=== PATIENT | female | born 2000 | race Caucasian/White ===

== ENCOUNTER 2024-11-21 23:11 | Emergency (ER) | payer OTHER, SELFPAY ==
[2024-11-21 23:20] VITALS: BP 130/84; PULSE 87; RESP 20; TEMP 36.8; O2SAT 97; BMI 49.9
--- NOTE | 2024-11-21 23:26 | CT_ITS ---
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 Radiation optimization: All CT scans at this facility use at least one of these dose optimization techniques: automated exposure control; mA and/or kV adjustment per patient size (includes targeted exams where dose is matched to clinical indication); or iterative reconstruction. COMPARISON: No relevant prior studies available. FINDINGS: Brain: No hemorrhage. Unremarkable white matter. No mass effect. Cerebral ventricles: Tip of shunt is projected over right lateral ventricle anterior horn. continuous shunt seen extending to visualized right proximal neck. Right lateral ventricle is collapsed. Remainder of ventricles grossly unremarkable. Paranasal sinuses: Visualized sinuses are unremarkable. No fluid levels. Mastoid air cells: Visualized mastoid air cells are well aerated. Bones: Unremarkable. No acute fracture. Soft tissues: Unremarkable. IMPRESSION: 1. Continuous shunt seen from right lateral ventricle anterior horn visualized right proximal neck. 2. 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
--- NOTE | 2024-11-21 23:26 | CT_ITS ---
PROCEDURE INFORMATION: Exam: CT Abdomen And Pelvis With Contrast Exam date and time: 11/22/2024 12:27 AM Age: 24 years old Clinical indication: Nausea and vomiting; Abdominal pain; Prior surgery; Surgery date: 1-6 months; Surgery type: Shunt; Additional info: R side abd pain, n/v, has vp packaging shunt since sept TECHNIQUE: Imaging protocol: Computed tomography of the abdomen and pelvis with contrast. Radiation optimization: All CT scans at this facility use at least one of these dose optimization techniques: automated exposure control; mA and/or kV adjustment per patient size (includes targeted exams where dose is matched to clinical indication); or iterative reconstruction. Contrast material: ISOVUE; Contrast volume: 75 ml; Contrast route: IV; COMPARISON: No relevant prior studies available. FINDINGS: Tubes, catheters and devices: Continuous shunt extending from visualized chest terminating in right lower quadrant/pelvis. Liver: Mild fatty infiltration. Measures 20 cm. No mass. Gallbladder and biliary ducts: Normal. No calcified stones. No ductal dilation. Pancreas: Normal. No ductal dilation. Spleen: Normal. No splenomegaly. Adrenal glands: Normal. No mass. Kidneys and ureters: No nephroureterolithiasis. No hydronephrosis. Stomach and bowel: Unremarkable. No obstruction. No mucosal thickening. Appendix: No evidence of appendicitis. Intraperitoneal space: Small fluid collection in dependent pelvis. No free air. Vasculature: Unremarkable. No abdominal aortic aneurysm. Lymph nodes: Unremarkable. No enlarged lymph nodes. Urinary bladder: Unremarkable as visualized. Reproductive: Unremarkable as visualized. Bones/joints: Unremarkable. No acute fracture. Soft tissues: Unremarkable. IMPRESSION: 1. No acute findings. 2. Continuous shunt seen from lower chest to termination in right lower quadrant/pelvis. 3. Hepatomegaly with fatty infiltration. 4. Small pelvic free fluid physiologic and/or related to shunt.
[2024-11-21 23:27] VITALS: BP 137/85; PULSE 79; RESP 16; TEMP 37.1; O2SAT 95
[2024-11-21 23:44] LABS: Basophils % 0.4 % (0.1-2.0); Eosinophils # 0.2 Kmm3 (0.0-0.4); Eosinophils % 2.1 % (0.1-12.0); Hematocrit 37.9 % (37.0-47.0); Hemoglobin 12.9 g/dL (12.2-16.2); Immature Granulocytes # 0.03 10^3uL; Immature Granulocytes % 0.4 %; Lymphocytes # 2.6 K/mm3 (0.7-4.5); Lymphocytes % 36.4 % (10-50); Mean Corpuscular Hemoglobin 29.3 pg (27.0-31.2); Mean Corpuscular Volume 85.9 fl (81-99); Mean Platelet Volume 9.1 fl (7.4-10.4); Monocytes # 0.5 K/mm3 (0.1-1.0); Monocytes % 7.1 % (1.7-9.3); Neutrophils # 3.9 K/mm3 (1.8-7.8); Neutrophils % 53.6 % (37.0-80.0); Nucleated Red Blood Cells # 0 10^3/uL; Nucleated Red Blood Cells % 0 %; Platelet Count 233 K/mm3 (142-424); Red Blood Count 4.41 M/mm3 (4.20-5.40); Red Cell Distribution Width 12.1 % (11.5-17.5); Red Cell Distribution Width-SD 38.5 fL; White Blood Count 7.2 K/mm3 (4.8-10.8)
[2024-11-21 23:45] LABS: Albumin Level 4.6 g/dl (3.5-5.0); Chloride 106 mmol/L (98-107); Sodium 137 mmol/L (136-145)
[2024-11-21 23:46] LABS: Potassium 4.2 mmoL/L (3.5-5.1)
[2024-11-21 23:48] LABS: Alanine Aminotransferase 55 U/L (12-78); Albumin/Globulin Ratio 1.6 (1.1-1.8); Alkaline Phosphatase 97 U/L (38-126); Anion Gap 10.2 mEq/L (5-15); Aspartate Amino Transferase 66 U/L (14-36); Blood Urea Nitrogen 16 mg/dl (7-17); Carbon Dioxide 25 mmol/L (22.0-30.0); Creatinine Clearance Estimated 85 mL/min (50-200); Estimated Glomerular Filt Rate 76 ml/min (>60); GFR (African American) 92 ML/MIN (>60); Globulin 2.8 g/dL (1.3-3.2); Lipase 77 U/L (23-300); Total Protein,Serum 7.4 g/dl (6.3-8.2)
[2024-11-21 23:49] LABS: Calcium 9.1 mg/dl (8.4-10.2); Glucose 95 mg/dl (74-100)
[2024-11-21 23:52] LABS: Bilirubin,Total 0.1 mg/dl (0.2-1.3)
[2024-11-22 00:02] LABS: Microscopic, Urine URINE MICROSCOPIC (MICROSCOPIC)
[2024-11-22 00:06] LABS: Urine Pregnancy, HCG Qual. Negative (Negative)
[2024-11-22] MEDS: LACTATED RINGERS 1000ML 1,000 ML 999 ML IV (00:18)
[2024-11-22] MEDS: KETOROLAC 30MG/ML VIAL 15 MG IV (00:18)
[2024-11-22] MEDS: ONDANSETRON 4MG/2ML VIAL 4 MG IV ×2 (00:18→03:02)
[2024-11-22 00:19] LABS: Appearance,Urine CLEAR (Clear); Bilirubin,Urine Negative (Negative); Blood, Urine Negative (Negative); Color,Urine YELLOW (Yellow); Glucose,Urine (UA) Negative (Negative); Ketones,Urine Negative (Negative); Leukocyte Esterase,Urine Negative (Negative); Nitrate,Urine Negative (Negative); Protein,Urine Negative (Negative); Specific Gravity, Urine >= 1.030 (1.005-1.030); Urobilinogen,Urine 0.2 EU/dl (0.2)
[2024-11-22 00:22] LABS: Bacteria,Urine 1+ /lpf
[2024-11-22 00:31] LABS: HIV Combo NEGATIVE (Negative)
[2024-11-22 00:39] LABS: Hepatitis C Ab Qual. W/ RFX NEGATIVE (Negative)
--- NOTE | 2024-11-22 01:10 | HMH.EDGENADL ---
Discharge Plan Disposition Chief Complaint: Abdominal Pain Referrals Follow up/Referrals: Provider,Referral, [Primary Care Provider] - See instructions Activity Restrictions/Add. Instructions Additional Instructions/Restrictions: Go directly to [facility] ER, do not make stops along the way. Do not eat or drink before arriving. Check in at the desk and tell them you are transferred from [facility]. Clinical Impressions Clinical Impression: Headache, Right upper quadrant abdominal pain, Nausea & vomiting, Slit ventricle syndrome Stand Alone Forms Stand Alone Forms: Transfer Record - ED Print Language Print Language: Kinyarwanda Discharge ED Provider: Lamine Godinez General Adult HPI General Chief complaint: Abdominal Pain Stated complaint: has a shunt, vomiting, R side pain Time Seen by Provider: 11/21/24 23:26 Mode of Arrival: Ambulatory Source of Information: Patient Description of Symptoms (Recalled from ER Triage Doc. by RN): Pt reports she is having right side pain and vomiting for approx 4 days. 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 She reports the pain is constant. She reports taking IBU 2x this date with no relief. History of Present Illness HPI narrative: 24-year-old female presents to the ER complaining of right upper quadrant abdominal pain as well as nausea and vomiting. Patient reportedly had a THREADER OPERATOR shunt placed at [facility] in March 2024. She was told if she had any problems to be seen. She reports that a few days before her right upper quadrant pain and nausea started she started having mild headaches. She reports the pain in the right upper quadrant is constant. It is not worsened or improved by anything. She has not noticed any changes with eating or drinking. She states she took ibuprofen twice prior to arrival without improvement of symptoms. She states she has not had any problems with her shunt previous to this. No fevers, chills, dizziness, numbness, tingling, weakness, chest pain, difficulty breathing, or other associated symptoms. Related Data Allergies Allergy/AdvReac Type Severity Reaction Status Date / Time No Known Allergies Allergy Verified 11/21/24 23:27 [facility] Disclaimer: The information contained in this section may have been updated after the patient was seen, as this information can be updated by other users. Social History Smoking Status: Never smoker alcohol intake: never current occupational status: other Travel in the last 8 weeks?: None ROS Obtained: Yes Systems reviewed as appropriate & no additional complaints except as documented Per HPI Physical Exam General General appearance: alert, in no apparent distress and obese Head Head exam: atraumatic and normocephalic Eye Eye exam: Present PERRL and EOMI ENT ENT exam: Present mucous membranes moist Neck Neck exam: Present normal inspection and full ROM; Absent tenderness Chest Chest inspection: Present symmetric chest wall rise Respiratory Respiratory exam: Present normal lung sounds bilaterally; Absent respiratory distress, wheezes or stridor Cardiovascular Cardiovascular exam: Present regular rate and normal rhythm Abdominal Exam Abdominal exam: Present soft and tenderness (Right upper quadrant, moderate); Absent distention, guarding or rebound Extremities Exam Extremities exam: Present full ROM; Absent edema Neurological Exam Neurological exam: Present alert, oriented X3, CN II-XII intact and normal gait; Absent motor sensory deficit Psychiatric Psychiatric exam: Present normal affect and normal mood Skin Skin exam: Present warm and dry Medical Decision Making Medical Records Screening: Per USPSTF and CDC recommendations, given the prevalence of disease in our region, it is our hospital?s policy to screen for HIV and viral Hepatitis for all patients aged 18 and over and those with ongoing risk factors. [place] Inquiry Pt receiving controlled substance: No Vital Signs: 11/21/24 23:20 11/21/24 23:27 11/22/24 01:12 Temperature 98.2 F 98.7 F Temperature Source Oral Oral Pulse Rate 79 86 Pulse Rate [Left] 87 Respiratory Rate 20 16 Blood Pressure 137/85 137/85 Blood Pressure [Right Arm] 130/84 Blood Pressure Mean [Right Arm] 99 Blood Pressure Source Automatic Cuff Blood Pressure Source [Right Arm] Automatic Cuff Blood Pressure Position [Right Arm] Sitting 02 Sat by Pulse Oximetry 97 95 99 Oxygen Delivery Method Room Air Room Air Lab Data Lab Results 11/21/24 23:25: WBC 7.2, RBC 4.41, Hgb 12.9, Hct 37.9, MCV 85.9, MCH 29.3, MCHC 34.0, RDW 12.1, Plt Count 233, MPV 9.1, Neut % (Auto) 53.6, Lymph % (Auto) 36.4, [place] % (Auto) 7.1, Eos % (Auto) 2.1, Baso % (Auto) 0.4, Neut # (Auto) 3.9, Lymph # (Auto) 2.6, [place] # (Auto) 0.5, Eos # (Auto) 0.2, Baso # (Auto) 0.0, Sodium 137, Potassium 4.2, Chloride 106, Carbon Dioxide 25, Anion Gap 10.2, BUN 16, Creatinine 0.90, Estimated Creat Clear 85, Estimated GFR 76, Est GFR ( Amer) 92, Glucose 95, Calcium 9.1, Total Bilirubin 0.1 L, AST 66 H, ALT 55, Alkaline Phosphatase 97, Total Protein 7.4, Albumin 4.6, Globulin 2.8, Albumin/Globulin Ratio 1.6, Lipase 77, HCV Ab [place] w/Rflx PCR Qn Negative, HIV Ag/Ab Combo Qual Negative 11/21/24 23:58: Urine Color Yellow, Urine Appearance Clear, Urine pH 6.0, Ur Specific [place] >= 1.030, Urine Protein Negative, Urine Glucose (UA) Negative, Urine Ketones Negative, Urine Blood Negative, Urine Nitrate Negative, Urine Bilirubin Negative, Urine Urobilinogen 0.2, Ur Leukocyte Esterase Negative, Ur Squamous Epith Cells 5-10, Urine Bacteria 1+, Urine HCG, Qual Negative 11/21/24 23:25 11/21/24 23:25 Orders (Tests/Meds): ED MEDICATIONS Generic Name Dose Route Start Last Admin Trade Name Freq PRN Reason Stop Dose Admin Sodium Chloride 10 ml 11/22/24 00:29 Sodium Chloride 0.9% 10ml Syr (Rad Only) IV 12/22/24 00:28 NEEDED PRN Maintain IV Site Discontinued Medications Generic Name Dose Route Start Last Admin Trade Name Freq PRN Reason Stop Dose Admin Lactated Ringer's 1,000 mls @ 999 mls/hr 11/21/24 23:26 11/22/24 00:18 Lactated Ringer's 1000 Ml Bag IV 11/22/24 00:26 999 mls/hr .Q1H1M ONE Administration Iopamidol 75 ml 11/22/24 00:29 Iopamidol-370 (76%);100ml Bottle IV 11/22/24 00:30 ONCE ONE Ketorolac Tromethamine 15 mg 11/21/24 23:47 11/22/24 00:18 Ketorolac 30mg/Ml Vial IV 11/21/24 23:48 15 mg ONCE ONE Administration Morphine Sulfate 4 mg 11/22/24 01:53 11/22/24 02:00 Morphine 4mg/Ml Syringe IV 11/22/24 01:54 4 mg ONCE ONE Administration Ondansetron HCl 4 mg 11/21/24 23:26 11/22/24 00:18 Ondansetron 4mg/2ml Vial IV 11/21/24 23:27 4 mg ONCE ONE Administration ORDERS Category Date Time Status CT abdomen pelvis w con Stat Cat Scan 11/21/24 23:[address] chest wo con Stat Cat Scan 11/22/24 01:[address] head/brain wo con Stat Cat Scan 11/21/24 23:26 Completed POCUS Point of Care (ER Only) Stat Exams 11/22/24 01:53 Ordered XR KUB Stat Exams 11/22/24 23:30 Completed XR cervical spine 2V Stat Exams 11/22/24 23:30 Completed XR chest portable Stat Exams 11/22/24 23:30 Completed XR skull <4V Stat Exams 11/22/24 23:30 Completed CBC w/Auto Diff [Complete Blood Count Auto Diff] Stat Lab 11/21/24 23:25 Completed CMP [Comprehensive Metabolic Panel] Stat Lab 11/21/24 23:25 Completed HIV Combo Stat Lab 11/21/24 23:25 Completed Hepatitis C Ab Qual. W/ RFX Stat Lab 11/21/24 23:25 Completed Lactic Acid Stat Lab 11/21/24 23:26 Ordered Lipase Stat Lab 11/21/24 23:25 Completed Urinalysis and Microscopic Stat Lab 11/21/24 23:58 Completed Urine , HCG Qual. Stat Lab 11/21/24 23:58 Completed Medical Decision Narrative: In summary, this 24 year old female with comorbidities described in the HPI presents to the emergency department today with right upper quadrant pain, nausea, vomiting for 4 days with associated headache that started a few days before the vomiting. On initial evaluation patient is hemodynamically stable, afebrile, GCS 15, no neurologic deficits, patient has tenderness to palpation of the right upper quadrant without rebound or guarding, remainder of exam benign. Differential diagnosis includes but is not limited to biliary colic, cholecystitis, cholelithiasis, transaminitis, pancreatitis, UTI, THREADER OPERATOR shunt malfunction, increased intracranial pressure, among others. Based on these concerns, I ordered serum labs, shunt imaging, CT imaging of the head and abdomen. Patient received IV fluids, Toradol, Zofran initially for treatment. These do not significantly control symptoms so she also received morphine. Labs personally reviewed demonstrate normal CBC, CMP overall unremarkable though patient does have mild AST elevation with AST 66. No other elevated transaminases. She reports no alcohol use. Lipase normal at 77. UA negative for findings of infection, test negative. All x-rays were personally interpreted, I do not appreciate acute abnormality however the shunt is not visible throughout the mid thoracic area. See radiology read for final interpretation. Because the shunt was not visible on this image, CT of the chest without contrast was added to workup after other CT imaging had already been performed to ensure that the shunt did not have discontinuity in this area. CT imaging personally interpreted demonstrates that the shunt appears intact throughout its course, the right ventricle is a slit ventricle where the shunt is present, there is a small amount of fluid at the distal end of the shunt in the abdomen which is appropriate, there does not appear to be obvious right upper quadrant pathology where the patient is having abdominal pain. See radiology read for final interpretation. Plan for bedside ultrasound performed and interpreted does not demonstrate obvious gallbladder pathology. See procedure note for details. On reassessment after receiving morphine patient has had some improvement of symptoms. She is resting more comfortably. Because I do not have an obvious diagnosis for her symptoms, I called [facility] and consulted with the patient's neurosurgeon Dr. Alonzo about her symptoms, workup, and results. She recommends the patient be transferred to ER for further evaluation of the shunt including to evaluate for possible infection or other malfunction. I appreciate her recommendations. I discussed that I have lower suspicion for infection since patient has not had fevers and has no leukocytosis but agree that I cannot fully evaluate the shunt in this facility. I was then connected with Dr. Reyes at the ER and discussed this case with him. He graciously accepted the patient for ER to ER transfer to [facility]. Since patient is ER to ER transfer, I recommended to her that she go by ambulance, she and family at bedside would prefer to go by private vehicle. Patient has no infectious signs or symptoms, vitals have been stable, overall her workup is relatively reassuring and she is stable without obvious immediate life-threatening pathology. I believe she is appropriate for private vehicle transport at this time since it is there desire and she has no ongoing treatments at this moment and is stable. Additionally, when I discussed transfer with the patient EMS was not yet back in [facility] which is further reason for her to go POV. IV was removed prior to patient leaving the ER since she was going by private vehicle. I gave the patient and family at bedside who would be driving her strict instructions to go directly from our ER to the [facility] ER, to not make stops along the way, and for the patient to remain n.p.o. until she was evaluated by their ER. Patient and family were given the transfer packet including all records from today's visit and imaging disc. Images were also PowerShared to . Patient and family were instructed where to go and what to do upon arrival to their ER including indicating to staff that they were a transfer from [facility]. They indicated understanding and are agreeable to this. Patient's fianc? at bedside will be driving her. Patient was immediately reassessed prior to transfer. She is a GCS 15, vitals are stable, resting comfortably at this time. Airway patent. IV has been removed. She is appropriate for transfer and was transferred to [facility] ER via private vehicle. Procedures Miscellaneous Procedure Procedure Performed: Limited RUQ ultrasound Indication: Right upper quadrant abdominal pain, nausea, vomiting Identified structures: -Gallbladder -Gallbladder wall -Common bile duct unable to be evaluated secondary to body habitus, bowel gas -Liver Findings: Sonographic Juarez sign: Present Gallstones: Absent Sludge: Absent Pericholecystic fluid: Absent Maximal GB wall thickness (mm): 1.9 mm Normal Common bile duct width (mm): Unable to be measured Gallbladder width (cm): Normal, 1.06 cm Normal Gallbladder length (cm): [normal is < 10cm] Normal Impression: Normal-appearing gallbladder Images were saved to permanent archive The study was technically adequate CPT 56935-89 This study was performed by me, and I personally interpreted all images/videos. Based on my clinical judgement, these images were adequate and did not necessitate further imaging. Critical Care Critical Care Time Critical Care Time: No
[2024-11-22 01:12] VITALS: BP 137/85; PULSE 86; O2SAT 99
--- NOTE | 2024-11-22 01:31 | CT_ITS ---
PROCEDURE INFORMATION: Exam: CT Chest Without Contrast; Diagnostic Exam date and time: 11/22/2024 1:37 AM Age: 24 years old Clinical indication: Other: N/v; Prior surgery; Surgery date: 1-6 months; Surgery type: Shunt; Additional info: Eval shunt continuity TECHNIQUE: Imaging protocol: Diagnostic computed tomography of the chest without contrast. Radiation optimization: All CT scans at this facility use at least one of these dose optimization techniques: automated exposure control; mA and/or kV adjustment per patient size (includes targeted exams where dose is matched to clinical indication); or iterative reconstruction. COMPARISON: CR XR CHEST PORTABLE 11/22/2024 12:33 AM FINDINGS: Lungs: Unremarkable. No consolidation. No masses. Pleural spaces: Unremarkable. No pneumothorax. No pleural effusion. Heart: Unremarkable. No cardiomegaly. No pericardial effusion. Coronary arteries: No atherosclerotic calcification of coronary arteries. Lymph nodes: Unremarkable. No enlarged lymph nodes. Vasculature: Unremarkable. No aortic aneurysm. Bones/joints: Unremarkable. No acute fracture. Soft tissues: Shunt discontinued visualized from neck to abdomen with abdomen CT showing continuity to right lower quadrant/pelvis. IMPRESSION: 1. Shunt continuity verified from neck to termination in abdomen. 2. No acute findings in chest.
[2024-11-22] MEDS: MORPHINE 4MG/ML SYRINGE 4 MG IV (02:00)
[2024-11-22] MEDS: MORPHINE 2MG/ML SYRINGE 2 MG IV (03:02)
--- NOTE | 2024-11-22 03:04 | PC.NURSE ---
Report called to ER spoke with Donavon FANG
[2024-11-22 03:09] VITALS: BP 137/85; PULSE 82; RESP 18; TEMP 36.6
--- NOTE | 2024-11-22 23:30 | XR_ITS ---
PROCEDURE INFORMATION: Exam: XR Chest Exam date and time: 11/22/2024 12:33 AM Age: 24 years old Clinical indication: Other: N/v; Prior surgery; Surgery date: 1-6 months; Surgery type: Shunt; Additional info: Shunt series TECHNIQUE: Imaging protocol: Radiologic exam of the chest. Views: 1 view. COMPARISON: CR XR CERVICAL SPINE 2V 11/22/2024 12:28 AM FINDINGS: Tubes, catheters and devices: Segment of shunt is projected over right lower neck and upper chest. No obvious shunt is seen distal to this. Lungs: Unremarkable. No consolidation. Pleural spaces: Unremarkable. No pleural effusion. No pneumothorax. Heart/Mediastinum: Unremarkable. No cardiomegaly. Bones/joints: Unremarkable. IMPRESSION: Shunt seen from right lower neck to upper chest. No radiopaque shunt seen in mid to lower chest.
--- NOTE | 2024-11-22 23:30 | XR_ITS ---
PROCEDURE INFORMATION: Exam: XR Skull Exam date and time: 11/22/2024 12:27 AM Age: 24 years old Clinical indication: Other: N/v; Prior surgery; Surgery date: 1-6 months; Surgery type: Shunt; Additional info: Shunt series TECHNIQUE: Imaging protocol: XR of the skull. Views: Less than 4 views. COMPARISON: CT HEAD/BRAIN WO CON 11/22/2024 12:14 AM FINDINGS: Paranasal sinuses: Well aerated. Bones/joints: Shunt seen from mid skull to proximal neck. Soft tissues: Unremarkable. IMPRESSION: Shunt visualized from mid skeletal proximal without loss of continuity.
--- NOTE | 2024-11-22 23:30 | XR_ITS ---
PROCEDURE INFORMATION: Exam: XR Abdomen Exam date and time: 11/22/2024 12:34 AM Age: 24 years old Clinical indication: Nausea; Additional info: Shunt series TECHNIQUE: Imaging protocol: Radiologic exam of the abdomen. Views: Frontal supine view of the abdomen. 1 View. COMPARISON: CT ABDOMEN PELVIS W CON 11/22/2024 12:27 AM FINDINGS: Tubes, catheters and devices: Segment of shunt is seen in from lower chest extending to right hemiabdomen with shunt tip projected in right lower quadrant. Gastrointestinal tract: Normal. No bowel dilation. Bones/joints: Unremarkable. IMPRESSION: Shunt seen from right lower chest terminating in right lower quadrant.
--- NOTE | 2024-11-22 23:30 | XR_ITS ---
PROCEDURE INFORMATION: Exam: XR Cervical Spine Exam date and time: 11/22/2024 12:28 AM Age: 24 years old Clinical indication: Other: N/v shunt; Prior surgery; Surgery date: 1-6 months; Additional info: Shunt series TECHNIQUE: Imaging protocol: Radiologic exam of the cervical spine. Views: 2 or 3 views. COMPARISON: CR XR SKULL <4V 11/22/2024 12:27 AM FINDINGS: Bones/joints: Segment of shunt seen projected over right skull base extending into right chest. Soft tissues: Unremarkable. IMPRESSION: Shunt seen from right skull to visualized upper chest.
== END 2024-11-22 03:12 | disposition other institution (70) ==
PROVIDERS: Emergency Provider Emergency Medicine
DX: R10.11 Right upper quadrant pain (principal); R51.9 Headache, unspecified; R11.2 Nausea with vomiting, unspecified; T85.890A Other specified complication of nervous system prosthetic devices, implants and grafts, initial encounter
CPT/HCPCS: 70250; 70450; 71045; 71250; 72040; 74018; 74177; 80053; 81001; 81025; 83690; 85025; 86803; 87389; 96361; 96374; 96375; 96376; 99285; J1885; J2270; J2405; J7120

== ENCOUNTER 2024-12-02 08:25 | Outpatient (CLI) | payer OTHER, SELFPAY ==
--- NOTE | 2024-12-02 08:28 | US_ITS ---
FINAL REPORT CLINICAL HISTORY: RUQ PAIN FINDINGS: RIGHT UPPER QUADRANT ULTRASOUND Technique: Ultrasound images of the right upper quadrant were obtained. Limited images of the liver parenchyma is normal in echogenicity. The gallbladder is well visualized and the wall appears normal. There are no gallstones. Common duct is normal. The right kidney is unremarkable. IMPRESSION: No acute process Reviewed, Interpreted and Dictated by Holden Shultz MD Transcribed by Gaby Simon Authenticated and . [facility]
== END 2024-12-02 23:59 | disposition home or self-care (01) ==
LOC: RAD 08:26
PROVIDERS: PCP Nurse Practitioner Family; Visit Provider Nurse Practitioner Family
DX: R10.11 Right upper quadrant pain (principal)
CPT/HCPCS: 76705

== ENCOUNTER 2024-12-12 07:02 | Outpatient (CLI) | payer OTHER, SELFPAY ==
--- NOTE | 2024-12-12 07:12 | NM_ITS ---
FINAL REPORT CLINICAL HISTORY: ACUTE ABD PAIN FINDINGS: Sequential anterior projection images of the abdomen were obtained after the intravenous injection of 8.17 mCi technetium 99m Choletec. There is normal uptake of radiotracer by the liver. The bile ducts are visualized by 10 minutes. Gallbladder activity is seen by 5 minutes. Small bowel activity is normal. After 1 hour, 2.8 ?g of CCK was injected intravenously for calculation of gallbladder ejection fraction. The gallbladder ejection fraction is 87%, which is within normal limits. IMPRESSION: No evidence of cystic duct or bile duct obstruction. Normal gallbladder ejection fraction of 87%. Reviewed, Interpreted and Dictated by Letty Coe MD Transcribed by Amanda Milian Authenticated and . [facility]
[2024-12-12] MEDS: SODIUM CHLORIDE 0.9% 10ML SYR (RAD ONLY) 10 ML IV (07:25)
[2024-12-12] MEDS: SINCALIDE 2.8 MCG in 0.9 % SODIUM CHLORIDE 50 ML 100 MCG IV (08:30)
[2024-12-12] MEDS: ISOTOPE CHOLETECH;1 DOSE (UP TO 15 MCI) IV (09:37)
== END 2024-12-12 23:59 | disposition home or self-care (01) ==
LOC: RAD 07:03
PROVIDERS: PCP Nurse Practitioner Family; Visit Provider Nurse Practitioner Family
DX: R10.9 Unspecified abdominal pain (principal)
CPT/HCPCS: 78227; A9537; J2805

== ENCOUNTER 2025-01-03 13:27 | Emergency (ER) | payer OTHER, SELFPAY ==
--- OUTSIDE RECORDS SUMMARY | 2008-10-01 08:30 | XMS_ITS | Continuity of Care Document ---
Author Organization [facility] Address [address] [place] [address] Phone Care Team Providers Care Clinical Documentation Clerk Name Role Phone Unavailable Unavailable Unavailable Procedures Procedure Date CHILD PROPHYLAXIS(Under 14) TOPICAL APPL OF FLUORIDE:CHILD 09 COMPR ORAL EVAL:NEW/EST BITEWIN FILMS PANORAMIC FILM Advance Directives Directive Yes / No Effective Date File Name No Information Encounters Encounter Description Practice Location Reason(s) For Visit Diagnoses Date Provider Providers Copied on Encounter [facility], [address] [facility] [address], [place], [place], [id number], tel:[phone] [facility] No Information 200 9 No Information [facility], [address], [place], [id number], tel:[phone] [facility] No Information 200 9 No Information Family History Family Member Type Diagnosis Age At Onset No Information Payers Payer name Insurance type Covered republican ID Authorfrank sanchez(s) Donavan Zarate [facility] [id number] [facility] [id number] Social History Type Description Quantity Date Captured [...]
--- OUTSIDE RECORDS SUMMARY | 2024-11-22 04:46 | XMS_ITS | Encounter Summary ---
Author Organization [facility] Address [address] [place] [address] Care Team Providers Care Powerhouse Engineer Name Role Phone KendrickAngelica corey JAYNA Primary Care Provider [phone] Source Comments This information has been disclosed [...] release of HIV test results or diagnoses. [id number] Reason for Visit * Reason Comments Medical Problem Encounter Details Date Type Department Care Team (Late st Contact Info) Description 11/22/2024 4:46 AM EDT - 11/22/2024 10:02 AM EDT Emergency [facility] Emergency Department [address] [place] [phone] Ravin Reyes MD [address] [place] [phone] Right flank pain (Primary Dx); Blurred vision [...] tablet 1 08/06/2024 naloxone (NARCAN) 4 mg/actuation [place] Apply 1 spray in one nostril if [...] Mccann MD - 11/22/2024 6:59 AM EDT [facility] ED Reassessment Note Susan Art is a [...] in this encounter H&P Notes * Ritchie Ojeda MD - 11/22/2024 5:02 AM EDT [facility] ED Note Date of Service: 11/22/2024 Reason for Visit: No chief complaint on file. Patient History HPI Susan Art is a 24 y.o. female with a history of IIH s/p VPS placement in 03/2024 who presents to the ED for evaluation of R flank pain and concern for shunt malfunction. Patient arrives as a transfer from [facility] for neurosurgery evaluation due to c/f shunt [...] Morbid obesity with BMI of 50.0-59.9, adult ([facility]) PCOS (polycystic ovarian syndrome) PONV (postoperative nausea and vomiting) Transient elevated blood pressure Past Surgical History: Procedure Laterality Date ANKLE SURGERY Left 2020 right done 2019, right done again in 2020 EYE SURGERY FOOT SURGERY INSERTION SHUNT ACTUARIAL TRAINEE LAPAROSCOPIC ASSISTED Right 03/12/2024 Procedure: INSERTION SHUNT ACTUARIAL TRAINEE LAPAROSCOPIC ASSISTED WITH BRAIN LAB-; Surgeon: Michaela [...] typographic errors. Ritchie Ojeda MD Resident 11/28/24 [id number] Cosigned by Ravin Reyes MD at 11/29/2024 12:20 PM EDT documented in this encounter Consult Notes * Brendon Bush MD - 11/22/2024 7:30 AM EDTAssociated Order(s): ED CONTACT PROVIDER [facility] Ophthalmology ED Consultation Susan is a [...] Morbid obesity with BMI of 50.0-59.9, adult ([facility]) PCOS (polycystic ovarian syndrome) PONV (postoperative nausea [...] Vessels Normal Normal Periphery Normal Normal Assessment/Plan: [facility] s/p VPS - presents with 1 week [...] Morse MD - 11/22/2024 5:25 AM EDT [facility] DEPARTMENT OF NEUROSURGERY INPATIENT CONSULTATION Susan Art [id number] 2000 Neurosurgery Attending: MD Cheri Primary Care [...] Morbid obesity with BMI of 50.0-59.9, adult ([facility]) PCOS (polycystic ovarian syndrome) PONV (postoperative nausea and vomiting) Transient elevated blood pressure Past Surgical History: Procedure Laterality Date ANKLE SURGERY Left 2020 right done 2019, right done again in 2020 EYE SURGERY FOOT SURGERY INSERTION SHUNT ACTUARIAL TRAINEE LAPAROSCOPIC ASSISTED Right 03/12/2024 Procedure: INSERTION SHUNT ACTUARIAL TRAINEE LAPAROSCOPIC ASSISTED WITH BRAIN LAB-; Surgeon: Michaela Alonzo MD; Location: [facility]; Service: Neurosurgery; Laterality: Right; TONSILLECTOMY AND [...] hours as needed. naloxone (NARCAN) 4 mg/actuation [place] Apply 1 spray in one nostril if [...] for: PHART , PCO2 , PO2ART , [id number] , BEART , [id number] , [id number] Lab Results Component Value Date ABS Negative [...] hesitate to contact the neurosurgery residenton call, [phone]. Fe Morse MD Neurosurgery Resident 5:26 AM [...] in neurosurgery clinic Michaela Alonzo MD, PhD Toolmaker, Department of Neurosurgery Director, [facility] documented in this encounter Nursing Notes * Hilda Delaney RN - 11/22/2024 4:53 AM EDT Patient from OSH for ACTUARIAL TRAINEE shunt problem. Patient is endorsing generalized body [...] shunt failure Check position and configuration of ACTUARIAL TRAINEE shunt catheter. COMPARISON: 08/08/2024 FINDINGS: There is [...] shunt failure Check position and configuration of ACTUARIAL TRAINEE shuntcatheter. COMPARISON: 08/08/2024 FINDINGS: There is a [...] EDT Fe Morse MD IM DIAGNOSTIC IMAGING [place] Final Result documented in this encounter Visit [...] documented as of this encounter Care Teams Powerhouse Engineer Relationship Specialty Start Date End Date Angleica Marks NP [address] [place] [address] PCP - General Nurse Practitioner 05/13/21 documented as of this encounter
--- OUTSIDE RECORDS SUMMARY | 2024-12-12 14:49 | XMS_ITS | Encounter Summary ---
Author Organization [facility] Address [facility] [place] [address] Care Team Providers Care Reinsurance Claims Analyst Name Role Phone KendrickAngelica corey JAYNA Primary Care Provider [phone] Source Comments This information has been disclosed [...] release of HIV test results or diagnoses. [id number] Health Encounter Details Date Type Department Care Team (Latest Contact Info) Description 12/12/2024 2:49 PM EDT - 12/12/2024 11:59 PM EDT Hospital Encounter [facility] Radiology [address] [place] [address] System, Provider Not In Discharge Disposition: Home [...] tablet 1 08/06/2024 naloxone (NARCAN) 4 mg/actuation [place] Apply 1 spray in one nostril if [...] documented as of this encounter Care Teams Reinsurance Claims Analyst Relationship Specialty Start Date End Date Angelica Marks NP [address] [place] [address] PCP - General Nurse Practitioner 05/13/21 documented as of this encounter
--- OUTSIDE RECORDS SUMMARY | 2024-12-12 14:49 | XMS_ITS | Encounter Summary ---
Author Organization [facility] Address [facility] [place] [address] Care Team Providers Care Associate Java Developer Name Role Phone KendrickAngelica corey JAYNA Primary Care Provider [phone] Source Comments This information has been disclosed [...] release of HIV test results or diagnoses. [id number] Health Encounter Details Date Type Department Care Team (Latest Contact Info) Description 12/12/2024 2:49 PM EDT - 12/12/2024 11:59 PM EDT Hospital Encounter [facility] Radiology [address] [place] [address] System, Provider Not In Discharge Disposition: Home [...] tablet 1 08/06/2024 naloxone (NARCAN) 4 mg/actuation [place] Apply 1 spray in one nostril if [...] documented as of this encounter Care Teams Associate Java Developer Relationship Specialty Start Date End Date Angelica Marks NP [address] [place] [address] PCP - General Nurse Practitioner 05/13/21 documented as of this encounter
--- OUTSIDE RECORDS SUMMARY | 2024-12-12 14:49 | XMS_ITS | Encounter Summary ---
Author Organization [facility] Address [facility] [place] [address] Care Team Providers Care Bench Worker Apprentice Name Role Phone KendrickAngelica corey JAYNA Primary Care Provider [phone] Source Comments This information has been disclosed [...] release of HIV test results or diagnoses. [id number] Health Encounter Details Date Type Department Care Team (Latest Contact Info) Description 12/12/2024 2:49 PM EDT - 12/12/2024 11:59 PM EDT Hospital Encounter [facility] Radiology [address] [place] [address] System, Provider Not In Discharge Disposition: Home [...] tablet 1 08/06/2024 naloxone (NARCAN) 4 mg/actuation [place] Apply 1 spray in one nostril if [...] documented as of this encounter Care Teams Bench Worker Apprentice Relationship Specialty Start Date End Date Angelica Marks NP [address] [place] [address] PCP - General Nurse Practitioner 05/13/21 documented as of this encounter
--- OUTSIDE RECORDS SUMMARY | 2024-12-12 14:49 | XMS_ITS | Encounter Summary ---
Author Organization [facility] Address Formerly named [facility] [place] [address] Care Team Providers Care Fire Operations Forester Name Role Phone KendrickAngelica corey JAYNA Primary Care Provider [phone] Source Comments This information has been disclosed [...] release of HIV test results or diagnoses. [id number] Health Encounter Details Date Type Department Care Team (Latest Contact Info) Description 12/12/2024 2:49 PM EDT - 12/12/2024 11:59 PM EDT Hospital Encounter [facility] Radiology [address] [place] [address] System, Provider Not In Discharge Disposition: Home [...] tablet 1 08/06/2024 naloxone (NARCAN) 4 mg/actuation [place] Apply 1 spray in one nostril if [...] documented as of this encounter Care Teams Fire Operations Forester Relationship Specialty Start Date End Date Angelica Marks NP [address] [place] [address] PCP - General Nurse Practitioner 05/13/21 documented as of this encounter
--- OUTSIDE RECORDS SUMMARY | 2024-12-12 14:49 | XMS_ITS | Encounter Summary ---
Author Organization [facility] Address [facility] [place] [address] Care Team Providers Care Wharf Tender Head Name Role Phone KendrickAngelica corey JAYNA Primary Care Provider [phone] Source Comments This information has been disclosed [...] release of HIV test results or diagnoses. [id number] Health Encounter Details Date Type Department Care Team (Latest Contact Info) Description 12/12/2024 2:49 PM EDT - 12/12/2024 11:59 PM EDT Hospital Encounter [facility] Radiology [address] [place] [address] System, Provider Not In Discharge Disposition: Home [...] tablet 1 08/06/2024 naloxone (NARCAN) 4 mg/actuation [place] Apply 1 spray in one nostril if [...] documented as of this encounter Care Teams Wharf Tender Head Relationship Specialty Start Date End Date Angelica Marks NP [address] [place] [address] PCP - General Nurse Practitioner 05/13/21 documented as of this encounter
--- OUTSIDE RECORDS SUMMARY | 2024-12-12 14:49 | XMS_ITS | Encounter Summary ---
Author Organization [facility] Address [facility] [place] [address] Care Team Providers Care Reach Lift Truck Driver Name Role Phone KendrickAngelica corey JAYNA Primary [...] release of HIV test results or diagnoses. [id number] Health Encounter Details Date Type Department Care Team (Latest Contact Info) Description 12/12/2024 2:49 PM EDT - 12/12/2024 11:59 PM EDT Hospital Encounter [facility] Radiology [address] [place] [address] System, Provider Not In Discharge Disposition: Home [...] tablet 1 08/06/2024 naloxone (NARCAN) 4 mg/actuation [place] Apply 1 spray in one nostril if [...] documented as of this encounter Care Teams Reach Lift Truck Driver Relationship Specialty Start Date End Date Angelica Marks NP [address] [place] [address] PCP - General Nurse Practitioner 05/13/21 documented as of this encounter
--- OUTSIDE RECORDS SUMMARY | 2024-12-12 14:49 | XMS_ITS | Encounter Summary ---
Author Organization [facility] Address [facility] [place] [address] Care Team Providers Care Bundle Breaker Name Role Phone KendrickAngelica corey JAYNA Primary [...] release of HIV test results or diagnoses. [id number] Health Encounter Details Date Type Department Care Team (Latest Contact Info) Description 12/12/2024 2:49 PM EDT - 12/12/2024 11:59 PM EDT Hospital Encounter [facility] Radiology [address] [place] [address] System, Provider Not In Discharge Disposition: Home [...] tablet 1 08/06/2024 naloxone (NARCAN) 4 mg/actuation [place] Apply 1 spray in one nostril if [...] documented as of this encounter Care Teams Bundle Breaker Relationship Specialty Start Date End Date Angelica Marks NP [address] [place] [address] PCP - General Nurse Practitioner 05/13/21 documented as of this encounter
[2025-01-03 13:58] VITALS: BP 145/93; PULSE 72; RESP 18; TEMP 36.8; O2SAT 99; BMI 51.5
--- OUTSIDE RECORDS SUMMARY | 2025-01-03 14:09 | XMS_ITS | Continuity of Care Document ---
Author Organization [facility] Address [address] [place] [address] Assessment No assessment recorded. Plan of Treatment Reminders Order Date Submit Date Provider Last Modified By Organization Details Last Modified Time Details Appointments None recorded. Lab None recorded. Referral neurologic al surgeon referral - Jett Johnson- may need her records from and [facility] from resent er visit- having alot of symptoms 2024 025 [facility], [address], [address], [place], [address], 14:49:48 Procedures None recorded. Surgeries None recorded. Imaging US, marge r 2024 025 [facility] ([facility]), [address], [place], [address], 11:04:43 Medication Orders Voltaren Arthritis Pain 1 % topical gel 2024 025 [facility], [address], [address], [place], [address], 12:19:22 Patient TargetsNo targets recorded. Patient Instructions Encounter Date Encounter Id Patient Instructions Last Modified By Organization Details Last Modified Time 11/25/2024 [id number] body mass index: care instructions efryman Not available 11/25/2024 12:11:34 learning about healthy weight efryman Not available 11/25/2024 12:11:34 Reason for Referral Neurological Surgeon Referra l for Ventriculoperitoneal shunt in situ Jett Given- may need her records from and [facility] from resent er visit- having alot of symptoms Referring Physician: Key Jack, Family Medicine, Encounter Date: 11/25/2024 Results Created Date Observation Date Name Description Value Unit Range Abnormal Flag Note LastModifiedBy Organization Detail LastModifiedTime 12/03/19 25 12/02/2024 US, shruthi sarah r No observ ation record ed. [facility] [address], [place], [address], 12/08/2024 09:33:31 12/13/19 25 12/12/2024 NM, hepat obili simona scan, w/pha rm No observ ation record ed. [facility] [address], [place], [address], 12/12/2024 13:48:40 Result Notes None recorded. Problems Name Problem SNOMED Code Status Onset Date Resolution Date Notes Provider Name and Address Organization Details Recorded Time Obesity 274628552 Active 2017 India Sutherland MD [address], [place], [address] , [place] - [facility] 3 19:11:02 Irregular periods 34521551 Completed 201704/15/2018 Mattie Berman APRN [address], [place], [address] , [place] [facility] 8 08:27:45 Oligomenor mega 54064435 Completed 201708/04/2022 India Sutherland MD [address], [place], [address] , [place] [facility] 3 19:10:54 Female hirsutism 55317540 Active 2017 India Sutherland MD [address], [place], [address] , [place] [facility] 3 19:11:05 Hyperlipid emia 10611696 Active 2017 Mattie Berman APRN [address], [place], [address] , [place] - [facility] 8 13:42:09 Chlamydial infection 581891786 Completed 201902/27/2020 Keiry Aden null, [place] - [facility] 0 10:22:15 Polycystic ovary syndrome 897907564 Active 2019 India Sutherland MD [address], [place], [address] , [place] - [facility] 3 19:10:59 History of chlamydial infection 318594370 Active 2019 Keiry Aden null, [place] - [facility] 0 10:22:21 Infertile 3988305 Active 2022 India Sutherland MD [address], [place], [address] , [place] - [facility] 3 19:11:11 Trying to conceive 616097389 Active 2022 India Sutherland MD [address], [place], [address] , [place] - [facility] 3 19:11:18 Mass of body structure 154216537 Active 2024 India Sutherland MD [address], [place], [address] , [place] - [facility] 5 17:11:08 Problem Notes None recorded. Procedures Surgical History Date Name Laterality Status Provider Name and Address Organization Details Recorded Time 11/28/19 24 procedure on brain ventricular shunt completed Aide Carlin [place] - [facility] 11/27/2024 15:38:59 08/04/19 23 Date of Last Pap Smear completed India Sutherland MD [address], [place], [address], [place] - [facility] 08/16/2022 08:34:46 09/18/19 20 procedure on ankle completed Aide Dixon [place] - [facility] 01/05/2020 13:08:07 07/09/19 17 Tonsillectomy completed Keiry Aden [place] - [facility] 04/12/2018 16:17:36 Imaging Results None recorded. Procedure Notes None recorded. Medical Equipment None Reported. Allergies No known drug allergies Medications Name Sig Start Date Stop Date Status Note LastModified by Organization Details LastModified Time Tussin DM 10 mg-100 mg/5 mL oral syrup TAKE TWO TEASPOONF ULS (10ML) BY MOUTH EVERY 4 TO 6 HOURS 12/27 completed Not Available Not Available Not Available metformin 500 mg tablet Take 1 tablet every day by oral route for 30 days. 08/02 completed Not Available Not Available Not Available azithromyci n 250 mg tablet TAKE 2 TABLETS BY MOUTH THE FIRST DOSE ON DAY ONE, THEN TAKE 1 TABLET DAILY FOR 4 MORE DAYS. 12/27 completed Not Available Not Available Not Available ibuprofen 800 mg tablet TAKE ONE TABLET BY MOUTH THREE TIMES A DAY NEEDED 08/02 completed Not Available Not Available Not Available acetazolami de ER 500 mg capsule,ext ended release TAKE ONE CAPSULE BY MOUTH TWO TIMES A DAY 08/02 completed Not Available Not Available Not Available sumatriptan 100 mg tablet TAKE ONE TABLET BY MOUTH TWO TIMES A DAY NEEDED FOR MIGRAINE, NO MORE THAN TWO PER DAY, MUST WAIT TWO HOURS BETWEEN DOSES 08/02 completed Not Available Not Available Not Available hydrocodone 5 mg-acetamin ophen 325 mg tablet 08/02 completed Not Available Not Available Not Available meloxicam 15 mg tablet TAKE ONE TABLET BY MOUTH EVERY DAY 08/02 completed Not Available Not Available Not Available sumatriptan 25 mg tablet TAKE 1 TABLET BY MOUTH AT ONSET OF MIGRAINE, MAY REPEAT DOSE IN 2 HOURS IF MIGRAINE IS STILL PRESENT, DO NOT EXCEED 50 MG IN 24 HOURS 08/02 completed Not Available Not Available Not Available ondansetron HCl 4 mg tablet 07/15 completed Not Available Not Available Not Available prednisone 20 mg tablet TAKE ONE TABLET BY MOUTH TWO TIMES A DAY FOR FIVE DAYS 08/02 completed Not Available Not Available Not Available spironolact one 100 mg tablet Take 1 tablet every day by oral route for 30 days. 08/02 completed Not Available Not Available Not Available atenolol 25 mg tablet TAKE ONE TABLET BY MOUTH EVERY DAY 08/02 completed Not Available Not Available Not Available spironolact one 25 mg tablet 11/12 completed Not Available Not Available Not Available butalbital- acetaminoph en-caffeine 50 mg-325 mg-40 mg tablet TAKE ONE TABLET BY MOUTH EVERY DAY NEEDED FOR HEADACHE 01/04 completed Not Available Not Available Not Available oxycodone-a cetaminophe n 5 mg-325 mg tablet 01/04 completed Not Available Not Available Not Available doxycycline monohydrate 100 mg capsule Take 1 capsule twice a day by oral route for 7 days. 02/26 completed Not Available Not Available Not Available cephalexin 500 mg capsule 12/27 completed Not Available Not Available Not Available ranitidine 150 mg tablet Take 1 tablet twice a day by oral route for 30 days. 01/04 completed Not Available Not Available Not Available promethazin e 25 mg tablet 01/04 completed Not Available Not Available Not Available Banophen 25 mg capsule 08/02 completed Not Available Not Available Not Available ibuprofen 600 mg tablet TAKE ONE TABLET BY MOUTH FOUR TIMES DAILY NEEDED FOR PAIN 08/02 completed Not Available Not Available Not Available Pepcid 20 mg tablet Take 1 tablet twice a day by oral route for 30 days. 08/02 completed Not Available Not Available Not Available methylpredn isolone 4 mg tablets in a dose pack 04/12 completed Not Available Not Available Not Available topiramate 100 mg tablet TAKE ONE TABLET BY MOUTH TWO TIMES A DAY 08/02 completed Not Available Not Available Not Available fluticasone propionate 50 mcg/actuati on nasal spray,suspe nsion 08/02 completed Not Available Not Available Not Available naproxen 500 mg tablet prn 08/02 completed Not Available Not Available Not Available spironolact one 50 mg tablet Take 1 tablet every day by oral route. 01/04 completed Not Available Not Available Not Available amoxicillin 875 mg-potassiu m clavulanate 125 mg tablet 08/02 completed Not Available Not Available Not Available Vitamin 27 mg iron-0.8 mg tablet TAKE ONE TABLET BY MOUTH EVERY DAY 11/25 completed Not Available Not Available Not Available Sprintec (28) 0.25 mg-0.035 mg tablet Take 1 tablet every day by oral route. 01/04 completed Not Available Not Available Not Available topiramate 50 mg tablet TAKE 3 TABLETS (150 MG TOTAL) BY MOUTH 2 TIMES A DAY. 08/02 completed Not Available Not Available Not Available drospirenon e 3 mg-ethinyl estradiol 0.02 mg tablet Take 1 tablet every day by oral route. 08/02 completed Not Available Not Available Not Available [facility] DMT 30 mg-30 mg tablet 08/02 completed Not Available Not Available Not Available Voltaren Arthritis Pain 1 % topical gel APPLY 2 GRAMS TO THE AFFECTED AREA(S) BY TOPICAL ROUTE 4 TIMES PER DAY 2024 active Not Available Not Available Not Avai lable Vitals Date Recorded Body weight Heart rate Oxygen saturation Oxygen saturation in Arterial blood by Pulse oximetry Respiratory rate Body mass index (BMI) Body height Systolic And Diastolic Provider Name and Address Organization Details Last Updated DateTime 5 031729. 67 g 76 /min 99 % 99 % 18 /min 50.8 kg/m2 165.1 cm 110/78 mm[Hg] Gunjan Pérez [place] - [facility] 5 10:47:44 Social History Question Answer Notes LastModified by Organizat ion Details LastModified Time Tobacco Smoking Status Never Smoker Keiry williamson, [place] - [facility] 04/12/2018 16:15:29 Do You Have An Advance Directive? No [email or web address] Information not available 04/12/2018 Are You Blind Or Do You Have Difficulty Seeing? No [email or web address] Information not available 04/12/2018 Is Blood Transfusion Acceptable In An Emergency? Yes Information not available 04/12/2018 What Is Your Level Of Caffeine Consumption? Moderate [email or web address] Information not available 04/12/2018 How Much Tobacco Do You Chew? None [email or web address] Information not available 04/12/2018 Are You Deaf Or Do You Have Serious Difficulty Hearing? No [email or web address] Information not available 04/12/2018 What Type Of Diet Are You Following? REGULAR [email or web address] Information not available 04/12/2018 Which Illicit Or Recreational Drugs Have You Used? None Information not available 04/12/2018 What Is The Highest Grade Or Level Of School You Have Completed Or The Highest Degree You Have Received? HE50466-3 [email or web address] Information not available 04/12/2018 How Many Days Of Moderate To Strenuous Exercise, Like A Brisk Walk, Did You Do In The Last 7 Days? 1 Information not available 04/12/2018 On Those Days That You Engage In Moderate To Strenuous Exercise, How Many Minutes, On Average, Do You Exercise? 1 [email or web address] Information not available 04/12/2018 How Hard Is It For You To Pay For The Very Basics Like Food, Housing, Medical Care, And Heating? 1 Information not available 04/12/2018 Live Alone Or With Others? With Others Parents [email or web address] Information not available 04/12/2018 Last Menstrual Period? 12/18/2019 [email or web address] Information not available 01/05/2020 What Was The Date Of Your Most Recent Tobacco Screening? 11/25/2024 Information not available 11/25/2024 How Many Children Do You Have? 1 [email or web address] Information not available 01/05/2020 Performs Monthly Self-breast Exam? No Information no t available 04/12/2018 Do You Use Protection During Sex? No [email or web address] Information not available 04/12/2018 What Is Your Relationship Status? Domestic Partner [email or web address] Information not available 11/27/2024 Seat Belts Used Routinely Yes [email or web address] Information not available 04/12/2018 Are You Sexually Active? Yes [email or web address] Information not available 04/12/2018 How Much Tobacco Do You Smoke? No [email or web address] Information not available 01/05/2020 General Stress Level Low [email or web address] Information not available 04/12/2018 Do You Use Sunscreen Routinely? No [email or web address] Information not available 04/12/2018 Has Tobacco Cessation Counseling Been Provided? No Information not available 11/25/2024 How Many Years Have You Smoked Tobacco? 0 Information not available 01/05/2020 Do You Have Difficulty Walking Or Climbing Stairs? No [email or web address] Information not available 04/12/2018 Sex: Female Functional Status Question Answer Note LastModified by Organizat ion Details LastModified Time What is your level of alcohol consumption? None [email or web address] Information not available 04/12/2018 Do you or have you ever used smokeless tobacco? Never used [email or web address] tobacco Information not available 01/05/2020 Are you currently employed? Yes [email or web address] Information not available 04/12/2018 Urinary incontinence assessment performed? Yes [email or web address] Information not available 04/12/2018 Are you able to walk? YESWOREST [email or web address] Information not available 04/12/2018 Do you have difficulty doing errands alone? No [email or web address] Information not available 04/12/2018 What is your occupation? unemployed [email or web address] Information not available 01/05/2020 Do you have difficulty dressing or bathing? No [email or web address] Information not available 04/12/2018 Do you or have you ever used e-cigarettes or vape? Never used electronic cigarettes [email or web address] Information not available 01/05/2020 What is your exercise level? None [email or web address] Information not available 04/12/2018 Mental Status Question Answer Note LastModified by Organization D etails LastModified Time Do you feel stressed (tense, restless, nervous, or anxious, or unable to sleep at night)? 1 [email or web address] Information not available 04/12/2018 Do you have difficulty concentrating, remembering or making decisions? No Information no t available 04/12/2018 Family History Relationship Description Onset Age of this Age Resolved Age Notes LastModified by Organization Details LastModified Time Father Diabetes mellitus [email or web address] Not available 04/12 16:14:40 Father Hypertensive disorder [email or web address] Not available 11/07 15:36:29 Maternal Grandfather Heart disease Not available 04/12 16:14:54 Maternal Grandfather Myocardial infarction [email or web address] Not available 11/2017 16:15:01 Maternal Grandmother Malignant tumor of breast [email or web address] Not available 2019 13:09:56 Sister Neoplasm of gallbladder [email or web address] Not available 15:36:14 Medical History Condition Response Pancreatitis N Other N Atrial Fibrillation N congenital heart disease N Blood Diseases N Hyperthyroidism N Rheumatoid arthritis N Blood Transfusion N Erectile Dysfunction N amputation N Skin Lesions N Depression N Pneumonia N Incontinence N Murmur N Edema N Alzheimer's Disease N Migraine Headaches N Tobacco Abuse N Anxiety Disorder N Hemorrhoids N Obesity Y Vision or Eye Problems N Restless Leg Syndrome N Arthritis N Infertility N Polyps N Carpal Tunnel N Acid Reflux (GERD) N Cancer N Stroke N Varicosities N Tendonitis N Crohn's Disease N Hypercholesterolemia N Skin Cancer N Fibromyalgia N Headaches N Anal Fissure N Irritable Bowel Syndrome N Kidney Disease N Heart Problems N Hospitalizations N Gallstones N Kidney or Bladder Problems N Goiter N Acne N Eating Disorder N Viera's Esophagus N Hypertriglyceridemia N Constipation N Embolism N Vitamin B12 Deficiency N Deviated Septum N AIDS/HIV N Myocardial Infarction N Asthma N Mitral Valve Disorders N Vertigo N Hepatitis N Thyroid Cancer N Neuropathy N History of DVT N Herniated Disc N Chicken Pox Y Von Willebrands Disease N Thrombophilias N Breast Cancer N Hernia N Plantar Fasciitis N Lung Disease N Hypothyroidism N Defects or Inherited Disease N Breast Problem N Ovarian Cyst N Anesthesia Complications N Testosterone Deficiency N Interstitial Cystitis N Congenital Anomalies N Hypoglycemia N Blood clot N Vitamin D Deficiency N Cellulitis N Endometriosis N Fracture N Bladder or Kidney Problems N Panic Disorder N Schizophrenia N Concussion N Spina Bifida N Osteoarthritis N Parkinson's Disease N Disc Protrusion N STI N Esophagitis N Angina N Thyroid Problems N GI Problems N ADD/ADHD N Anemia N Multiple Sclerosis N Abnormal PAP N Lumbago N Mental Illness N Psychiatric Illness N Diabetes N Ovarian Cancer N Degenerative Disc Disease N Seizures/Epilepsy N Hyperlipidemia N Syncope N Insomnia N Eczema N Abuse/Domestic Violence N Attention Deficient Disorder N Dementia N Ulcerative colitis N Cerebrovascular Disease N Depression N Guillain-[place] N Sleep Apnea N Aneurysm N Bronchitis N Heart Disease N Hypertension N Pre-Eclampsia N Suicidal Ideation N Osteoporosis N Gynecological History Statement/Question Response Flow Moderate Date of Last Mammogram Date of LMP 11/13/2024 STIs/STDs N HPV Vaccine N Current Control Method None Age at Menarche 10 Last Annual Exam/Provider 01/05/20 w/ SYDNEY Date of Last Colonoscopy Frequency of Cycle (Q days) 28 Most Recent Bone Density Sexually Active? Y Date of Last Cervical Culture 12/27/2019 Menses Monthly Y Date of Last Pap Smear 08/04/2022 Sexual Problems? N LMP Approximate Desired Control Method Seeking Pre gnancy Obstetrics History GPAL:G 0 P 0 0 0 0 Immunizations Vaccine Type Date Status Note Provider Nam e and Address Organization Details Recorded Time Influenza, split virus, quadrivalent, preservative 5 completed Not Available [facility] 11/27/2024 15:15:19 HPV9 0 completed SYDNEY Pe[place] - [facility] 01/05/2020 16:54:05 HPV9 8 completed Not Available [facility] 07/26/2019 03:55:25 Influenza, split virus, quadrivalent, preservative 8 completed Not Available [facility] 07/26/2019 03:55:21 HPV9 9 completed Not Available [facility] 07/26/2019 03:55:34 Past Encounters Encounter ID Performer Location Encounter Start Date Encounter Closed Date Diagnosis/Indication Diagnosis SNOMED-CT Code Diagnosis ICD10 Code Diagnosis Note [id number] Key Jack APRN [address] [address] 11/25/2024 10:22:58 11/25/2024 11:35:56 Morbid obesity 089598273 E66.01 50.8 Ventriculo peritoneal shunt in situ 943627108 Z98.2 referralif symptoms worsen or no improvemen t go back to ed daja Right uppe r quadrant pain 642359244 R10.11 us- if symptoms worsen or no improvemen t return Ankle pain 669273310 M25 .571 M25.572 G89.29 pt does not want referral at this time Health Concerns Section Related Observation LastModified by Organization Detai ls LastModified Time None Recorded Concern Status LastModified by Organization Details LastModified Time None Recorded Payers Encounter Date Sequence Insurance Name Policy Number Policy Trejo Covered Member ID Trejo Member ID Guarantor Name 11/25/2024 1 [facility] - [id number] Susan Art [id number] Susan Art Notes Date Note Type Note Provider Name and Address Organization Details Recorded Time 11/25/2024 text/html 24 yr old female presents for establishing care. 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 was in last week due to shunt malfunction- got out on sat and she is unhappy with surgeon because she only came in once the entire time she was in the hospital- to sat. Pt stats she is having MARIANO, blurry vision,double vison,ringing in the ears,rt side pain from tube and vomiting. pt states shunt was placed last mar 2024 at neuro.pt states she also wants her gallbladder looked at she has been told her rt side pain could be from gallbladder and not shunt. pt reports ruqpt states she also is having sharmila ankle/foot pain. has sharmila surgery with screws and plates and since then she has constant pain. Key Jack APRN [address], [place], [address], [place] - [facility] 11/25/2024 12:12:02 OBGyn Episode No OBEpisode recorded.
--- OUTSIDE RECORDS SUMMARY | 2025-01-03 14:09 | XMS_ITS | Encounter Summary ---
Author Organization [facility] Address [address] [place] [address] Care Team Providers Care Paperhanger Apprentice Name Role Phone KendrickAngelica corey JAYNA [...] release of HIV test results or diagnoses. [id number] Health Encounter Details Date Type Department Care Team (Late st Contact Info) Description 11/22/2024 Ophth Exam [facility] Ophthalmology at [address] [place] [address] Brendon Bush MD [address] [place] [address] Social History Tobacco Use Types Packs/Day Years [...] you are drinking? Patient does not drink 4 Q3: How often do you have si [...] PM EDT documented as of this encounter Plan of Treatment Not on file documented as of this encounter Visit Diagnoses Not on filedocumented in this encounter Additional Health Concerns Assessment Noted Time A Body Mass Index follow-up plan has been documented for the patient 02/21/2024 10:17 AM EDT documented as of this encounter Care Teams Paperhanger Apprentice Relationship Specialty Start Date End Date Angelica Marks NP [address] [place] [address] PCP - General Nurse Practitioner 05/13/21 documented as of this encounter
--- OUTSIDE RECORDS SUMMARY | 2025-01-03 14:09 | XMS_ITS | Continuity of Care Document ---
Author Organization [facility] on Address [address] [place] [address] Assessment No assessment recorded. Plan of Treatment Reminders Order Date Submit Date Provider Last Modified By Organization Details Last Modified Time Details Appointments None recorded. Lab None recorded. Referral None recorded. Procedures None recorded. Surgeries None recorded. Imaging CT, abdomen + pelvis, w/ contrast 2024 025 [email or web address] 0 Not available 08:32:24 Medication Orders trazodone 100 mg tablet 2024 025 [facility], [address] [place] [address], [id number], 10:43:52 sulfamethox azole 800 mg-trimetho prim 160 mg tablet 2024 025 [facility], [address] [place] [address], [id number], 5 05:01:24 Patient TargetsNo targets recorded. Patient Instructions Encounter Date Encounter Id Patient Instructions Last Modified By Organization Details Last Modified Time 11/06/2024 [id number] anorexia: care instructions [email or web address] Not available 11/06/2024 10:42:04 insomnia: care instructions [email or web address] Not available 11/06/2024 10:42:04 The RICE method includes the following four steps: Step 1: Rest Pain is your body s signal that something is wrong. As soon as you re hurt, stop your activity, and rest as much as possible for the first 2 days. Don t try to follow the no pain, no gain philosophy. Doing so with certain injuries, like a moderate to severe ankle sprain, can make the damage worse and delay your recovery. Doctors say you should avoid putting weight on the injured area for 24 to 48 hours. Resting also helps prevent further bruising. Step 2: Ice Ice is a qcmal-mhb-avef tool for reducing pain and swelling. Apply an ice pack (covered with a light, absorbent towel to help prevent frostbite) for 15-20 minutes every two to three hours during the first 24 to 48 hours after your injury. Don t have an ice pack? A bag of frozen peas or corn will work just fine. Step 3: Compression This means wrapping the injured area to prevent swelling. Wrap the affected area with an elastic medical bandage (like an JING bandage). You want it to be snug but not too tight -- if it s too tight, it ll interrupt blood flow. If the skin below the wrap turns blue or feels cold, numb, or tingly, loosen the bandage. If these symptoms don t disappear right away, seek immediate medical help. Step 4: Elevation This means raising the sore body part above the level of your heart. Doing so reduces pain, throbbing, and swelling. It s not as tricky to do as you might think. For example, if you have an ankle sprain, you can prop your leg up on pillows while sitting on the sofa. The CDC recommends you keep the injured area raised whenever possible, even when you re not icing it. Treatments Used With RICE Your doctor may suggest using nonsteroidal anti-inflammatory medications (like ibuprofen or naproxen) along with the RICE treatment. These are available over the counter and by prescription. Talk to your doctor about your health history before taking these medications. Not available 11/06/2024 10:44:33 Reason for Referral None Reported. Results Created Date Observation Date Name Description Value Unit Range Abnormal Flag Note LastModifiedBy Organization Detail LastModifiedTime 11/23/19 25 11/22/2024 XR, shunt ogram EXAM: XR SHUNT SERIES INDICA TION: c/f shunt failur e Check positi on and config uratio n of [employer] shunt cathet er. COMPAR AIDA: 025 FINDIN GS: There is a right sided ventri culope ritone al shunt with proxim al tip overly ing right fronta l region . Limite d visual izatio n of the distal shunt cathet er as it is obscur ed by overly ing soft tissue s. Joint cathet er can be seen intact coursi ng along the midlin e thorac ic cavity toward s the diaphr agm prior to losing defini te visual izatio n. Visual ized portio ns of the cathet er are intact . No acute radiog raphic abnorm ality in the osseou s struct ures of the skull. Lung volume s are low with bibasi lar atelec tasis. Cardio medias tinal silhou ette does not demons trate abnorm ality. The bowel gas patter n is nonobs tructi ve and the imaged bowel loops are normal in calibe r. IMPRES YUMIKO: Intact ventri cular perito rene shunt cathet er to the level of the diaphr agm. Limite d visual izatio n of the distal tip due to overly ing soft tissue s. Approv ed by Zoey vazquez MD on 8:21 AM EDT I have person ally review ed the images and I agree with this report . Report Verifi ed by: Errol Jaquez ch, MD at 8:52 AM EDT Reason for exam:- >c/f shunt failur e [address] [facility] [address] [place], [address], 11/23/2024 20:33:41 12/13/19 25 12/12/2024 xr iftikhar rison image s Images associ ated with this access ion number were presen frank to us for compar aida to an examin ation perfor med here. [address] [facility] [address] [place], [address], 12/14/2024 23:39:56 12/13/19 25 12/12/2024 xr iftikhar rison image s Images associ ated with this access ion number were presen frank to us for compar aida to an examin ation perfor med here. [email or web address] [facility] [address] [facility] [place], [address], 12/14/2024 23:39:56 12/13/19 25 12/12/2024 xr iftikhar rison image s Images associ ated with this access ion number were presen frank to us for compar aida to an examin ation perfor med here. [email or web address] [facility] [address] [place], [address], 12/14/2024 23:39:57 12/13/19 25 12/12/2024 xr iftikhar rison image s Images associ ated with this access ion number were presen frank to us for compar aida to an examin ation perfor med here. [email or web address] [facility] [address], [place], [address], 12/14/2024 23:39:57 12/13/19 25 12/12/2024 xr iftikhar rison image s Images associ ated with this access ion number were presen frank to us for compar aida to an examin ation perfor med here. [email or web address] [facility] [address], [place], [address], 12/14/2024 23:39:57 12/13/19 25 12/12/2024 xr iftikhar rison image s Images associ ated with this access ion number were presen frank to us for compar aida to an examin ation perfor med here. [email or web address] [facility] [address], [place], [address], 12/14/2024 23:39:57 12/13/19 25 12/12/2024 xr iftikhar rison image s Images associ ated with this access ion number were presen frank to us for compar aida to an examin ation perfor med here. [email or web address] [facility] [address] [place], [address], 12/14/2024 23:39:57 Result Notes None recorded. 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 [employer] shunt placed in 2023 Blanca Harkins MD [address] [place] [address] [place], [address], [facility] 5 09:12:12 Insomnia 842921634 Active 2024 Blanca Harkins MD [address] [place] [address] [place], [address], [facility] 5 09:20:33 Loss of appetite 22599646 Active 2024 Blanca Harkins MD [address] [place] [address] [place], [address], [facility] 5 09:22:10 Pain in both feet 4425479269222 9102 Active 2024 Blanca Harkins MD [address] [place] [address] [place], [address], [facility] 5 10:39:54 Acute cellulitis Active 2024 Blanca Harkins MD [address] [place] [address] [place], [address], [facility] 5 10:41:17 Synovial cyst of left knee 4506253940739 02 Active 2024 Blanca Harkins MD [address] [place] [address] [place], [address], [facility] 5 10:42:55 Polycystic ovary syndrome 753456109 Active 2019 Ebony Jeannette williamson, [facility] 0 17:23:27 Migraine 01293512 Active 2020 Bharat williamson, [facility] 1 13:32:35 Problem Notes None recorded. Procedures Surgical History Date Name Laterality Status Provider Name and Address Organization Details Recorded Time tonsilectomy/ adenoids completed [address] [place], [address], [facility] 04/06/2021 13:04:23 Ankle arthroscopy/s urgery completed [address] [place], [address], [facility] 04/06/2021 13:04:11 Eye Surgery completed Angelica Marks NP [address] [place] [address] [place], [address], [facility] 02/14/2019 09:58:26 Imaging Results None recorded. Procedure Notes None recorded. Medical Equipment None Reported. Allergies No known drug allergies Medications Name Sig Start Date Stop Date Status Note LastModified by Organization Details LastModified Time Tussin DM 10 mg-100 mg/5 mL oral syrup TAKE TWO TEASPOONF ULS (10ML) BY MOUTH EVERY 4 TO 6 HOURS 04/06 completed Not Available Not Available Not Available metformin 500 mg tablet 04/06 completed once daily for POCS Not Available Not Available Not Available neomycin-p olymyxin-h ydrocort 3.5 mg/mL-10,0 00 unit/mL-1 % ear solution INSTILL FOUR DROPS INTO AFFECTED EAR(S) FOUR TIMES DAILY FOR SEVEN DAYS 10/03 completed Not Available Not Available Not Available trazodone 50 mg tablet Take 1 tablet every day by oral route at bedtime for 30 days. 2024 active Not Available Not Available Not Avai lable azithromyc in 250 mg tablet TAKE 2 TABLETS BY MOUTH THE FIRST DOSE ON DAY ONE, THEN TAKE 1 TABLET DAILY FOR 4 MORE DAYS. 04/06 completed Not Available Not Available Not Available ibuprofen 800 mg tablet 01/25 completed Not Available Not Available Not Available acetazolam isaura ER 500 mg capsule,ex tended release TAKE ONE CAPSULE BY MOUTH TWO TIMES A DAY 04/06 completed Not Available Not Available Not Available sumatripta n 100 mg tablet TAKE ONE TABLET BY MOUTH TWO TIMES A DAY NEEDED FOR MIGRAINE, NO MORE THAN TWO PER DAY, MUST WAIT TWO HOURS BETWEEN DOSES 03/30 completed Not Available Not Available Not Available hydrocodon e 5 mg-acetami nophen 325 mg tablet 04/06 completed Not Available Not Available Not Available meloxicam 15 mg tablet 02/14 completed Not Available Not Available Not Available sumatripta n 25 mg tablet TAKE 1 TABLET BY MOUTH AT ONSET OF MIGRAINE, MAY REPEAT DOSE IN 2 HOURS IF MIGRAINE IS STILL PRESENT, DO NOT EXCEED 50 MG IN 24 HOURS 09/22 /2022 completed Not Available Not Available Not Available ondansetro n HCl 4 mg tablet 02/14 completed Not Available Not Available Not Available prednisone 20 mg tablet TAKE ONE TABLET BY MOUTH TWO TIMES A DAY FOR FIVE DAYS 04/06 completed Not Available Not Available Not Available spironolac tone 100 mg tablet TAKE ONE TABLET BY MOUTH DAILY 10/03 completed Not Available Not Available Not Available rizatripta n 10 mg tablet TAKE ONE TABLET BY MOUTH IF NEEDED FOR MIGRAINE, MAY REPEAT IN TWO HOURS IF NEEDED 10/03 completed Not Available Not Available Not Available atenolol 25 mg tablet TAKE ONE TABLET BY MOUTH EVERY DAY 03/30 completed Not Available Not Available Not Available sulfametho xazole 800 mg-trimeth oprim 160 mg tablet Take 1 tablet every 12 hours by oral route for 5 days. 11/18 completed Not Available Not Available Not Available spironolac tone 25 mg tablet TAKE 6 TABLETS (150 MG TOTAL) BY MOUTH DAILY. 10/03 completed Not Available Not Available Not Available butalbital -acetamino phen-caffe ine 50 mg-325 mg-40 mg tablet 08/14 completed Not Available Not Available Not Available oxycodone- acetaminop hen 5 mg-325 mg tablet 01/25 completed Not Available Not Available Not Available trazodone 100 mg tablet Take 1 tablet every day by oral route at bedtime for 90 days. 2024 active Not Available Not Available Not Avai lable doxycyclin e monohydrat e 100 mg capsule 01/25 completed Not Available Not Available Not Available cephalexin 500 mg capsule 04/06 completed Not Available Not Available Not Available ranitidine 150 mg tablet 08/14 completed Not Available Not Available Not Available promethazi ne 25 mg tablet 01/25 completed Not Available Not Available Not Available Banophen 25 mg capsule 05/07 completed Not Available Not Available Not Available Tylenol 325 mg tablet TAKE 2 TABLETS BY MOUTH EVERY 6 HOURS NEEDED active Not Available Not Available No t Available ibuprofen 600 mg tablet TAKE ONE TABLET BY MOUTH FOUR TIMES DAILY NEEDED FOR PAIN 03/30 completed Not Available Not Available Not Available methylpred nisolone 4 mg tablets in a dose pack 02/14 completed Not Available Not Available Not Available naproxen 500 mg tablet Take 1 tablet twice a day by oral route with meals for 7 days. 05/07 completed Not Available Not Available Not Available amoxicilli n 875 mg-potassi um clavulanat e 125 mg tablet Take 1 tablet every 12 hours by oral route for 7 days. 05/07 completed Not Available Not Available Not Available oxycodone 5 mg tablet TAKE 1 TABLET BY MOUTH EVERY 6 HOURS NEEDED FOR 7 DAYS 10/03 completed Not Available Not Available Not Available Sprintec (28) 0.25 mg-0.035 mg tablet 08/14 completed Not Available Not Available Not Available topiramate 50 mg tablet TAKE TWO TABLETS BY MOUTH TWO TIMES A DAY 10/03 completed Not Available Not Available Not Available drospireno ne 3 mg-ethinyl estradiol 0.02 mg tablet 04/06 completed Not Available Not Available Not Available Stimulant Laxative Plus 8.6 mg-50 mg tablet TAKE 1 TABLET BY MOUTH TWICE DAILY 10/03 completed Not Available Not Available Not Available naloxone 4 mg/actuati on nasal spray ADMINISTE R A SINGLE SPRAY IN ONE NOSTRIL UPON SIGNS OF OPIOID OVERDOSE. CALL 911. REPEAT AFTER 3 MINUTES IF NO RESPONSE. 10/03 completed Not Available Not Available Not Available Vitals Date Recorded Body height Body mass index (BMI) Body weight Body temperature Heart rate Respiratory rate Systolic blood pressure Diastolic blood pressure Provider Name and Address Organization Details Last Updated DateTime 5 165.1 cm 49.7 kg/m2 796284. 33 g 98.6 [degF] 61 /min 16 /min 121 mm[Hg] 76 mm[Hg] Nicole Traylor MA [address] [place] [address] [place], [address], [facility] 5 10:14:36 Social History Question Answer Notes LastModified by Organizat ion Details LastModified Time Tobacco Smoking Status Never Smoker Angelica Marks NP [address] [place] [address] [place], [address], [facility] 02/14/2019 09:34:39 Do You Have An Advance Directive? No Information not available 02/14/2019 What Is Your Level Of Caffeine Consumption? Heavy Information not available 02/14/2019 How Much Tobacco Do You Chew? None Information not available 02/14/2019 What Type Of Diet Are You Following? REGULAR Information not available 02/14/2019 Which Illicit Or Recreational Drugs Have You Used? None Information not available 02/14/2019 Education 12 Information no t available 02/14/2019 What Is The Highest Grade Or Level Of School You Have Completed Or The Highest Degree You Have Received? [id number] [email or web address] Information not available 10/03/2024 Are There Any Guns Present In Your Home? No Information not available 02/14/2019 Hard Of Hearing Or Deaf In One Or Both Ears? No Information not available 02/14/2019 Legally Blind In One Or Both Eyes? No Information not available 02/14/2019 Where Do You Live? SingleLevelHouse [email or web address] Information not available 10/03/2024 Live Alone Or With Others? With Others Information not available 02/14/2019 What Was The Date Of Your Most Recent Tobacco Screening? 02/14/2019 Information not available 02/15/2019 How Many Children Do You Have? 0 Information not available 02/14/2019 Do You Have Any Pets? Yes [email or web address] Information not available 10/03/2024 Do You Use Protection During Sex? No Information not available 02/14/2019 What Is Your Relationship Status? [email or web address] Information not available 10/03/2024 Seat Belts Used Routinely Yes Information not available 02/14/2019 Are You Sexually Active? Yes Information not available 02/14/2019 Smoke Alarm In Home Yes Information not available 02/14/2019 Do You Have Smoke And Carbon Monoxide Detectors In Your Home? Yes [email or web address] Information not available 10/03/2024 Are You Passively Exposed To Smoke? No Information not available 02/14/2019 How Much Tobacco Do You Smoke? No Information not available 02/14/2019 General Stress Level Medium Information not available 02/14/2019 Do You Use Sunscreen Routinely? No Information not available 02/14/2019 Sex: Unknown Functional Status Question Answer Note LastModified by Organizat ion Details LastModified Time Do you use any illicit or recreational drugs? No [email or web address] Information not available 10/03/2024 What is your level of alcohol consumption? None Information not available 02/14/2019 Do you or have you ever used smokeless tobacco? Never used smokeless tobacco Information not available 02/14/2019 Are you currently employed? Yes Information not available 02/14/2019 Are you able to walk? [email or web address] Information not available 02/14/2019 Are you able to care for yourself? 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 Never used electronic cigarettes Information not available 02/14/2019 What is your exercise level? None Information not available 02/14/2019 Mental Status None recorded. Family History Relationship Description Onset Age of this Age Resolved Age Notes LastModified by Organization Details LastModified Time Unspecified Relation Asthma Not available 09:33:14 Unspecified Relation History of multiple allergies Not available 2018 09:33:29 Unspecified Relation Depressive disorder Not available 2018 09:33:39 Unspecified Relation Diabetes mellitus Not available 2018 09:33:48 Unspecified Relation Hypertensive disorder Not available 2018 09:33:58 Unspecified Relation Migraine Not available 02/15/20 09:34:12 Medical History Condition Response Allergies (Food, seasonal, environmental ) N Coronary Artery Disease N Gout N Colon Cancer N Kidney Stones N Blood Diseases N Enlarged Prostate N Blood Transfusion N Breast Cancer N Emphysema N Hernia N Head Trauma/Injury N COPD N Congenital Heart Disease N Dermatologic Disorders N Lung Disease N Pneumonia N Developmental or Behavioral Disorders N Defects or Inherited Disease N Breast Problem N Gestational Diabetes N Diverticulitis/Diverticulosis N Anesthesia Complications N History of STI N Lung Mass N Cystic Fibrosis N Meniere's disease N Muscle, Joint, or Bone Problems N Autoimmune disease N Obesity Y Vision or Eye Problems N Arthritis N Polyps N Cancer N Varicosities N Stroke N Bladder or Kidney Problems N Back Injury N Headaches Y Fibromyalgia N Kidney Disease N Ear or Hearing Problems N Hospitalizations N Thyroid Problems N GI Problems N ADD/ADHD N Eating Disorder N Osteoporosis/Osteopenia N Anemia N MRSA exposure N Multiple Sclerosis N Constipation N Colon Polyps N Ulcers N Ovarian Cancer N Diabetes N Hepatitis/Liver Disease N Seizures/Epilepsy N Tuberculosis N AIDS/HIV N Congestive Heart Failure (CHF) N Abuse/Domestic Violence N Asthma N Substance Abuse N Sleep Apnea N GERD/Reflux N Cirrhosis N Heart Disease N Chronic Ear Infections N Pre-Eclampsia N Hypertension N Chicken Pox N Gynecological History Statement/Question Response Abnormal Pap N Moderate Date of Last Mammogram 07/28/2019 On BCP's at Conception? Y N Y 5 Current Control Method BCPs 12 Sexually Active? Y Menses Monthly N Date of Last Pap Smear N Obstetrics History GPAL:G 0 P 0 0 0 0 Past Encounters Encounter ID Performer Location Encounter Start Date Encounter Closed Date Diagnosis/Indication Diagnosis SNOMED-CT Code Diagnosis ICD10 Code Diagnosis Note [id number] Blanca Harkins MD [place] [address] [place] [address] 11/06/2024 10:01:37 11/12/2024 09:00:24 Loss of appetite 62787619 R63.0 Labs unremarkab leCT scan ordered Insomnia 074544017 G47.0 0 Increase Trazodone to 100mg nightly Pain in both feet 649627 6510 9581899 M79.671 M79.672 hx of bilateral foot surgeryPt started new job of standing on her feet dailyrecom mend supportive footwear and compressio n stocking Acute cellulitis 9269760 009 L03.90 insect bite to the L lower ankle, no streakingS tart on Bactrim Synovial c yst of left knee 2473971743 80118 M71.22 recommende d OTC NSAIDs and compressio nIce when she is home from work at night time Health Concerns Section Related Observation LastModified by Organization Detai ls LastModified Time None Recorded Concern Status LastModified by Organization Details LastModified Time None Recorded Payers Encounter Date Sequence Insurance Name Policy Number Policy Trejo Covered Member ID Trejo Member ID Guarantor Name 11/06/2024 1 [facility] [id number] Susan Art [id number] Susan Art Notes Date Note Type Note Provider Name and Address Organization Details Recorded Time 11/06/2024 text/html 24 y/o F present s to clinic for follow up Insomnia: pt was started on trazodone 50 mg nightly. Pt reports she is taking the medication, however she is not getting enough rest. Decreased appetite: continues. Pt reports while she is at work, she is only drinking water which she is vomiting up. Pt reports she is only eating one meal daily. 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 Blanca Harkins MD [address] [place] [address] [place], [address], [facility] 11/06/2024 10:44:45 OBGyn Episode No OBEpisode recorded.
--- OUTSIDE RECORDS SUMMARY | 2025-01-03 14:09 | XMS_ITS | Data Portability ---
Author Organization [facility] Address [address] [place] [address] Assessment Encounter Date Assessment Date Assessment LastModified by Organization Details LastModified Time 06/06/2021 06/06/2021 I performed this visit using the telephone with no visual of the patient. Prior to initiating the visit, I obtained 2 patient identifiers and the patient's informed verbal consent to perform this visit using the telephone and answered all the questions the patient had about the telephone interaction. Not available 06/06/2021 12:41:55 Plan of Treatment Reminders Order Date Submit Date Provider Last Modified By Organization Details Last Modified Time Details Appointments None recorded. Lab CBC w/ auto diff 2024 025 X[facility] Not available 14:59:40 CMP, serum or plasma 2024 025 XIMENA Not available 15:19:34 urinalysis, dipstick 2024 025 [facility], [address], [place], [address], 5 10:19:16 lipid panel, serum 2024 025 X[facility] Not available 5 15:19:28 TSH, serum, reflex free T4 2024 025 X[facility] Not available 5 16:03:48 Referral neurologist referral 2020 021 [email or web address] Not available 09:39:54 Procedures None recorded. Surgeries None recorded. Imaging CT, abdomen + pelvis, w/ contrast 2024 025 [email or web address] 0 Not available 08:32:24 Medication Orders trazodone 100 mg tablet 2024 025 [facility], [address] [place] [address], [address], 10:43:52 sulfamethox azole 800 mg-trimetho prim 160 mg tablet 2024 025 [facility], [facility] [place], [address], 05:01:24 trazodone 50 mg tablet 2024 025 [facility], [facility] [place], [address], 09:30:50 Patient TargetsNo targets recorded. Patient Instructions Encounter Date Encounter Id Patient Instructions Last Modified By Organization Details Last Modified Time 05/18/2021 [id number] visual acuity* Not available 05/24/2021 17:02:54 Take medications as directed Use OTC medications for pain, take as directed Rest, hydration, hand hygiene Obtain MRI at [facility], will call with abnormal results F/U in 1 week for new or worsening symptoms for PE/testing, or PRN Not available 05/24/2021 17:02:07 06/06/2021 [id number] Take medications as directed Use OTC medications for pain, take as directed Rest, hydration, hand hygiene Referred to neurology F/U in 1 week for new or worsening symptoms for PE/testing, or PRN Not available 06/06/2021 13:02:03 03/30/2022 [id number] May continue wit h employment without any restrictions at this time. return PRN for other issues. Continue care with PCP/specialists. [email or web address] Not available 04/11/2022 14:20:42 Discussed the plan with the pt. Side effects of medication(s) discussed and when to return and when to go to ED. Discussed sx to monitor - when to return to the office and when to go to ED for more serious sx that requires immediate attentions. Discussed DASH diet - low fat/sodium and increase intake of vegetables and fruits and increasing physical activities. Pt will return to the office in 3 mo for general check up along with preventative measurements that are due at that time. Pt verbalized understanding. [email or web address] Not available 04/11/2022 14:20:54 10/03/2024 [id number] anorexia: care instructions Not available 10/03/2024 09:25:01 insomnia: care instructions [email or web address] Not available 10/03/2024 09:25:01 Take medications as directed Eat low carb heart healthy/diabetic diet Exercise 30 min a day, 3-5 days a week Weight loss 1-2 lb per week Continue to monitor glucose daily and bring results to next appt for review Obtain labs in office today, will call with abnormal results F/U in 3 months or PRN [email or web address] Not available 10/03/2024 09:26:57 11/06/2024 [id number] anorexia: care instructions [email or web address] Not available 11/06/2024 10:42:04 insomnia: care instructions [email or web address] Not available 11/06/2024 10:42:04 The RICE method [...] bruising. Step 2: Ice Ice is a [id number] tool for reducing pain and swelling. Apply [...] your health history before taking these medications. [email or web address] Not available 11/06/2024 10:44:33 Reason for Referral Neurologist Referral for Yvan muir Referring Physician: Angelica Marks, Family Medicine, Encounter Date: 06/06/2021 Results Created Date Observation Date Name Description Value Unit Range Abnormal Flag Note LastModifiedBy Organization Detail LastModifiedTime 04/19/20 21 04/19/2021 ANKLE 2 VIEWS RT ankle 2 views RT RADIO LOGY REPOR T Patie nt: MAT FERGUSON(F) 2 Locat ion: [facility] Refer ring Physi andrea: 35, MICHEAL OLAYI NKA Accou nt Numbe r: [id number] Exam Date/ Time: Apr 19, 2021 15:39 :58 : 2000 Pat. Addr. : [address], [facility] [address] Prima ry Physi andrea: 5172, KWAN Booth GUSTAVO HX: DISAB ILITY ANKLE 2 VIEWS RT - [id number] 2 VIEWS OF THE RIGHT ANKLE IFTIKHAR RISON : No iftikhar rison exams avail able at the time of dicta tion. FINDI NGS: OSSEO US STRUC TURES : No evide nce of an acute osseo us fract ure. ANKLE MORTI S: No dislo catio n. Ankle morti se is well maint ained . 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 SOFT TISSU ES: 2 VIEWS OF THE soft tissu e swell ing. HARDW ARE: 2 screw s fixat e the media l malle olus. RECOM MENDA TIONS : If the patie nt has persi stent pain or a radio graph icall y occul t fract ure is clini rosa maria suspe cted, a follo w-up radio graph ic evalu ation in 10-14 days, MRI, or CT scan could be consi dered . IMPRE SSION : 1. No radio graph ic evide nce of acute fract ure. Repor t elect eduardo mcgee by: Luciano Lagunas MD on Apr 19, 04:52 PM Not Available [facility] (Pre Certs ) [address] [place], [address], 04/19/2021 16:55:36 05/18/20 21 05/18/2021 visua l acuit y* R Eye Corrected 20/20 Not Available [facility] [address] [place] [address] [address], [place], [address], 05/18/2021 19:15:06 05/18/20 21 05/18/2021 visua l acuit y* L Eye Corrected 20/30 Not Available [facility] [address] [facility] [address], [place], [address], 05/18/2021 19:15:06 05/30/20 21 05/30/2021 MR BRAIN W/O MR brain w/O RADIO LOGY REPOR T Patie nt: LEELEE N, MAT A J(F) 2 Locat ion: [place] [facility] Refer ring Physi andrea: [id number], KWAN N GUSTAVO Accou nt Numbe r: [id number] Exam Date/ Time: May 30, 2021 09:22 :40 : 2000 Pat. Addr. : [address], [facility] [address] Prima ry Physi andrea: 5495, MALISSA COFFMAN N HX: [id number] SYNCO PE AND COLLA PSE MR BRAIN W/O - MRI BRAIN WITHO UT CONTR AST HISTO RY: Chron ic heada kalie. Migra ine syndr ome with worse chelsey sympt oms. TECHN IQUE: MR image s of the brain were acqui red in a multi plana r, multi -sequ entia l fashi on. Contr ast Pharm aceut ical: N/A Route of admin istra tion: N/A IFTIKHAR RISON : No iftikhar rison exams avail able at the time of dicta tion. FINDI NGS: BRAIN PAREN CHYMA : No acute infar ct. No hemor rhage . No mass effec t or herni ation . Signa l inten sitie s are withi n nemo l limit s for age. No cereb ellar tonsi llar ectop ia. No brain stem sag or other secon chico signs of intra crani al hypot ensio n. No empty sella or other secon chico signs of eleva frank intra crani al press ure. VENTR ICLES /EXTR A-AXI AL SPACE S: No hydro cepha perez or extra -axia l fluid colle ction s. FLOW VOIDS : Intac t. SINUS ES/MA STOID S: Clear . OTHER EXTRA CRANI AL STRUC TURES : Nemo l. IMPRE SSION : Nemo l MRI of the brain . Repor t elect eduardo arnett caryl d by: Nemo robles MD on May 30, 10:24 AM Not Available [facility] (Pre Certs ) [address] , [place], [address], 05/30/2021 10:27:35 08/15/19 22 08/15/2021 H&P transcriptio n authenticati on interface message text [facility] radio logy Pre-P roced ure Histo ry and Physi evelin Date: 022 Patie nt: Mat Dalal n 553 Patie nt is a 21 y.o. femal e prese nting to Inter venti onal Radio logy for Fluor oscop ic Guide d Thera peuti c Lumba r Punct ure Past Medic al Histo ry: Diagn osis Date Chron ic migra ine PCOS (poly cysti c ovari an syndr ome) Trans ient eleva frank blood press ure Past Surgi evelin Histo ry: Proce dure Later ality Date ANKLE SURGE RY EYE SURGE RY FOOT SURGE RY TONSI LLECT BRAULIO AND ADENO IDECT BRAULIO No Known Aller gies Curre nt Outpa tient Medic ation s on File Prior to Encou nter Medic ation Sig Dispe nse Refil l topir amate (TOPA MAX) 50 MG table t Take 1 table t (50 mg total ) by mouth 2 times a day. 60 table t 12 No curre nt facil ity-a dmini stere d medic ation s on file prior to encou nter. BP 133/7 9 (BP Locat ion: Left arm, Patie nt Posit ion: Sitti ng) Pulse 82 Temp 97.4 deg F (36.3 deg C) (Temp oral) Resp 15 SpO2 100% Gener al appea eufemia : alert and coope rativ e Relav ent Labs: No resul ts found for: WBC, HGB, HCT, MCV, PLT No resul ts found for: CREAT ININE No resul ts found for: INR, PROTI ME No resul ts found for: ALT, AST, GGT, ALKPH OS, BILIT OT Sedat ion Type/ Plan: Local /Subc utane ous Lidoc leena 1% Imagi ng: MRI Head PACS dated 05/30 Asses sment /Plan : Prepp ed and conse nted for Thera peuti c Lumba r Punct ure Not Available [address], [address], 08/15/2021 10:28:48 08/15/1908/15/2021 NURSI NG transcriptio n authenticati on interface message text [facility] cong ated the proce dure witho ut compl icati ons. [facility] ine neuro logic ally and able to ambul ate witho ut diffi culty . Post- op instr uctio ns revie wed and recei kay. Quest ions answe red. Patie nt verba lizes under stand ing. Phone numbe rs provi ded to patie nt to call with any quest ions or compl icati ons. Blood sampl e unabl e to be obtai eliceo d/t hard stick . Spoke with PICC RN and pt. Is going to go to the [facility] for blood draw. Not Available [address], [address], 08/15/2021 11:42:51 08/15/19 22 08/15/2021 NURSI NG transcriptio n authenticati on interface message text [facility] Patie nt here to have labs drawn post inter venti onal radio logy proce dure. Succe ssful lab draw done using ultra sound . [facility] with spous e. Not Available [address], [address], 08/15/2021 14:23:44 08/15/19 22 08/15/2021 FL LUMBA R SPINE PUNCT URE THERA PUTIC DRAIN W FLUOR O/CT GUIDE fL lumbar spine puncture theraputic drain W fluoro/CT guide Thera peuti c lumba r punct ure, fluor oscop ic-gu ided Indic ation : Papil ledem a Opera tors: MISTY Morales Dr. (Neur oradi ology atten ding) , not prese nt but readi ly avail able durin g the proce dure. Proce dure: The poten tial risks and benef its of the proce dure were expla ined to the patie nt and infor med writt en conse nt was obtai eliceo. The patie nt was place d in the prone posit ion on the fluor oscop y table . A time out was perfo rmed verif carl the corre ct patie nt, corre ct proce dure and corre ct site. The skin of the lumba r regio n was then prepp ed with DuraP rep solut ion and drape d. A total of 2 mL 1% lidoc leena was place d into the subcu taneo us and deep soft tissu es for local anest hesia . A 15 cm, 22-ga uge Gerti e-Mar x needl e was direc frank towar ds the theca l sac under fluor oscop ic bishop nce via an L2-3 inter tom ar appro ach. Once the needl e tip was embed ded withi n the poste rior ligam entou s struc tures , the patie nt was turne d to the left later al decub itus posit ion. The needl e tip was then inser frank into the theca l sac. Fluor oscop y was utili zed to docum ent the depth of the needl e tip. Openi ng press ure was then obtai eliceo in the later al decub itus posit ion. Openi ng press ure measu red 34 cm CSF. A total of appro ximat jyoti 29 mL of clear cereb rospi nal fluid was drain ed. Closi ng press ure was then obtai eliceo in the later al decub itus posit ion. Closi ng press ure measu red 15 cm CSF. The patie nt's heada kalie was a 0/ 10 prior to the proce dure and a 0 / 10 post proce dure. The needl e was remov ed and a Band- Aid was place d over the punct ure site. The proce dure was well cong ated and there were no immed iate compl icati ons. Total fluor oscop y time was 23 secon ds. IMPRE SSION : 1. Succe ssful fluor oscop ic-gu ided thera peuti c lumba r punct ure. Appro ximat jyoti 29 mL of clear cereb rospi nal fluid was drain ed. 2. Openi ng press ure of 34 cm CSF. Closi ng press ure of 15 cm CSF. 3. Patie nt's heada kalie was a 0/ 10 prior to the proce dure and a 0 / 10 post proce dure. Repor t Verif ied by: ILAN Lema at 022 3:57 PM EST Not Available [address], [address], 08/15/2021 16:02:30 08/15/19 22 08/15/2021 PROCE DURE mejia booth authenticati on interface message text [facility] ----- ----- ----- ----- ----- ----- ----- ----- ----- ----- ----- ----- ----- ----- ----- ----- Attgretel mcgee by Teofilo potter MD at 11:18 AM I agree with the proce dure and findi ngs. ----- ----- ----- ----- ----- ----- ----- ----- ----- ----- ----- ----- ----- ----- ----- ----- Neuro radio logy Spine Post Proce dure Note Date: Patie nt: Mat booth 553 Proce dure: Fluor oscop ic Guide d Thera peuti c Lumba r Punct ure L2-L3 on the left 22 gauge Gerti e Max penci l tippe d spina l needl e OP: 34 CP: 15 Heada kalie pre and post proce dure 0/10 Opera tors: MSavita Roberts PA-C Speci men: Appro britton montes (29) mL of CSF sent to the lab Medic ation s: 2 ml Lidoc leena (1%) Subcu taneo us Estim ated Blood Loss: Minim al (Less Than 5 mL) Compl icati ons: None. The patie nt will be conta cted after the proce dure by one of our clini evelin care coord damien rs: Tamy Dutton : [phone]. Beth Traylor el: [phone]. Kamla Cao le: [phone] -Plea se refer to full dicta frank Radio logy repor t for detai ls of findi ngs/p roced ure. Not Available [address], [address], 08/16/2021 11:21:07 11/10/19 22 11/09/2021 MRI MRV HEAD W AND WO CONTR AST MRI MRV head W and wo contrast EXAM: MRA HEAD W WO CONTR AST INDIC ATION : Heada kalie, papil ledem a, idiop athic intra crani al hyper tensi on, to rule out trans verse sinus steno sis; TECHN IQUE: 2D/3D TOF and 3D GE MRV head perfo rmed witho ut and with 10 mL of GADOB UTROL 1 MMOL/ ML INTRA VENOU S SOLUT ION ([facility]) admin ister ed intra venou sly with MIP of MRV sourc e data. IFTIKHAR RISON : None avail able. FINDI NGS: Adequ ate diagn ostic quali ty. Dural sinus es: Moder ate narro wing along the dista l aspec t of the bilat eral front al sinus es. Paten t super ior sagit khai sinus and strai ght sinus . Paten t sigmo id sinus es. Deep venou s struc tures : Paten t deep venou s struc tures inclu ding the inter nal cereb ral veins and basal veins . Corti evelin veins : Paten t to the exten t evalu ated. Anter ior Circu latio n: Bilat eral yoel nous and supra clino id inter nal carot ids with nemo l flow signa l. Nemo l flow signa l bilat eral middl e cereb ral arter ies. Nemo l flow signa l bilat eral anter ior cereb ral arter ies. Poste rior Circu latio n: No steno sis, occlu sive lockett e, or aneur ysm. Extra vascu lar struc tures inclu ded on MRA sourc e image s: Nemo l ventr icles with no mass effec t. Nemo l inclu ded orbit s and paran adis sinus es. 10 IMPRE SSION : 1. Moder ate narro wing in the dista l trans verse sinus es bilat erall y. 2. No dural venou s sinus or corti evelin vein throm bosis . Appro kay by Roby justin on 5:20 PM EDT I have perso marleny ribeiro wed the image s and I agree with this repor tSavita Jackman ied by: Petra dyson MD at 6:42 PM EDT 10 Not Available [address], [address], 11/09/2021 18:47:27 03/12/20 24 03/12/2024 CBC WBC 7.2 10E3/ uL 3.8-10 .8 normal Not Available Octavio Tersigni DO [address] [place] [address], [address], 03/12/2024 09:17:41 03/12/20 24 03/12/2024 CBC RBC 4.43 10E6/ uL 3.80-5 .10 normal Not Available Octavio Tersigni DO [address] [place] [address], [address], 03/12/2024 09:17:41 03/12/20 24 03/12/2024 CBC HGB 12.8 g/dL 11.7-1 5.5 normal Not Available Octavio Tersigni DO [address] [place] [address], [address], 03/12/2024 09:17:41 03/12/20 24 03/12/2024 CBC HCT 37.3 % 35.0-4 5.0 normal Not Available Octavio Tersigni DO [address] [place] [address], [address], 03/12/2024 09:17:41 03/12/20 24 03/12/2024 CBC MCV 84.2 fL 80.0-1 00.0 normal Not Available Octavio Tersigni DO [address] [place] [address], [address], 03/12/2024 09:17:41 03/12/20 24 03/12/2024 CBC MCH 29.0 pg 27.0-3 3.0 normal Not Available Octavio Tersigni DO [address] [place] [address], [address], 03/12/2024 09:17:41 03/12/20 24 03/12/2024 CBC MCHC 34.4 g/dL 32.0-3 6.0 normal Not Available Octavio Tersigni DO [address] [place] [address], [address], 03/12/2024 09:17:41 03/12/2003/12/2024 CBC RDW 13.8 % 11.0-1 5.0 normal Not Available Octavio Tersigni DO [address] [place] [address], [id number], 03/12/2024 09:17:41 03/12/20 24 03/12/2024 CBC platelet count 208 10E3/ uL 140-40 0 normal Not Available Octavio Tersigni DO [address] [place] [address], [address], 03/12/2024 09:17:41 03/12/20 24 03/12/2024 CBC MPV 7.6 fL 7.5-11 .5 normal Not Available Octavio Tersigni DO [address] [place] [address], [address], 03/12/2024 09:17:41 03/12/2003/12/2024 POC HCG QUALI TATIV E, URINE HCG qualitative - clinitek Negati ve negati ve normal Not Available Octavio Tersigni DO [address] [place] [address], [address], 03/12/2024 09:17:41 03/12/20 24 03/12/2024 PROTI ME prothrombin time 13.1 secon ds 12.1-1 5.1 normal Not Available Octavio Tersigni DO [address] [place] [address], [id number], 03/12/2024 09:17:42 03/12/20 24 03/12/2024 PROTI ME INR 0.9 0.9-1. 1 normal RECOM ROSS D THERA PEUTI C RANGE S USING INR : Stabl e oral antic oagul ant thera py: 2.0 - 3.0 Mecha nical prost hetic heart valve : 2.5 - 3.5 Recur rent acute myoca rdial infar ction : 2.5 - 3.5 Not Available Octavio Tersigni DO [address] [place] [address], [address], 03/12/2024 09:17:42 03/12/20 24 03/12/2024 APTT - NO ANTIC OAGUL ANT APTT 33.3 secon ds 25.5-3 5.0 normal Not Available Octavio Tersigni DO [address] [place] [address], [id number], 03/12/2024 09:17:43 03/12/20 24 03/12/2024 APTT - NO ANTIC OAGUL ANT performing lab: see note unspecifi ed [facility] Gene Gallo [address] [place] [address] [address] [facility] [address] Not Available Octavio Tersigni DO [address] [place] [address], [address], 03/12/2024 09:17:43 03/12/20 24 03/12/2024 BASIC METAB OLIC PANEL sodium 140 mmol/ L 133-14 6 normal Not Available Octavio Tersigni DO [address] [place] [address], [address], 03/12/2024 09:58:47 03/12/20 24 03/12/2024 BASIC METAB OLIC PANEL potassium 3.7 mmol/ L 3.5-5. 3 normal Not Available Octavio Tersigni DO [address] [place] [address], [address], 03/12/2024 09:58:47 03/12/20 24 03/12/2024 BASIC METAB OLIC PANEL chloride 108 mmol/ L 98-110 normal Not Available Octavio Tersigni DO [address] [place] [address], [address], 03/12/2024 09:58:47 03/12/20 24 03/12/2024 BASIC METAB OLIC PANEL CO2 22 mmol/ L 21-33 normal Not Available Octavio Tersigni DO [address] [place] [address], [address], 03/12/2024 09:58:47 03/12/20 24 03/12/2024 BASIC METAB OLIC PANEL anion gap 10 mmol/ L 3-16 normal Not Available Octavio Tersigni DO [address] [place] [address], [address], 03/12/2024 09:58:47 03/12/20 24 03/12/2024 BASIC METAB OLIC PANEL BUN 12 mg/dL 7-25 normal Not Available Octavio Tersigni DO [address] [place] [address], [address], 03/12/2024 09:58:47 03/12/20 24 03/12/2024 BASIC METAB OLIC PANEL creatinine 0.83 mg/dL 0.60-1 .30 normal Not Available Octavio Tersigni DO [address] [place] [address], [address], 03/12/2024 09:58:47 03/12/20 24 03/12/2024 BASIC METAB OLIC PANEL glucose 96 mg/dL 70-100 normal Not Available Octavio Tersigni DO [address] [place] [address], [address], 03/12/2024 09:58:47 03/12/20 24 03/12/2024 BASIC METAB OLIC PANEL calcium 9.2 mg/dL 8.6-10 .3 normal Not Available Octavio Tersigni DO [address] [place], [address], 03/12/2024 09:58:47 03/12/20 24 03/12/2024 BASIC METAB OLIC PANEL calculated osmolality 290 mOsm/ kg 278-30 5 normal Not Available Octavio Tersigni DO [address] [place], [address], 03/12/2024 09:58:47 03/12/20 24 03/12/2024 BASIC METAB OLIC PANEL eGFR >90 normal As of 022, the estim ated GFR is calcu lated using the 2020 Chron ic Kidne y Disea se Epide miolo gy Colla borat ion (CKD- EPI) equat ion. In line with the NKF-A SN Task Force Recom menda tions , this equat ion does not inclu de a coeff icien t for race. A singl e eGFR value is calcu lated for each patie nt. The refer ence inter martha is >60 mL/mi n/1.7 3m2. eGFR value s great er than 90 will be repor frank as >90mL /min/ 1.73m 2. Refer ence: Madonna lambert C, Edwin martin M, Gurjit DC, Minh travis ND, Kevin rey [place], Awilda [place], et al. A Unify ing Appro ach for GFR Estim ation : Recom menda tions of the NKF-A SN Task Force on Reass essin g the inclu alen of Race in Diagn osing Kidne y Disea se. Am J Kidne y Dis. 2020. GFR is estim ated using creat inine , age, and sex. Patie nt's value s shoul d be inter prete d as a trend . Below 90 mL/mi n/1.7 3m2, the patie nt may have renal disea se. For addit ional infor matio n: www.chelo matt .org Not Available Octavio Tersigni DO [facility] [place], [address], 03/12/2024 09:58:47 03/12/20 24 03/12/2024 BASIC METAB OLIC PANEL performing lab: see note unspecifi ed [facility] - Medic al Cente r Gene SSavita Gallo r [address] [facility] [address] Not Available Octavio Tersigni DO [address] [place] [address], [address], 03/12/2024 09:58:47 03/12/20 24 03/12/2024 BLOOD BANK SAMPL E - NO ORDER S blood bank sampleresult 1 Accept able specim en receiv ed in the Blood Bank normal Not Available Octavio Tersigni DO [address] [place] [address], [id number], 03/12/2024 10:13:29 03/12/20 24 03/12/2024 RAPID TEG teg act 128.0 secon ds 86.0-1 18.0 high The TEG ACT test sofi eter is appro kay to monit or hepar in in adult patie nts. It has not been appro kay by the FDA for other uses. Not Available Octavio Tersigni DO [address] [place] [address], [id number], 03/12/2024 10:13:30 03/12/20 24 03/12/2024 RAPID TEG R time 50.0 secon ds 22-44 high Not Available Octavio Tersigni DO [address] [place] [address], [address], 03/12/2024 10:13:30 03/12/20 24 03/12/2024 RAPID TEG K time 70.0 secon ds 34-138 normal Not Available Octavio Tersigni DO [address] [place] [address], [address], 03/12/2024 10:13:30 03/12/20 24 03/12/2024 RAPID TEG angle 76.5 degre es 64-80 normal Not Available Octavio Tersigni DO [address] [place] [address], [address], 03/12/2024 10:13:30 03/12/20 24 03/12/2024 RAPID TEG maximum amplitude 65.7 mm 52-71 normal Not Available Octavio Tersigni DO [address] [place] [address], [address], 03/12/2024 10:13:30 03/12/20 24 03/12/2024 RAPID TEG lysis 30 0.2 % 0.0-3. 0 normal Not Available Octavio [facility] DO [address] [place] [address], [address], 03/12/2024 10:13:30 03/12/20 24 03/12/2024 POC GLU MONIT ORI DEVIC E POC glu monitoring device 100 mg/dL 70-100 normal Not Available Octavio [facility] DO [address] [place] [address], [id number], 03/12/2024 10:13:31 03/12/20 24 03/12/2024 ABO GROUP AND RH TYPE ABO group O normal Not Available [facility] [address] [place] [address], [address], 03/12/2024 10:13:31 03/12/20 24 03/12/2024 ABO GROUP AND RH TYPE Rh type Positi ve normal Not Available [facility] [address] [place] [address], [address], 03/12/2024 10:13:31 03/12/20 24 03/12/2024 ANTIB ANNELIESE SCREE N antibody screen Negati ve normal Not Available Octavio Tersigni DO [address] [place] [address], [address], 03/12/2024 10:13:32 03/12/20 24 03/12/2024 ANTIB ANNELIESE Booth performing lab: see note unspecifi ed TUX[facility] - Produ cer Id infor matio n not found for OBX-s pecif ic produ cer legen d Not Available Octavio Tersigni DO [address] [place] [address], [address], 03/12/2024 10:13:32 03/12/20 24 03/12/2024 POC GLU MONIT ORI DEVIC E POC glu monitoring device 124 mg/dL 70-100 high Not Available Octavio Tersigni DO [address] [place] [address], [id number], 03/12/2024 16:33:19 03/12/20 24 03/12/2024 POC GLU MONIT ORI DEVIC E performing lab: see note unspecifi ed [facility] Gene Gallo r [address] [place] [address] [address] [facility] [address] [facility] [address] Not Available Octavio Tersigni DO [address] [place] [address], [id number], 03/12/2024 16:33:19 03/12/20 24 03/12/2024 CBC WBC 8.6 10E3/ uL 3.8-10 .8 normal Not Available Octavio Tersigni DO [address] [place] [address], 51330, 03/12/2024 17:18:37 03/12/20 24 03/12/2024 CBC RBC 4.29 10E6/ uL 3.80-5 .10 normal Not Available Octavio Tersigni DO [address] [place] [address], 25082, 03/12/2024 17:18:37 03/12/20 24 03/12/2024 CBC HGB 12.7 g/dL 11.7-1 5.5 normal Not Available Octavio Tersigni DO [address] [place] [address], 30274, 03/12/2024 17:18:37 03/12/20 24 03/12/2024 CBC HCT 36.2 % 35.0-4 5.0 normal Not Available Octavio Tersigni DO [address] [place] [address], 98605, 03/12/2024 17:18:37 03/12/2003/12/2024 CBC MCV 84.5 fL 80.0-1 00.0 normal Not Available Octavio Tersigni DO [address] [place] [address], 40397, 03/12/2024 17:18:37 03/12/20 24 03/12/2024 CBC MCH 29.6 pg 27.0-3 3.0 normal Not Available Octavio Tersigni DO [address] [place] [address], 64931, 03/12/2024 17:18:37 03/12/20 24 03/12/2024 CBC MCHC 35.0 g/dL 32.0-3 6.0 normal Not Available Octavio Tersigni DO [address] [place] [address], 87612, 03/12/2024 17:18:37 03/12/20 24 03/12/2024 CBC RDW 13.7 % 11.0-1 5.0 normal Not Available Octavio Tersigni DO [address] [place] [address], 18199, 03/12/2024 17:18:37 03/12/20 24 03/12/2024 CBC platelet count 210 10E3/ uL 140-40 0 normal Not Available Octavio Tersigni DO [address] [place] [address], 78614, 03/12/2024 17:18:37 03/12/20 24 03/12/2024 CBC MPV 7.5 fL 7.5-11 .5 normal Not Available Octavio Tersigni DO [address] [place] [address], 53506, 03/12/2024 17:18:37 03/12/20 24 03/12/2024 CBC performing lab: see note unspecifi ed [facility] Gene Gallo [address]iel [address] [facility] [address] Not Available Octavio Tersigni DO [address] [place] [address], [id number], 03/12/2024 17:18:37 03/12/20 24 03/12/2024 ABO GROUP AND RH TYPE ABO group O normal Not Available Octavio Tersigni DO [address] [place] [address], [id number], 03/12/2024 18:08:26 03/12/20 24 03/12/2024 ABO GROUP AND RH TYPE Rh type Positi ve normal Not Available Octavio Tersigni DO [address] [place] [address], 06302, 03/12/2024 18:08:26 03/12/20 24 03/12/2024 ABO GROUP AND RH TYPE performing lab: see note unspecifi ed [facility] cer Id infor matio n not found for OBX-s pecif ic produ cer legen d Not Available Octavio Tersigni DO [address] [place] [address], 06392, 03/12/2024 18:08:26 08/12/19 25 08/12/2024 CBC WBC 5.6 10E3/ uL 3.8-10 .8 normal Not Available Octavio Tersigni DO [address] [place] [address], 82219, 08/12/2024 15:41:18 08/12/19 25 08/12/2024 CBC RBC 4.79 10E6/ uL 3.80-5 .10 normal Not Available Octavio Tersigni DO [address] [place] [address], [id number], 08/12/2024 15:41:18 08/12/19 25 08/12/2024 CBC HGB 14.1 g/dL 11.7-1 5.5 normal Not Available Octavio Tersigni DO [address] [place] [address], 46850, 08/12/2024 15:41:18 08/12/19 25 08/12/2024 CBC HCT 40.8 % 35.0-4 5.0 normal Not Available Octavio Tersigni DO [address] [place] [address], 99767, 08/12/2024 15:41:18 08/12/19 25 08/12/2024 CBC MCV 85.3 fL 80.0-1 00.0 normal Not Available Octavio Tersigni DO [address] [place] [address], 37133, 08/12/2024 15:41:18 08/12/19 25 08/12/2024 CBC MCH 29.4 pg 27.0-3 3.0 normal Not Available Octavio Tersigni DO [address] [place] [address], 07352, 08/12/2024 15:41:18 08/12/19 25 08/12/2024 CBC MCHC 34.5 g/dL 32.0-3 6.0 normal Not Available Octavio Tersigni DO [address] [place] [address], 11208, 08/12/2024 15:41:18 08/12/19 25 08/12/2024 CBC RDW 13.6 % 11.0-1 5.0 normal Not Available Octavio Tersigni DO [address] [place] [address], 49033, 08/12/2024 15:41:18 08/12/19 25 08/12/2024 CBC platelet count 240 10E3/ uL 140-40 0 normal Not Available Octavio Tersigni DO [address] [place] [address], 23957, 08/12/2024 15:41:18 08/12/19 25 08/12/2024 CBC MPV 7.6 fL 7.5-11 .5 normal Not Available Octavio Tersigni DO [address] [place] [address], 78161, 08/12/2024 15:41:18 08/12/19 25 08/12/2024 CBC performing lab: see note unspecifi ed [facility] He[facility] - Medic al Matthewe r Gene Gallo [address] massiel [place] [facility] [address] Not Available Octavio Tersigni DO [address] [place] [address], [id number], 08/12/2024 15:41:18 08/12/19 25 08/12/2024 SED RATE sed rate (ESR) 11 mm/HR 0-20 normal Not Available Octavio Tersigni DO [address] [place] [address], 22513, 08/12/2024 16:06:32 08/12/19 25 08/12/2024 BASIC METAB OLIC PANEL sodium 141 mmol/ L 133-14 6 normal Not Available Octavio Tersigni DO [address] [place] [address], 85919, 08/12/2024 16:06:32 08/12/19 25 08/12/2024 BASIC METAB OLIC PANEL potassium 4.5 mmol/ L 3.5-5. 3 normal Not Available Octavio Tersigni DO [address] [place] [address], 24055, 08/12/2024 16:06:32 08/12/19 25 08/12/2024 BASIC METAB OLIC PANEL chloride 105 mmol/ L 98-110 normal Not Available Octavio Tersigni DO [address] [place] [address], [id number], 08/12/2024 16:06:32 08/12/19 25 08/12/2024 BASIC METAB OLIC PANEL CO2 27 mmol/ L 21-33 normal Not Available Octavio Tersigni DO [address] [place] [address], 51316, 08/12/2024 16:06:32 08/12/19 25 08/12/2024 BASIC METAB OLIC PANEL anion gap 9 mmol/ L 3-16 normal Not Available Octavio Tersigni DO [address] [place] [address], 57905, 08/12/2024 16:06:32 08/12/19 25 08/12/2024 BASIC METAB OLIC PANEL BUN 8 mg/dL 7-25 normal Not Available Octavio Tersigni DO [address] [place] [address], 82996, 08/12/2024 16:06:32 08/12/19 25 08/12/2024 BASIC METAB OLIC PANEL creatinine 0.88 mg/dL 0.60-1 .30 normal Not Available Octavio Tersigni DO [address] [place] [address], 23689, 08/12/2024 16:06:32 08/12/19 25 08/12/2024 BASIC METAB OLIC PANEL glucose 88 mg/dL 70-100 normal Not Available Octavio Tersigni DO [address] [place], [address], 08/12/2024 16:06:32 08/12/19 25 08/12/2024 BASIC METAB OLIC PANEL calcium 9.8 mg/dL 8.6-10 .3 normal [place] [address] [place] [address], 67948, 08/12/2024 16:06:32 08/12/19 25 08/12/2024 BASIC METAB OLIC PANEL calculated osmolality 290 mOsm/ kg 278-30 5 normal Not Available Octavio Tersigni DO [address] [place] [address], 87154, 08/12/2024 16:06:32 08/12/19 25 08/12/2024 BASIC METAB OLIC PANEL eGFR >90 normal As of 022, the estim ated GFR is calcu lated using the 2020 Chron ic Kidne y Disea se Epide miolo gy Colla borat ion (CKD- EPI) equat ion. In line with the NKF-A SN Task Force Recom menda tions , this equat ion does not inclu de a coeff icien t for race. A singl e eGFR value is calcu lated for each patie nt. The refer ence inter martha is >60 mL/mi n/1.7 3m2. eGFR value s great er than 90 will be repor frank as >90mL /min/ 1.73m 2. Refer ence: Madonna lambert C, Edwin martin M, Gurjit [place], Minh travis [place], Kevin rey [place], Awilda [place], et al. A Unify ing Appro ach for GFR Estim ation : Recom menda tions of the NKF-A SN Task Force on Reass essin g the inclu alen of Race in Diagn osing Kidne y Disea se. Am J Kidne y Dis. 2020. GFR is estim ated using creat inine , age, and sex. Patie nt's value s shoul d be inter prete d as a trend . Below 90 mL/mi n/1.7 3m2, the patie nt may have renal disea se. For addit seleneal infor cassie n: www.chelo matt .org Not Available Octavio Tersigni DO [facility] [place], [address], 08/12/2024 16:06:32 08/12/19 25 08/12/2024 C-MAYCO CTIVE PROTE IN C-reactive protein 3.5 mg/L 1.0-10 .0 normal Not Available Octavio Tersigni DO [address] [place], [address], 08/12/2024 16:06:32 08/12/19 25 08/12/2024 C-MAYCO CTIVE PROTE IN performing lab: see note unspecifi ed [facility] Gene Gallo [address] [facility] [address] Not Available Octavio Tersigni DO [address] [place], [address], 08/12/2024 16:06:32 10/04/19 25 10/03/2024 HEMOG SORAYA WITHO UT PLATE LETS AND WITH MANUA L DIFFE RENTI AL PANEL - BLOOD leukocytes [#/volume] in blood by automated count 6.7 x(10) 3/uL 4.5 - 10.3 Not Available [facility] [address] [place] [address] [place], [address], 10/03/2024 14:59:40 10/04/19 25 10/03/2024 HEMOG SORAYA WITHO UT PLATE LETS AND WITH MANUA L DIFFE RENTI AL PANEL - BLOOD erythrocytes [#/volume] in blood by automated count 4.83 x(10) 6/uL 3.72 - 5.31 Not Available [facility] [address] [place] [address] [place], [address], 10/03/2024 14:59:40 10/04/19 25 10/03/2024 HEMOG SORAYA WITHO UT PLATE LETS AND WITH MANUA L DIFFE RENTI AL PANEL - BLOOD hemoglobin [mass/volume ] in blood 13.9 g/dL 11.9 - 15.9 Not Available [facility] [address] [place] [address] [place], [address], 10/03/2024 14:59:40 10/04/19 25 10/03/2024 HEMOG SORAYA WITHO UT PLATE LETS AND WITH MANUA L DIFFE RENTI AL PANEL - BLOOD hematocrit [volume fraction] of blood by automated count 41.7 % 35.7 - 46.7 Not Available [facility] [address] [place] [address] [place], [address], 10/03/2024 14:59:40 10/04/19 25 10/03/2024 HEMOG SORAYA WITHO UT PLATE LETS AND WITH MANUA L DIFFE RENTI AL PANEL - BLOOD erythrocyte mean corpuscular volume [entitic volume] by automated count 86.3 fL 82.9 - 99.9 Not Available [address] [place], [address], 10/03/2024 14:59:40 10/04/19 25 10/03/2024 HEMOG SORAYA WITHO UT PLATE LETS AND WITH MANUA L DIFFE RENTI AL PANEL - BLOOD erythrocyte mean corpuscular hemoglobin [entitic mass] by automated count 28.8 pg 28.1 - 33.6 Not Available [address] [place], [address], 10/03/2024 14:59:40 10/04/19 25 10/03/2024 HEMOG SORAYA WITHO UT PLATE LETS AND WITH MANUA L DIFFE RENTI AL PANEL - BLOOD erythrocyte mean corpuscular hemoglobin concentratio n [mass/volume ] by automated count 33.3 g/dL 32.8 - 34.7 Not Available [facility] [address] [place] [address] [place], [address], 10/03/2024 14:59:40 10/04/19 25 10/03/2024 HEMOG SORAYA WITHO UT PLATE LETS AND WITH MANUA L DIFFE RENTI AL PANEL - BLOOD erythrocyte distribution width [ratio] by automated count 12.0 % 11.6 - 14.8 Not Available [address] [place], [address], 10/03/2024 14:59:40 10/04/19 25 10/03/2024 HEMOG SORAYA WITHO UT PLATE LETS AND WITH MANUA L DIFFE RENTI AL PANEL - BLOOD platelets [#/volume] in blood by automated count 246 x(10) 3/uL 175 - 420 Not Available [address] [place], [address], 10/03/2024 14:59:40 10/04/19 25 10/03/2024 HEMOG SORAYA WITHO UT PLATE LETS AND WITH MANUA L DIFFE RENTI AL PANEL - BLOOD neutrophils/ 100 leukocytes in blood by automated count 63.4 % 40 - 70 Not Available [address] [place], [address], 10/03/2024 14:59:40 10/04/19 25 10/03/2024 HEMOG SORAYA WITHO UT PLATE LETS AND WITH MANUA L DIFFE RENTI AL PANEL - BLOOD lymphocytes/ 100 leukocytes in blood by automated count 25.8 % 15 - 45 Not Available [address] [place], [address], 10/03/2024 14:59:40 10/04/19 25 10/03/2024 HEMOG SORAYA WITHO UT PLATE LETS AND WITH MANUA L DIFFE RENTI AL PANEL - BLOOD monocytes/10 0 leukocytes in blood by automated count 8.2 % 0 - 12 Not Available [address] [place], [address], 10/03/2024 14:59:40 10/04/19 25 10/03/2024 HEMOG SORAYA WITHO UT PLATE LETS AND WITH MANUA L DIFFE RENTI AL PANEL - BLOOD eosinophils/ 100 leukocytes in blood by automated count 1.5 % 0 - 5 Not Available [facility] [address] [place] [address] [place], [address], 10/03/2024 14:59:40 10/04/19 25 10/03/2024 HEMOG SORAYA WITHO UT PLATE LETS AND WITH MANUA L DIFFE RENTI AL PANEL - BLOOD basophils/10 0 leukocytes in blood by automated count 0.4 % 0 - 1 Not Available [facility] [address] [place] [address] [place], [address], 10/03/2024 14:59:40 10/04/19 25 10/03/2024 HEMOG SORAYA WITHO UT PLATE LETS AND WITH MANUA L DIFFE RENTI AL PANEL - BLOOD immature granulocytes /100 leukocytes in blood by automated count 0.7 % 0.0 - 0.5 high Not Available [facility] [address] [place] [address] [place], [address], 10/03/2024 14:59:40 10/04/19 25 10/03/2024 HEMOG SORAYA WITHO UT PLATE LETS AND WITH MANUA L DIFFE RENTI AL PANEL - BLOOD neutrophils [#/volume] in blood by automated count 4.2 x(10) 3/uL 1.8 - 7.2 Not Available [facility] [address] [place] [address] [place], [address], 10/03/2024 14:59:40 10/04/19 25 10/03/2024 HEMOG SORAYA WITHO UT PLATE LETS AND WITH MANUA L DIFFE RENTI AL PANEL - BLOOD lymphocytes [#/volume] in blood by automated count 1.7 x(10) 3/uL 1.1 - 2.7 NEW ABSOL NATIVE LYMPH OCYTE REFER ENCE RANGE EFFEC TIVE 07/04. INFAN TS NEUTR OPENI A: <0.25 x(10) 3/uL ADULT S MILD NEUTR OPENI A: 1.00- 1.80 x(10) 3/uL MODER ATE NEUTR OPENI A: 0.50- 1.0 x(10) 3/uL SEVER E NEUTR OPENI A: <0.50 x(10) 3/uL NEW ABSOL NATIVE NEUTR OPHIL REFER ENCE RANGE EFFEC TIVE 07/04. NEW IMMAT URE GRANU LOCYT E REFER ENCE RANGE EFFEC TIVE 07/04. Not Available [facility] [address] [place] [address] [place], [address], 10/03/2024 14:59:40 10/04/19 25 10/03/2024 CBC WITH AUTO DIFF WBC 6.7 x(10) 3/uL 4.5-10 .3 normal Not Available [facility] [address] [place], [address], 10/03/2024 15:10:36 10/04/19 25 10/03/2024 CBC WITH AUTO DIFF RBC 4.83 x(10) 6/uL 3.72-5 .31 normal Not Available [facility] [address] [place], [address], 10/03/2024 15:10:36 10/04/19 25 10/03/2024 CBC WITH AUTO DIFF hemoglobin 13.9 g/dL 11.9-1 5.9 normal Not Available [facility] [address] [place], [address], 10/03/2024 15:10:36 10/04/19 25 10/03/2024 CBC WITH AUTO DIFF hematocrit 41.7 % 35.7-4 6.7 normal Not Available [facility] [address] [place], [address], 10/03/2024 15:10:36 10/04/19 25 10/03/2024 CBC WITH AUTO DIFF MCV 86.3 fL 82.9-9 9.9 normal Not Available [facility] [address] [place], [address], 10/03/2024 15:10:36 10/04/19 25 10/03/2024 CBC WITH AUTO DIFF MCH 28.8 pg 28.1-3 3.6 normal Not Available [facility] [address] [place], [address], 10/03/2024 15:10:36 10/04/19 25 10/03/2024 CBC WITH AUTO DIFF MCHC 33.3 g/dL 32.8-3 4.7 normal Not Available [facility] [address] [place], [address], 10/03/2024 15:10:36 10/04/19 25 10/03/2024 CBC WITH AUTO DIFF RDW 12.0 % 11.6-1 4.8 normal Not Available [facility] [address] [place], [address], 10/03/2024 15:10:36 10/04/19 25 10/03/2024 CBC WITH AUTO DIFF platelet count 246 x(10) 3/uL 175-42 0 normal Not Available [facility] [address] [place], [address], 10/03/2024 15:10:36 10/04/19 25 10/03/2024 CBC WITH AUTO DIFF neutroph 63.4 % 40-70 normal Not Available [facility] [address] [place], [address], 10/03/2024 15:10:36 10/04/19 25 10/03/2024 CBC WITH AUTO DIFF lymph% 25.8 % 15-45 normal Not Available [facility] [address] [place], [address], 10/03/2024 15:10:36 10/04/19 25 10/03/2024 CBC WITH AUTO DIFF mono% 8.2 % 0-12 normal Not Available [facility] [address] [place], [address], 10/03/2024 15:10:36 10/04/19 25 10/03/2024 CBC WITH AUTO DIFF eos% 1.5 % 0-5 normal Not Available [facility] [address] [place], [address], 10/03/2024 15:10:36 10/04/19 25 10/03/2024 CBC WITH AUTO DIFF baso% 0.4 % 0-1 normal Not Available [facility] [address] [place], [address], 10/03/2024 15:10:36 10/04/19 25 10/03/2024 CBC WITH AUTO DIFF Ig% 0.7 % 0.0-0. 5 high NEW IMMAT URE GRANU LOCYT E REFER ENCE RANGE EFFEC TIVE 07/04. Not Available [facility] [address] [place], [address], 10/03/2024 15:10:36 10/04/19 25 10/03/2024 CBC WITH AUTO DIFF absolute neutrophil count 4.2 x(10) 3/uL 1.8-7. 2 normal INFAN TS NEUTR OPENI A: <0.25 x(10) 3/uL ADULT S MILD NEUTR OPENI A: 1.00- 1.80 x(10) 3/uL MODER ATE NEUTR OPENI A: 0.50- 1.0 x(10) 3/uL SEVER E NEUTR OPENI A: <0.50 x(10) 3/uL NEW ABSOL NATIVE NEUTR OPHIL REFER ENCE RANGE EFFEC TIVE 07/04. Not Available [facility] [address] [place], [address], 10/03/2024 15:10:36 10/04/19 25 10/03/2024 CBC WITH AUTO DIFF absolute lymphocyte count 1.7 x(10) 3/uL 1.1-2. 7 normal NEW ABSOL NATIVE LYMPH OCYTE REFER ENCE RANGE EFFEC TIVE 07/04. Not Available [facility] [address] [place], [address], 10/03/2024 15:10:36 10/04/19 25 10/03/2024 LIPID 1995 PANEL - SERUM OR PLASM A cholesterol [mass/volume ] in serum or plasma 232 mg/dL 0 - 200 high Not Available [facility] [address] [place] [address] [place], [address], 10/03/2024 15:19:28 10/04/19 25 10/03/2024 LIPID 1995 PANEL - SERUM OR PLASM A triglyceride [mass/volume ] in serum or plasma 219 mg/dL 0 - 149 high Not Available [facility] [address] [place] [address] [place], [address], 10/03/2024 15:19:28 10/04/19 25 10/03/2024 LIPID 1996 PANEL - SERUM OR PLASM A cholesterol in HDL [mass or moles/volume ] in serum or plasma 46 mg/dL 40 - 59 Not Available [facility] [address] [place] [address] [place], [address], 10/03/2024 15:19:28 10/04/19 25 10/03/2024 LIPID 1996 PANEL - SERUM OR PLASM A cholesterol in LDL [mass/volume ] in serum or plasma by calculation 142.2 mg/dL less than - 100 high Not Available [facility] [address] [place] [address] [place], [address], 10/03/2024 15:19:28 10/04/19 25 10/03/2024 LIPID 1996 PANEL - SERUM OR PLASM A cholesterol in VLDL [mass/volume ] in serum or plasma by calculation 43.8 mg/dL 10 - 50 Not Available [facility] [address] [place] [address] [place], [address], 10/03/2024 15:19:28 10/04/19 25 10/03/2024 LIPID 1996 PANEL - SERUM OR PLASM A cholesterol in LDL/choleste rol in HDL [mass ratio] in serum or plasma 3.1 HDL: HDL < 40 MG/DL = MAJOR RISK FACTO R FOR CAD. HDL >= 60 MG/DL = NEGAT WILLARD RISK FACTO R FOR CAD. LDL: OPTIM AL: <100 MG/DL LOW RISK: 100-1 29 MG/DL MODER ATE RISK: 130-1 59 MG/DL HIGH RISK: 160-1 89 MG/DL VERY HIGH RISK: =/>19 0 MG/DL THIS IS A CALCU LATED LDL RESUL T, USING THE FRIED LEVI EQUAT ION. ATP-I II GUIDE LINES RECOM MEND THE DIREC T LDL METHO D. Not Available [facility] [address] [place] [address] [place], [address], 10/03/2024 15:19:28 10/04/19 25 10/03/2024 COMPR EHENS WILLARD METAB OLIC 1999 PANEL - SERUM OR PLASM A sodium [moles/volum e] in serum or plasma 139 mmol/ L 137 - 145 Not Available [facility] [address] [place] [address] [place], [address], 10/03/2024 15:19:34 10/04/19 25 10/03/2024 COMPR EHENS WILLARD METAB OLIC 1999 PANEL - SERUM OR PLASM A potassium [moles/volum e] in serum or plasma 4.0 mmol/ L 3.4 - 5.1 Not Available [facility] [address] [place] [address] [place], [address], 10/03/2024 15:19:34 10/04/19 25 10/03/2024 COMPR EHENS WILLARD METAB OLIC 2000 PANEL - SERUM OR PLASM A chloride [moles/volum e] in serum or plasma 105 mmol/ L 98 - 107 Not Available [facility] - [address] [place], [address], 10/03/2024 15:19:34 10/04/19 25 10/03/2024 COMPR EHENS WILLARD METAB OLIC 2000 PANEL - SERUM OR PLASM A carbon dioxide, total [moles/volum e] in serum or plasma 24 mmol/ L 22 - 30 Not Available [facility] [address] [place] [address] [place], [address], 10/03/2024 15:19:34 10/04/19 25 10/03/2024 COMPR EHENS WILLARD METAB OLIC 1999 PANEL - SERUM OR PLASM A urea nitrogen [mass/volume ] in serum or plasma 7 mg/dL 7 - 17 Not Available [address] [place], [address], 10/03/2024 15:19:34 10/04/19 25 10/03/2024 COMPR EHENS WILLARD METAB OLIC 1999 PANEL - SERUM OR PLASM A creatinine [mass/volume ] in serum or plasma 0.8 mg/dL 0.52 - 1.04 Not Available [address] [place], [address], 10/03/2024 15:19:34 10/04/19 25 10/03/2024 COMPR EHENS WILLARD METAB OLIC 2000 PANEL - SERUM OR PLASM A glucose [mass/volume ] in serum or plasma 100 mg/dL 74 - 100 Not Available [address] [place], [address], 10/03/2024 15:19:34 10/04/19 25 10/03/2024 COMPR EHENS WILLARD METAB OLIC 1999 PANEL - SERUM OR PLASM A calcium [mass/volume ] in serum or plasma 9.7 mg/dL 8.6 - 10.3 Not Available [address] [place], [address], 10/03/2024 15:19:34 10/04/19 25 10/03/2024 COMPR EHENS WILLARD METAB OLIC 2000 PANEL - SERUM OR PLASM A protein [mass/volume ] in serum or plasma 7.7 g/dL 6.3 - 8.2 Not Available [address] [place], [address], 10/03/2024 15:19:34 10/04/19 25 10/03/2024 COMPR EHENS WILLARD METAB OLIC 1999 PANEL - SERUM OR PLASM A albumin [mass/volume ] in serum or plasma 4.7 g/dL 3.5 - 5.0 Not Available [facility] [address] [place] [address] [place], [address], 10/03/2024 15:19:34 10/04/19 25 10/03/2024 COMPR EHENS WILLARD METAB OLIC 1999 PANEL - SERUM OR PLASM A globulin [mass/volume ] in serum by calculation 3.0 g/dL 2.0 - 3.5 Not Available [facility] [address] [place] [address] [place], [address], 10/03/2024 15:19:34 10/04/19 25 10/03/2024 COMPR EHENS WILLARD METAB OLIC 1999 PANEL - SERUM OR PLASM A albumin/glob ulin [mass ratio] in serum or plasma 1.6 g/dL 1.0 - 2.5 Not Available [facility] [address] [place] [address] [place], [phone], 10/03/2024 15:19:34 10/04/19 25 10/03/2024 COMPR EHENS WILLARD METAB OLIC 1999 PANEL - SERUM OR PLASM A bilirubin.to khai [mass/volume ] in serum or plasma 0.7 mg/dL 0.2 - 1.3 Not Available [facility] - [address] [place], [phone], 10/03/2024 15:19:34 10/04/19 25 10/03/2024 COMPR EHENS WILLARD METAB OLIC 1999 PANEL - SERUM OR PLASM A aspartate aminotransfe rase [enzymatic activity/vol ume] in serum or plasma 27 U/L 14 - 36 Not Available [facility] [address] [place] [address] [place], [address], 10/03/2024 15:19:34 10/04/19 25 10/03/2024 COMPR EHENS WILLARD METAB OLIC 2000 PANEL - SERUM OR PLASM A alanine aminotransfe rase [enzymatic activity/vol ume] in serum or plasma 23 U/L 0 - 34 Not Available [facility] [address] [place] [address] [place], [address], 10/03/2024 15:19:34 10/04/19 25 10/03/2024 COMPR EHENS WILLARD METAB OLIC 1999 PANEL - SERUM OR PLASM A alkaline phosphatase [enzymatic activity/vol ume] in serum or plasma 85 U/L 38 - 126 Not Available [facility] [address] [place] [address] [place], [phone], 10/03/2024 15:19:34 10/04/19 25 10/03/2024 COMPR EHENS WILLARD METAB OLIC 1999 PANEL - SERUM OR PLASM A anion gap 4 in serum or plasma 14.0 mmol/ L 8 - 16 Not Available [facility] [address] [place] [address] [place], [phone], 10/03/2024 15:19:34 10/04/19 25 10/03/2024 COMPR EHENS WILLARD METAB OLIC 1999 PANEL - SERUM OR PLASM A glomerular filtration rate/1.73 sq M.predicted [volume rate/area] in serum or plasma 87 < 90 mL/mi n/1.7 3 sq m MAY BE INDIC ATIVE OF DECLI CHELSEY KIDNE Y FUNCT ION. * GFR IS ESTIM ATED USING CREAT ININE , AGE, GENDE R AND RACE. PATIE NT'S VALUE S SHOUL D BE INTER PRETE D A TREND . ESTIM ATED GFR VALUE S ARE NOT ACCUR ATE IN: OBESE (BMI >34) OR UNDER WEIGH T (BMI <20) PEOPL E, THE VERY OLD OR VERY YOUNG , RACES OTHER THAN CAUCA SHANTELLE OR AFRIC AN AMERI CAN, AND PEOPL E WITH ACUTE KIDNE Y FAILU RE, ACUTE ILLNE SSES, OR AMPUT ATION S. BETWE EN 30-60 mL/mi n/1.7 3 sq m, CLINI EVELIN CORRE LATIO N IS NEEDE D. ESTIM ATES ARE CALCU LATED USING THE MDRD GFR EQUAT ION. Not Available [facility] - Lab [address] [facility] [place], [address], 10/03/2024 15:19:34 10/04/19 25 10/03/2024 LIPID PROFI LE cholesterol 232 mg/dL 0-200 high Not Available [facility] [address] [place], [address], 10/03/2024 15:30:02 10/04/19 25 10/03/2024 LIPID PROFI LE triglyceride 219 mg/dL 0-149 high Not Available [facility] [address] [place], [address], 10/03/2024 15:30:02 10/04/19 25 10/03/2024 LIPID PROFI LE high density lipoprotein 46 mg/dL 40-59 normal HDL: HDL < 40 MG/DL = MAJOR RISK FACTO R FOR CAD. HDL >= 60 MG/DL = NEGAT WILLARD RISK FACTO R FOR CAD. Not Available [facility] [address] [place], [address], 10/03/2024 15:30:02 10/04/19 25 10/03/2024 LIPID PROFI LE low density lipoprotein 142.2 mg/dL less than-1 00 high LDL: OPTIM AL: <100 MG/DL LOW RISK: 100-1 29 MG/DL MODER ATE RISK: 130-1 59 MG/DL HIGH RISK: 160-1 89 MG/DL VERY HIGH RISK: =/>19 0 MG/DL THIS IS A CALCU LATED LDL RESUL T, USING THE FRIED LEVI EQUAT ION. ATP-I II GUIDE LINES RECOM MEND THE DIREC T LDL METHO D. Not Available [facility] [address] [place], [address], 10/03/2024 15:30:02 10/04/19 25 10/03/2024 LIPID PROFI LE very low density lipoprotein 43.8 mg/dL 10-50 normal Not Available [facility] [address] [place], [address], 10/03/2024 15:30:02 10/04/19 25 10/03/2024 LIPID PROFI LE LDL/HDL ratio 3.1 normal Not Available [facility] [address] [place], [address], 10/03/2024 15:30:02 10/04/19 25 10/03/2024 COMPR EHENS WILLARD MET HI sodium 139 mmol/ L 137-14 5 normal Not Available [facility] [address] [place], [address], 10/03/2024 15:30:03 10/04/19 25 10/03/2024 COMPR EHENS WILLARD MET HI potassium 4.0 mmol/ L 3.4-5. 1 normal Not Available [facility] [address] [place], [address], 10/03/2024 15:30:03 10/04/19 25 10/03/2024 COMPR EHENS WILLARD MET HI chloride 105 mmol/ L 98-107 normal Not Available [facility] [address] [place], [address], 10/03/2024 15:30:03 10/04/19 25 10/03/2024 COMPR EHENS WILLARD MET HI carbon dioxide 24 mmol/ L 22-30 normal Not Available [facility] [address] [place], [address], 10/03/2024 15:30:03 10/04/19 25 10/03/2024 COMPR EHENS WILLARD MET HI BUN 7 mg/dL 7-17 normal Not Available [facility] [address] [place], [address], 10/03/2024 15:30:03 10/04/19 25 10/03/2024 COMPR EHENS WILLARD MET HI creatinine 0.8 mg/dL 0.52-1 .04 normal Not Available [facility] [address] [place], [address], 10/03/2024 15:30:03 10/04/19 25 10/03/2024 COMPR EHENS WILLARD MET HI glucose 100 mg/dL 74-100 normal Not Available [facility] [address] [place], [address], 10/03/2024 15:30:03 10/04/19 25 10/03/2024 COMPR EHENS WILLARD MET HI calcium 9.7 mg/dL 8.6-10 .3 normal Not Available [facility] [address] [place], [address], 10/03/2024 15:30:03 10/04/19 25 10/03/2024 COMPR EHENS WILLARD MET HI total protein 7.7 g/dL 6.3-8. 2 normal Not Available [facility] [address] [place], [address], 10/03/2024 15:30:03 10/04/19 25 10/03/2024 COMPR EHENS WILLARD MET HI albumin 4.7 g/dL 3.5-5. 0 normal Not Available [facility] [address] [place], [address], 10/03/2024 15:30:03 10/04/19 25 10/03/2024 COMPR EHENS WILLARD MET HI globulin 3.0 g/dL 2.0-3. 5 normal Not Available [facility] [address] [place], [address], 10/03/2024 15:30:03 10/04/19 25 10/03/2024 COMPR EHENS WILLARD MET HI A/G ratio 1.6 g/dL 1.0-2. 5 normal Not Available [facility] [address] [place], [address], 10/03/2024 15:30:03 10/04/19 25 10/03/2024 COMPR EHENS WILLARD MET HI total bilirubin 0.7 mg/dL 0.2-1. 3 normal Not Available [facility] [address] [place], [address], 10/03/2024 15:30:03 10/04/19 25 10/03/2024 COMPR EHENS WILLARD MET HI aspartate aminotransfe rase 27 U/L 14-36 normal Not Available [facility] [address] [place], [address], 10/03/2024 15:30:03 10/04/19 25 10/03/2024 COMPR EHENS WILLARD MET HI alanine aminotransfe rase 23 U/L 0-34 normal Not Available [facility] [address] [place], [address], 10/03/2024 15:30:03 10/04/19 25 10/03/2024 COMPR EHENS WILLARD MET HI alkaline phosphatase 85 U/L 38-126 normal Not Available [facility] [address] [place], [address], 10/03/2024 15:30:03 10/04/19 25 10/03/2024 COMPR EHENS WILLARD MET HI anion gap 14.0 mmol/ L 8-16 normal Not Available [facility] [address] [place], [address], 10/03/2024 15:30:03 10/04/19 25 10/03/2024 COMPR EHENS WILLARD MET HI estimated GFR 87 normal < 90 mL/mi n/1.7 3 sq m MAY BE INDIC ATIVE OF DECLI CHELSEY KIDNE Y FUNCT ION. * GFR IS ESTIM ATED USING CREAT ININE , AGE, GENDE R AND RACE. PATIE NT'S VALUE S SHOUL D BE INTER PRETE D A TREND . ESTIM ATED GFR VALUE S ARE NOT ACCUR ATE IN: OBESE (BMI >34) OR UNDER WEIGH T (BMI <20) PEOPL E, THE VERY OLD OR VERY YOUNG , RACES OTHER THAN CAUCA [place]LE OR AFRIC AN AMERI CAN, AND PEOPL E WITH ACUTE KIDNE Y FAILU RE, ACUTE ILLNE SSES, OR AMPUT ATION S. BETWE EN 30-60 mL/mi n/1.7 3 sq m, CLINI EVELIN CORRE LATIO N IS NEEDE D. ESTIM ATES ARE CALCU LATED USING THE MDRD GFR EQUAT ION. Not Available [facility] [address] [place], [address], 10/03/2024 15:30:03 10/04/19 25 10/03/2024 THYRO TROPI N [UNIT S/VOL UME] IN SERUM OR PLASM A BY DETEC TION LIMIT <= 0.05 MIU/L thyrotropin [units/volum e] in serum or plasma by detection limit <= 0.05 mIU/L 1.010 mIU/L 0.465 - 4.68 HIGH LEVEL S OF BIOTI N (ROBBIE MIN B7) MAY INTER FERE WITH TSH, SAIMA TIN, PSA, TESTO STERO NE, TROPO DONTA, VITAM IN B12, AND FOLAT E. BIOTI N CAN BE FOUND IN VITAM INS AND DIETA RY SUPPL EMENT S. INGES TING HIGH LEVEL S OF BIOTI N CAN CAUSE CLINI ROSA MARIA SIGNI FICAN T VARIA TIONS IN TEST RESUL TS. Not Available [facility] [address] [place], [address], 10/03/2024 16:03:48 10/04/19 25 10/03/2024 TSH WITH REFLE X TO FT4 TSH reflex to FT4 1.010 mIU/L 0.465- 4.68 normal HIGH LEVEL S OF BIOTI N (ROBBIE MIN B7) MAY INTER FERE WITH TSH, SAIMA TIN, PSA, TESTO STERO NE, TROPO DONTA, VITAM IN B12, AND FOLAT E. BIOTI N CAN BE FOUND IN VITAM INS AND DIETA RY SUPPL EMENT S. INGES TING HIGH LEVEL S OF BIOTI N CAN CAUSE CLINI ROSA MARIA SIGNI FICAN T VARIA TIONS IN TEST RESUL TS. Not Available [facility] [address] [place], [address], 10/03/2024 16:09:56 10/04/19 25 10/03/2024 urina lysis , dipst ick Leukocytes Trace Not Available [address] [address], [place], [address], 10/03/2024 09:25:51 10/04/19 25 10/03/2024 urina lysis , dipst ick Nitrite negati ve Not Available [address] [address], [place], [address], 10/03/2024 09:25:51 10/04/19 25 10/03/2024 urina lysis , dipst ick Urobilinogen .2 Not Available [address] [address], [place], [address], 10/03/2024 09:25:51 10/04/19 25 10/03/2024 urina lysis , dipst ick Protein Negati ve Not Available [address] [address], [place], [address], 10/03/2024 09:25:51 10/04/19 25 10/03/2024 urina lysis , dipst ick pH 6.0 Not Available [address] [address], [place], [address], 10/03/2024 09:25:51 10/04/19 25 10/03/2024 urina lysis , dipst ick Blood Negati ve Not Available [address] [address], [place], [address], 10/03/2024 09:25:51 10/04/19 25 10/03/2024 urina lysis , dipst ick Specific [place] 1.005 Not Available [address] [address], [place], [address], 10/03/2024 09:25:51 10/04/19 25 10/03/2024 urina lysis , dipst ick Ketone Negati ve Not Available [address] [address], [place], [address], 10/03/2024 09:25:51 10/04/19 25 10/03/2024 urina lysis , dipst ick Bilirubin Negati ve Not Available [address] [address], [place], [address], 10/03/2024 09:25:51 10/04/19 25 10/03/2024 urina lysis , dipst ick Glucose Negati ve Not Available [address] [address], [place], [address], 10/03/2024 09:25:51 10/04/19 25 10/03/2024 urina lysis , dipst ick Appearance Clear Not Available [address] [address], [place], [address], 10/03/2024 09:25:51 10/04/19 25 10/03/2024 urina lysis , dipst ick Color Yellow Not Available [address] [address], [place], [address], 10/03/2024 09:25:51 04/19/20 21 04/19/2021 XR, ankle , 2 view No observ ation record ed. [email or web address] [facility] (Medical Records) [address] [place] [address] [place], [address], 08/11/2021 15:07:21 05/30/20 21 05/30/2021 MRI, brain , w/o contr ast No observ ation record ed. [email or web address] [facility] (Centralized Scheduling) [address] [place] [address] [place], [address], 05/31/2021 12:06:26 01/03/20 23 01/02/2023 finge r RT Patien t Full Name - MAT FUCHS : 1999 Referr ing Physic alicia: WALLY BERGERON DOS: 2022 Daphne hauser MRN: [id number] 2 : [id number] Age: 22-yea r-old Gender : Female Order Date: 9:31 PM Exam: FINGER RT Number of Images : 3 Indica tion: smashe d distal right thumb Compar deirdre: None. Techno logist s notes : Note Create d: 9:29 PM / Edited By: milan 3 IMAGES 1 SD DAPHNE Hauser STATES WAS WALKIN G DOG, TRIPPE D OVER DOG AND FELL. PAIN TO RIGHT THUMB NAIL AND RIGHT INNER THIGH. ONSET X 7 HRS AGO PSHx: BILATE RAL ANKLE SURGER Y DUE TO FRACTU RES Findin gs : Techni que: The study is limite d by the positi on and views Bone: Within the limits of the submit frank images no acute fractu re is identi fied Alignm ent: Alignm ent is diffic ult to assess on the submit frank images , howeve r within the limits of the submit frank images , no gross abnorm ality Foreig n body: No radiop aque foreig n body is identi fied Other: No other acute osseou s abnorm ality is seen Impres alen: 1. Within the limits of the submit frank images no acute abnorm ality identi fied _ Electr onical ly signed by: Bob Benedict II, M.D. (Jan 02 2023 21:33: 11) [address] (Radiology) [address] [place] [address] [place], [address], 01/03/2023 11:33:58 01/03/20 23 01/02/2023 XR, femur Daphne hauser Full Name - MAT FUCHS : 1999 Referr ing Physic alicia: WALLY BERGERON DOS: 2022 Daphne hauser MRN: [id number] 2 : 998 Age: 22-yea r-old Gender : Female Order Date: 023 9:32 PM Exam: FEMUR RT Number of Images : 4 Indica tion: trippe d and fell onto right leg, has medial thigh pain Compar deirdre: None. Techno logist s notes : Note Create d: 023 9:28 PM / Edited By: milan 4 IMAGES 1 SD PATIEN T STATES WAS WALKIN G DOG, TRIPPE D OVER DOG AND FELL. PAIN TO RIGHT THUMB NAIL AND RIGHT INNER THIGH. ONSET X 7 HRS AGO PSHx: BILATE RAL ANKLE SURGER Y DUE TO FRACTU RES Findin gs : Techni que: The study is limite d by the positi on and views Bone: Within the limits of the submit frank images no acute fractu re is identi fied Alignm ent: Alignm ent is diffic ult to assess on the submit frank images , howeve r within the limits of the submit frank images , no gross abnorm ality Foreig n body: No radiop aque foreig n body is identi fied Other: No other acute osseou s abnorm ality is seen Impres alen: 1. Within the limits of the submit frank images no acute abnorm ality identi fied _ Electr onical ly signed by: Bob Benedict II, M.D. (Jan 02 2023 21:38: 09) [address] (Radiology) [address] [place] [address] [place], [address], 01/03/2023 11:33:58 03/12/20 24 03/11/2024 CT, head, w/o contr ast EXAM: CT HEAD WO CONTRA ST INDICA TION: IIH; Idiopa thic intrac ranial hypert ension TECHNI QUE: Axial thin sectio n CT images of the head were obtain ed withou t contra st. Sagitt al and liz l 2-D multip lanar recons tructi ons were perfor med at the [facility] COMPAR DEIRDRE: Outsid e MRI 2020 FINDIN GS: Adequa te diagno stic qualit y. Brain parenc hyma: Normal brain attenu ation. Ventri cles and extraa xial spaces : Normal ventri cular system . No extra- axial fluid collec tion. Orbits , parana mekhi sinuse s, mastoi ds: No acute orbita l abnorm ality. Clear parana mekhi sinuse s. Clear mastoi d air cells. Extrac ranial soft tissue s: Normal . Calvar ium and skull base: No fractu re or suspic ious osseou s lesion . Other: No other abnorm alitie s. IMPRES ALEN: 1. No acute intrac ranial abnorm ality. 2. No intrac ranial mass effect or hemorr miguelito. Report Verifi ed by: Khushbu Sanabria MD at 03/12/20 24 9:19 AM EDT W brain lab [facility] [address] [place], [address], 03/12/2024 10:05:20 03/12/20 24 03/12/2024 CT, head, w/o contr ast EXAM: CT HEAD WO CONTRA ST INDICA TION: brainl ab protoc ol TECHNI QUE: Axial thin sectio n CT images of the head were obtain ed withou t contra st. Sagitt al and liz l 2-D multip lanar recons tructi ons were perfor med at the [facility]. COMPAR DEIRDRE: 03/11/20 FINDIN GS: Adequa te diagno stic qualit y. Brain parenc hyma: Normal brain attenu ation. Ventri cles and extraa xial spaces : Normal ventri cular system . No extra- axial fluid collec tion. Orbits , parana mekhi sinuse s, mastoi ds: No acute orbita l abnorm ality. Clear parana mekhi sinuse s. Clear mastoi d air cells. Extrac ranial soft tissue s: Normal . Calvar ium and skull base: No fractu re or suspic ious osseou s lesion . Other: No other abnorm alitie s. IMPRES ALEN: 1. No acute intrac ranial abnorm ality. 2. No intrac ranial mass effect or hemorr miguelito. Report Verifi ed by: Khushbu Sanabria MD at 03/12/20 9:35 AM EDT Thin cuts, includ e nose [facility] [address], [place], [address], 03/12/2024 10:05:20 03/12/20 24 03/12/2024 CT, head, w/o contr ast EXAM: CT HEAD WO CONTRA ST INDICA TION: Immedi ate postop erativ e follow -up examin ation after cranio natalie. postop . TECHNI QUE: Axial thin sectio n CT images of the head were obtain ed withou t contra st. Sagitt al and liz l 2-D multip lanar recons tructi ons [facility] COMPAR DEIRDRE: CT head 03/12/20 FINDIN GS: The diagno stic qualit y of the examin ation is adequa te. Postop erativ e change s: Status post right fronta l approa ch ventri cular draina ge cathet er with tip termin ating in the body of the right latera l ventri georgette near the forame n of [facility]. No eviden ce of intrap arench ymal hemorr miguelito along the cathet er course . Small volume pneumo cephal us within the right fronta l parasa gittal extra- axial space, expect ed postop erativ jyoti. Brain parenc hyma: Normal brain attenu ation. No midlin e shift. Ventri cles and extraa xial spaces : Overal l simila r size and appear ance of the latera l ventri cles with otherw ise unrema rkable ventri cular system . No extra -axial fluid collec tion. Orbits , parana mekhi sinuse s, mastoi ds: No acute orbita l abnorm ality. Minima l parana mekhi sinus mucosa l thicke chelsey. Clear mastoi d air cells. Extrac ranial soft tissue s: Extra crania l ventri cular draina ge cathet er placem ent within the right fronta l scalp with the cathet er coursi ng in the right geodetic survey director ior subcut aneous soft tissue s of the neck. Modera te right sided subcut aneous emphys yolanda, expect ed postop erativ jyoti. Calvar ium and skull base: Postpr ocedur al change s trepan ation to the right fronta l bone status post EVD placem ent. Other: No other abnorm alitie s. IMPRES ALEN: 1. Postsu rgical change s relate d to right fronta l approa ch ventri cular cathet er placem ent withou t eviden ce of intrac ranial hemorr miguelito. Small amount of pneumo cephal us is expect ed postop erativ jyoti. 2. No extra- axial collec tion, mass effect , or midlin e shift. Approv ed by Dylan hauser MD on 03/12/20 2:45 PM EDT I have person ally review ed the images and I agree with this report . Report Verifi ed by: Rodri whitney MD at 03/12/20 2:[address] PM EDT [address] [facility] [address] [place], [address], 03/12/2024 16:55:00 03/12/20 24 03/12/2024 XR, shunt ogram EXAM: XR SHUNT SERIES INDICA TION: postop Check positi on and config uratio n of SALES SUPERINTENDENT shunt cathet er. COMPAR DEIRDRE: None availa ble. FINDIN GS: There is a right sided ventri culope ritone al shunt with proxim al tip overly ing right fronta l region and distal end overly ing the right upper quadra nt. No abnorm al discon tinuit y in the shunt tubing . No acute radiog raphic abnorm ality in the osseou s struct ures of the skull. The lungs are clear. Cardio medias tinal silhou ette does not demons trate abnorm ality. The bowel gas patter n is nonobs tructi ve and the imaged bowel loops are normal in calibe r. IMPRES ALEN: Intact ventri culope ritone al shunt cathet er. Report Verifi ed by: José Davis MD at 03/12/20 5:55 PM EDT pacu 20 Reason for exam:- >posto p [facility] [address] [place], [address], 03/12/2024 18:32:33 08/09/19 25 08/08/2024 XR, shunt ogram EXAM: XR SHUNT SERIES INDICA TION: Malfun ction of ventri cular shunt, subseq uent encoun ter TECHNI QUE: XR SHUNT SERIES COMPAR DEIRDRE: None. FINDIN GS/IMP RESSIO N: Ventri cular shunt cathet er in place. Visual ized portio ns of the cathet er are intact . The tip of the shunt cathet er is at the right lower quadra nt. Report Verifi ed by: Guille irizarry MD at 08/09/19 10:18 AM EST [facility] [address], [place], [address], 08/10/2024 17:03:15 11/23/19 25 11/22/2024 XR, shunt ogram EXAM: XR SHUNT SERIES INDICA TION: c/f shunt failur e Check positi on and config uratio n of SALES SUPERINTENDENT shunt cathet er. COMPAR DEIRDRE: 025 FINDIN GS: There is a right [...] loops are normal in calibe r. IMPRES ALEN: Intact ventri cular perito rene shunt cathet [...] Reason for exam:- >c/f shunt failur e [address] [facility] [address] [place], [address], 11/23/2024 20:33:41 12/13/19 25 12/12/2024 xr iftikhar rison image s Images associ ated with this access ion number were presen frank to us for compar deirdre to an examin ation perfor med here. [address] Radiology [address] [place], [address], 12/14/2024 23:39:56 12/13/19 25 12/12/2024 xr iftikhar rison image s Images associ ated with this access ion number were presen frank to us for compar deirdre to an examin ation perfor med here. [address] [facility] [address], [place], [address], 12/14/2024 23:39:56 12/13/19 25 12/12/2024 xr iftikhar rison image s Images associ ated with this access ion number were presen frank to us for compar deirdre to an examin ation perfor med here. [address] [facility] [address] [place], [address], 12/14/2024 23:39:57 12/13/19 25 12/12/2024 xr iftikhar rison image s Images associ ated with this access ion number were presen frank to us for compar deirdre to an examin ation perfor med here. [address] [facility] [address] [place], [address], 12/14/2024 23:39:57 12/13/19 25 12/12/2024 xr iftikhar rison image s Images associ ated with this access ion number were presen frank to us for compar deirdre to an examin ation perfor med here. [address] [facility] [address] [place], [address], 12/14/2024 23:39:57 12/13/19 25 12/12/2024 xr iftikhar rison image s Images associ ated with this access ion number were presen frank to us for compar deirdre to an examin ation perfor med here. [address] [facility] [address] [place], [address], 12/14/2024 23:39:57 12/13/19 25 12/12/2024 xr iftikhar rison image s Images associ ated with this access ion number were presen frank to us for compar deirdre to an examin ation perfor med here. [address] Rad[facility] [address] [place], [address], 12/14/2024 23:39:57 Result Notes Documentation Provider Name and Address Organization Details Recorded Time Xr, Femur : Patient Full STEPH Whitehead : 2000 Referring Physician: WALLY BERGERON DOS: 01/02/2023 Patient : 2000 Age: 22-year-old Gender: Female Order Date: 01/02/2023 9:32 PM Exam: FEMUR RT Number of Images: 4 Indication: tripped and fell onto right leg, has medial thigh pain Comparison: None. Technologists notes : Note Created: 01/02/2023 9:28 PM / Edited By: milan 4 IMAGES 1 SD PATIENT STATES WAS WALKING DOG, TRIPPED OVER DOG AND FELL. PAIN TO RIGHT THUMB NAIL AND RIGHT INNER THIGH. ONSET X 7 HRS AGO PSHx: BILATERAL ANKLE SURGERY DUE TO FRACTURES Findings : Technique: The study is limited by the position and views Bone: Within the limits of the submitted images no acute fracture is identified Alignment: Alignment is difficult to assess on the submitted images, however within the limits of the submitted images, no gross abnormality Foreign body: No radiopaque foreign body is identified Other: No other acute osseous abnormality is seen Impression: 1. Within the limits of the submitted images no acute abnormality identified Electronically signed by: Bob Benedict II, M.D. (Jan 02 2023 21:38:09) Angelica Marks NP [address] [place] [address] [place], [address], [facility] 01/03/2023 11:33:58 Ct, Head, W/o Contrast : EXA M: CT HEAD WO CONTRAST INDICATION: Immediate postoperative follow-up examination after craniotomy. postop . TECHNIQUE: Axial thin section CT images of the head were obtained without contrast. Sagittal and coronal 2-D multiplanar reconstructions were performed at the scanner. COMPARISON: CT head 03/12/2024 FINDINGS: The diagnostic quality of the examination is adequate. Postoperative changes: Status post right frontal approach ventricular drainage catheter with tip terminating in the body of the right lateral ventricle near the foramen of [place]ro. No evidence of intraparenchymal hemorrhage along the catheter course. Small volume pneumocephalus within the right frontal parasagittal extra-axial space, expected postoperatively. Brain parenchyma: Normal brain attenuation. No midline shift. Ventricles and extraaxial spaces: Overall similar size and appearance of the lateral ventricles with otherwise unremarkable ventricular system. No extra -axial fluid collection. Orbits, paranasal sinuses, mastoids: No acute orbital abnormality. Minimal paranasal sinus mucosal thickening. Clear mastoid air cells. Extracranial soft tissues: Extra cranial ventricular drainage catheter placement within the right frontal scalp with the catheter coursing in the right posterior subcutaneous soft tissues of the neck. Moderate right sided subcutaneous emphysema, expected postoperatively. Calvarium and skull base: Postprocedural changes trepanation to the right frontal bone status post EVD placement. Other: No other abnormalities. IMPRESSION: 1. Postsurgical changes related to right frontal approach ventricular catheter placement without evidence of intracranial hemorrhage. Small amount of pneumocephalus is expected postoperatively. 2. No extra-axial collection, mass effect, or midline shift. Approved by Dylan Cantu MD on 03/12/2024 2:45 PM EDT I have personally reviewed the images and I agree with this report. Report Verified by: Rodri Simon MD at 03/12/2024 2:56 PM EDT Angelica Marks [address] [place], [address], [facility] 03/12/2024 16:55:00 Xr, Shuntogram : EXAM: XR SHUNT SERIES INDICATION: postop Check position and configuration of SALES SUPERINTENDENT shunt catheter. COMPARISON: None available. FINDINGS: There is a right sided ventriculoperitoneal shunt with proximal tip overlying right frontal region and distal end overlying the right upper quadrant. No abnormal discontinuity in the shunt tubing. No acute radiographic abnormality in the osseous structures of the skull. The lungs are clear. Cardiomediastinal silhouette does not demonstrate abnormality. The bowel gas pattern is nonobstructive and the imaged bowel loops are normal in caliber. IMPRESSION: Intact ventriculoperitoneal shunt catheter. Report Verified by: Billy Davis MD at 03/12/2024 5:55 PM EDT pacu 20 Reason for exam:->postop Angelica Marks [address] [place], [address], [facility] 03/12/2024 18:32:33 Ct, Head, W/o Contrast : EXA M: CT HEAD WO CONTRAST INDICATION: IIH; Idiopathic intracranial hypertension TECHNIQUE: Axial thin section CT images of the head were obtained without contrast. Sagittal and coronal 2-D multiplanar reconstructions were performed at the scanner. COMPARISON: Outside MRI 05/30/2021 FINDINGS: Adequate diagnostic quality. Brain parenchyma: Normal brain attenuation. Ventricles and extraaxial spaces: Normal ventricular system. No extra-axial fluid collection. Orbits, paranasal sinuses, mastoids: No acute orbital abnormality. Clear paranasal sinuses. Clear mastoid air cells. Extracranial soft tissues: Normal. Calvarium and skull base: No fracture or suspicious osseous lesion. Other: No other abnormalities. IMPRESSION: 1. No acute intracranial abnormality. 2. No intracranial mass effect or hemorrhage. Report Verified by: Khushbu Sanabria MD at 03/12/2024 9:19 AM EDT W brain lab Angelica Marks [address] [place], [address], [facility] 03/12/2024 10:05:20 Ct, Head, W/o Contrast : EXA M: CT HEAD WO CONTRAST INDICATION: brainlab protocol TECHNIQUE: Axial thin section CT images of the head were obtained without contrast. Sagittal and coronal 2-D multiplanar reconstructions were performed at the scanner. COMPARISON: 03/11/2024 FINDINGS: Adequate diagnostic quality. Brain parenchyma: Normal brain attenuation. Ventricles and extraaxial spaces: Normal ventricular system. No extra-axial fluid collection. Orbits, paranasal sinuses, mastoids: No acute orbital abnormality. Clear paranasal sinuses. Clear mastoid air cells. Extracranial soft tissues: Normal. Calvarium and skull base: No fracture or suspicious osseous lesion. Other: No other abnormalities. IMPRESSION: 1. No acute intracranial abnormality. 2. No intracranial mass effect or hemorrhage. Report Verified by: Khushbu Sanabria MD at 03/12/2024 9:35 AM EDT Thin cuts, include nose Angelica Marks NP [address] [place] [address] [place], [address], [facility] 03/12/2024 10:05:20 Xr, Shuntogram : EXAM: XR SHUNT SERIES INDICATION: Malfunction of ventricular shunt, subsequent encounter TECHNIQUE: XR SHUNT SERIES COMPARISON: None. FINDINGS/IMPRESSION: Ventricular shunt catheter in place. Visualized portions of the catheter are intact. The tip of the shunt catheter is at the right lower quadrant. Report Verified by: Refugio Castillo MD at 08/09/2024 10:18 AM PURNIMA Marks NP [address] [place] [address] [place], [address], [facility] 08/10/2024 17:03:15 Xr, Shuntogram : EXAM: XR SHUNT SERIES INDICATION: c/f shunt failure Check position and configuration of SALES SUPERINTENDENT shunt catheter. COMPARISON: 08/08/2024 FINDINGS: There is [...] Evans MD at 11/22/2024 8:52 AM EDT Reason for exam:->c/f shunt failure Angelica Marks NP [address] [place] [address] [place], [address], [facility] 11/23/2024 20:33:41 Problems Name Problem SNOMED Code Status Onset Date Resolution Date Notes Provider Name and Address Organization Details Recorded Time Hydroclavelle perez 879823031 Active 2024 SALES SUPERINTENDENT shunt placed in 2023 Blanca Harkins MD [address] [place] [address] [place], [address], [facility] 5 09:12:12 Insomnia 423256714 Active 2024 Blanca Harkins MD [address] [place] [address] [place], [address], [facility] 5 09:20:33 Loss of appetite 46820712 Active 2024 Blanca Harkins MD [address] [place] [address] [place], [address], [facility] 5 09:22:10 Pain in both feet 2589367631639 9102 Active 2024 Blanca Harkins MD [address] [place] [address] [place], [address], [facility] 5 10:39:54 Acute cellulitis Active 2024 Blanca Harkins MD [address] [place] [address] [place], [address], [facility] 5 10:41:17 Synovial cyst of left knee 6056587547914 02 Active 2024 Blanca Harkins MD [address] [place] [address] [place], [address], [facility] 5 10:42:55 Polycystic ovary syndrome 220031071 Active 2019 Ebony williamson, [facility] 0 17:23:27 Migraine 10441193 [facility] 2020 [facility] 13:32:35 Problem Notes Documentation Provider Name and Address Organization Details Recorded Time Consult Note : HEALTH Care Management/Social Work Assessment Patient Information Patient Name: Steph Fuchs Hospital Day: 0 Inpatient/Observation: Inpatient Admit Date: 03/12/2024 Admission Diagnosis: Idiopathic intracranial hypertension [G93.2] Attending provider: Michaela Alonzo, * PCP: ANGELICA MARKS NP [facility]: [address] [facility] [address] [facility] [address] Pertinent Medications Anticoagulation therapy: No New Diabetic: No Issues related to obtaining medications: N/A Payor Information Medical Insurance Coverage: Payor: PATTERSON / Plan: PATTERSON / Product Type: Medicaid [facility] care / Secondary Payor: N/A Functional Assessment Functional Assessment Assessment Information Obtained From:: Family (add comment) (Mom-Henna) Current Mental Status: Unable to Assess Mental Status Prior to Admission: Unable to Assess Mental Health History: No Suicide Attempts: No Activities of Daily Living: Independent Work History: Unemployed Marital Status: Significant Other/Life Partner Number of children and their names: 0 Relative Search Completed: No Demographics Correct:: Yes Current Living Arrangements Current Living Arrangements Current Living Arrangements: Home Type of Housing: Mobile Home/Trailer Who do you live with?: With Family What family member?: Parents-Henna and Dino One Story or Two (check all that apply): One Story Enter the number of steps and rails to enter the residence: 4 Enter the number of steps and rails inside the residence: 0 History of Falls?: No Community Services Community Services Community Services at Home: Not Applicable Was any abuse reported by patient?: No Kingman Status Kingman Status Are you a ?: No Support Systems Emergency contact: Extended Emergency Contact Information Primary Emergency Contact: HENNA FUCHS Address: [address] [place] [address] [place] Relation: Mother Secondary Emergency Contact: BrieJohn Address: [address] [place] [address] [place] [facility] Mobile Relation: Significant other Support Systems Primary Caregiver: Self Times of available support: No 29/01 hands on available Marital Status: Significant Other/Life Partner Number of children and their names: 0 Relative Search Completed: No Demographics Correct:: Yes Next of Kin: Alfred Next of Kin Relationship: Mother, Father Next of Kin Assessment Information Obtained From:: Family (add comment) (Mom-Henna) Other Pertinent Information LEONCIO BRITT completed chart review and attended interdisciplinary rounds with and the interdisciplinary team. Per MD patient is not medically ready for discharge. LEONCIO BRITT spoke with patient's momHenna for psychosocial assessment and to initiate discussion regarding discharge planning. Introduced self and role of case management/social work and provided contact information. Patient's momHenna was able to participate in the discussion and answer all of LEONCIO BRITT's questions. All responses to assessment were answered by patient's momHenna due to patient unable to participate due to surgery. Prior to hospitalization patient lived independently in the community. Patient had no community resources and no for DME equipment Patient verbalized no access issues to or within their home. Patient lives with her parents, Henna and Dino in a(n) trailer with 4 steps to enter and 0 steps inside. Patient is not a Kingman. Patient denies any safety concerns/abuse at home. Patient denies fall(s) recently. Patient reports prior to admission that they were independent of their ADLS. Patient vapes tobacco use, denies use of alcohol and denies drug/illicit substance usage. Advanced directives were discussed, patient doesn't have a HCPOA in place and does not wish to establish one at this time. LNOK is Parents Henna and Dino Patient verbalized no additional questions or needs at this time. Advance Directives (For Healthcare) Advance Directive: Patient does not have advance directive Discharge Plan Anticipated Discharge Plan: Home Anticipated Discharge Date: 03/13/24 Anticipated Transportation: John Benavides Patient/Family aware and taking part in the discharge plan. Patient/family educated that once post-acute care needs have been identified, a provider list applicable to the identified post-acute care needs as well as the insurance provider will be provided, and patient/family have the freedom to choose their provider(s); financial interest(s) are disclosed as appropriate. PATRICIA PHAM RN Mariel williamson, [facility] 03/14/2024 17:00:51 Consult Note : Attestation signed by Michaela Alonzo MD at 11/22/2024 9:17 AM Neurosurgery Attending Note I saw and examined the patient 11/22/2024. I reviewed the pertinent imaging, laboratory results, and notes in the medical record. I discussed with the resident and agree with the history, exam, and medical decision making as documented in the note. Imaging reviewed Possibly overdraining Will change shunt valve setting from 1.5 to 2.0 ED should complete labs/workup for non-shunt related abdominal pain and appetite issues Will arrange follow up in neurosurgery clinic Michaela Alonzo MD, PhD Willow Machine Tender, Department of Neurosurgery Director, [facility] Neurotrauma [place] [facility] DEPARTMENT OF NEUROSURGERY INPATIENT CONSULTATION Steph Fuchs [id number] 2000 Neurosurgery Attending: MD Cheri Primary Care [...] had R flank pain. Since her shunt placement she described generalized worsening of her symptoms, with decreased appetite and weight loss. CTH at OSH with collapse of the R ventricle around the proximal catheter. CT A/P without pseudocyst or obvious obstruction of catheter. Neurosurgery consulted for the above findings. 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 naloxone (NARCAN) 4 mg/actuation Pryor Apply 1 spray in one nostril if [...] for: PHART , PCO2 , PO2ART , VDP5IBE , BEART , KUB5EMU , Z6EPATHW Lab Results Component Value Date ABS Negative 03/12/2024 ABOGROUP O 03/12/2024 RH Positive 03/12/2024 Invalid input(s): PLTFUNASP Imaging Review I personally reviewed the relevant imaging demonstrating, by my read, as above ASSESMENT 24 y.o. female with history of IIH s/p VPS placement in 03/2024 strata @1.5 who presents as a transfer from OSH for concerns for shunt failure. She states that over the last 4 days she has had worsening headaches, nausea and vomiting. She additionally has had R flank pain. Since her shunt placement she described generalized worsening of her symptoms, with decreased appetite and weight loss. CTH at OSH with collapse of the R ventricle around the proximal catheter. CT A/P without pseudocyst or obvious obstruction of catheter. Neurosurgery consulted for [...] do not hesitate to contact the neurosurgery resident profile mill operator tape control, [phone]. Fe Morse MD Neurosurgery Resident 5:26 AM 11/22/2024 [1] No Known Drug Allergies or Adverse Reactions Angelica Marks NP [address] [place] [address] [place], [address], [facility] 11/24/2024 07:53:55 Consult Note : Attestation signed by Silver Montes MD at 11/27/2024 10:27 AM I did not examine the patient, but have reviewed the resident note. Upon review of the record, the patient appears to have received appropriate care. Silver Montes MD Ophthalmology Ophthalmology ED Consultation Steph is a 24 y.o. female seen in the emergency department in consultation for papilledema rule out. Patient has a PMH of IIH and had a VPS placed in March. She presents to the ED with abd pain at the side of her shunt, vision changes when she wakes up (oscillopsia), occasional diplopia and occasional headaches. Shunt series is pending and neurosurgery has requested a papilledema exam Significant PMH: Past Medical History: Diagnosis Date Chronic migraine Morbid obesity with BMI of 50.0-59.9, adult ([facility]) PCOS (polycystic ovarian syndrome) PONV (postoperative nausea [...] Vessels Normal Normal Periphery Normal Normal Assessment/Plan: [facility] s/p VPS - presents with 1 week [...] No Known Drug Allergies or Adverse Reactions Aide [place] [address] [place] [address] [place], [address], [facility] 11/29/2024 11:04:14 Procedures Surgical History Date Name Laterality Status Provider Name and Address Organization Details Recorded Time tonsilectomy/ adenoids completed [address] [place], [address], [facility] 04/06/2021 13:04:23 Ankle arthroscopy/s urgery completed [address] [place], [address], [facility] 04/06/2021 13:04:11 Eye Surgery completed Angelica Marks NP [address] [place] [address] [place], [address], [facility] 02/14/2019 09:58:26 Imaging Results None recorded. Procedure [...] NOT EXCEED 50 MG IN 24 HOURS 03/30 completed Not Available Not Available Not [...] weight Body temperature Heart rate Respiratory rate Oxygen saturation Oxygen saturation in Arterial blood by Pulse oximetry Systolic blood pressure Diastolic blood pressure Provider Name and Address Organization Details Last Updated DateTime 5 165.1 cm 49.9 kg/m2 312221. 71 g 98.2 [degF] 94 /min 16 /min 96 % 96 % 138 mm[Hg] 91 mm[Hg] Nicole Traylor MA [address] [place] [address] [place], [address], [facility] 5 08:50:21 Date Recorded Body height Body mass index (BMI) Body weight Body temperature Heart rate Respiratory rate Systolic blood pressure Diastolic blood pressure Provider Name and Address Organization Details Last Updated DateTime 5 165.1 cm 49.7 kg/m2 494590. 33 g 98.6 [degF] 61 /min 16 /min 121 mm[Hg] 76 mm[Hg] Nicole Traylor MA [address] [place] [address] [place], [address], [facility] 5 10:14:36 Date Recorded Body height Body mass index (BMI) Body weight Body temperature Heart rate Respiratory rate Oxygen saturation Oxygen saturation in Arterial blood by Pulse oximetry Systolic blood pressure Diastolic blood pressure Provider Name and Address Organization Details Last Updated DateTime 2 165.1 cm 52.5 kg/m2 600132. 7 g 98 [degF] 80 /min 18 /min 98 % 98 % 135 mm[Hg] 85 mm[Hg] Angela Camp MA [address] [place] [address] [place], [address], [facility] 2 19:00:55 Date Recorded Body height Body mass index (BMI) Body weight Heart rate Respiratory rate Oxygen saturation Oxygen saturation in Arterial blood by Pulse oximetry Systolic blood pressure Diastolic blood pressure Provider Name and Address Organization Details Last Updated DateTime 1 165.1 cm 55.9 kg/m2 165694. 04 g 93 /min 22 /min 98 % 98 % 136 mm[Hg] 88 mm[Hg] Henna Dutton [facility] 1 17:57:08 Social History Question Answer Notes LastModified by Organizat ion Details LastModified Time Tobacco Smoking Status Never Smoker Angelica Marks NP [address] [place] [address] [place], [address], [facility] 02/14/2019 09:34:39 Do You Have An Advance [...] Or The Highest Degree You Have Received? [id number] [email or web address] Information not available 10/03/2024 Are There Any Guns Present In Your Home? No Information not available 02/14/2019 Hard Of Hearing Or Deaf In One Or Both Ears? No Information not available 02/14/2019 Legally Blind In One Or Both Eyes? No Information not available 02/14/2019 Where Do You Live? SingleLevelHouse [email or web address] Information not available 10/03/2024 Live Alone Or With Others? With Others Information not available 02/14/2019 What Was The Date Of Your Most Recent Tobacco Screening? 02/14/2019 Information not available 02/15/2019 How Many Children Do You Have? 0 Information not available 02/14/2019 Do You Have Any Pets? Yes [email or web address] Information not available 10/03/2024 Do You Use Protection During Sex? No Information not available 02/14/2019 What Is Your Relationship Status? Information not available 10/03/2024 Seat Belts Used Routinely Yes Information not available 02/14/2019 Are You Sexually Active? Yes Information not available 02/14/2019 Smoke Alarm In Home Yes Information not available 02/14/2019 Do You Have Smoke And Carbon Monoxide Detectors In Your Home? Yes [email or web address] Information not available 10/03/2024 Are You Passively [...] use any illicit or recreational drugs? 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 Information not available 02/14/2019 Do you or [...] Disease N Gout N Colon Cancer N Blood Diseases N Kidney Stones N Enlarged Prostate N Blood Transfusion N Breast Cancer N Hernia N Head Trauma/Injury N Emphysema N Lung Disease N Dermatologic Disorders N Congenital Heart Disease N COPD N Defects or Inherited Disease N Developmental or Behavioral Disorders N Pneumonia N Breast Problem N Gestational Diabetes N [...] SNOMED-CT Code Diagnosis ICD10 Code Diagnosis Note 11640 J[address] Le[address] [place] [address] 02/14/2019 09:29:32 02/14/2019 11:17:35 History of migraine with aura 388225713 Z86.69 18867 JAYNA Lechuga [address] [place] [address] 08/14/2019 13:25:55 08/14/2019 14:05:20 Pre-surgery evaluation 023809288 Z01.[address] [address] 01/26/2020 12:51:08 03/26/2020 15:53:14 Acute otitis media 0803223 H66.93 Will start abx along with supportive care. F/u if no improvemen t or worsening of sx. Ankle pain 963837225 M25 .579 PRN naproxen for pain. F/u with podiatry for prolonged pain at the surgical site. [address] [address] 05/07/2020 09:30:42 08/06/2020 11:04:29 Pre-surgery evaluation 491261324 Z01.818 Overall, Steph is a low risk surgical candidate for perioperat willard cardiovasc ular complicati ons. Proceed as indicated. POC is negative. BMP and COVID screening ordered - results still pending. [address] Nguyen [address] [place] [address] 04/06/2021 12:42:53 04/11/2021 06:38:01 Near syncope 729320997 R55 Migraine 94386086 G43.90 9 [address]282 Angelica Marks NP [address] [address] 05/18/2021 17:50:53 05/25/2021 03:14:18 Migraine 98253997 G43.909 obtain MRI at [facility], will call with results and further POC Visual disturbance 07411 001 H53.9 24136 Angelica Marks NP [address] [address] 06/06/2021 10:38:20 06/09/2021 05:03:07 Migraine 66461444 G43.909 obtain MRI at [facility], will call with results and further POC addendum 06/06/2021 : neuro referral placed. the office will contact you for informatio n on appt.make appt with eye doctor for further care. [address] [address] 03/30/2022 18:54:42 04/24/2022 16:25:30 History and physical examination, pre-employment 645973602 Z02.1 May proceed with employment with no restrictio ns at this time. 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 No UDS ordered. Form filled out and given to the pt. Pt was advised to continue care with PCP/specia list. [id number] Blanca Harkins MD [place] [address] [place] [address] 10/03/2024 08:28:56 10/06/2024 08:18:46 Patient new to provider [id number] 78589 Z76.89 Insomnia 034884109 G47.0 0 will start on Trazodone Hyperlipid emia screening 360641219 Z13.220 Check lipids Loss of appetite 5708150 6 R63.0 Check CBC, CMP [id number] Blanca Harkins MD [place] [id number] [address] 11/06/2024 10:01:37 11/12/2024 09:00:24 Loss of appetite 20379448 R63.0 Labs unremarkab leCT scan ordered Insomnia 056974598 G47.0 0 Increase Trazodone to 100mg nightly Pain in both feet 873081 5672 7655350 M79.671 M79.672 hx of bilateral foot surgeryPt started new job of standing on her feet dailyrecom mend supportive footwear and compressio n stocking Acute cellulitis 3554356 009 L03.90 insect bite to the L lower ankle, no streakingS tart on Bactrim Synovial c yst of left knee 7242017586 02184 M71.22 recommende d OTC NSAIDs and compressio nIce when she is home from work at night time Health Concerns Section Related Observation LastModified by Organization Detai ls LastModified Time None Recorded Concern Status LastModified by Organization Details LastModified Time None Recorded Advance Directives Directive N: Payers Insurance Date Sequence Insurance Name Policy Number Policy Trejo Covered Member ID Trejo Member ID Guarantor Name 11/12/2024 1 [facility] [place] [id number] Steph Fuchs [id number] Steph Fuchs Notes Date Note Type Note Provider Name and Address Organization Details Recorded Time 05/18/2021 text/html pt presents mike rosas with c/o headaches/migraines. pt states she has been suffering from migraines since she was a teenager. she states her migraines are getting worse. she reports now she has constant headaches from when she wakes up till she goes to bed. when she bends over her vision goes black and she gets dizzy. she states she has ringing in her ears intermittently. she denies any known injury. nshe states she went to an eye doctor and they told her she may have a mass or pseudotumor. she states the eye doctor told her that her eye pressure was high at 30. she states she seen a neurologist in 2017 who thought she may have fluid in her brain.she seen another neurologist in 2018 by telehealth and he wanted to give her a medication that could cause a lot of side effects she she did not want to take it. she has tried medication unknown what medications, but it caused her tingling in hands, mouth, and headaches got worse. Angelica Marks NP [address] [place] [address] [place], [address], [facility] 05/24/2021 17:03:40 06/06/2021 text/html pt presents mike rosas to review recent MRI of head for her chronic headaches. she states she is still having headaches daily, some days worse than others. no new symptoms, no worsening symptoms. following with [facility] eye doctor, and is awaiting to have f/u appt until after she had MRI. pt states she has been suffering from migraines since she was a teenager. she states her migraines are getting worse. she reports now she has constant headaches from when she wakes up till she goes to bed. when she bends over her vision goes black and she gets dizzy. she states she has ringing in her ears intermittently. she denies any known injury. she has tried medication unknown what medications, but it caused her tingling in hands, mouth, and headaches got worse. This visit is being conducted by phone due to coronavirus pandemic. Patient was informed third-green party applications may introduce privacy risk. Patient verbalized consent to this telehealth visit today by phone. Patient was informed the telehealth visit can end at anytime they decide. Patient's identity was confirmed by name and date of .Patient was informed that insurance copay may apply to this visit.Patient is located at her home.Provider is located at her office.Visit was stated at 11:57 and ended at 12:05. Angelica Marks NP [address] [place] [address] [place], [id number], [facility] 06/06/2021 13:02:34 03/30/2022 text/html Pt is 21 yo F he re for pre-employment physical: PMH: migraine - not on any meds. was seen by neurologist, did MRI of brain, states her spinal fluid level was elevated, which was causing the migraine MARIANO. States she was told to lose weight. Pt has not f/u since then. migraine episode - sporadically, had one just recently but the one before that was 3 mo ago. was on topamax, imitrex with no relief of migraine. PCOS - seeing TRIPE FINISHER, not on metformin had ankle surgery bilaterally - L ankle, had broken bones, had surgery to remove pieces of broken bones. R ankle - also had broken bones. unknown etiology of broken bones per pt.also had bone spur removed. did PT, wore ankle brace, cortisone shots, etc. seeing Dr. Lemus, trying to reorder MRI. TB test - [place] will order. no order for UDS Ebony williamson, [facility] 04/11/2022 14:21:11 10/03/2024 text/html 24 y/o female presenting as a new patient to establish care Pt reports she has been having trouble with sleeping, reports sleeping 4-5 hours a week. Pt has finally resorted to using a sleep aid. Pt reports unable to sleep for the past 1 month, works third shift would sleep when would go to work and wake when he gets home. Does watch tv before bed, TV is in the living room, pitch dark, cool room. Reports going through episodes where she does not eat, does not feel hungry and will just drink water. 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 Blanca Harkins MD [address] [place] [address] [place], [phone], [facility] 11/06/2024 10:44:45 OBGyn Episode No OBEpisode recorded.
--- OUTSIDE RECORDS SUMMARY | 2025-01-03 14:09 | XMS_ITS | Data Portability ---
Author Organization [facility] Address [address] [place] [address] Assessment Encounter Date Assessment Date Assessment LastModified by Organization Details LastModified Time 08/02/2022 08/02/2022 22 yo here for infertility Not available 08/04/2022 19:05:51 08/04/2022 08/04/2022 22 yo here for f/u and ultrasound Not available 08/05/2022 13:59:03 11/27/2024 11/27/2024 24 yo here to discuss TTC Not available 11/30/2024 17:08:58 Plan of Treatment Reminders Order Date Submit Date Provider Last Modified By Organization Details Last Modified Time Details Appointments None recorded. Lab TSH + free T4, serum 2024 025 [email or web address] 87 [facility], [address], [address], [place], [address], 5 08:02:59 HbA1c (hemoglobi n A1c), blood 2024 025 [email or web address] 87 [facility], [address], [place] [address], [place], [address], 5 08:02:59 lipid panel, serum 2024 025 [email or web address] 87 [facility], [address], [place] [address], [place], [address], 5 08:02:59 cytology report, thin prep, smear or scraping, cervical or vaginal 2024 025 XIMENA [facility], [address], [place] [address], [place], [address], 5 20:09:31 progestero ne, serum 2022 023 XIMENA [facility], [address], [place] [address], [place], [address], 3 08:25:28 dhea-sulfa te, serum 2022 023 XIMENA [facility], [address], [place] [address], [place], [address], 3 03:06:44 17-hydroxy progestero ne, QN, serum 2022 023 XIMENA [facility], [address], [place] [address], [place], [address], 3 03:06:48 testostero ne, free + total, serum 2022 023 XIMENA [facility], [address], [place] [address], [place], [address], 3 03:06:43 HbA1c (hemoglobi n A1c), blood 2022 023 XIMENA [facility], [address], [place] [address], [place], [address], 3 03:06:44 insulin, serum 2022 023 XIMENA [facility], [address], [place] [address], [place], [address], 3 03:06:51 CBC w/ auto diff 2022 023 XIMENA [facility], [address], [place] [address], [place], [address], 3 03:06:39 CMP, serum or plasma 2022 023 XIMENA [facility], [address], [place] [address], [place], [address], 3 03:06:40 lipid panel, serum 2022 023 XIMENA [facility], [address], [place] [address], [place], [address], 3 03:06:41 lh + FSH, serum 2022 023 XIMENA [facility], [address], [place] [address], [place], [address], 3 03:06:42 estradiol, serum 2022 023 XIMENA [facility], [address], [place] [address], [place], [address], 3 03:06:46 TSH, ultra-sens itive, serum 2022 023 XIMENA [facility], [address], [place] [address], [place], [address], 3 03:06:45 varicella zoster virus IgG Ab, QN, IA, serum 2022 023 XIMENA [facility], [address], [place] [address], [place], [address], 3 03:06:49 rubella IgG Ab, quant immunoassa y, serum or plasma 2022 023 XIMENA [facility], [address], [place] [address], [place], [address], 3 03:06:46 HBsAg (hepatitis B surface Ag), EIA, serum 2022 023 XIMENA [facility], [address], [place], [place], [address], 3 03:06:51 hepatitis C Ab, signal-to- cutoff, serum or plasma 2022 023 XIMENA [facility], [address], [place] [address], [place], [address], 3 03:06:50 HIV 1 + 2, meaningful use set 2022 023 XIMENA [facility], [address], [place] [address], [place], [address], 3 03:06:49 abo group + rh type, blood 2022 023 XIMENA [facility], [address], [place], [place], [address], 3 03:06:42 RPR (rapid plasma reagin), serum 2022 023 XIMENA [facility], [address], [place] [address], [place], [address], 3 03:06:47 pap, IG + CT/NG + reflex HPV 2022 023 XIMENA [facility], [address], [place] [address], [place], [address], 3 03:07:28 Referral maternal & medicine referral - pre-concep tion counseling 2024 025 [email or web address] 87 [facility], [address] [place], [address], 5 08:04:12 neurologic al surgeon referral - Jett Johnson- may need her records from and [facility] from resent er visit- having alot of symptoms 2024 025 [facility], [address], [address], [place], [address], 5 14:49:48 bariatric surgery referral 2022 023 [email or web address], [address] , [place], [address], 4 22:18:45 Procedures None recorded. Surgeries None recorded. Imaging US, gallbladde r 2024 025 [facility] ([facility]), [address], [place], [address], 5 11:04:43 US, transvagin al 2022 023 [email or web address], [address] [place] [address] , [place], [address], 3 14:12:33 Medication Orders Voltaren Arthritis Pain 1 % topical gel 2024 025 [facility], [address] [facility], [address], [place], [address], 5 12:19:22 Vitamin 27 mg iron-0.8 mg tablet 2022 023 [facility], [address] [place] [address], [address], 5 10:42:49 Patient TargetsNo targets recorded. Patient Instructions Encounter Date Encounter Id Patient Instructions Last Modified By Organization Details Last Modified Time 08/02/2022 [id number] 22 yo here for infertility, PCOS Plan return for Day 3 estradiol/FSH and PCOS/pre-conceptio n labs on 08/04/22 Discussed BMI 52.6 and increased complication risks including miscarriage, stillbirth, pre-eclampsia, GDM. Also discussed morbid obesity and impact on ovulation with PCOS. She is interested in bariatric surgery. Referral placed. Return for pelvic US [email or web address] Not available 08/04/2022 19:10:44 08/04/2022 [id number] 22 yo here for f /u on infertility, PCOS Today, eve Day 3 estradiol/FSH and PCOS/pre-conceptio n labs Discussed BMI 52.6 and increased complication risks including miscarriage, stillbirth, pre-eclampsia, GDM. Also discussed morbid obesity and impact on ovulation with PCOS. She is interested in bariatric surgery. Referral in place US today WNL. F/u and plan pending labs. Will need to return for Day 21 progesterone Not available 08/05/2022 14:00:41 08/23/2022 [id number] -Discussed all l ab work ordered today, pt consents to all. [email or web address] Not available 08/23/2022 09:50:33 11/25/2024 [id number] body mass index: care instructions [email or web address] Not available 11/25/2024 12:11:34 learning about healthy weight [email or web address] Not available 11/25/2024 12:11:34 11/27/2024 [id number] learning about healthy weight Not available 11/30/2024 17:09:29 body mass index: care instructions Not available 11/30/2024 17:09:29 body mass index: care instructions Not available 11/27/2024 16:02:43 learning about healthy weight Not available 11/27/2024 16:02:43 learning about future and diabetes Not available 11/27/2024 16:02:43 learning about future when you are overweight Not available 11/27/2024 16:02:43 learning about planning for future Not available 11/27/2024 16:02:43 Discussed with patient that given her [employer] shunt and issues after, her morbid obesity, her risks are very very high. She would like to see [facility] for pre-conception counseling Discussed with patient that I will place neurosurgery referral as well given she is having complications from her shunt. She wants a second opinion, and also needs to discuss with them. Discussed that we do not offer artificial insemination here, and she would need to see DON [email or web address] Not available 11/30/2024 17:10:57 Reason for Referral Bariatric Surgery Referral f or Body mass index 40+ - severely obese Referring Physician: India Sutherland, HISTORIOGRAPHY PROFESSOR, Encounter Date: 08/02/2022 Neurological Surgeon Referra l for Ventriculoperitoneal shunt in situ Jett Given- may need her records from and [facility] from resent er visit- having alot of symptoms Referring Physician: Key Jack, Family Medicine, Encounter Date: 11/25/2024 Maternal & Medicine Re ferral for Mass of body structure pre-conception counseling Referring Physician: India Sutherland, HISTORIOGRAPHY PROFESSOR, Encounter Date: 11/27/2024 Results Created Date Observation Date Name Description Value Unit Range Abnormal Flag Note LastModifiedBy Organization Detail LastModifiedTime 08/04/19 23 08/05/2022 CBC WITH DIFFE RENTI AL/PL ATELE T WBC 6.6 x10e3 /uL 3.4-10 .8 Not Available [facility] ([facility]) [address] [place], [address], 08/14/2022 03:06:39 08/04/19 23 08/05/2022 CBC WITH DIFFE RENTI AL/PL ATELE T RBC 4.85 x10e6 /uL 3.77-5 .28 Not Available [facility] ([facility]) [address] [place], [address], 08/14/2022 03:06:39 08/04/19 23 08/05/2022 CBC WITH DIFFE RENTI AL/PL ATELE T hemoglobin 13.8 g/dL 11.1-1 5.9 Not Available [facility] ([facility]) [address] [place], [address], 08/14/2022 03:06:39 08/04/19 23 08/05/2022 CBC WITH DIFFE RENTI AL/PL ATELE T hematocrit 40.9 % 34.0-4 6.6 Not Available [facility] ([facility]) [address] [place], [address], 08/14/2022 03:06:39 08/04/19 23 08/05/2022 CBC WITH DIFFE RENTI AL/PL ATELE T MCV 84 fL 79-97 Not Available [facility] ([facility]) [address] [facility], [place], [address], 08/14/2022 03:06:39 08/04/19 23 08/05/2022 CBC WITH DIFFE RENTI AL/PL ATELE T MCH 28.5 pg 26.6-3 3.0 Not Available [facility] ([facility]) [address] [facility], [place], [address], 08/14/2022 03:06:39 08/04/19 23 08/05/2022 CBC WITH DIFFE RENTI AL/PL ATELE T MCHC 33.7 g/dL 31.5-3 5.7 Not Available [facility] ([facility]) [address] [facility], [place], [address], 08/14/2022 03:06:39 08/04/19 23 08/05/2022 CBC WITH DIFFE RENTI AL/PL ATELE T RDW 13.1 % 11.7-1 5.4 Not Available [facility] ([facility]) [address] [place], [address], 08/14/2022 03:06:39 08/04/19 23 08/05/2022 CBC WITH DIFFE RENTI AL/PL ATELE T platelets 272 x10e3 /uL 150-45 0 Not Available [facility] ([facility]) [address] [place], [address], 08/14/2022 03:06:39 08/04/19 23 08/05/2022 CBC WITH DIFFE RENTI AL/PL ATELE T neutrophils 59 % not estab. Not Available [facility] ([facility]) [address] [place], [address], 08/14/2022 03:06:39 08/04/19 23 08/05/2022 CBC WITH DIFFE RENTI AL/PL ATELE T lymphs 31 % not estab. Not Available [facility] ([facility]) [address] [facility] [place], [address], 08/14/2022 03:06:39 08/04/19 23 08/05/2022 CBC WITH DIFFE RENTI AL/PL ATELE T monocytes 7 % not estab. Not Available [facility] ([facility]) [address] [facility], [place], [address], 08/14/2022 03:06:39 08/04/19 23 08/05/2022 CBC WITH DIFFE RENTI AL/PL ATELE T eos 2 % not estab. Not Available [facility] ([facility]) [address] [facility], [place], [address], 08/14/2022 03:06:39 08/04/19 23 08/05/2022 CBC WITH DIFFE RENTI AL/PL ATELE T basos 1 % not estab. Not Available [facility] ([facility]) [address] [facility], [place], [address], 08/14/2022 03:06:39 08/04/19 23 08/05/2022 CBC WITH DIFFE RENTI AL/PL ATELE T immature cells TRACK SERVICE PERSON Not Available [facility] ([facility]) [address] [place], [address], 08/14/2022 03:06:39 08/04/19 23 08/05/2022 CBC WITH DIFFE RENTI AL/PL ATELE T neutrophils (absolute) 3.9 x10e3 /uL 1.4-7. 0 Not Available [facility] ([facility]) [address] [place], [address], 08/14/2022 03:06:39 08/04/19 23 08/05/2022 CBC WITH DIFFE RENTI AL/PL ATELE T lymphs (absolute) 2.0 x10e3 /uL 0.7-3. 1 Not Available [facility] ([facility]) [address] [place], [address], 08/14/2022 03:06:39 08/04/19 23 08/05/2022 CBC WITH DIFFE RENTI AL/PL ATELE T monocytes(ab solute) 0.5 x10e3 /uL 0.1-0. 9 Not Available [facility] ([facility]) [address] [facility], [place], [address], 08/14/2022 03:06:39 08/04/19 23 08/05/2022 CBC WITH DIFFE RENTI AL/PL ATELE T eos (absolute) 0.1 x10e3 /uL 0.0-0. 4 Not Available [facility] ([facility]) [address] [facility], [place], [address], 08/14/2022 03:06:39 08/04/19 23 08/05/2022 CBC WITH DIFFE RENTI AL/PL ATELE T baso (absolute) 0.0 x10e3 /uL 0.0-0. 2 Not Available [facility] ([facility]) [address] [facility], [place], [address], 08/14/2022 03:06:39 08/04/19 23 08/05/2022 CBC WITH DIFFE RENTI AL/PL ATELE T immature granulocytes 0 % not estab. Not Available [facility] ([facility]) [address] [facility], [place], [address], 08/14/2022 03:06:39 08/04/19 23 08/05/2022 CBC WITH DIFFE RENTI AL/PL ATELE T immature grans (abs) 0.0 x10e3 /uL 0.0-0. 1 Not Available [facility] ([facility]) [address] [place], [address], 08/14/2022 03:06:39 08/04/19 23 08/05/2022 CBC WITH DIFFE RENTI AL/PL ATELE T NRBC TRACK SERVICE PERSON Not Available [facility] ([facility]) [address] [facility], [place], [address], 08/14/2022 03:06:39 08/04/19 23 08/05/2022 CBC WITH DIFFE SAMEER AL/FERCHO Hauser hematology comments: TRACK SERVICE PERSON Not Available [facility] ([facility]) [address] [facility], [place], [address], 08/14/2022 03:06:39 08/04/19 23 08/05/2022 COMP. METAB OLIC PANEL (14) glucose 78 mg/dL 70-99 Not Available [facility] ([facility]) [address] [facility], [place], [address], 08/14/2022 03:06:40 08/04/19 23 08/05/2022 COMP. METAB OLIC PANEL (14) BUN 9 mg/dL 6-20 Not Available [facility] ([facility]) [address] [facility], [place], [address], 08/14/2022 03:06:40 08/04/19 23 08/05/2022 COMP. METAB OLIC PANEL (14) creatinine 0.84 mg/dL 0.57-1 .00 Not Available [facility] ([facility]) [address] [facility], [place], [address], 08/14/2022 03:06:40 08/04/19 23 08/05/2022 COMP. METAB OLIC PANEL (14) eGFR 99 mL/mi n/1.7 3 >59 Not Available [facility] ([facility]) [address] [facility], [place], [address], 08/14/2022 03:06:40 08/04/19 23 08/05/2022 COMP. METAB OLIC PANEL (14) BUN/creatini ne ratio 11 9-23 Not Available [facility] ([facility]) [address] [facility], [place], [address], 08/14/2022 03:06:40 08/04/19 23 08/05/2022 COMP. METAB OLIC PANEL (14) sodium 140 mmol/ L 134-14 4 Not Available [facility] ([facility]) [address] [facility] [place], [address], 08/14/2022 03:06:40 08/04/19 23 08/05/2022 COMP. METAB OLIC PANEL (14) potassium 4.5 mmol/ L 3.5-5. 2 Not Available [facility] ([facility]) [address] [facility] [place], [address], 08/14/2022 03:06:40 08/04/19 23 08/05/2022 COMP. METAB OLIC PANEL (14) chloride 103 mmol/ L 96-106 Not Available [facility] ([facility]) [address] [facility] [place], [address], 08/14/2022 03:06:40 08/04/19 23 08/05/2022 COMP. METAB OLIC PANEL (14) carbon dioxide, total 21 mmol/ L 20-29 Not Available [facility] ([facility]) [address] [facility] [place], [address], 08/14/2022 03:06:40 08/04/19 23 08/05/2022 COMP. METAB OLIC PANEL (14) calcium 10.0 mg/dL 8.7-10 .2 Not Available [facility] ([facility]) [address] [facility] [place], [address], 08/14/2022 03:06:40 08/04/19 23 08/05/2022 COMP. METAB OLIC PANEL (14) protein, total 8.1 g/dL 6.0-8. 5 Not Available [facility] ([facility]) [address] [facility] [place], [address], 08/14/2022 03:06:40 08/04/19 23 08/05/2022 COMP. METAB OLIC PANEL (14) albumin 5.1 g/dL 3.9-5. 0 above high normal Not Available [facility] ([facility]) [address] [place], [address], 08/14/2022 03:06:40 08/04/19 23 08/05/2022 COMP. METAB OLIC PANEL (14) globulin, total 3.0 g/dL 1.5-4. 5 Not Available [facility] ([facility]) [address] [place], [address], 08/14/2022 03:06:40 08/04/19 23 08/05/2022 COMP. METAB OLIC PANEL (14) A/G ratio 1.7 1.2-2. 2 Not Available [facility] ([facility]) [address] [place], [address], 08/14/2022 03:06:40 08/04/19 23 08/05/2022 COMP. METAB OLIC PANEL (14) bilirubin, total <0.2 mg/dL 0.0-1. 2 Not Available [facility] ([facility]) [address] [place], [address], 08/14/2022 03:06:40 08/04/19 23 08/05/2022 COMP. METAB OLIC PANEL (14) alkaline phosphatase 101 IU/L 44-121 Not Available [facility] ([facility]) [address] [place], [address], 08/14/2022 03:06:40 08/04/19 23 08/05/2022 COMP. METAB OLIC PANEL (14) AST (SGOT) 17 IU/L 0-40 Not Available [facility] ([facility]) [address] [place], [address], 08/14/2022 03:06:40 08/04/19 23 08/05/2022 COMP. METAB OLIC PANEL (14) ALT (SGPT) 17 IU/L 0-32 Not Available [facility] ([facility]) [address] [facility], [place], [address], 08/14/2022 03:06:40 08/04/19 23 08/05/2022 LIPID PANEL cholesterol, total 235 mg/dL 100-19 9 above high normal Not Available [facility] ([facility]) [address] [facility] [place], [address], 08/14/2022 03:06:41 08/04/19 23 08/05/2022 LIPID PANEL triglyceride s 139 mg/dL 0-149 Not Available [facility] ([facility]) [address] [facility] [place], [address], 08/14/2022 03:06:41 08/04/19 23 08/05/2022 LIPID PANEL HDL cholesterol 46 mg/dL >39 Not Available [facility] ([facility]) [address] [place], [address], 08/14/2022 03:06:41 08/04/19 23 08/05/2022 LIPID PANEL VLDL cholesterol sarai 25 mg/dL 5-40 Not Available [facility] ([facility]) [address] [place], [address], 08/14/2022 03:06:41 08/04/19 23 08/05/2022 LIPID PANEL LDL chol calc ([facility]) 164 mg/dL 0-99 above high normal Not Available [facility] ([facility]) [address] [place], [address], 08/14/2022 03:06:41 08/04/19 23 08/05/2022 LIPID PANEL comment: TRACK SERVICE PERSON Not Available [facility] ([facility]) [address] [place], [address], 08/14/2022 03:06:41 08/04/19 23 08/07/2022 ABO GROUP ING AND RHO(D ) TYPIN G ABO grouping O Not Available [facility] ([facility]) [address] [place], [address], 08/14/2022 03:06:42 08/04/19 23 08/07/2022 ABO GROUP ING AND RHO(D ) TYPIN G Rh factor Positi ve Pleas e note: Prior recor ds for this patie nt's ABO / Rh type are not avail able for addit ional verif icati on. Not Available [facility] ([facility]) [address] [place], [address], 08/14/2022 03:06:42 08/04/19 23 08/05/2022 FSH AND LH LH 10.0 mIU/m L Adult Femal e: Folli cular phase 2.4 - 12.6 Ovula tion phase 14.0 - 95.6 Lutea l phase 1.0 - 11.4 Postm enopa usal 7.7 - 58.5 Not Available [facility] ([facility]) [address] [place], [address], 08/14/2022 03:06:42 08/04/19 23 08/05/2022 FSH AND LH FSH 6.9 mIU/m L Adult Femal e: Folli cular phase 3.5 - 12.5 Ovula tion phase 4.7 - 21.5 Lutea l phase 1.7 - 7.7 Postm enopa usal 25.8 - 134.8 Not Available [facility] ([facility]) [address] [place], [address], 08/14/2022 03:06:42 08/04/19 23 08/05/2022 TESTO STERO NE,FR EE AND TOTAL testosterone 24 NG/dL 13-71 Not Available [facility] ([facility]) [address] [place], [address], 08/14/2022 03:06:43 08/04/19 23 08/10/2022 TESTO STERO NE,FR EE AND TOTAL free testosterone (direct) 2.0 pg/mL 0.0-4. 2 Not Available [facility] ([facility]) [address] [place], [address], 08/14/2022 03:06:43 08/04/1908/14/2022 DHEA- SULFA TE, SERUM DHEA-sulfate , lcms 177 ug/dL This test was bea saldana and its perfo rmanc e armand cteri stics deter mined by [facility]. It has not been clear ed or appro kay by the Food and Drug Admin istra tion. Refer ence Range : Adult Femal es (21 - 30y): 22 - 372 Not Available [facility] [address] [place] [address], [place], [address], 08/14/2022 03:06:44 08/04/19 23 08/05/2022 HEMOG LOBIN A1C hemoglobin A1C 5.3 % 4.8-5. 6 Predi abete s: 5.7 - 6.4 Diabe kristen: >6.4 Glyce abdoulaye contr ol for adult s with diabe kristen: <7.0 Not Available [facility] ([facility]) [address] [facility], [place], [address], 08/14/2022 03:06:44 08/04/1908/05/2022 TSH TSH 1.630 uIU/m L 0.450- 4.500 Not Available [facility] ([facility]) [address] [place], [address], 08/14/2022 03:06:45 08/04/19 23 08/05/2022 ESTRA DIOL estradiol 21.2 pg/mL Adult Femal e: Folli cular phase 12.5 - 166.0 Ovula tion phase 85.8 - 498.0 Lutea l phase 43.8 - 211.0 Postm enopa usal <6.0 - 54.7 Pregn miguel 1st trime ster 215.0 - >4300 .0 Amy ECLIA metho dolog y Not Available [facility] ([facility]) [address] [place], [address], 08/14/2022 03:06:46 08/04/19 23 08/05/2022 RUBEL LA ANTIB ODIES , IGG rubella antibodies, IgG 11.30 index immune >0.99 Non-i mmune <0.90 Equiv ocal 0.90 - 0.99 Immun e >0.99 Not Available [facility] ([facility]) [address] [facility], [place], [address], 08/14/2022 03:06:46 08/04/19 23 08/05/2022 RPR, RFX QN RPR/C ONFIR M TP RPR Non Reacti ve non reacti ve Not Available [facility] ([facility]) [address] [facility], [place], [address], 08/14/2022 03:06:47 08/04/19 23 08/11/2022 17-OH PROGE STERO NE LCMS 17-oh progesterone lcms 22 NG/dL Adult Femal e Folli cular 15 - 70 Lutea l 35 - 290 Not Available [facility] ([facility]) [address] [facility], [place], [address], 08/14/2022 03:06:48 08/04/1908/05/2022 HIV AB/P2 4 AG WITH REFLE X HIV Ab/P24 Ag screen Non Reacti ve non reacti ve HIV Negat willard HIV-1 /HIV- 2 antib odies and HIV-1 p24 antig en were NOT detec frank. There is no labor atory evide nce of HIV infec tion. Not Available [facility] ([facility]) [address] [facility], [place], [address], 08/14/2022 03:06:49 08/04/1908/05/2022 VARIC EDGAR- ZOSTE R V AB, IGG varicella zoster IgG 138 index immune >165 below low normal A secon d sampl e shoul d be colle cted and teste d no less than 2-4 weeks . Negat willard <135 Equiv ocal 135 - 165 Posit willard >165 A posit willard resul t gener ally indic ates expos ure to the patho gen or admin istra tion of speci fic immun oglob ulins , but it is not indic ation of activ e infec tion or stage of disea se. Not Available [facility] ([facility]) [address] [facility], [place], [address], 08/14/2022 03:06:49 08/04/1908/05/2022 HCV ANTIB ANNELIESE hep C virus Ab <0.1 s/co_ ratio 0.0-0. 9 Negat willard: < 0.8 Indet ermin ate: 0.8 - 0.9 Posit willard: > 0.9 HCV antib anneliese alone does not diffe renti ate betwe en previ ous resol kay infec tion and activ e infec tion. The CDC and [facility] [place] nt clini sarai guide lines recom mend that a posit willard HCV antib anneliese resul t be follo wed up with an HCV RNA test to suppo rt the diagn osis of acute HCV infec tion. [facility] offer s Hepat itis C Virus (HCV) RNA, Diagn osis, JONAH (0227 31) and Hepat itis C Virus (HCV) Antib anneliese with refle x to Quant itati ve Real- time PCR (1050 50). Not Available [facility] ([facility]) [address] [facility], [place], [address], 08/14/2022 03:06:50 08/04/1908/05/2022 INSUL IN insulin 16.7 uIU/m L 2.6-24 .9 Not Available [facility] ([facility]) [address] [facility], [place], [address], 08/14/2022 03:06:51 08/04/1908/05/2022 HBSAG SCREE N HBsAg screen Negati ve negati ve Not Available [facility] ([facility]) [address] [facility], [place], [address], 08/14/2022 03:06:51 08/04/19 23 08/07/2022 IGP,C TNG,R FX APT HPV ALL PTH chlamydia, nuc. acid amp Negati ve negati ve Not Available [facility] ([facility]) [address] [place], [address], 08/15/2022 03:07:27 08/04/19 23 08/07/2022 IGP,C TNG,R FX APT HPV ALL PTH gonococcus, nuc. 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 LOW GRADE SQUAM OUS INTRA EPITH ELIAL LESIO N (LSIL ). SPECI MEN REPRO CESSE D FOR INTER PRETA TION USING GLACI AL ACETI C ACID (GAA) . Not Available [facility] ([facility]) [address] [place], [address], 08/15/2022 03:07:27 08/04/19 23 08/11/2022 IGP,C TNG,R FX APT HPV ALL PTH recommendati on: Commen t abnormal Sugge st follo w up as clini rosa maria appro priat e. Not Available [facility] ([facility]) [address] [place], [address], 08/15/2022 03:07:27 08/04/19 23 08/11/2022 IGP,C TNG,R FX APT HPV ALL PTH specimen adequacy: Commen t Satis facto ry for evalu ation . Endoc ervic al and/o r squam ous metap lasti c cells (endo cervi sarai compo nent) are prese nt. Areas of parti ally obscu ring blood are prese nt. Not Available [facility] ([facility]) [address] [place], [address], 08/15/2022 03:07:27 08/04/19 23 08/11/2022 IGP,C TNG,R FX APT HPV ALL PTH clinician provided ICD10: Carmencita hauser E28.2 Z31.9 Z12.4 Not Available [facility] ([facility]) [address] [place], [address], 08/15/2022 03:07:27 08/04/19 23 08/11/2022 IGP,C TNG,R FX APT HPV ALL PTH performed by: Alexandrea Conte visor y Cytot greta hauser (ASCP ) Not Available [facility] ([facility]) [address] [place], [address], 08/15/2022 03:07:27 08/04/19 23 08/11/2022 IGP,C TNG,R FX APT HPV ALL PTH electronical ly signed by: Carmencita robles MD, Patho logis t Not Available [facility] ([facility]) [address] [place], [address], 08/15/2022 03:07:27 08/04/19 23 08/11/2022 IGP,C TNG,R FX APT HPV ALL PTH . . Not Available [facility] ([facility]) [address] [place], [address], 08/15/2022 03:07:27 08/04/19 23 08/11/2022 IGP,C TNG,R FX APT HPV ALL PTH pathologist provided ICD10: Carmencita hauser R87.6 12 Not Available [facility] ([facility]) [address] [place], [address], 08/15/2022 03:07:27 08/04/19 23 08/11/2022 IGP,C TNG,R FX APT HPV ALL PTH note: Commen t The Pap smear is a scree chelsey test desig eliceo to aid in the detec tion of yanira ligna nt and malig nant condi tions of the uteri ne cervi x. It is not a diagn ostic proce dure and shoul d not be used as the sole means of detec ting cervi sarai cance r. Both false -posi tive and false -nega tive repor ts do occur . Not Available [facility] ([facility]) [address] [place], [address], 08/15/2022 03:07:27 08/04/19 23 08/11/2022 IGP,C TNG,R FX APT HPV ALL PTH test methodology: Commen t This liqui d based ThinP rep(R ) pap test was scree eliceo with the use of an image guide everardo douglas. Not Available [facility] ([facility]) [address] [place], [address], 08/15/2022 03:07:27 08/04/19 23 08/11/2022 IGP,C TNG,R FX APT HPV ALL PTH . Commen t See below for HPV testi ng resul ts. Not Available [facility] ([facility]) [address] [place], [address], 08/15/2022 03:07:27 08/04/19 23 08/14/2022 IGP,C TNG,R FX APT HPV ALL PTH HPV aptima Negati ve negati ve This nucle ic acid ampli ficat ion test detec ts fourt een high- risk HPV types (16,1 8,31, 33,35 ,39,4 5,51, 52,56 ,58,5 9,66, 68) witho ut diffe renti ation . Not Available [facility] ([facility]) [address] [place], [address], 08/15/2022 03:07:27 08/23/19 23 08/24/2022 PROGE STERO NE progesterone 0.8 NG/mL Folli cular phase 0.1 - 0.9 Lutea l phase 1.8 - 23.9 Ovula tion phase 0.1 - 12.0 Pregn ant First trime ster 11.0 - 44.3 Secon d trime ster 25.4 - 83.3 Third trime ster 58.7 - 214.0 Postm enopa usal 0.0 - 0.1 Not Available [facility] ([facility]) [address] [facility], [place], [address], 08/24/2022 08:25:28 11/28/19 25 11/29/2024 IGP, APTIM A HPV, RFX 16/18 ,45 HPV aptima Negati ve negati ve This nucle ic acid ampli ficat ion test detec ts fourt een high- risk HPV types (16,1 8,31, 33,35 ,39,4 5,51, 52,56 ,58,5 9,66, 68) witho ut diffe renti ation . Not Available [facility] ([facility]) [address] [facility], [place], [address], 12/03/2024 20:09:30 11/28/1912/03/2024 IGP, APTIM A HPV, RFX 16/18 ,45 diagnosis: Commen t NEGAT WILLARD FOR INTRA EPITH ELIAL LESIO N OR FLORA VAZQUEZ . Not Available [facility] ([facility]) [address] [place], [address], 12/03/2024 20:09:30 11/28/1912/03/2024 IGP, APTIM A HPV, RFX 16/18 ,45 specimen adequacy: Commen t Satis facto ry for evalu ation . Endoc ervic al and/o r squam ous metap lasti c cells (endo cervi sarai compo nent) are prese nt. Not Available [facility] ([facility]) [address] [facility], [place], [address], 12/03/2024 20:09:30 11/28/1912/03/2024 IGP, APTIM A HPV, RFX 16/18 ,45 clinician provided ICD10: Carmencita hauser Z12.4 E66.0 1 Not Available [facility] ([facility]) [address] [place], [address], 12/03/2024 20:09:30 11/28/19 25 12/03/2024 IGP, APTIM A HPV, RFX 16/18 ,45 performed by: Carmencita somers, Cytol ogist (ASCP ) Not Available [facility] ([facility]) [address] [place], [address], 12/03/2024 20:09:30 11/28/19 25 12/03/2024 IGP, APTIM A HPV, RFX 16/18 ,45 . . Not Available [facility] ([facility]) [address] [place], [address], 12/03/2024 20:09:30 11/28/19 25 12/03/2024 IGP, APTIM A HPV, RFX 16/18 ,45 note: Carmencita hauser The Pap smear is a scree chelsey test desig eliceo to aid in the detec tion of yanira ligna nt and malig nant condi tions of the uteri ne cervi x. It is not a diagn ostic proce dure and shoul d not be used as the sole means of detec ting cervi sarai cance r. Both false -posi tive and false -nega tive repor ts do occur . Not Available [facility] ([facility]) [address] [facility], [place], [address], 12/03/2024 20:09:30 11/28/19 25 12/03/2024 IGP, APTIM A HPV, RFX 16/18 ,45 test methodology: TNP The Thin Prep( R) Image r was unabl e to read this speci men. There fore a manua l revie w was perfo rmed. Not Available [facility] ([facility]) [address] [facility], [place], [address], 12/03/2024 20:09:30 11/28/19 25 12/03/2024 IGP, APTIM A HPV, RFX 16/18 ,45 HPV genotype reflex Commen t Crite olesya not met, HPV Genot ype not perfo rmed. Not Available [facility] ([facility]) [address] [facility], [place], [address], 12/03/2024 20:09:30 08/04/19 23 08/06/2022 US, trans vagin al No observ ation [facility] ed. [facility] Chief Creative Officer [address] [place] [address] , [place], [address], 08/06/2022 12:19:39 08/04/19 US, trans vagin al No observ ation record ed. [address] Chief Creative Officer [address] [place] [address] , [place], [address], 08/05/2022 14:12:45 12/03/19 25 12/02/2024 US, shruthi sarah r No observ ation record ed. [facility] [address], [place], [address], 12/08/2024 09:33:31 12/13/19 25 12/12/2024 NM, hepat obili simona scan, w/pha rm No observ ation record ed. [facility] [address], [place], [address], 12/12/2024 13:48:40 Result Notes None recorded. Problems Name Problem SNOMED Code Status Onset Date Resolution Date Notes Provider Name and Address Organization Details Recorded Time Obesity 644603963 Active 2017 India Sutherland MD [address], [place], [address] , [place] - [facility] 19:11:02 Irregular periods 69582451 Completed 201704/15/2018 Mattie Berman, BATH MIX OPERATOR [address], [place], [address] , [place] - [facility] 8 08:27:45 Oligomenor mega 30045552 Completed 201708/04/2022 India Sutherland MD [address], [place], [address] , [place] [facility] 3 19:10:54 Female hirsutism 70639848 Active 2017 India Sutherland MD [address], [place], [address] , [place] [facility] 3 19:11:05 Hyperlipid emia 28454398 Active 2017 Mattie Berman, BATH MIX OPERATOR [address], [place], [address] , [place] [facility] 8 13:42:09 Chlamydial infection 160617541 Completed 201902/27/2020 Keiry Aden null, [place] - [facility] 0 10:22:15 Polycystic ovary syndrome 080789650 Active 2019 India Sutherland MD [address], [place], [address] , [place] [facility] 3 19:10:59 History of chlamydial infection 579853399 Active 2019 Keiry Aden null, [place] - [facility] 0 10:22:21 Infertile 1305637 Active 2022 India Sutherland MD [address], [place], [address] , [place] [facility] 3 19:11:11 Trying to conceive 110273109 Active 2022 India Sutherland MD [address], [place], [address] , [place] [facility] 3 19:11:18 Mass of body structure 035946495 Active 2024 India Sutherland MD [address], [place], [address] , [place] [facility] 5 17:11:08 Problem Notes None recorded. Procedures Surgical History Date Name Laterality Status Provider Name and Address Organization Details Recorded Time 11/28/19 24 procedure on brain ventricular shunt completed Aide Carlin [place] - [facility] 11/27/2024 15:38:59 08/04/19 23 Date of Last Pap Smear completed India Sutherland MD [address], [place], [address], [place] - [facility] 08/16/2022 08:34:46 09/18/19 20 procedure on ankle completed Aide Dixon [place] - [facility] 01/05/2020 13:08:07 07/09/19 17 Tonsillectomy completed Keiry Keiko [place] - [facility] 04/12/2018 16:17:36 Imaging Results [...] Available Not Available Not Available amoxicillin 875 mg-mike m clavulanate 125 mg tablet 08/02 completed [...] completed Not Available Not Available Not Available [place] DMT 30 mg-30 mg tablet 08/02 completed Not Available Not Available Not Available Voltaren Arthritis Pain 1 % topical gel APPLY 2 GRAMS TO THE AFFECTED AREA(S) BY TOPICAL ROUTE 4 TIMES PER DAY 2024 active Not Available Not Available Not Avai lable Vitals Date Recorded Body mass index (BMI) Body height Provider Name and Address Organization Details Last Updated DateTime 08/02/2022 52.6 kg/m2 165.1 cm India Sutherland MD [address], [address], [place] - [facility] 08/02/2022 15:53:34 Date Recorded Body weight Systolic And Diastolic Provider Name and Address Organization Details Last Updated DateTime 08/02/2022 609090.19 g 138/90 mm[Hg] Gema GRIMES - [facility] 08/02/2022 15:46:47 Date Recorded Body height Body mass index (BMI) Body weight Systolic And Diastolic Provider Name and Address Organization Details Last Updated DateTime 08/04/2022 165.1 cm 52.3 kg/m2 305392 g 130/88 mm[Hg] Gema GRIMES - [facility] 08/04/2022 10:48:14 Date Recorded Body weight Heart rate Oxygen saturation Oxygen saturation in Arterial blood by Pulse oximetry Respiratory rate Body mass index (BMI) Body height Systolic And Diastolic Provider Name and Address Organization Details Last Updated DateTime 5 751577. 67 g 76 /min 99 % 99 % 18 /min 50.8 kg/m2 165.1 cm 110/78 mm[Hg] Gunjan Pérez [place] - [facility] 5 10:47:44 Date Recorded Body height Body mass index (BMI) Body weight Systolic And Diastolic Provider Name and Address Organization Details Last Updated DateTime 11/27/2024 165.1 cm 50.4 kg/m2 858174.49 g 120/76 mm[Hg] Aide Carlin [place] - [facility] 11/27/2024 15:41:42 Social History Question Answer Notes LastModified by Organizat ion Details LastModified Time Tobacco Smoking Status Never Smoker [email or web address] - [facility] 04/12/2018 16:15:29 Do You Have An Advance Directive? No [email or web address] Information not available 04/12/2018 Are You Blind Or Do You Have Difficulty Seeing? No [email or web address] Information not available 04/12/2018 Is Blood Transfusion Acceptable In An Emergency? Yes [email or web address] Information not available 04/12/2018 What Is Your Level Of Caffeine Consumption? Moderate [email or web address] Information not available 04/12/2018 How Much Tobacco Do You Chew? None [email or web address] Information not available 04/12/2018 Are You Deaf Or Do You Have Serious Difficulty Hearing? No [email or web address] Information not available 04/12/2018 What Type Of Diet Are You Following? REGULAR [email or web address] Information not available 04/12/2018 Which Illicit Or Recreational Drugs Have You Used? None [email or web address] Information not available 04/12/2018 What Is The Highest Grade Or Level Of School You Have Completed Or The Highest Degree You Have Received? PN25109-5 [email or web address] Information not available 04/12/2018 How Many Days Of Moderate To Strenuous Exercise, Like A Brisk Walk, Did You Do In The Last 7 Days? 1 [email or web address] Information not available 04/12/2018 On Those Days That You Engage In Moderate To Strenuous Exercise, How Many Minutes, On Average, Do You Exercise? 1 [email or web address] Information not available 04/12/2018 How Hard Is It For You To Pay For The Very Basics Like Food, Housing, Medical Care, And Heating? 1 [email or web address] Information not available 04/12/2018 Live Alone Or With Others? With Others Parents [email or web address] Information not available 04/12/2018 Last Menstrual Period? 12/18/2019 [email or web address] Information not available 01/05/2020 What Was The Date Of Your Most Recent Tobacco Screening? 11/25/2024 Information not available 11/25/2024 How Many Children Do You Have? 1 [email or web address] Information not available 01/05/2020 Performs Monthly Self-breast Exam? No Information no t available 04/12/2018 Do You Use Protection During Sex? No [email or web address] Information not available 04/12/2018 What Is Your Relationship Status? Domestic Partner [email or web address] Information not available 11/27/2024 Seat Belts Used Routinely Yes [email or web address] Information not available 04/12/2018 Are You Sexually Active? Yes [email or web address] Information not available 04/12/2018 How Much Tobacco Do You Smoke? No [email or web address] Information not available 01/05/2020 General Stress Level Low [email or web address] Information not available 04/12/2018 Do You Use Sunscreen Routinely? No [email or web address] Information not available 04/12/2018 Has Tobacco Cessation Counseling Been Provided? No Information not available 11/25/2024 How Many Years Have You Smoked Tobacco? 0 [email or web address] Information not available 01/05/2020 Do You Have Difficulty Walking Or Climbing Stairs? No Information not available 04/12/2018 Sex: Female Functional Status Question Answer Note LastModified by Organizat ion Details LastModified Time What is your level of alcohol consumption? None [email or web address] Information not available 04/12/2018 Do you or have you ever used smokeless tobacco? Never used smokeless tobacco [email or web address] Information not available 01/05/2020 Are you currently employed? Yes [email or web address] Information not available 04/12/2018 Urinary incontinence assessment performed? Yes [email or web address] Information not available 04/12/2018 Are you able to walk? YESWOREST [email or web address] Information not available 04/12/2018 Do you have difficulty doing errands alone? No [email or web address] Information not available 04/12/2018 What is your occupation? unemployed Information not available 01/05/2020 Do you have difficulty dressing or bathing? No Information not available 04/12/2018 Do you or have you ever used e-cigarettes or vape? Never used electronic cigarettes [email or web address] Information not available 01/05/2020 What is your exercise level? None [email or web address] Information not available 04/12/2018 Mental Status Question Answer Note LastModified by Organization D etails LastModified Time Do you feel stressed (tense, restless, nervous, or anxious, or unable to sleep at night)? 1 [email or web address] Information not available 04/12/2018 Do you have difficulty concentrating, remembering or making decisions? No [email or web address] Information no t available 04/12/2018 Family History Relationship Description Onset Age of this Age Resolved Age Notes LastModified by Organization Details LastModified Time Father Diabetes mellitus [email or web address] Not available 04/12 16:14:40 Father Hypertensive disorder [email or web address] Not available 11/07 15:36:29 Maternal Grandfather Heart disease [email or web address] Not available 04/12 16:14:54 Maternal Grandfather Myocardial infarction [email or web address] Not available 11/2017 16:15:01 Maternal Grandmother Malignant tumor of breast [email or web address] Not available 2019 13:09:56 Sister Neoplasm of gallbladder [email or web address] Not available 15:36:14 Medical History Condition Response [...] Cancer N Hernia N Plantar Fasciitis N Hypothyroidism N Lung Disease N Defects or Inherited Disease N Breast Problem N Ovarian Cyst N Anesthesia Complications N Testosterone Deficiency N Interstitial Cystitis N Congenital Anomalies N Hypoglycemia N Blood clot N Vitamin D Deficiency N Cellulitis N Endometriosis N Bladder or Kidney Problems N Fracture N Panic Disorder N Schizophrenia N Concussion [...] colitis N Cerebrovascular Disease N Depression N Guillain-[place] N Sleep Apnea N Aneurysm N Bronchitis [...] virus, quadrivalent, preservative 5 completed Not Available [facility] 11/27/2024 15:15:19 HPV9 0 completed SYDNEY Peña - [facility] 01/05/2020 16:54:05 HPV9 8 completed Not Available [facility] 07/26/2019 03:55:25 Influenza, split virus, quadrivalent, preservative 8 completed Not Available [facility] 07/26/2019 03:55:21 HPV9 9 completed Not Available [facility] 07/26/2019 03:55:34 Past Encounters Encounter ID Performer Location Encounter Start Date Encounter Closed Date Diagnosis/Indication Diagnosis SNOMED-CT Code Diagnosis ICD10 Code Diagnosis Note [id number] MG Juan HISTORIOGRAPHY PROFESSOR [address] [place] [address] SYDNEY Ellis [id number] 04/12/2018 15:57:26 04/12/2018 16:45:57 Obesity 302609329 E66.9 Discussed with patient her BMI being above the advised range and diagnosis of obesity. Encourage regular physical activity and limited carbohydra te and fat, calorie controlled diet. Advised 6 month F/U with family physician to assess progress towards weight loss. Irregular periods 043015 07 N92.6 Amenorrhea 58736811 N91. 2 Discussed proceeding with bloodwork today. If hcg is negative, will proceed with OCPs. Female hirsutism 0811337 9 L68.0 Discussed natural history of hair growth cycle w/ hirsutism. [id number] MG Juan HISTORIOGRAPHY PROFESSOR [address] [place] [address] SYDNEY Ellis [id number] 07/15/2018 15:16:58 07/15/2018 16:27:49 Routine gynecologic examination done 1024016680 9101 Z01.419 Depression screening 171 364257 Z13.89 PHQ-9 completed today. Diet education 28311284 Z71.3 Counseling 817353719 Z71 .82 Exercise counsellin ryne. Patient encouraged to exercise 30 minutes 5 days a week. Examinatio n of blood pressure 109057609 Z01.30 Obesity 292676349 E66.9 Discussed with patient her BMI being above the advised range and diagnosis of obesity. Encourage regular physical activity and limited carbohydra te and fat, calorie controlled diet. Advised 6 month F/U with family physician to assess progress towards weight loss.Pt has decreased to 1 can of soda per day - and that is Sprite. Surveillan ce of oral contraception 316764998 Z30.41 Possible side effects/ri sks of OC's including thrombotic risk/HTN, MARIANO, N/V and breakthrou gh bleeding discussed; need for consistent daily use stressed; instructed to call for any acute symptoms prior to scheduled f/u Active or passive immunization 987208408 Z23 Reviewed HPV types and associated diseases (genital warts, cervical cell changes/dy splasia, and cancers of the cervix, vagina, vulva, and anus). Female hirsutism 2188685 9 L68.0 Discussed natural history of hair growth cycle w/ hirsutism. Heartburn 13507660 R12 The patient provides a history of digestive symptoms most suggestive of acid reflux. Pt has not experience d any recent and unexpected weight gain. Further diagnostic evaluation is not required. Discussed treatment options at this time. Recommende d oral lozenges and chewing gum to promote salivation . Recommende d diet modificati ons, including reducing fatty food, caffeine, spicy food, carbonated beverage intake, to reduce episodes. Pt is not willing to adopt diet modificati ons. Recommende d abdominal breathing exercises to strengthen anti-reflu x barrier. Discussed elevating head of the bed and avoiding lying supine after meals. Screening for Chlamydia trachomatis 254319335 Z11.8 Z11.3 Discussed the various types of STDs, related symptoms and the potential consequenc es (including effects on fertility) of STD infections . Reviewed ways to limit exposure and prevention techniques . Physical examination 588 0005 Z02.5 Childhood obesity 134997 003 Z68.54 [id number] MG Juan HISTORIOGRAPHY PROFESSOR [address] [place] [place] [id number] 04/25/2018 08:43:22 04/25/2018 09:51:17 Oligomenorrhea 31256517 N91.5 Obesity 742452481 E66.9 Discussed with patient her BMI being above the advised range and diagnosis of obesity. Encourage regular physical activity and limited carbohydra te and fat, calorie controlled diet. Advised 6 month F/U with family physician to assess progress towards weight loss. Counseling 463320335 Z71 .82 Exercise counsellin ryne. Patient encouraged to exercise 30 minutes 5 days a week. Examinatio n of blood pressure 835331359 Z01.30 Surveillan ce of oral contraception 674723080 Z30.41 Effectiven ess, correct use, advantages /disadvant ages, common side effects, serious complicati ons, contra-ind ications/p recautions and return to fertility were reviewed for the following: Combined oral contracept willard (pills/pat ch/ring). Active or passive immunization 131538883 Z23 Reviewed HPV types and associated diseases (genital warts, cervical cell changes/dy splasia, and cancers of the cervix, vagina, vulva, and anus). Influenza vaccine needed 5127000166 106 Z23 Patient presents for flu vaccinatio n today. No fever. No history of egg allergy. Administer ed as below. Female hirsutism 0705560 9 L68.0 Discussed natural history of hair growth cycle w/ hirsutism. Hyperlipid emia screening 497571451 Z13.463 [id number] MG Juan HISTORIOGRAPHY PROFESSOR [address] [place] [place] [id number] 01/05/2020 12:43:12 01/05/2020 14:10:47 Routine gynecologic examination done 7126221872 9101 Z01.419 Depression screening 171 699025 Z13.89 PHQ-9 completed today. Diet education 18621751 Z71.3 Counseling 980161419 Z71 .82 Exercise counselclaudia michele. Patient encouraged to exercise 30 minutes 5 days a week. Examinatio n of blood pressure 377047532 Z01.30 Vaccine de clined by patient 5205767260 02 Z28.21 Pt declined flu vaccine today. Screening for malignant neoplasm of cervix 077192517 Z12.4 Patient advised that I will follow up with results. Female hirsutism 0016451 9 L68.0 Discussed natural history of hair growth cycle w/ hirsutism. States 50 mg of spironolac tone did not help much, will increase to 100 mg. Oligomenorrhea 76055729 N91.5 Start OCPs with negative UPT.Will call with labs.Discu ssed the possibilit y of PCOS dx and adding Metformin to her medication regimen. Obesity 712728545 E66.9 Discussed with patient her BMI being above the advised range and diagnosis of obesity. Encourage regular physical activity and limited carbohydra te and fat, calorie controlled diet. Advised 6 month F/U with family physician to assess progress towards weight loss.Pt has stopped drinking soda!! Body mass index 40+ - severely obese 971839687 Z68.43 Active or passive immunization 322213469 Z23 Reviewed HPV types and associated diseases (genital warts, cervical cell changes/dy splasia, and cancers of the cervix, vagina, vulva, and anus). Thyroid di sorder screening 039309133 Z13.29 Hyperlipid emia screening 249407377 Z13.220 Diabetes m ellitus screening 182782487 Z13.1 Acid reflux 806014187 K2 1.9 Encouraged to elevated head of bed 30 [address] ay upright 30 minutes after eating.Toby id drinking large amounts of beverage with meals.Avoi d carbonated beverages. [id number] India Sutherland MD Modena HISTORIOGRAPHY PROFESSOR [address] [place] [address] [place] [address] 08/02/2022 15:22:25 08/02/2022 15:59:55 Trying to conceive [id number] Z31.9 Female infertility 61368 08 N97.9 Polycystic ovary syndrome 603256046 E28.2 Body mass index 40+ - severely obese 865042047 Z68.43 [id number] India Sutherland MD [place] HISTORIOGRAPHY PROFESSOR [address] [place] [address] [place] [address] 08/04/2022 08:43:12 08/04/2022 11:16:27 Trying to conceive [id number] Z31.9 Polycystic ovary syndrome 274912455 E28.2 Screening for malignant neoplasm of cervix 642204716 Z12.4 Body mass index 40+ - severely obese 166147613 Z68.43 [id number] MG Sinha HISTORIOGRAPHY PROFESSOR [address] [place] [address] [place] [address] 08/23/2022 09:21:12 08/23/2022 09:42:00 Trying to conceive [id number] Z31.9 [id number] Key Jack APRN [address] [address] 11/25/2024 10:22:58 11/25/2024 11:35:56 Morbid obesity 389058602 E66.01 50.8 Ventriculo peritoneal shunt in situ 178288650 Z98.2 referralif symptoms worsen or no improvemen t go back to ed daja Right uppe r quadrant pain 308153596 R10.11 us- if symptoms worsen or no improvemen t return Ankle pain 378075199 M25 .571 M25.572 G89.29 pt does not want referral at this time [id number] MD Torrie Paz HISTORIOGRAPHY PROFESSOR [address] [facility] [place] Ellis [address] 11/27/2024 15:12:35 11/27/2024 16:31:18 Trying to conceive 530138411 Z31.9 Body mass index 40+ - severely obese 813437900 E66.01 Morbid obesity 067002135 E66.01 Cancer cer vix screening status 536463898 Z12.4 Mass of narendra dy structure 003858476 G93.2 Obesity 803566920 E66.9 Health Concerns Section Related Observation LastModified by Organization Detai ls LastModified Time None Recorded Concern Status LastModified by Organization Details LastModified Time None Recorded Advance Directives Directive N: Payers Insurance Date Sequence Insurance Name Policy Number Policy Trejo Covered Member ID Trejo Member ID Guarantor Name 12/08/2024 [place] [id number] Susan Art [id number] Susan Art 11/24/2024 1 [facility] [place] - [place] PRIOR TO 2022 (MEDICAID REPLACEMENT - HMO) [id number] Susan Art [id number] Susan Art 11/25/2024 2 [facility] [place] - [place] ON [place] AFTER 2022 (MEDICAID REPLACEMENT - HMO) Susan Art [id number] Susan Art 12/08/2024 [id number] Susan Art [id number] Susan Art 12/07/2024 1 [id number] Susan Art [id number] Susan Art 12/08/2024 [facility] [place] ON [place] AFTER 2022 (MEDICAID REPLACEMENT - HMO) Susan Art [id number] Susan Art Notes Date Note Type Note Provider Name and Address Organization Details Recorded Time 08/02/2022 text/html Susan is here t o discuss fertility. She is engaged, and planning a wedding for December!! She has been with her partner and trying to conceive for 2 years. She has a PCOS diagnosis. Up until recently, she was only having periods 1 time per year for 3-4 years. She took control for 1 year. Currently, she has 28 day cycles and her periods last 5-7 days. She denies any other issues with her uterus, tubes, ovaries. She has never had a pelvic US. She is Day 3 on 08/04 this week! She took metformin historically, but not currently taking. She struggles with dense coarse dark hair on her chin and shaves. India Sutherland MD [address], [place], [address], [place] [facility] 08/04/2022 19:13:00 08/04/2022 text/html Susan is here f or ultrasound and labwork for PCOS and trying to conceive. She is going to have a pelvic exam today as well. She is currently on her period. Today is Day 3 of her cycle. PREVIOUS HPI: Susan is here to discuss fertility. She is engaged, and planning a wedding for December!! She has been with her partner and trying to conceive for 2 years. She has a PCOS diagnosis. Up until recently, she was only having periods 1 time per year for 3-4 years. She took control for 1 year. Currently, she has 28 day cycles and her periods last 5-7 days. She denies any other issues with her uterus, tubes, ovaries. She has never had a pelvic US. She is Day 3 on 08/04 this week! She took metformin historically, but not currently taking. She struggles with dense coarse dark hair on her chin and shaves. India Sutherland MD [address], [place], [address], [place] [facility] 08/05/2022 14:01:02 08/23/2022 text/html Day 21 Progesterone Naomi Kirkpatrick APRN [address], [place], [address], [place] [facility] 08/23/2022 09:50:49 11/25/2024 text/html 24 yr old female presents for establishing care. pt presents for numerous co such as:INTEGRATED CIRCUITS INSPECTOR shunt- wants second opinion. was in UC last week due to shunt malfunction- got [...] since then she has constant pain. Key Jack, BATH MIX OPERATOR [address], [place], [address], [place] [facility] 11/25/2024 12:12:02 11/27/2024 text/html Susan is here t o discuss trying to conceive. Her partner has had a vasectomy. She would prefer artificial insemination over vasectomy reversal. 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 Since then she has had many many complications. She has been having trouble tolerating PO. She is unsure who she sees for neurosurgery but would like a second opinion. She feels shaky and unwell since the shunt. In regards to her weight, she reports that she has tried to lose weight in the past, eats healthy, and nothing ever changes. She declines management for this. She is having regular monthly cycles India Sutherland MD [address], [place], [address], [place] [facility] 11/30/2024 17:11:29 OBGyn Episode No OBEpisode recorded.
--- OUTSIDE RECORDS SUMMARY | 2025-01-03 14:09 | XMS_ITS | Clinical Summary ---
Author Organization [facility] Address [address] [place] [id number] Care Team Providers Care City Recorder Name Role Phone Kendrick, Angelica DORANTES Primary Care Provider [phone] Source Comments This information has been disclosed to you from confidential records protectedfrom disclosure by state law. You shall make no further disclosure of thisinformation without the specific, written, and informed release of theindividual to whom it pertains, or as otherwise permitted by law. A generalauthorization for the release of medical or other information is not sufficientfor the purposes of therelease of HIV test results or diagnoses. [id number] Allergies No known active allergies Medications topiramate (TOPAMAX) 50 MG tablet 2 po qAM and 3 po PM 150 tablet 12 4 Active spironolactone (ALDACTONE) 50 MG tablet Take 3 tablets (150 mg total) by mouth daily. 90 tablet 12 4 Active naloxone (NARCAN) 4 mg/actuation [place] Apply 1 spray in one nostril if needed. Call 911. May repeat dose in other nostril if no response in 3 minutes. 2 each 1 4 Active acetaminophen (TYLENOL) 325 MG tabletIndications :Idiopathic intracranial hypertension Take 2 tablets (650 mg total) by mouth every 6 hours as needed. 180 tablet 1 5 Active senna-docusate (SENNA-S) 8.6-50 mg per tabletIndications :Idiopathic intracranial hypertension Take 1 tablet by mouth 2 times a day. 30 tablet Active Active Problems Problem Noted Date Diagnosed Date Morbid obesity with BMI of 50.0-59.9, adult 09/06 Abnormal weight gain 09/20/2022 Encounters Date Type Department Care Team Description 12/12/2024 2:49 PM EDT - 12/12/2024 11:59 PM EDT Hospital Encounter [facility] [address] [place] [address] System, Provider Not In Discharge Disposition: Home or Self Care WITHOUT Home Care Services 12/12/2024 2:49 PM EDT - 12/12/2024 11:59 PM EDT Hospital Encounter [facility] [address] [place] [address] System, Provider Not In Discharge Disposition: Home or Self Care WITHOUT Home Care Services 12/12/2024 2:49 PM EDT - 12/12/2024 11:59 PM EDT Hospital Encounter [facility] [address] [place] [address] System, Provider Not In Discharge Disposition: Home or Self Care WITHOUT Home Care Services 12/12/2024 2:49 PM EDT - 12/12/2024 11:59 PM EDT Hospital Encounter [facility] [address] [place] [address] System, Provider Not In Discharge Disposition: Home or Self Care WITHOUT Home Care Services 12/12/2024 2:49 PM EDT - 12/12/2024 11:59 PM EDT Hospital Encounter [facility] [address] [place] [address] System, Provider Not In Discharge Disposition: Home or Self Care WITHOUT Home Care Services 12/12/2024 2:49 PM EDT - 12/12/2024 11:59 PM EDT Hospital Encounter [facility] [address] [place] [address] System, Provider Not In Discharge Disposition: Home or Self Care WITHOUT Home Care Services 12/12/2024 2:49 PM EDT - 12/12/2024 11:59 PM EDT Hospital Encounter [facility] [address] [place] [address] System, Provider Not In Discharge Disposition: Home or Self Care WITHOUT Home Care Services 11/27/2024 Telephone [facility] Ophthalmology at [address] [address] Team, Ophthalmology 11/22/2024 4:46 AM EDT - 11/22/2024 10:02 AM EDT Emergency [facility] Emergency Department [address] [place] [address] Ravin Reyes MD Right flank pain (Primary Dx); Blurred vision Discharge Disposition: ED Dismiss - Left Before Treatment 11/22/2024 Ophth Exam [facility] at [address] [address] Brendon Bush MD from Last 3 Months Family History Medical History Relation Comments Asthma Brother Diabetes Father Migraines Father Heart disease Maternal Grandfather Cancer Maternal Grandmother Hyperlipidemia Mother Hypertension Mother Migraines Mother brain aneurysm Other Asthma Sister Diabetes Sister Relation Status Comments Brother Father Maternal Grandfather Maternal Grandmother Mother Other Sister Social History Tobacco Use Types Packs/Day Years Used Date Smoking Tobacco: Never Smokeless Tobacco: Never Tobacco Cessation:Counseling Given: Not Answered Alcohol Use Standard Drinks/Week Comments Never 0 [...] Orientation Straight 11/29/2020 6: 06 PM EDT Last Filed Vital Signs Vital Sign Reading Time Taken Comments Blood Pressure 116/84 11/22/2024 6:28 AM EDT Pulse 75 11/22/2024 6:28 AM EDT Temperature 36.4 C (97.5 F) 11/22/2024 4:40 AM EDT Respiratory Rate 18 11/22/2024 6:28 AM EDT Oxygen Saturation 98% 11/22/2024 6:28 AM EDT Inhaled Oxygen Concentration 98% 11/22/2024 6 :28 AM EDT Weight 137 kg (302 lb) 08/12/2024 10:20 AM EST Height 167.6 cm (5' 6 ) 08/12/2024 10:20 AM EST Body Mass Index 48.74 08/12/2024 10:20 AM EST Plan of Treatment Health Maintenance Due Date Last Done Comments Diabetes Screening 1998 Hepatitis C Screening (MyChart) 1998 HIV Screening 2016 Cervical Cancer Screening/Pap Smear (MyChart) 2019 Immunization: DTaP/Tdap/Td (7 - Td or Tdap) 02/14/2021 02/14/2011, 10/23/2003, 09/26/2002, Additional history exists Immunization: COVID-19 ( season) 2024 12/21/2020, 11/30/2020 Immunization: Influenza (MyChart) (Season Ended) 2025 04/25/2018, 04/28/2015, 05/15/2012 Depression Screening 08/11/2025 08/11/2024, 12/21/19 23 Immunization: Hepatitis B Completed 2001, 08/25/1999, 1998 Immunization: Meningococcal ACWY Completed 03/01/2016 Immunization: HPV Completed 01/05/2020, , 04/25/2018 Immunization: Pneumococcal Aged Out N o longer eligible based on patient's age to complete this topic Medical Devices Implanted Type Area Director Process Device Identifier Shelf Expiration Date Model / Serial / Lot Mk Antibiotic -Impregnated Catheter Kit - Ventricular Catheteter, 23cm And Peritoneal Catheter, 120cm Implanted:Qty: 1 on 03/12/2024 by Michaela Alonzo MD at [facility] Main CatheterImp Right: Abdomen 06/13/2025 [id number] / / [id number] Valve Shnt Strata 2in Full Port Reg - [id number] Implanted:Qty: 1 on 03/12/2024 by Michaela Alonzo MD at [facility] Main Shunt Right: Brain [employer] 11/24/2026 [id number] / / [id number] Procedures Procedure Name Priority Date/Time Associated Diagnosis Comments XR COMPARISON IMAGES Routine 12/12/2024 2:49 PM EDT XR COMPARISON IMAGES Routine 12/12/2024 2:49 PM EDT XR COMPARISON IMAGES Routine 12/12/2024 2:49 PM EDT XR COMPARISON IMAGES Routine 12/12/2024 2:49 PM EDT XR COMPARISON IMAGES Routine 12/12/2024 2:49 PM EDT XR COMPARISON IMAGES Routine 12/12/2024 2:49 PM EDT XR COMPARISON IMAGES Routine 12/12/2024 2:49 PM EDT XR SHUNT SERIES STAT 11/22/2024 6:23 AM EDT from Last 3 Months Results * X-ray Comparison Images (12/12/2024 2:49 PM EDT) Only the most recent of7 resultswithin the time period is included. Narrative EXTERNAL - 12/12/2024 2:49 PM EDT Images associated with this accession number were presented to us for comparison to an examination performed here. us Provider Not In System IMG DIAGNOSTIC IMAGING OR DERABLES Final Result EXTERNAL * XR Shunt Series (11/22/2024 6:23 AM [...] shunt failure Check position and configuration of PROFILE SHAPER OPERATOR shunt catheter. COMPARISON: 08/08/2024 FINDINGS: There is [...] shunt failure Check position and configuration of PROFILE SHAPER OPERATOR shuntcatheter. COMPARISON: 08/08/2024 FINDINGS: There is a [...] 11/22/2024 8:52 AM EDT Fe Morse MD IMG DIAGNOSTIC IMAGING MACY KATZ Final Result from Last 3 Months Insurance [employer] MANAGED MEDICAID [facility] care Address: [place] [address] Advance Directives For more information, please contact: [phone] * Full Code (Latest Code Status on File) Date Activated Date Inactivated Comments 03/12/2024 1:39 PM 03/12/2024 11:28 PM Care Teams City Recorder Relationship Specialty Start Date End Date Angelica Marks NP [address] [place] [address] PCP - General Nurse Practitioner 05/13/21
--- OUTSIDE RECORDS SUMMARY | 2025-01-03 14:09 | XMS_ITS | Encounter Summary ---
Author Organization [facility] Address [facility] [place] [address] Care Team Providers Care Ladies Locker Room Attendant Name Role Phone Kendrick Angelica DORANTES Primary Care Provider [phone] Source Comments This information has been disclosed [...] release of HIV test results or diagnoses. [id number] Health Encounter Details Date Type Department Care Team (Late st Contact Info) Description 11/27/2024 Telephone [facility] Ophthalmology at [address] [place] [address] Team, Ophthalmology Social History Tobacco Use Types Packs/Day Years [...] PM EDT documented as of this encounter Miscellaneous Notes * Telephone Encounter - Shantelle Castellanos - 11/27/2024 9:24 AM EDT Patient was unable to receive message. Sending reminder letter in the mail. documented in this encounter Plan of Treatment Not on file documented as of this encounter Visit Diagnoses Not on filedocumented in this encounter Additional Health Concerns Assessment Noted Time A Body Mass Index follow-up plan has been documented for the patient 02/21/2024 10:17 AM EDT documented as of this encounter Care Teams Ladies Locker Room Attendant Relationship Specialty Start Date End Date Angelica Marks NP [address] [place] [address] PCP - General Nurse Practitioner 05/13/21 documented as of this encounter
--- OUTSIDE RECORDS SUMMARY | 2025-01-03 14:09 | XMS_ITS | Continuity of Care Document ---
Author Organization [place] Roberto Carlos Steward [facility] Address [address] [place] [address] Assessment Encounter Date Assessment Date Assessment LastModified by Organization Details LastModified Time 11/27/2024 11/27/2024 24 yo here to discuss TTC Not available 11/30/2024 17:08:58 Plan of Treatment Reminders Order Date Submit Date Provider Last Modified By Organization Details Last Modified Time Details Appointments None recorded. Lab TSH + free T4, serum 2024 025 [email or web address] 87 [facility], [address], [place], [place], [address], 08:02:59 HbA1c (hemoglobin A1c), blood 2024 025 [email or web address] 87 [facility], [address], [place], [place], [address], 5 08:02:59 lipid panel, serum 2024 025 [email or web address] 87 [facility], [address], [place], [place], [address], 5 08:02:59 cytology report, thin prep, smear or scraping, cervical or vaginal 2024 025 [email or web address] [facility], [address], [place], [place], [address], 5 20:09:31 Referral maternal & medicine referral - pre-concept ion counseling 2024 025 [email or web address] 87 [facility], [address] [facility] [address] [facility], [place], [address], 08:04:12 Procedures None recorded. Surgeries None recorded. Imaging None recorded. Medication Orders None recorded. Patient TargetsNo targets recorded. 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 She would like to see [facility] for pre-conception counseling Discussed with patient that I will place neurosurgery referral as well given she is having complications from her shunt. She wants a second opinion, and also needs to discuss with them. Discussed that we do not offer artificial insemination here, and she would need to see DON yepez Not available 11/30/2024 17:10:57 Reason for Referral Maternal & Medicine Re ferral for Mass of body structure pre-conception counseling Referring Physician: India Sutherland, [facility], Encounter Date: 11/27/2024 Results Created Date Observation Date Name Description Value Unit Range Abnormal Flag Note LastModifiedBy Organization Detail LastModifiedTime 12/03/1912/02/2024 , shruthi thomas No observ ation record ed. [facility] [address], [place], [address], 12/08/2024 09:33:31 12/13/19 25 12/12/2024 NM, hepat obili simona scan, w/pha rm No observ ation record ed. [facility] [address], [place], [address], 12/12/2024 13:48:40 Result Notes None recorded. Problems Name Problem SNOMED Code Status Onset Date Resolution Date Notes Provider Name and Address Organization Details Recorded Time Obesity 740531480 Active 2017 India Sutherland MD [address], [place], [address] , [place] [facility] 3 19:11:02 Irregular periods 51353751 Completed 201704/15/2018 Mattie Berman APRN [address], [place], [address] , [place] [facility] 8 08:27:45 Oligomenor mega 49057468 Completed 201708/04/2022 India Sutherland MD [address], [place], [address] , [place] [facility] 3 19:10:54 Female hirsutism 36484605 Active 2017 India Sutherland MD [address], [place], [address] , [place] [facility] 3 19:11:05 Hyperlipid emia 41100383 Active 2017 Mattie Berman APRN [address], [place], [address] , [place] [facility] 8 13:42:09 Chlamydial infection 265149223 Completed 201902/27/2020 Keiry williamson, [place] - [facility] 0 10:22:15 Polycystic ovary syndrome 098802000 Active 2019 India Sutherland MD [address], [place], [address] , [place] [facility] 3 19:10:59 History of chlamydial infection 481464468 Active 2019 [place] - [facility] 0 10:22:21 Infertile 0145441 Active 2022 India Sutherland MD [address], [place], [address] , [place] - [facility] 3 19:11:11 Trying to conceive 789873965 Active 2022 India Sutherland MD [address], [place], [address] , [place] - [facility] 3 19:11:18 Mass of body structure 811058488 Active 2024 India Sutherland MD [address], [place], [address] , [place] - [facility] 5 17:11:08 Problem Notes None recorded. Procedures Surgical History Date Name Laterality Status Provider Name and Address Organization Details Recorded Time 11/28/19 24 procedure on brain ventricular shunt completed Aide Carlin [place] - [facility] 11/27/2024 15:38:59 08/04/19 23 Date of Last Pap Smear completed India Sutherland MD [address], [place], [address], [place] - [facility] 08/16/2022 08:34:46 09/18/19 20 [...] completed Not Available Not Available Not Available Beeson DMT 30 mg-30 mg tablet 08/02 completed Not Available Not Available Not Available Voltaren Arthritis Pain 1 % topical gel APPLY 2 GRAMS TO THE AFFECTED AREA(S) BY TOPICAL ROUTE 4 TIMES PER DAY 2024 active Not Available Not Available Not Avai lable Vitals Date Recorded Body height Body mass index (BMI) Body weight Systolic And Diastolic Provider Name and Address Organization Details Last Updated DateTime 11/27/2024 165.1 cm 50.4 kg/m2 302892.49 g 120/76 mm[Hg] Aide Carlin [place] - [facility] 11/27/2024 15:41:42 Social History Question Answer Notes LastModified by Organizat ion Details LastModified Time Tobacco Smoking Status Never Smoker Keiry [place] - [facility] 04/12/2018 16:15:29 Do You Have An Advance Directive? No [email or web address] Information not available 04/12/2018 Are You Blind Or Do You Have Difficulty Seeing? No [email or web address] Information not available 04/12/2018 Is Blood Transfusion Acceptable In An Emergency? Yes Information not available 04/12/2018 What Is Your Level Of Caffeine Consumption? Moderate [email or web address] Information not available 04/12/2018 How Much Tobacco Do You Chew? None [email or web address] Information not available 04/12/2018 Are You Deaf Or Do You Have Serious Difficulty Hearing? No [email or web address] Information not available 04/12/2018 What Type Of Diet Are You Following? REGULAR [email or web address] Information not available 04/12/2018 Which Illicit Or Recreational Drugs Have You Used? None [email or web address] Information not available 04/12/2018 What Is The Highest Grade Or Level Of School You Have Completed Or The Highest Degree You Have Received? OV98798-3 [email or web address] Information not available 04/12/2018 How Many Days Of Moderate To Strenuous Exercise, Like A Brisk Walk, Did You Do In The Last 7 Days? 1 [email or web address] Information not available 04/12/2018 On Those Days That You Engage In Moderate To Strenuous Exercise, How Many Minutes, On Average, Do You Exercise? 1 [email or web address] Information not available 04/12/2018 How Hard Is It For You To Pay For The Very Basics Like Food, Housing, Medical Care, And Heating? 1 [email or web address] Information not available 04/12/2018 Live Alone Or With Others? With Others Parents [email or web address] Information not available 04/12/2018 Last Menstrual Period? 12/18/2019 Information not available 01/05/2020 What Was The Date Of Your Most Recent Tobacco Screening? 11/25/2024 Information not available 11/25/2024 How Many Children Do You Have? 1 Information not available 01/05/2020 Performs Monthly Self-breast Exam? No [email or web address] Information no t available 04/12/2018 Do You Use Protection During Sex? No [email or web address] Information not available 04/12/2018 What Is Your Relationship Status? Domestic Partner [email or web address] Information not available 11/27/2024 Seat Belts Used Routinely Yes Information not available 04/12/2018 Are You Sexually Active? Yes [email or web address] Information not available 04/12/2018 How Much Tobacco Do You Smoke? No [email or web address] Information not available 01/05/2020 General Stress Level Low [email or web address] Information not available 04/12/2018 Do You Use Sunscreen Routinely? No [email or web address] Information not available 04/12/2018 Has Tobacco Cessation Counseling Been Provided? No Information not available 11/25/2024 How Many Years Have You Smoked Tobacco? 0 [email or web address] Information not available 01/05/2020 Do You Have Difficulty Walking Or Climbing Stairs? No [email or web address] Information not available 04/12/2018 Sex: Female Functional Status Question Answer Note LastModified by Organizat ion Details LastModified Time What is your level of alcohol consumption? None Information not available 04/12/2018 Do you or have you ever used smokeless tobacco? Never used smokeless tobacco [email or web address] Information not available 01/05/2020 Are you currently employed? Yes Information not available 04/12/2018 Urinary incontinence assessment performed? Yes [email or web address] Information not available 04/12/2018 Are you able to walk? YESWOREST [email or web address] Information not available 04/12/2018 Do you have difficulty doing errands alone? No Information not available 04/12/2018 What is your occupation? unemployed [email or web address] Information not available 01/05/2020 Do you have difficulty dressing or bathing? No [email or web address] Information not available 04/12/2018 Do you or have you ever used e-cigarettes or vape? Never used electronic cigarettes Information not available 01/05/2020 What is your exercise level? None [email or web address] Information not available 04/12/2018 Mental Status Question Answer Note LastModified by Organization D etails LastModified Time Do you feel stressed (tense, restless, nervous, or anxious, or unable to sleep at night)? 1 [email or web address] Information not available 04/12/2018 Do you have difficulty concentrating, remembering or making decisions? No [email or web address] Information no t available 04/12/2018 Family History Relationship Description Onset Age of this Age Resolved Age Notes LastModified by Organization Details LastModified Time Father Diabetes mellitus [email or web address] Not available 04/12 16:14:40 Father Hypertensive disorder [email or web address] Not available 11/07 15:36:29 Maternal Grandfather Heart disease [email or web address] Not available 04/12 16:14:54 Maternal Grandfather Myocardial infarction Not available 11/2017 16:15:01 Maternal Grandmother Malignant tumor of breast [email or web address] Not available 2019 13:09:56 Sister Neoplasm of gallbladder Not available 15:36:14 Medical History Condition Response Pancreatitis N Other N Atrial Fibrillation N congenital heart disease N Blood Diseases N Hyperthyroidism N Blood Transfusion N Rheumatoid arthritis N Erectile Dysfunction N amputation N Skin Lesions N Depression N Pneumonia N Incontinence N Murmur N Edema N Alzheimer's Disease N Migraine Headaches N Tobacco Abuse N Anxiety Disorder N Hemorrhoids N Obesity Y Vision or Eye Problems N Arthritis N Restless Leg Syndrome N Polyps N Infertility N Carpal Tunnel N Acid Reflux (GERD) N Cancer N Varicosities N Stroke N Tendonitis N Crohn's Disease N Hypercholesterolemia N Skin Cancer N Headaches N Fibromyalgia N Irritable Bowel Syndrome N Anal Fissure N Kidney Disease N Heart Problems N [...] colitis N Cerebrovascular Disease N Depression N Guillain-Devers N Sleep Apnea N Aneurysm N Bronchitis N Heart Disease N Hypertension N Pre-Eclampsia N Suicidal Ideation N Osteoporosis N Gynecological History Statement/Question Response Flow Moderate Date of Last Mammogram Date of LMP 11/13/2024 STIs/STDs N HPV Vaccine N Current Control Method None Age at Menarche 10 Last Annual Exam/Provider 01/05/20 w/ [place] Date of Last Colonoscopy Frequency of Cycle [...] virus, quadrivalent, preservative 5 completed Not Available [facility] 11/27/2024 15:15:19 HPV9 0 completed [place] [facility] 01/05/2020 16:54:05 HPV9 8 completed Not Available [facility] 07/26/2019 03:55:25 Influenza, split virus, quadrivalent, preservative 8 completed Not Available [facility] 07/26/2019 03:55:21 HPV9 9 completed Not Available [facility] 07/26/2019 03:55:34 Past Encounters Encounter ID Performer Location Encounter Start Date Encounter Closed Date Diagnosis/Indication Diagnosis SNOMED-CT Code Diagnosis ICD10 Code Diagnosis Note [id number] Key Jack APRN [address] [address] 11/25/2024 10:22:58 11/25/2024 11:35:56 Morbid obesity 021889989 E66.01 50.8 Ventriculo peritoneal shunt in situ 015359433 Z98.2 referralif symptoms worsen or no improvemen t go back to ed daja Right uppe r quadrant pain 630945022 R10.11 us- if symptoms worsen or no improvemen t return Ankle pain 867184408 M25 .571 M25.572 G89.29 pt does not want referral at this time [id number] MD Torrie Paz [facility] [address] [facility] [place] [address] 11/27/2024 15:12:35 11/27/2024 16:31:18 Trying to conceive 753963374 Z31.9 Body mass index 40+ - severely obese 118717413 E66.01 Morbid obesity 050658848 E66.01 Cancer cer vix screening status 386045739 Z12.4 Mass of narendra dy structure 013648575 G93.2 Obesity 466466914 E66.9 Health Concerns Section Related Observation LastModified by Organization Detai ls LastModified Time None Recorded Concern Status LastModified by Organization Details LastModified Time None Recorded Payers Encounter Date Sequence Insurance Name Policy Number Policy Trejo Covered Member ID Trejo Member ID Guarantor Name 11/27/2024 1 [facility] ([place] REPLAC[place] - [id number] Susan Art [id number] Susan Art Notes Date Note Type Note Provider Name and Address Organization Details Recorded Time 11/27/2024 text/html Susan is here t o discuss trying to conceive. Her partner has had a vasectomy. She would prefer artificial insemination over vasectomy reversal. 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 Since then she has [...] having regular monthly cycles India Sutherland MD [facility] [address], [place], [address], [place] [facility] 11/30/2024 17:11:29 OBGyn Episode No OBEpisode recorded.
== END 2025-01-03 15:41 | disposition left against medical advice (07) ==
LOC: ER 14:07
PROVIDERS: Emergency Provider Student in an Organized Health Care Education/Training Program; PCP Nurse Practitioner Family
DX: Z53.21 Procedure and treatment not carried out due to patient leaving prior to being seen by health care provider (principal)
CPT/HCPCS: 99211

== ENCOUNTER 2025-01-12 10:50 | Outpatient (CLI) | payer OTHER, SELFPAY ==
--- OUTSIDE RECORDS SUMMARY | 2008-10-01 08:30 | XMS_ITS | Continuity of Care Document ---
Author Organization [facility] Address [address] [place] [address] Phone Care Team Providers Care Cook Ench[place]ada Name Role Phone Unavailable Unavailable Unavailable Procedures Procedure Date CHILD PROPHYLAXIS(Under 14) TOPICAL APPL OF FLUORIDE:CHILD 09 COMPR ORAL EVAL:NEW/EST BITEWIN FILMS PANORAMIC FILM Advance Directives Directive Yes / No Effective Date File Name No Information Encounters Encounter Description Practice Location Reason(s) For Visit Diagnoses Date Provider Providers Copied on Encounter [facility], [address], [place], [place], [id number], tel:[phone] [facility] No Information [address] [facility], [address], [place], [id number], tel:[phone] [facility] No Information 200 9 No Information Family History Family Member Type Diagnosis Age At Onset No Information Payers Payer name Insurance type Covered alliance party ID Authoreda daniel(s) Donavan Zarate [facility] [id number] Dnoavan [facility] [id number] Social History Type Description Quantity Date Captured Comments Sex Female Smoking Status No Information Chief Complaint And Reason For Visit No Information Reason For Referral Reason For Referral No Information History Of Present Illness Encounter Date Complaint History Of Prese nt Illness No Information Functional Status Date Functional Assessmen t No Information Instructions Date Instruction Additional Infor mation No Information Assessments Type Assessment Date No Information Patient Care Teams Name Effective Dates (start - stop) Status Members No Information
--- OUTSIDE RECORDS SUMMARY | 2024-11-22 04:46 | XMS_ITS | Encounter Summary ---
Author Organization [facility] Address [address] [place] [id number] Care Team Providers Care Supervisor Wet Room Name Role Phone KendrickAngelica corey JAYNA Primary Care Provider [phone] Source Comments This information has been disclosed to you from confidential records protectfrom disclosure by state law. You shall make no further disclosure of thisinformation without the specific, written, and informed release of theindividual to whom it pertains, or as otherwise permitted by law. A generalauthorization for the release of medical or other information is not sufficientfor the purposes of the release of HIV test results or diagnoses. [id number] Reason for Visit * Reason Comments Medical Problem Encounter Details Date Type Department Care Team (Late st Contact Info) Description 11/22/2024 4:46 AM EDT - 11/22/2024 10:02 AM EDT Emergency [facility] Emergency Department [address] [place] [id number] Ravin Reyes MD [address] [place] [id number] Right flank pain (Primary Dx); Blurred vision Discharge Disposition: ED Dismiss - Left Before Treatment Social History Tobacco Use Types Packs/Day Years Used Date Smoking Tobacco: Never Smokeless Tobacco: Never Alcohol Use Standard Drinks/Week Comments Never 0 (1 standard drink = 0.6 oz pur e alcohol) AUDIT-C Answer Date Recorded Q1: How often do you have a drink containing alcohol? Never 03/12/2024 Q2: How many drinks containi ng alcohol do you have on a typical day when you are drinking? Patient does not drink Q3: How often do you have si x or more drinks on one occasion? Never 03/12/2024 PHQ-2 Answer Date Recorded PHQ-2 Total Score 3 08/11/2024 Yearly Questionnaire Answer Date Record ed Do you need any assistance w ith obtaining housing, meals, medication, transportation or medical equipment? No 08/11 Assistance needed for: Not on file 5 Yearly Questionnaire Answer Date Record ed Do you need any assistance w ith obtaining housing, meals, medication, transportation or medical equipment? No 08/11 Assistance needed for: Not on file 5 Yearly Questionnaire Answer Date Record ed Do you need any assistance w ith obtaining housing, meals, medication, transportation or medical equipment? No 08/11 Assistance needed for: Not on file 5 Comments No Sex and Gender Information Value Date Recorded Sex Assigned at Female 11/29/2020 6:06 PM EDT Legal Sex Female 8:42 AM EST Gender Identity Female 11/29/2020 6:06 PM EDT Sexual Orientation Straight 11/29/2020 6: 06 PM EDT documented as of this encounter Last Filed Vital Signs Vital Sign Reading Time Taken Comments Blood Pressure 116/84 11/22/2024 6:28 AM EDT Pulse 75 11/22/2024 6:28 AM EDT Temperature 36.4 C (97.5 F) 11/22/2024 4:40 AM EDT Respiratory Rate 18 11/22/2024 6:28 AM EDT Oxygen Saturation 98% 11/22/2024 6:28 AM EDT Inhaled Oxygen Concentration 98% 11/22/2024 6 :28 AM EDT Weight - - Height - - Body Mass Index - - documented in this encounter Medications at Time of Discharge acetaminophen (TYLENOL) 325 MG tabletIndications: Idiopathic intracranial hypertension Take 2 tablets (650 mg total) by mouth every 6 hours as needed. 180 tablet 1 08/06/2024 naloxone (NARCAN) 4 mg/actuation Whiteriver Apply 1 spray in one nostril if needed. Call 911. May repeat dose in other nostril if no response in 3 minutes. 2 each 1 03/12/2024 senna-docusate (SENNA-S) 8.6-50 mg per tabletIndications: Idiopathic intracranial hypertension Take 1 tablet by mouth 2 times a day. 30 tablet 08/06/2024 spironolactone (ALDACTONE) 50 MG tablet Take 3 tablets (150 mg total) by mouth daily. 90 tablet 12 01/08/2024 topiramate (TOPAMAX) 50 MG tablet 2 po qAM and 3 po PM 150 tablet 12 11/30/2023 documented as of this encounter Progress Notes * Dunia Mccann MD - 11/22/2024 6:59 AM EDT [facility] ED Reassessment Note Susan Art is a 24 y.o. female patient who presented to the Emergency Department. This patient was initially seen by an off-going provider. Please see that provider's note for details regarding the initial history, physical exam and ED course. Care of this patient was signed out to me. I reviewed initial history and physical examination information performed by the off-going provider and The patient was evaluated by myself and the ED Attending Physician, Dr. Alisha bender. providers found. . ED Course and MDM Susan Art is a 24 y.o. female ED Course as of 11/22/24 1009 Sat November 22, 2024 0658 Pending NSGY and ophtho 24y hx of IIH and shunt Transfer from OSH for c/f shunt malfunction With R sided flank pain and collapsed R lateral ventricle Nsgy requested ophthalmology for papilledema eval 0918 Shunt series: Intact ventricular peritoneal shunt catheter to the level of the diaphragm. Limited visualization of the distal tip due to overlying soft tissues. 1008 Neurosurgery attempted to see the patient to adjust shunt however patient had eloped. Summary of Treatment in ED: Medications lidocaine (LIDODERM) 5 % 1 patch (1 patch Transdermal Patch Applied 11/22/24 0842) Impression 1. Right flank pain 2. Blurred vision Plan Pt eloped DNUIA MCCANN MD, MD PGY-3 Emergency Medicine This note was dictated using voice-recognition software, which occasionally leads to inadvertent typographic errors. Cosigned by Dino Isidro MD at 11/23/2024 6:23 AM EDT * Ravin Reyes MD - 11/22/2024 6:58 AM EDT ED Attending Attestation Note Date of service: 11/22/2024 This patient was seen by the resident physician. I have seen and examined the patient, agree with the workup, evaluation, management and diagnosis. The care plan has been discussed and I concur. My assessment reveals a 24 y.o. female presenting with RUQ discomfort. Mild RUQ tenderness. No fevers or vomiting. documented in this encounter H&P Notes * Ritchie Faria MD - 11/22/2024 5:02 AM EDT [facility] ED Note Date of Service: 11/22/2024 Reason for Visit: No chief complaint on file. Patient History HPI Susan Art is a 24 y.o. female with a history of IIH s/p VPS placement in 03/2024 who presents to the ED for evaluation of R flank pain and concern for shunt malfunction. Patient arrives as a transfer from [facility] for neurosurgery evaluation due to c/f shunt malfunction and decompressed lateral ventricle. Pt reports for past 4 days: - R flank pain that feels like it's where her shunt is - about 2 episodes emesis daily - AM vision shakiness that resolves after about 1 hour - Worsening intermittent blurred/horizontal double vision Denies urinary symptoms, diarrhea, changes in PO intake (has been overall lower since shunt placed in Mar 2024), fever Past Medical History: Diagnosis Date Chronic migraine Morbid obesity with BMI of 50.0-59.9, adult ([facility]) PCOS (polycystic ovarian syndrome) PONV (postoperative nausea and vomiting) Transient elevated blood pressure Past Surgical History: Procedure Laterality Date ANKLE SURGERY Left 2020 right done 2019, right done again in 2020 EYE SURGERY FOOT SURGERY INSERTION SHUNT MOVE COORDINATOR LAPAROSCOPIC ASSISTED Right 03/12/2024 Procedure: INSERTION SHUNT MOVE COORDINATOR LAPAROSCOPIC ASSISTED WITH BRAIN LAB-; Surgeon: Michaela Alonzo MD; Location: OR; Service: Neurosurgery; Laterality: Right; TONSILLECTOMY AND ADENOIDECTOMY 2016 Physical Exam Vitals: 11/22/24 0553 11/22/24 0615 11/22/24 0625 11/22/24 0628 BP: (!) 141/94 116/84 BP Location: Right upper arm Patient Position: Lying BP Cuff Size: Large Pulse: 88 82 77 75 Resp: 18 20 17 18 Temp: TempSrc: Oral SpO2: 100% 100% 100% 98% Physical Exam General: Well appearing. No acute distress Eyes: Pupils reactive. EOMI. No discharge from eyes. ENT: No oropharyngeal edema, tolerating oral secretions Pulmonary: Non-labored breathing. Breath sounds clear bilaterally. Cardiac: Regular rate and rhythm. Abdomen: Soft. Non-distended. +TTP in RUQ/flank. No CVA tenderness. No guarding. Musculoskeletal: No long bone deformity. No peripheral edema Skin: Dry, no rashes Neuro: Alert and oriented x4. CN II-XII intact. Moves all four extremities to command. Strength andsensation intact and symmetric. Diagnostic Studies Labs: Please see EMR for labs obtained during this patient encounter Radiology: Please see EMR for images obtained during this patient encounter EKG Interpretation: N/a ED Course and MDM Susan Art is a 24 y.o. female with a history and presentation as described above in HPI. The patient was evaluated by myself and the ED Attending Physician, Ravin Reyes MD All management and disposition plans were discussed and agreed upon. Patient presented to the ED with vomiting, MARIANO, R flank pain for 4 days, transferred for NS eval due to c/f shunt failure. On arrival she is hypertensive, afebrile, and otherwise HDS and non-toxic appearing. Imaging: Reviewed CT scan reads from outside hospital prior to transfer. CT head without contrast was notable for a collapsed right lateral ventricle, remainder of ventricles were unremarkable. The pelvic ultrasound with some dependent free fluid without abscess or signs of infection. Labs reviewed without leukocytosis, anemia, NILSON or electrolyte abnormalities. AST slightly elevatedat 66, normal bilirubin. Urinalysis was negative for UTI. test was negative. Repeat ED laboratory studies deferred. ED Course as of 11/22/24 0751 Sat November 22, 2024 0546 NSGY consulted due to concern for shunt malfunction. CT scan from OSH with decompressed R lateral ventricle. Shunt series ordered per NSGY 0552 Ophtho paged per NSGY request At this time, I am going off service and patient care is transferred to oncoming provider, Dr. Mccann, for continued evaluation and management. Please see pending tasks below & reassessment note from oncoming provider for remainder of ED course. Medications received during this ED visit: Medications - No data to display Medical Decision Making Problems Addressed: Blurred vision: acute illness or injury Right flank pain: acute illness or injury Impression 1. Right flank pain 2. Blurred vision Plan Signout to oncoming provider pending neurosurgery and ophthalmology evaluation recs. RITCHIE OJEDA MD, MD Emergency Medicine Resident, PGY-2 This note was dictated using voice-recognition software, which occasionally leads to inadvertent typographic errors. Ritchie Ojeda MD Resident 11/28/24 1430 Cosigned by Ravin Reyes MD at 11/29/2024 12:20 PM EDT documented in this encounter Consult Notes * Brendon Bush MD - 11/22/2024 7:30 AM EDTAssociated Order(s): ED CONTACT PROVIDER [facility] Ophthalmology ED Consultation Susan is a 24 y.o. female seen in the emergency department in consultation for papilledema rule out. Patient has a PMH of IIH and had a VPS placed in March. She presents to the ED with abd pain atthe side of her shunt, vision changes when she wakes up (oscillopsia), occasional diplopia and occasional headaches. Shunt series is pending and neurosurgery has requested a papilledema exam Significant PMH: Past Medical History: Diagnosis Date Chronic migraine Morbid obesity with BMI of 50.0-59.9, adult ([facility]) PCOS (polycystic ovarian syndrome) PONV (postoperative nausea and vomiting) Transient elevated blood pressure Past Ocular History: IIH Soc Hx: Social History[1] Family History: No known family ocular history Ocular medications: none Allergies: Allergies[2] Ophthalmologic Examination: Base Eye Exam Visual Acuity (Snellen - Linear) Right Left Dist sc 20/20 20/25 Tonometry (Tonopen, 7:32 AM) Right Left Pressure 17 18 Pupils Dark Light Shape React APD Right 3 2 Round 1+ None Left 3 2 Round 1+ None Extraocular Movement Right Left Ortho Ortho 0 0 0 0 0 0 0 0 0 0 0 0 0 0 0 0 Neuro/Psych Oriented x3: Yes Mood/Affect: Normal Additional Tests Color Right Left Ishihara 06/19 05/20 Slit Lamp and Fundus Exam External Exam Right Left External Normal Normal Slit Lamp Exam Right Left Lids/Lashes Normal Normal Conjunctiva/Sclera Normal Normal Cornea Normal Normal Anterior Chamber Deep and clear Deep and clear Iris Normal Normal Lens Clear Clear Fundus Exam Right Left Posterior Vitreous Normal Normal Disc Normal Normal C/D Ratio 0.1 0.1 Macula Normal Normal Vessels Normal Normal Periphery Normal Normal Assessment/Plan: II s/p VPS - presents with 1 week of right sided abdominal pain, vision changes - neurosurgery requested exam to evaluate for optic disc swelling - no significant optic disc swelling on today's exam - please note the absence of papilledema does not rule out elevated ICP, so please correlate with other clinical findings. - outpatient follow-up in the next 1-2 months to re-evaluate for optic nerve swelling AOR is Dr Jyoti Bush MD Ophthalmology 7:51 AM 11/22/2024 [1] Social History Tobacco Use Smoking status: Never Smokeless tobacco: Never Vaping Use Vaping status: Never Used Substance Use Topics Alcohol use: Never Drug use: Never [2] No Known Drug Allergies or Adverse Reactions Cosigned by Silver Montes MD at 11/27/2024 10:27 AM EDT Associated attestation - Silver Montes MD - 11/27/2024 10:27 AM EDT I did not examine the patient, but have reviewed the resident note. Upon review of the record, the patient appears to have received appropriate care. Silver Montes MD Ophthalmology * Fe Morse MD - 11/22/2024 5:25 AM EDT [facility] DEPARTMENT OF NEUROSURGERY INPATIENT CONSULTATION Susan Art [id number] 2000 Neurosurgery Attending: MD Cheri Primary Care Physician: ANGELICA MARKS NP Referring Provider: Ravin Reyes MD HISTORY Chief Complaint: MARIANO, n/v HPI: 24 y.o. female with history of IIH s/p VPS placement in 03/2024 strata @1.5 who presents as a transfer from OSH for concerns for shunt failure. She states that over the last 4 days she has had worsening headaches, nausea and vomiting. She additionally has had R flank pain. Since her shunt placementshe described generalized worsening of her symptoms, with decreased appetite and weight loss. CTH at OSH with collapse of the R ventricle around the proximal catheter. CT A/P without pseudocystor obvious obstruction of catheter. Neurosurgery consulted for the above findings. Review of Systems: Negative except as noted above PMH: Past Medical History: Diagnosis Date Chronic migraine Morbid obesity with BMI of 50.0-59.9, adult ([facility]) PCOS (polycystic ovarian syndrome) PONV (postoperative nausea and vomiting) Transient elevated blood pressure Past Surgical History: Procedure Laterality Date ANKLE SURGERY Left 2020 right done 2019, right done again in 2020 EYE SURGERY FOOT SURGERY INSERTION SHUNT MOVE COORDINATOR LAPAROSCOPIC ASSISTED Right 03/12/2024 Procedure: INSERTION SHUNT MOVE COORDINATOR LAPAROSCOPIC ASSISTED WITH BRAIN LAB-; Surgeon: Michaela Alonzo MD; Location: [facility]; Service: Neurosurgery; Laterality: Right; TONSILLECTOMY AND ADENOIDECTOMY 2016 Social History: Social History Socioeconomic History Marital status: Single Spouse name: Not on file Number of children: Not on file Years of education: Not on file Highest education level: Not on file Occupational History Not on file Tobacco Use Smoking status: Never Smokeless tobacco: Never Vaping Use Vaping status: Never Used Substance and Sexual Activity Alcohol use: Never Drug use: Never Sexual activity: Not on file Other Topics Concern Not on file Social History Narrative Drinks four 12 ounce per day; Social Drivers of Health Financial Resource Strain: Not on file Food Insecurity: No Food Insecurity (08/11/2024) Yearly Questionnaire Do you need any assistance with obtaining housing, meals, medication, transportation or medical equipment?: No Assistance needed for:: Not on file Transportation Needs: No Transportation Needs (08/11/2024) Yearly Questionnaire Do you need any assistance with obtaining housing, meals, medication, transportation or medical equipment?: No Assistance needed for:: Not on file Physical Activity: Not on file Stress: Not on file Social Connections: Not on file Intimate Partner Violence: Not At Risk (03/12/2024) Humiliation, Afraid, Rape, and Kick questionnaire Fear of Current or Ex-Partner: No Emotionally Abused: No Physically Abused: No Sexually Abused: No Housing Stability: Low Risk (08/11/2024) Yearly Questionnaire Do you need any assistance with obtaining housing, meals, medication, transportation or medical equipment?: No Assistance needed for:: Not on file Family History: Family History Problem Relation Age of Onset Hyperlipidemia Mother Hypertension Mother Migraines Mother Diabetes Father Migraines Father Diabetes Sister Asthma Sister Asthma Brother Cancer Maternal Grandmother Heart disease Maternal Grandfather Other (brain aneurysm) Other Meds Home Medications Medication Sig Taking? Last Dose acetaminophen (TYLENOL) 325 MG tablet Take 2 tablets (650 mg total) by mouth every 6 hours as needed. naloxone (NARCAN) 4 mg/actuation Whiteriver Apply 1 spray in one nostril if needed. Call 911. May repeat dose in other nostril if no response in 3 minutes. senna-docusate (SENNA-S) 8.6-50 mg per tablet Take 1 tablet by mouth 2 times a day. spironolactone (ALDACTONE) 50 MG tablet Take 3 tablets (150 mg total) by mouth daily. topiramate (TOPAMAX) 50 MG tablet 2 po qAM and 3 po PM Allergies Allergies[1] EXAMINATION Temp: [97.5 ??F (36.4 ??C)] 97.5 ??F (36.4 ??C) Heart Rate: [80-83] 80 Resp: [14-18] 14 BP: (141-160)/(86-94) 141/94 General: lying in bed, NAD Neurological: -GCS: 15 -Orientation: alert, oriented x 3 (person, place, and time) -Language: speech fluent and appropriate -Cranial Nerves: PERRL, EOMI, face symmetric, tongue midline, sensation intact to light touch -Motor: FCCx4, full and symmetric strength and ROM -Sensation: sensation intact to light touch and symmetric in bilateral upper and lower extremities LABORATORY AND RADIOLOGY RESULTS Labs Lab Results Component Value Date GLUCOSE 88 08/12/2024 BUN 8 08/12/2024 CO2 27 08/12/2024 CREATININE 0.88 08/12/2024 K 4.5 08/12/2024 NA 141 08/12/2024 CL 105 08/12/2024 CALCIUM 9.8 08/12/2024 No results found for: ALT , AST , GGT , ALKPHOS , BILITOT Lab Results Component Value Date WBC 5.6 08/12/2024 HGB 14.1 08/12/2024 HCT 40.8 08/12/2024 MCV 85.3 08/12/2024 PLT 240 08/12/2024 Lab Results Component Value Date INR 0.9 03/12/2024 No results found for: LIPIDCOMM , CHOLTOT , TRIG , HDL , CHOLHDL , LDL No results found for: PHART , PCO2 , PO2ART , QLJ1CSZ , BEART , OZX1XBH , F3OIHHGR Lab Results Component Value Date ABS Negative 03/12/2024 ABOGROUP O 03/12/2024 RH Positive 03/12/2024 Invalid input(s): PLTFUNASP Imaging Review I personally reviewed the relevant imaging demonstrating, by my read, as above ASSESMENT & PLAN 24 y.o. female with history of IIH s/p VPS placement in 03/2024 strata @1.5 who presents as a transfer from OSH for concerns for shunt failure. She states that over the last 4 days she has had worsening headaches, nausea and vomiting. She additionally has had R flank pain. Since her shunt placementshe described generalized worsening of her symptoms, with decreased appetite and weight loss. CTH at OSH with collapse of the R ventricle around the proximal catheter. CT A/P without pseudocystor obvious obstruction of catheter. Neurosurgery consulted for the above findings. PLAN: - No acute neurosurgical intervention - CTH at OSH with concern for R ventricle collapse - CT A/P without evidence of pseudocyst - shunts series pending - will turn up shunt setting given evidence of drainage with R ventricle collapse - ophtho consult for evaluation of papilledema - will follow up outpatient in clinic - R flank pain work-up per ED If further questions or concerns should arise, do not hesitate to contact the neurosurgery residenton call, [phone]. Fe Morse MD Neurosurgery Resident 5:26 AM 11/22/2024 [1] No Known Drug Allergies or Adverse Reactions Cosigned by Michaela Alonzo MD at 11/22/2024 9:17 AM EDT Associated attestation - Michaela Alonzo MD - 11/22/2024 9:17 AM EDT Neurosurgery Attending Note I saw and examined the patient 11/22/2024. I reviewed the pertinent imaging, laboratory results, andnotes in the medical record. I discussed with the resident and agree with the history, exam, and medical decision making as documented in the note. Imaging reviewed Possibly overdraining Will change shunt valve setting from 1.5 to 2.0 ED should complete labs/workup for non-shunt related abdominal pain and appetite issues Will arrange follow up in neurosurgery clinic Michaela Alonzo MD, PhD [employer], Department of Neurosurgery Director, [facility] Neurotrauma [place] documented in this encounter Nursing Notes * Hilda Delaney RN - 11/22/2024 4:53 AM EDT Patient from OSH for MOVE COORDINATOR shunt problem. Patient is endorsing generalized body pain. Patient vitals are stable and she shows no S\S of acute physical distress. documented in this encounter ED Notes * Carl Perales RN - 11/22/2024 9:59 AM EDT Pt not found in room. RN attempted to call pt and . No answer at this time. Pt left prior totreatment completed. * Carl Perales RN - 11/22/2024 9:27 AM EDT Pt removed self from monitor and asked RN to remove IV. Pt stated it was getting on my nerves . RNeducated pt on importance of monitoring/ IV access. Pt verbalized understanding. * Carl Perales RN - 11/22/2024 8:35 AM EDT Pt calling out for R sided pain. contacted. * Hilda Delaney RN - 11/22/2024 7:12 AM EDT Report given to Berto Perales RN * Hilda Delaney RN - 11/22/2024 5:14 AM EDT MD Ojeda at bedside. documented in this encounter Plan of Treatment Not on file documented as of this encounter Procedures Procedure Name Priority Date/Time Associated Diagnosis Comments XR SHUNT SERIES STAT 11/22/2024 6:23 AM EDT documented in this encounter Results * XR Shunt Series (11/22/2024 6:23 AM EDT) Anatomical Region Laterality Modality Head, Chest, Abdomen Radiographi c Imaging 11/22/2024 6:04 AM EDT Impressions 11/22/2024 8:52 AM EDT IMPRESSION: Intact ventricular peritoneal shunt catheter to the level of the diaphragm. Limited visualization of the distal tip due to overlying soft tissues. Approved by Zoey Boyd MD on 11/22/2024 8:21 AM EDT I have personally reviewed the images and I agree with this report. Report Verified by: Errol Evans MD at 11/22/2024 8:52 AM EDT Narrative 11/22/2024 8:52 AM EDT EXAM: XR SHUNT SERIES INDICATION: c/f shunt failure Check position and configuration of MOVE COORDINATOR shunt catheter. COMPARISON: 08/08/2024 FINDINGS: There is a right sided ventriculoperitoneal shunt with proximal tip overlying right frontal region. Limited visualization of the distal shunt catheter as it is obscured by overlying soft tissues. Joint catheter can be seen intact coursing along the midline thoracic cavity towards the diaphragm prior to losing definite visualization. Visualized portions of the catheter are intact. No acute radiographic abnormality in the osseous structures of the skull. Lung volumes are low with bibasilar atelectasis. Cardiomediastinal silhouette does not demonstrate abnormality. The bowel gas pattern is nonobstructive and the imaged bowel loops are normal in caliber. Procedure Note Errol Evans MD - 11/22/2024 EXAM: XR SHUNT SERIES INDICATION: c/f shunt failure Check position and configuration of MOVE COORDINATOR shuntcatheter. COMPARISON: 08/08/2024 FINDINGS: There is a right sided ventriculoperitoneal shunt with proximal tipoverlying right frontal region. Limited visualization of the distal shuntcatheter as it is obscured by overlying soft tissues. Joint catheter canbe seen intact coursing along the midline thoracic cavity towards thediaphragm prior to losing definite visualization. Visualized portions ofthe catheter are intact. No acute radiographic abnormality in the osseous structures of the skull.Lung volumes are low with bibasilar atelectasis. Cardiomediastinalsilhouette does not demonstrate abnormality. The bowel gas pattern isnonobstructive and the imaged bowel loops are normal in caliber. IMPRESSION: Intact ventricular peritoneal shunt catheter to the level of thediaphragm. Limited visualization of the distal tip due to overlying softtissues. Approved by Zoey Boyd MD on 11/22/2024 8:21 AM EDT I have personally reviewed the images and I agree with this report. Report Verified by: Errol Evans MD at 11/22/2024 8:52 AM EDT Fe Morse MD IM DIAGNOSTIC IMAGING ORDSea KATZ Final Result documented in this encounter Visit Diagnoses Diagnosis Right flank pain- Primary Abdominal pain, unspecified site Blurred vision Other specified visual disturbances documented in this encounter Administered Medications Inactive Administered Medications - up to 3 most recent administrations Medication Order MAR Action Action Date Dose Rate Site lidocaine (LIDODERM) 5 % 1 patch 1 patch, Transdermal, Once, On 11/22/24 at 0836, For 1 dose, LEAVE PATCH ON FOR 12 HOURS,THEN REMOVE FOR 12 HOURS. Patch Applied 11/22/2024 8:42 AM EDT 1 patch Othe r documented in this encounter Active and Recently Administered Medications Times are shown in EDT. Scheduled Medication Order 11/20/2024 11/21/2024 11/22/2024 lidocaine (LIDODERM) 5 % 1 patch 1 patch, Transdermal, Once, On 11/22/24 at 0836, For 1 dose, LEAVE PATCH ON FOR 12 HOURS,THEN REMOVE FOR 12 HOURS. 0842 (Patch Applied - Provider: Carl Perales RN)1002 (Due: Patch Removed - Provider: Automatic Discharge Provider - Comment: Time automatically adjusted from order being discontinued) documented in this encounter Additional Health Concerns Assessment Noted Time A Body Mass Index follow-up plan has been documented for the patient 02/21/2024 10:17 AM EDT documented as of this encounter Care Teams Supervisor Wet Room Relationship Specialty Start Date End Date Angelica Marks NP [address] [place] [address] PCP - General Nurse Practitioner 05/13/21 documented as of this encounter
--- OUTSIDE RECORDS SUMMARY | 2024-12-12 14:49 | XMS_ITS | Encounter Summary ---
Author Organization [facility] Address [facility] [place] [address] Care Team Providers Care Personal Care Aid Name Role Phone KendrickAngelica corey JAYNA Primary Care Provider [phone] Source Comments This information has been disclosed [...] release of HIV test results or diagnoses. [id number] Health Encounter Details Date Type Department Care Team (Latest Contact Info) Description 12/12/2024 2:49 PM EDT - 12/12/2024 11:59 PM EDT Hospital Encounter [facility] Radiology [address] [place] [address] System, Provider Not In Discharge Disposition: Home or Self Care WITHOUT Home Care Services Social History Tobacco Use Types Packs/Day Years [...] PM EDT documented as of this encounter Medications at Time of Discharge acetaminophen (TYLENOL) 325 MG tabletIndications: Idiopathic intracranial hypertension Take 2 tablets (650 mg total) by mouth every 6 hours as needed. 180 tablet 1 08/06/2024 naloxone (NARCAN) 4 mg/actuation [place] Apply 1 spray in one nostril if [...] 12 11/30/2023 documented as of this encounter Plan of Treatment Not on file documented as of this encounter Procedures Procedure Name Priority Date/Time Associated Diagnosis Comments XR COMPARISON IMAGES Routine 12/12/2024 2:49 PM EDT documented in this encounter Results * X-ray Comparison Images (12/12/2024 2:49 PM EDT) Narrative EXTERNAL - 12/12/2024 2:49 PM EDT Images associated with this accession number were presented to us for comparison to an examination performed here. us Provider Not In System IMG DIAGNOSTIC IMAGING OR DERABLES Final Result EXTERNAL documented in this encounter Visit Diagnoses Not on filedocumented in this encounter Additional Health Concerns Assessment Noted Time A Body Mass Index follow-up plan has been documented for the patient 02/21/2024 10:17 AM EDT documented as of this encounter Care Teams Personal Care Aid Relationship Specialty Start Date End Date Angelica Marks NP [address] [place] [address] PCP - General Nurse Practitioner 05/13/21 documented as of this encounter
--- OUTSIDE RECORDS SUMMARY | 2024-12-12 14:49 | XMS_ITS | Encounter Summary ---
Author Organization [facility] Address [facility] [place] [address] Care Team Providers Care Bulb Farmworker Name Role Phone KendrickAngelica croey JAYNA Primary Care Provider [phone] Source Comments This information has been disclosed [...] release of HIV test results or diagnoses. [id number] Health Encounter Details Date Type Department Care Team (Latest Contact Info) Description 12/12/2024 2:49 PM EDT - 12/12/2024 11:59 PM EDT Hospital Encounter [facility] Radiology [address] [place] [address] System, Provider Not In Discharge Disposition: Home [...] tablet 1 08/06/2024 naloxone (NARCAN) 4 mg/actuation [place] Apply 1 spray in one nostril if [...] documented as of this encounter Care Teams Bulb Farmworker Relationship Specialty Start Date End Date Angelica Marks NP [address] [place] [address] PCP - General Nurse Practitioner 05/13/21 documented as of this encounter
--- OUTSIDE RECORDS SUMMARY | 2024-12-12 14:49 | XMS_ITS | Encounter Summary ---
Author Organization [facility] Address [facility] [place] [address] Care Team Providers Care Agile Business Analyst Name Role Phone KnedrickAngelica corey JAYNA Primary Care Provider [phone] Source Comments This information has been disclosed [...] release of HIV test results or diagnoses. [id number] Health Encounter Details Date Type Department Care Team (Latest Contact Info) Description 12/12/2024 2:49 PM EDT - 12/12/2024 11:59 PM EDT Hospital Encounter [facility] Radiology [address] [place] [address] System, Provider Not In Discharge Disposition: Home [...] tablet 1 08/06/2024 naloxone (NARCAN) 4 mg/actuation [place] Apply 1 spray in one nostril if [...] documented as of this encounter Care Teams Agile Business Analyst Relationship Specialty Start Date End Date Angelica Marks NP [address] [place] [address] PCP - General Nurse Practitioner 05/13/21 documented as of this encounter
--- OUTSIDE RECORDS SUMMARY | 2024-12-12 14:49 | XMS_ITS | Encounter Summary ---
Author Organization [facility] Address [facility] [place] [address] Care Team Providers Care Manager Zone Name Role Phone KendrickAngelica corey JAYNA Primary Care Provider [phone] Source Comments This information has been disclosed [...] release of HIV test results or diagnoses. [id number] Health Encounter Details Date Type Department Care Team (Latest Contact Info) Description 12/12/2024 2:49 PM EDT - 12/12/2024 11:59 PM EDT Hospital Encounter [facility] Radiology [address] [place] [address] System, Provider Not In Discharge Disposition: Home [...] tablet 1 08/06/2024 naloxone (NARCAN) 4 mg/actuation [place] Apply 1 spray in one nostril if [...] documented as of this encounter Care Teams Manager Zone Relationship Specialty Start Date End Date Angelica Marks NP [address] [place] [address] PCP - General Nurse Practitioner 05/13/21 documented as of this encounter
--- OUTSIDE RECORDS SUMMARY | 2024-12-12 14:49 | XMS_ITS | Encounter Summary ---
Author Organization [facility] Address [facility] [place] [address] Care Team Providers Care Equipment Scheduler Name Role Phone KendrickAngelica corey JAYNA Primary Care Provider [phone] Source Comments This information has been disclosed [...] release of HIV test results or diagnoses. [id number] Health Encounter Details Date Type Department Care Team (Latest Contact Info) Description 12/12/2024 2:49 PM EDT - 12/12/2024 11:59 PM EDT Hospital Encounter [facility] Radiology [address] [place] [address] System, Provider Not In Discharge Disposition: Home [...] tablet 1 08/06/2024 naloxone (NARCAN) 4 mg/actuation [place] Apply 1 spray in one nostril if [...] documented as of this encounter Care Teams Equipment Scheduler Relationship Specialty Start Date End Date Angelica Marks NP [address] [place] [address] PCP - General Nurse Practitioner 05/13/21 documented as of this encounter
--- OUTSIDE RECORDS SUMMARY | 2024-12-12 14:49 | XMS_ITS | Encounter Summary ---
Author Organization [facility] Address [facility] [place] [address] Care Team Providers Care Nurse Emergency Room Name Role Phone KendrickAngelica corey JAYNA Primary Care Provider [phone] Source Comments This information has been disclosed [...] release of HIV test results or diagnoses. [id number] Health Encounter Details Date Type Department Care Team (Latest Contact Info) Description 12/12/2024 2:49 PM EDT - 12/12/2024 11:59 PM EDT Hospital Encounter [facility] Radiology [address] [place] [address] System, Provider Not In Discharge Disposition: Home [...] tablet 1 08/06/2024 naloxone (NARCAN) 4 mg/actuation [place] Apply 1 spray in one nostril if [...] documented as of this encounter Care Teams Nurse Emergency Room Relationship Specialty Start Date End Date Angelica Marks NP [address] [place] [address] PCP - General Nurse Practitioner 05/13/21 documented as of this encounter
--- NOTE | 2025-01-12 11:08 | XR_ITS ---
FINAL REPORT CLINICAL HISTORY: Foot Pain, LEFT COMPARISON: None FINDINGS: LEFT FOOT Three views demonstrate no acute fracture or dislocation. The joint spaces appear normal. No acute soft tissue abnormality is seen. There is a moderate plantar spur. IMPRESSION: No acute bony abnormality. Reviewed, Interpreted and Dictated by Holden Shultz MD Transcribed by Calista Henao Authenticated and [facility]
--- NOTE | 2025-01-12 11:08 | XR_ITS ---
FINAL REPORT CLINICAL HISTORY: Ankle Pain, LEFT COMPARISON: None FINDINGS: LEFT ANKLE 3 views of the left ankle were obtained. Orthopedic screws are noted in the medial malleolus. There is no acute fracture or dislocation. The mortise appears intact. Visualized joint spaces are normally aligned. There is moderate soft tissue edema about the ankle. There is a moderate plantar spur. There is an os trigonum measuring 12 mm. IMPRESSION: Moderate soft tissue edema without acute bony abnormality. Reviewed, Interpreted and Dictated by Holden Shultz MD Transcribed by aClista Henao Authenticated and [facility]
--- NOTE | 2025-01-12 11:08 | XR_ITS ---
FINAL REPORT CLINICAL HISTORY: Ankle Pain COMPARISON: None FINDINGS: RIGHT ANKLE 3 views of the right ankle were obtained. There are 2 orthopedic screws in the medial malleolus. There is no acute fracture or dislocation. The mortise appears intact. Visualized joint spaces are normally aligned. There is mild to moderate soft tissue edema about the ankle. There is an os trigonum measuring 11 mm. There is a prominent osteophyte along the dorsal aspect of the distal talus. IMPRESSION: Mild to moderate tissue edema without acute bony abnormality. Prominent osteophyte along the dorsal aspect of the distal talus. Reviewed, Interpreted and Dictated by Holden Shultz MD Transcribed by Calista Henao Authenticated and . [facility]
--- NOTE | 2025-01-12 11:08 | XR_ITS ---
FINAL REPORT CLINICAL HISTORY: Foot Pain, RIGHT COMPARISON: None FINDINGS: RIGHT FOOT Three views demonstrate no acute fracture or dislocation. The joint spaces appear normal. No acute soft tissue abnormality is seen. IMPRESSION: No acute bony abnormality. Reviewed, Interpreted and Dictated by Holden Shultz MD Transcribed by Calista Henao Authenticated and [facility]
--- OUTSIDE RECORDS SUMMARY | 2025-01-12 11:16 | XMS_ITS | Encounter Summary ---
Author Organization [facility] Address [address] [place] [address] Care Team Providers Care Simonizer Name Role Phone KendrickAngelica corey JAYNA Primary Care Provider [phone] Source Comments This information has been disclosed [...] release of HIV test results or diagnoses. DQC6015.24 Health Encounter Details Date Type Department Care Team (Late st Contact Info) Description 11/22/2024 Ophth Exam [facility] Ophthalmology at [address] [place] [address] Brendon Bush MD [address] [place] [address] Social History Tobacco Use Types [...] documented as of this encounter Care Teams Simonizer Relationship Specialty Start Date End Date Angelica Marks NP [address] [place] [address] PCP - General Nurse Practitioner 05/13/21 documented as of this encounter
--- OUTSIDE RECORDS SUMMARY | 2025-01-12 11:17 | XMS_ITS | Clinical Summary ---
Author Organization [facility] Address [address] [place] [address] Care Team Providers Care Vamp Creaser Name Role Phone Kendrick, Angelica DORANTES Primary Care Provider [phone] Source Comments This information has been disclosed [...] therelease of HIV test results or diagnoses. [id number] Allergies No known active allergies Medications topiramate (TOPAMAX) 50 MG tablet 2 po qAM and 3 po PM 150 tablet 12 4 Active spironolactone (ALDACTONE) 50 MG tablet Take 3 tablets (150 mg total) by mouth daily. 90 tablet 12 4 Active naloxone (NARCAN) 4 mg/actuation [place] Apply 1 spray in one nostril if [...] - 12/12/2024 11:59 PM EDT Hospital Encounter [facility] Radiology [address] [place] [address] System, Provider Not In Discharge Disposition: Home or Self Care WITHOUT Home Care Services 12/12/2024 2:49 PM EDT - 12/12/2024 11:59 PM EDT Hospital Encounter [facility] Radiology [address] [place] [address] System, Provider Not In Discharge Disposition: Home or Self Care WITHOUT Home Care Services 12/12/2024 2:49 PM EDT - 12/12/2024 11:59 PM EDT Hospital Encounter [facility] Radiology [address] [place] [address] System, Provider Not In Discharge Disposition: Home or Self Care WITHOUT Home Care Services 12/12/2024 2:49 PM EDT - 12/12/2024 11:59 PM EDT Hospital Encounter [facility] Radiology [address] [place] [address] System, Provider Not In Discharge Disposition: Home or Self Care WITHOUT Home Care Services 12/12/2024 2:49 PM EDT - 12/12/2024 11:59 PM EDT Hospital Encounter [facility] Radiology [address] [place] [address] System, Provider Not In Discharge Disposition: Home or Self Care WITHOUT Home Care Services 12/12/2024 2:49 PM EDT - 12/12/2024 11:59 PM EDT Hospital Encounter [facility] Radiology [address] [place] [address] System, Provider Not In Discharge Disposition: Home or Self Care WITHOUT Home Care Services 12/12/2024 2:49 PM EDT - 12/12/2024 11:59 PM EDT Hospital Encounter [facility] Radiology [address] [place] [address] System, Provider Not In Discharge Disposition: Home or Self Care WITHOUT Home Care Services 11/27/2024 Telephone [facility] Ophthalmology at [address] [address] Team, Ophthalmology 11/22/2024 4:46 AM EDT - 11/22/2024 10:02 AM EDT Emergency [facility] Emergency Department [address] [place] [address] Ravin Reyes MD Right flank pain (Primary Dx); Blurred vision Discharge Disposition: ED Dismiss - Left Before Treatment 11/22/2024 Ophth Exam [facility] Ophthalmology at [address] [address] Brendon Bush MD from Last 3 Months [...] season) 2024 12/21/2020, 11/30/2020 Immunization: Influenza (MyChart) (#1) 2025 04/25/2018, 04/28/2015, 05/15/2012 Depression Screening 08/11/2025 08/11/2024, 12/21/19 23 Immunization: Hepatitis B Completed 2001, 08/25/1999, 1998 Immunization: Meningococcal ACWY Completed 03/01/2016 Immunization: HPV Completed 01/05/2020, , 04/25/2018 Immunization: Pneumococcal Aged Out N o longer eligible based on patient's age to complete this topic Medical Devices Implanted Type Area Research Coordinator Device Identifier Shelf Expiration Date Model / Serial / Lot Mk Antibiotic -Impregnated Catheter Kit - Ventricular Catheteter, 23cm And Peritoneal Catheter, 120cm Implanted:Qty: 1 on 03/12/2024 by Michaela Alonzo MD at [facility] Main CatheterImp Right: Abdomen 06/13/2025 [id number] / / [id number] Valve Shnt Strata 2in Full Port Reg - [id number] Implanted:Qty: 1 on 03/12/2024 by Michaela Alonzo MD at [facility] Main Shunt Right: Brain [employer] 11/24/2026 [id number] / / [id number] Procedures Procedure Name Priority Date/Time Associated [...] shunt failure Check position and configuration of SUPERVISOR ROLLING ROOM shunt catheter. COMPARISON: 08/08/2024 FINDINGS: There is [...] shunt failure Check position and configuration of SUPERVISOR ROLLING ROOM shuntcatheter. COMPARISON: 08/08/2024 FINDINGS: There is a [...] Final Result from Last 3 Months Insurance [facility] MANAGED MEDICAID [facility] care Address: [place] [address] Advance Directives For more information, please contact: [phone] * Full Code (Latest Code Status on File) Date Activated Date Inactivated Comments 03/12/2024 1:39 PM 03/12/2024 11:28 PM Care Teams Vamp Creaser Relationship Specialty Start Date End Date Angelica Marks NP [address] [place] [address] PCP - General Nurse Practitioner 05/13/21
--- OUTSIDE RECORDS SUMMARY | 2025-01-12 11:17 | XMS_ITS | Encounter Summary ---
Author Organization [facility] Address [facility] [place] [address] Care Team Providers Care Senior Sales Manager Name Role Phone Kendrick Angelica DORANTES Primary Care Provider Source Comments This information [...] release of HIV test results or diagnoses. YHF4336.24 Health Encounter Details Date Type Department Care Team (Late st Contact Info) Description 11/27/2024 Telephone [facility] Ophthalmology at [address] [place] [address] Team, Ophthalmology Social History Tobacco [...] documented as of this encounter Care Teams Senior Sales Manager Relationship Specialty Start Date End Date Angelica Marks NP [address] [place] [address] PCP - General Nurse Practitioner 05/13/21 documented as of this encounter
[2025-01-12 11:23] LABS: Hematocrit 39.0 % (37.0-47.0); Hemoglobin 13.0 g/dL (12.2-16.2); Immature Granulocytes % 0.3 %; Mean Corpuscular HGB Conc 33.3 g/dL (31.8-35.4); Mean Corpuscular Hemoglobin 28.3 pg (27.0-31.2); Mean Corpuscular Volume 85.0 fl (81-99); Nucleated Red Blood Cells % 0 %; Platelet Count 219 K/mm3 (142-424); Red Blood Count 4.59 M/mm3 (4.20-5.40); Red Cell Distribution Width-SD 37.2 fL; White Blood Count 5.8 K/mm3 (4.8-10.8)
[2025-01-12 12:10] LABS: Alanine Aminotransferase 31 U/L (12-78); Albumin Level 4.5 g/dl (3.5-5.0); Albumin/Globulin Ratio 1.7 (1.1-1.8); Alkaline Phosphatase 70 U/L (38-126); Anion Gap 18.4 mEq/L (5-15); Aspartate Amino Transferase 37 U/L (14-36); Bilirubin,Total 0.4 mg/dl (0.2-1.3); Blood Urea Nitrogen 7 mg/dl (7-17); Calcium 9.3 mg/dl (8.4-10.2); Carbon Dioxide 24 mmol/L (22.0-30.0); Chloride 100 mmol/L (98-107); Creatinine,Serum 0.70 mg/dl (0.52-1.04); Estimated Glomerular Filt Rate 101 ml/min (>60); GFR (African American) 122 ML/MIN (>60); Globulin 2.7 g/dL (1.3-3.2); Glucose 98 mg/dl (74-100); Potassium 4.4 mmoL/L (3.5-5.1); Sodium 138 mmol/L (136-145); Total Protein,Serum 7.2 g/dl (6.3-8.2); Uric Acid 4.8 mg/dl (2.5-6.2)
[2025-01-12 12:22] LABS: C-Reactive Protein 9.2 mg/L (0-4)
[2025-01-12 12:41] LABS: Thyroid Stimulating Hormone 1.18 uIU/mL (0.465-4.68)
[2025-01-12 13:00] LABS: Vitamin B12 171 pg/mL (239-931)
[2025-01-12 13:16] LABS: Folate 4.11 ng/mL
[2025-01-13 08:32] LABS: RA Latex Turbid. <10.0 IU/mL (<14.0)
[2025-01-13 14:29] LABS: Antinuclear Antibodies, IFA Negative (.)
[2025-01-17 10:43] LABS: 1,25 Dihydroxy Vitamin D 38 pg/mL (.); 1,25-Dihydroxy, Vitamin D-2 <10 pg/mL (.); 1,25-Dihydroxy, Vitamin D-3 38 pg/mL (.)
== END 2025-01-12 23:59 | disposition home or self-care (01) ==
LOC: LAB 10:50
PROVIDERS: PCP Nurse Practitioner Family; Visit Provider Podiatrist
DX: M25.774 Osteophyte, right foot (principal); M79.89 Other specified soft tissue disorders; M79.672 Pain in left foot; M79.671 Pain in right foot; G89.29 Other chronic pain; Z98.890 Other specified postprocedural states
CPT/HCPCS: 36415; 73610; 73630; 80053; 82607; 82652; 82746; 84443; 84550; 85025; 85651; 86038; 86140; 86431

== ENCOUNTER 2025-01-19 13:24 | Outpatient (CLI) | payer OTHER, SELFPAY ==
--- OUTSIDE RECORDS SUMMARY | 2024-11-22 04:46 | XMS_ITS | Encounter Summary ---
Author Organization [facility] Address [address] [place] [address] Care Team Providers Care Client Service And Consulting Manager Name Role Phone KendrickAngelica corey JAYNA Primary Care Provider [phone] Source Comments This information has been disclosed [...] release of HIV test results or diagnoses. [id number] Reason for Visit * Reason Comments Medical Problem Encounter Details Date Type Department Care Team (Late st Contact Info) Description 11/22/2024 4:46 AM EDT - 11/22/2024 10:02 AM EDT Emergency [facility] Emergency Department [address] [place] [phone] Ravin Reyes MD [address] [place] [phone] Right flank pain (Primary Dx); Blurred vision [...] tablet 1 08/06/2024 naloxone (NARCAN) 4 mg/actuation [place] Apply 1 spray in one nostril if [...] Mccann MD - 11/22/2024 6:59 AM EDT [facility] ED Reassessment Note Susan Art is a [...] pain 2. Blurred vision Plan Pt eloped DUNIA MCCANN MD, MD PGY-3 Emergency Medicine This [...] Faria MD - 11/22/2024 5:02 AM EDT [facility] ED Note Date of Service: 11/22/2024 Reason for Visit: No chief complaint on file. Patient History HPI Susan Art is a 24 y.o. female with a history of IIH s/p VPS placement in 03/2024 who presents to the ED for evaluation of R flank pain and concern for shunt malfunction. Patient arrives as a transfer from [facility] for neurosurgery evaluation due to [...] Morbid obesity with BMI of 50.0-59.9, adult ([facility]) PCOS (polycystic ovarian syndrome) PONV (postoperative nausea and vomiting) Transient elevated blood pressure Past Surgical History: Procedure Laterality Date ANKLE SURGERY Left 2020 right done 2019, right done again in 2020 EYE SURGERY FOOT SURGERY INSERTION SHUNT COLLECTIONS ASSISTANT LAPAROSCOPIC ASSISTED Right 03/12/2024 Procedure: INSERTION SHUNT COLLECTIONS ASSISTANT LAPAROSCOPIC ASSISTED WITH BRAIN LAB-; Surgeon: Michaela [...] typographic errors. Ritchie Ojeda MD Resident 11/28/24 0613 Cosigned by Ravin Reyes MD at 11/29/2024 12:20 PM EDT documented in this encounter Consult Notes * Brendon Bush MD - 11/22/2024 7:30 AM EDTAssociated Order(s): ED CONTACT PROVIDER [facility] Ophthalmology ED Consultation Susan is a [...] Morbid obesity with BMI of 50.0-59.9, adult ([facility]) PCOS (polycystic ovarian syndrome) PONV (postoperative nausea [...] Morse MD - 11/22/2024 5:[address] [facility] DEPARTMENT OF NEUROSURGERY INPATIENT CONSULTATION Susan Art [id number] 1998 Neurosurgery Attending: MD Cheri Primary Care [...] Morbid obesity with BMI of 50.0-59.9, adult ([facility]) PCOS (polycystic ovarian syndrome) PONV (postoperative nausea and vomiting) Transient elevated blood pressure Past Surgical History: Procedure Laterality Date ANKLE SURGERY Left 2020 right done 2019, right done again in 2020 EYE SURGERY FOOT SURGERY INSERTION SHUNT COLLECTIONS ASSISTANT LAPAROSCOPIC ASSISTED Right 03/12/2024 Procedure: INSERTION SHUNT COLLECTIONS ASSISTANT LAPAROSCOPIC ASSISTED WITH BRAIN LAB-; Surgeon: Michaela Alonzo MD; Location: [facility]; Service: Neurosurgery; Laterality: Right; TONSILLECTOMY AND [...] hours as needed. naloxone (NARCAN) 4 mg/actuation [place] Apply 1 spray in one nostril if [...] for: PHART , PCO2 , PO2ART , [id number] , BEART , [id number] , [id number] Lab Results Component Value Date ABS Negative [...] hesitate to contact the neurosurgery residenton call, [phone]. Fe Morse MD Neurosurgery Resident 5:26 AM [...] in neurosurgery clinic Michaela Alonzo MD, PhD Chancellor, Department of Neurosurgery Director, [facility] Neurotrauma [place] documented in this encounter Nursing Notes * Hilda Delaney RN - 11/22/2024 4:53 AM EDT Patient from OSH for COLLECTIONS ASSISTANT shunt problem. Patient is endorsing generalized body [...] shunt failure Check position and configuration of COLLECTIONS ASSISTANT shunt catheter. COMPARISON: 08/08/2024 FINDINGS: There is [...] shunt failure Check position and configuration of COLLECTIONS ASSISTANT shuntcatheter. COMPARISON: 08/08/2024 FINDINGS: There is a [...] documented as of this encounter Care Teams Client Service And Consulting Manager Relationship Specialty Start Date End Date Angelica Marks NP [address] [place] [address] PCP - General Nurse Practitioner 05/13/21 documented as of this encounter
--- OUTSIDE RECORDS SUMMARY | 2024-12-12 14:49 | XMS_ITS | Encounter Summary ---
Author Organization [facility] Address [facility] [place] [address] Care Team Providers Care Director Of Individual Giving Name Role Phone KendrickAngelica corey JAYNA Primary Care Provider [phone] Source Comments This information has been disclosed [...] release of HIV test results or diagnoses. [id number] Health Encounter Details Date Type Department Care Team (Latest Contact Info) Description 12/12/2024 2:49 PM EDT - 12/12/2024 11:59 PM EDT Hospital Encounter [facility] Radiology [address] [place] [address] System, Provider Not In Discharge Disposition: Home [...] tablet 1 08/06/2024 naloxone (NARCAN) 4 mg/actuation [place] Apply 1 spray in one nostril if [...] documented as of this encounter Care Teams Director Of Individual Giving Relationship Specialty Start Date End Date Angelica Marks NP [address] [place] [address] PCP - General Nurse Practitioner 05/13/21 documented as of this encounter
--- OUTSIDE RECORDS SUMMARY | 2024-12-12 14:49 | XMS_ITS | Encounter Summary ---
Author Organization [facility] Address [facility] [place] [address] Care Team Providers Care Extra Gang Supervisor Name Role Phone KendrickAngelica corey JAYNA Primary Care Provider Source Comments This information has been disclosed [...] release of HIV test results or diagnoses. [id number] Health Encounter Details Date Type Department Care Team (Latest Contact Info) Description 12/12/2024 2:49 PM EDT - 12/12/2024 11:59 PM EDT Hospital Encounter [facility] Radiology [address] [place] [address] System, Provider Not In Discharge Disposition: Home [...] tablet 1 08/06/2024 naloxone (NARCAN) 4 mg/actuation [place] Apply 1 spray in one nostril if [...] documented as of this encounter Care Teams Extra Gang Supervisor Relationship Specialty Start Date End Date Angelica Marks NP [address] [place] [address] PCP - General Nurse Practitioner 05/13/21 documented as of this encounter
--- OUTSIDE RECORDS SUMMARY | 2024-12-12 14:49 | XMS_ITS | Encounter Summary ---
Author Organization [facility] Address [facility] [place] [address] Care Team Providers Care Labor Commissioner Name Role Phone KendrickAngelica corey JAYNA Primary Care Provider [phone] Source Comments This information has been disclosed [...] release of HIV test results or diagnoses. [id number] Health Encounter Details Date Type Department Care Team (Latest Contact Info) Description 12/12/2024 2:49 PM EDT - 12/12/2024 11:59 PM EDT Hospital Encounter [facility] Radiology [address] [place] [address] System, Provider Not In Discharge Disposition: Home [...] tablet 1 08/06/2024 naloxone (NARCAN) 4 mg/actuation [place] Apply 1 spray in one nostril if [...] documented as of this encounter Care Teams Labor Commissioner Relationship Specialty Start Date End Date Angelica Marks NP [address] [place] [address] PCP - General Nurse Practitioner 05/13/21 documented as of this encounter
--- OUTSIDE RECORDS SUMMARY | 2024-12-12 14:49 | XMS_ITS | Encounter Summary ---
Author Organization [facility] Address [facility] [place] [address] Care Team Providers Care Hydrotreater Operator Name Role Phone KendrickAngelica corey JAYNA Primary Care Provider [phone] Source Comments This information has been disclosed [...] release of HIV test results or diagnoses. [id number] Health Encounter Details Date Type Department Care Team (Latest Contact Info) Description 12/12/2024 2:49 PM EDT - 12/12/2024 11:59 PM EDT Hospital Encounter [facility] Radiology [address] [place] [address] System, Provider Not In Discharge Disposition: Home [...] tablet 1 08/06/2024 naloxone (NARCAN) 4 mg/actuation [place] Apply 1 spray in one nostril if [...] documented as of this encounter Care Teams Hydrotreater Operator Relationship Specialty Start Date End Date Angelica Marks NP [address] [place] [address] PCP - General Nurse Practitioner 05/13/21 documented as of this encounter
--- OUTSIDE RECORDS SUMMARY | 2024-12-12 14:49 | XMS_ITS | Encounter Summary ---
Author Organization [facility] Address [facility] [place] [address] Care Team Providers Care Private Household Worker Name Role Phone KendrickAngelica corey JAYNA Primary Care Provider [phone] Source Comments This information has been disclosed [...] release of HIV test results or diagnoses. [id number] Health Encounter Details Date Type Department Care Team (Latest Contact Info) Description 12/12/2024 2:49 PM EDT - 12/12/2024 11:59 PM EDT Hospital Encounter [facility] Radiology [address] [place] [address] System, Provider Not In Discharge Disposition: Home [...] tablet 1 08/06/2024 naloxone (NARCAN) 4 mg/actuation [place] Apply 1 spray in one nostril if [...] documented as of this encounter Care Teams Private Household Worker Relationship Specialty Start Date End Date Angelica Marks NP [address] [place] [address] PCP - General Nurse Practitioner 05/13/21 documented as of this encounter
--- OUTSIDE RECORDS SUMMARY | 2024-12-12 14:49 | XMS_ITS | Encounter Summary ---
Author Organization [facility] Address [facility] [place] [address] Care Team Providers Care Event Decorator Name Role Phone KendrickAngelica corey JAYNA Primary Care Provider [phone] Source Comments This information has been disclosed [...] release of HIV test results or diagnoses. [id number] Health Encounter Details Date Type Department Care Team (Latest Contact Info) Description 12/12/2024 2:49 PM EDT - 12/12/2024 11:59 PM EDT Hospital Encounter [facility] Radiology [address] [place] [address] System, Provider Not In Discharge Disposition: Home [...] tablet 1 08/06/2024 naloxone (NARCAN) 4 mg/actuation [place] Apply 1 spray in one nostril if [...] documented as of this encounter Care Teams Event Decorator Relationship Specialty Start Date End Date Angelica Marks NP [address] [place] [address] PCP - General Nurse Practitioner 05/13/21 documented as of this encounter
--- NOTE | 2025-01-19 13:00 | US_ITS ---
FINAL REPORT CLINICAL HISTORY: bilateral claudication, bilateral rest pain FINDINGS: LOWER EXTREMITY SEGMENTAL PRESSURE MEASUREMENTS FINDINGS: Pressure indices are as follows: RIGHT LOWER EXTREMITY: Thigh: 1.23 Calf: 0.99 Ankle, posterior tibial artery: 0.97 Ankle, dorsalis pedis: 0.94 Toe: 0.96 PAM: 0.97 Comments: Normal LEFT LOWER EXTREMITY: Thigh: 1.14 Calf: 1.03 Ankle, posterior tibial artery: 1.04 Ankle, dorsalis pedis: 1.06 Toe: 0.94 PAM: 1.06 Comments: Normal IMPRESSION: No evidence of significant peripheral vascular disease. Reviewed, Interpreted and Dictated by Oswald Lovelace MD Transcribed by Amanda Milian Authenticated and [facility]
--- OUTSIDE RECORDS SUMMARY | 2025-01-19 13:33 | XMS_ITS | Continuity of Care Document ---
[facility] Organization [facility] Address [address] [place] [address] Assessment No assessment recorded. Plan of Treatment Reminders Order Date Submit Date Provider Last Modified By Organization Details Last Modified Time Details Appointments None recorded. Lab None recorded. Referral neurologic al surgeon referral - Jett Johnson- may need her records from and [facility] from resent er visit- having alot of symptoms 2024 025 [facility], [address], [address], [place], [address], 14:49:48 Procedures None recorded. Surgeries None recorded. Imaging US, marge r 2024 025 [facility] [address], [place], [address], 11:04:43 Medication Orders Voltaren Arthritis Pain 1 % topical gel 2024 025 [facility], [address], [address], [place], [address], 12:19:22 Patient TargetsNo targets recorded. Patient Instructions Encounter Date Encounter Id Patient Instructions Last Modified By Organization Details Last Modified Time 11/25/2024 [id number] body mass index: care instructions efryman Not available 11/25/2024 12:11:34 learning about healthy weight efryman Not available 11/25/2024 12:11:34 Reason for Referral Neurological Surgeon Referra l for Ventriculoperitoneal shunt in situ Jett Given- may need her records from and [facility] from resent er visit- having alot of symptoms Referring Physician: Key Jack, Family Medicine, Encounter Date: 11/25/2024 Results Created Date Observation Date Name Description Value Unit Range Abnormal Flag Note LastModifiedBy Organization Detail LastModifiedTime 12/03/19 25 12/02/2024 , shruthi sarah r No observ ation record ed. [facility] [address], [place], [address], 12/08/2024 09:33:31 12/13/19 25 12/12/2024 NM, hepat obili simona scan, w/pha rm No observ ation record ed. [facility] [address], [place], [address], 12/12/2024 13:48:40 01/13/20 25 01/12/2025 XR, foot, 3 or more view No observ ation record ed. [facility] [address], [place], [address], 01/16/2025 08:30:41 01/13/20 25 01/12/2025 XR, ankle , 3 or more view No observ ation record ed. [facility] [address], [place], [address], 01/16/2025 08:30:40 01/13/20 25 01/12/2025 XR, foot, 3 or more view No observ ation record ed. [facility] [address], [place], [address], 01/16/2025 08:30:39 01/13/20 25 01/12/2025 XR, ankle , 3 or more view No observ ation record ed. [facility] [address], [place], [address], 01/16/2025 08:30:38 Result Notes None recorded. Problems Name Problem SNOMED Code Status Onset Date Resolution Date Notes Provider Name and Address Organization Details Recorded Time Obesity 756072564 Active 2017 India Sutherland MD [address], [place], [address] , [place] - [facility] 19:11:02 Irregular periods 76238710 Completed 201704/15/2018 Mattie Berman APRN [address], [place], [address] , [place] - [facility] 8 08:27:45 Oligomenor mega 06801159 Completed 201708/04/2022 India Sutherland MD [address], [place], [address] , [place] [facility] 3 19:10:54 Female hirsutism 39857003 Active 2017 India Sutherland MD [address], [place], [address] , [place] [facility] 3 19:11:05 Hyperlipid emia 16325951 Active 2017 Mattie Berman APRN [address], [place], [address] , [place] [facility] 8 13:42:09 Chlamydial infection 144369919 Completed 201902/27/2020 Keiry williamson, [place] - [facility] 0 10:22:15 Polycystic ovary syndrome 233914597 Active 2019 India Sutherland MD [address], [place], [address] , [place] [facility] 3 19:10:59 History of chlamydial infection 514940052 Active 2019 Keiry williamson, [place] - [facility] 0 10:22:21 Infertile 1091284 Active 2022 India Sutherland MD [address], [place], [address] , [place] [facility] 19:11:11 Trying to conceive 656114575 Active 2022 India Sutherland MD [address], [place], [address] , [place] - [facility] 19:11:18 Mass of body structure 306680098 Active 2024 India Sutherland MD [address], [place], [address] , [place] - [facility] 5 17:11:08 Problem Notes None recorded. Procedures Surgical History Date Name Laterality Status Provider Name and Address Organization Details Recorded Time 11/28/19 24 procedure on brain ventricular shunt completed Aide Carlin [place] - [facility] 11/27/2024 15:38:59 08/04/19 23 Date of Last Pap Smear completed India Sutherland MD [address], [place], [address], [place] - [facility] 08/16/2022 08:34:46 09/18/19 20 [...] completed Not Available Not Available Not Available Seymour DMT 30 mg-30 mg tablet 08/02 completed [...] Address Organization Details Last Updated DateTime 5 867011. 67 g 76 /min 99 % 99 % 18 /min 50.8 kg/m2 165.1 cm 110/78 mm[Hg] Gunjan Pérez [place] - [facility] 5 10:47:44 Social History Question Answer Notes LastModified by Organizat ion Details LastModified Time Tobacco Smoking Status Never Smoker Keiry Keiko null, [place] - [facility] 04/12/2018 16:15:29 Do You Have An Advance Directive? No [email or web address] Information not available 04/12/2018 Are You Blind Or Do You Have Difficulty Seeing? No Information not available 04/12/2018 Is Blood Transfusion Acceptable In An Emergency? Yes [email or web address] Information not available 04/12/2018 What Is Your Level Of Caffeine Consumption? Moderate Information not available 04/12/2018 How Much Tobacco Do You Chew? None [email or web address] Information not available 04/12/2018 Are You Deaf Or Do You Have Serious Difficulty Hearing? No [email or web address] Information not available 04/12/2018 What Type Of Diet Are You Following? REGULAR [email or web address] Information not available 04/12/2018 Which Illicit Or Recreational Drugs Have You Used? None [email or web address] Information not available 04/12/2018 What Is The Highest Grade Or Level Of School You Have Completed Or The Highest Degree You Have Received? [id number] Information not available 04/12/2018 How Many Days Of Moderate To Strenuous Exercise, Like A Brisk Walk, Did You Do In The Last 7 Days? 1 [email or web address] Information not available 04/12/2018 On Those Days That You Engage In Moderate To Strenuous Exercise, How Many Minutes, On Average, Do You Exercise? 1 [email or web address] Information not available 04/12/2018 How Hard Is It For You To Pay For The Very Basics Like Food, Housing, Medical Care, And Heating? 1 [email or web address] Information not available 04/12/2018 Live Alone Or With Others? With Others Parents Information not available 04/12/2018 Last Menstrual Period? 12/18/2019 [email or web address] Information not available 01/05/2020 What Was The Date Of Your Most Recent Tobacco Screening? 11/25/2024 Information not available 11/25/2024 How Many Children Do You Have? 1 [email or web address] Information not available 01/05/2020 Performs Monthly Self-breast Exam? No Information no t available 04/12/2018 Do You Use Protection During Sex? No [email or web address] Information not available 04/12/2018 What Is Your Relationship Status? Domestic Partner [email or web address] Information not available 11/27/2024 Seat Belts Used Routinely Yes [email or web address] Information not available 04/12/2018 Are You Sexually Active? Yes [email or web address] Information not available 04/12/2018 How Much Tobacco Do You Smoke? No [email or web address] Information not available 01/05/2020 General Stress Level Low [email or web address] Information not available 04/12/2018 Do You Use Sunscreen Routinely? No [email or web address] Information not available 04/12/2018 Has Tobacco Cessation Counseling Been Provided? No Information not available 11/25/2024 How Many Years Have You Smoked Tobacco? 0 [email or web address] Information not available 01/05/2020 Do You Have Difficulty Walking Or Climbing Stairs? No [email or web address] Information not available 04/12/2018 Sex: Female Functional Status Question Answer Note LastModified by Organizat ion Details LastModified Time What is your level of alcohol consumption? None [email or web address] Information not available 04/12/2018 Do you or have you ever used smokeless tobacco? Never used smokeless tobacco [email or web address] Information not available 01/05/2020 Are you currently employed? Yes Information not available 04/12/2018 Urinary incontinence assessment performed? Yes Information not available 04/12/2018 Are you able to walk? [email or web address] Information not available 04/12/2018 Do you have difficulty doing errands alone? No [email or web address] Information not available 04/12/2018 What is your occupation? unemployed [email or web address] Information not available 01/05/2020 Do you have difficulty dressing or bathing? No [email or web address] Information not available 04/12/2018 Do you or have you ever used e-cigarettes or vape? Never used electronic cigarettes [email or web address] Information not available 01/05/2020 What is your exercise level? None [email or web address] Information not available 04/12/2018 Mental Status Question Answer Note LastModified by Organization D etails LastModified Time Do you feel stressed (tense, restless, nervous, or anxious, or unable to sleep at night)? 1 [email or web address] Information not available 04/12/2018 Do you have difficulty concentrating, remembering or making decisions? No [email or web address] Information no t available 04/12/2018 Family History Relationship Description Onset Age of this Age Resolved Age Notes LastModified by Organization Details LastModified Time Father Diabetes mellitus [email or web address] Not available 04/12 16:14:40 Father Hypertensive disorder [email or web address] Not available 11/07 15:36:29 Maternal Grandfather Heart disease [email or web address] Not available 04/12 16:14:54 Maternal Grandfather Myocardial infarction Not available 11/2017 16:15:01 Maternal Grandmother Malignant tumor of breast [email or web address] Not available 2019 13:09:56 Sister Neoplasm of [...] N Restless Leg Syndrome N Arthritis N Polyps N Infertility N Carpal Tunnel [...] Fracture N Bladder or Kidney Problems N Schizophrenia N Panic Disorder N Concussion N Spina Bifida N Osteoarthritis N Parkinson's Disease N Disc Protrusion N STI N Esophagitis N Angina N Thyroid Problems N GI Problems N ADD/ADHD N Anemia N Multiple Sclerosis N Abnormal PAP N Lumbago N Mental Illness N Psychiatric Illness N Ovarian Cancer N Diabetes N Degenerative Disc Disease N Seizures/Epilepsy N Syncope N Insomnia N Hyperlipidemia N Eczema N Dementia N Attention Deficient Disorder N Abuse/Domestic Violence N Ulcerative colitis N Cerebrovascular Disease N Depression N Guillain-[place] N Sleep Apnea N Aneurysm N Heart Disease N Bronchitis N Suicidal Ideation N Pre-Eclampsia N Hypertension N Osteoporosis N Gynecological History Statement/Question Response [...] virus, quadrivalent, preservative 5 completed [facility] Available [facility] 11[facility]2024 15:15:19 HPV9 0 completed [facility] [place] - [facility] 01/05/2020 16:54:05 HPV9 8 completed Not Available [facility] 07/26/2019 03:55:25 Influenza, split virus, quadrivalent, preservative 8 completed Not Available [facility] 07/26/2019 03:55:21 HPV9 9 completed Not Available [facility] 07/26/2019 03:55:34 Past Encounters Encounter ID Performer Location Encounter Start Date Encounter Closed Date Diagnosis/Indication Diagnosis SNOMED-CT Code Diagnosis ICD10 Code Diagnosis Note [id number] Key Jack APRN [address] [address] 11/25/2024 10:22:58 11/25/2024 11:35:56 Morbid obesity 023299580 E66.01 50.8 Ventriculo peritoneal shunt in situ 247742824 Z98.2 referralif symptoms worsen or no improvemen t go back to ed daja Right uppe r quadrant pain 186110508 R10.11 us- if symptoms worsen or no improvemen t return Ankle pain 440294475 M25 .571 M25.572 G89.29 pt does not want referral at this time Health Concerns Section Related Observation LastModified by Organization Detai ls LastModified Time None Recorded Concern Status LastModified by Organization Details LastModified Time None Recorded Payers Encounter Date Sequence Insurance Name Policy Number Policy Trejo Covered Member ID Trejo Member ID Guarantor Name 11/25/2024 1 [facility] [place] - [id number] Susan Art [id number] Susan Art Notes Date Note Type Note Provider Name and Address Organization Details Recorded Time 11/25/2024 text/html 24 yr old female presents for establishing care. pt presents for numerous co such as:BLEACH [employer]ER shunt- wants second opinion. was in last [...] then she has constant pain. Key Jack, [employer] [address], [place], [address], [place] - [facility] 11/25/2024 12:12:02 OBGyn Episode No OBEpisode recorded.
--- OUTSIDE RECORDS SUMMARY | 2025-01-19 13:33 | XMS_ITS | Encounter Summary ---
Author Organization [facility] Address [address] [place] [address] Care Team Providers Care Embosser Operator Name Role Phone KendrickAngelica corey JAYNA Primary Care Provider [phone] Source Comments This information has been disclosed [...] release of HIV test results or diagnoses. XLQ6598.24 Health Encounter Details Date Type Department Care Team (Late st Contact Info) Description 11/22/2024 Ophth [facility] at [address] [place] [address] Brendon Bush MD [address] [place] [address] Social History Tobacco Use Types [...] documented as of this encounter Care Teams Embosser Operator Relationship Specialty Start Date End Date Angelica Marks NP [address] [place] [address] PCP - General Nurse Practitioner 05/13/21 documented as of this encounter
--- OUTSIDE RECORDS SUMMARY | 2025-01-19 13:33 | XMS_ITS | Data Portability ---
Author Organization [facility] Address [address] [place] [address] Assessment Encounter Date Assessment Date Assessment LastModified [...] 87 [facility], [address], [address], [place], [address], 5 08:02:59 HbA1c (hemoglobi n A1c), blood 2024 025 [email or web address] 87 [facility], [address], [address], [place], [address], 5 08:02:59 lipid panel, serum 2024 025 [email or web address] 87 [facility], [address], [address], [place], [address], 5 08:02:59 cytology report, thin prep, smear or scraping, cervical or vaginal 2024 025 XIMENA [facility], [address], [place], [place], [address], 5 20:09:31 progestero ne, serum 2022 023 [facility], [address], [address], [place], [address], 3 08:25:28 dhea-sulfa te, serum 2022 023 [facility], [address], [place] [address], [place], [address], 3 03:06:44 17-hydroxy progestero ne, QN, serum 2022 023 [facility], [address], [place] [address], [place], [address], 3 03:06:48 testostero ne, free + total, serum 2022 023 [facility], [address], [place] [address], [place], [address], 3 03:06:43 HbA1c (hemoglobi n A1c), blood 2022 023 XIEMNA [facility], [address], [address], [place], [address], 3 03:06:44 insulin, serum 2022 023 [facility], [address], [address], [place], [address], 3 03:06:51 CBC w/ auto diff 2022 023 [facility], [address], [place] [address], [place], [address], 3 03:06:39 CMP, serum or plasma 2022 023 [facility], [address], [address], [place], [address], 3 03:06:40 lipid panel, serum 2022 023 [facility], [address], [address], [place], [address], 3 03:06:41 lh + FSH, serum 2022 023 [facility], [address], [place] [address], [place], [address], 3 03:06:42 estradiol, serum 2022 023 [facility], [address], [place] [address], [place], [address], 3 03:06:46 TSH, ultra-sens itive, serum 2022 023 [facility], [address], [place] [address], [place], [address], 3 03:06:45 varicella zoster virus IgG Ab, QN, IA, serum 2022 023 [facility], [address], [place] [address], [place], [address], 3 03:06:49 rubella IgG Ab, quant immunoassa y, serum or plasma 2022 023 [facility], [address], [place], [place], [address], 3 03:06:46 HBsAg (hepatitis B surface Ag), EIA, serum 2022 023 [facility], [address], [address], [place], [address], 3 03:06:51 hepatitis C Ab, signal-to- cutoff, serum or plasma 2022 023 [facility], [address], [address], [place], [address], 3 03:06:50 HIV 1 + 2, meaningful use set 2022 023 [facility], [address], [place] [address], [place], [address], 3 03:06:49 abo group + rh type, blood 2022 023 [facility], [address], [address], [place], [address], 3 03:06:42 RPR (rapid plasma reagin), serum 2022 023 [facility], [address], [address], [place], [address], 3 03:06:47 pap, IG + CT/NG + reflex HPV 2022 023 X[facility], [address], [address], [place], [address], 3 03:07:28 Referral maternal & medicine referral - pre-concep tion counseling 2024 025 [email or web address] 87 [facility], [address] [place], [address], 5 08:04:12 neurologic al surgeon referral - Jett Johnson- may need her records from and [facility] from resent er visit- having alot of symptoms 2024 025 [facility], [address], [address], [place], [address], 5 14:49:48 bariatric surgery referral 2022 023 [email or web address], [address] , [place], [address], 4 22:18:45 Procedures None recorded. Surgeries None recorded. Imaging US, gallbladde r 2024 025 [facility]), [address], [place], [address], 5 11:04:43 US, transvagin al 2022 023 [email or web address], [address] [place] [address] , [place], [address], 3 14:12:33 Medication Orders Voltaren Arthritis Pain 1 % topical gel 2024 025 [facility], [address], [address], [place], [address], 5 12:19:22 Vitamin 27 mg iron-0.8 mg tablet 2022 023 [facility], [address] [place] [address], [address], 5 10:42:49 Patient TargetsNo targets recorded. Patient Instructions Encounter Date Encounter Id Patient Instructions Last Modified By Organization Details Last Modified Time 08/02/2022 [id number] 22 yo here for infertility, PCOS Plan return for Day 3 estradiol/FSH and PCOS/pre-conceptio n labs on 08/04/22 Discussed BMI 52.6 and increased complication risks including miscarriage, stillbirth, pre-eclampsia, GDM. Also discussed morbid obesity and impact on ovulation with PCOS. She is interested in bariatric surgery. Referral placed. Return for pelvic US [email or web address] Not available 08/04/2022 19:10:44 08/04/2022 [id number] 22 yo here for f /u on [...] 21 progesterone Not available 08/05/2022 14:00:41 08/23/2022 [id number] -Discussed all l ab work ordered today, pt consents to all. 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 She would like to see [facility] for pre-conception counseling Discussed with patient [...] - severely obese Referring Physician: India Sutherland, MEDICAL OFFICE SCHEDULER, Encounter Date: 08/02/2022 Neurological Surgeon Referra l for Ventriculoperitoneal shunt in situ Jett Given- may need her records from and [facility] from resent er visit- having alot of symptoms Referring Physician: Key Jack, Family Medicine, Encounter Date: 11/25/2024 Maternal & Medicine Re ferral for Mass of body structure pre-conception counseling Referring Physician: India Sutherland, MEDICAL OFFICE SCHEDULER, Encounter Date: 11/27/2024 Results Created Date Observation Date Name Description Value Unit Range Abnormal Flag Note LastModifiedBy Organization Detail LastModifiedTime 08/04/19 23 08/05/2022 CBC WITH DIFFE RENTI AL/PL ATELE T WBC 6.6 x10e3 /uL 3.4-10 .8 Not Available [facility] ([facility]) [address] [place], [address], 08/14/2022 03:06:39 08/04/19 23 08/05/2022 CBC WITH DIFFE RENTI AL/PL ATELE T RBC 4.85 x10e6 /uL 3.77-5 .28 Not Available [facility] ([facility]) [address] [place], [address], 08/14/2022 03:06:39 08/04/19 23 08/05/2022 CBC WITH DIFFE RENTI AL/PL ATELE T hemoglobin 13.8 g/dL 11.1-1 5.9 Not Available [facility] ([facility]) [address] [place], [address], 08/14/2022 03:06:39 08/04/19 23 08/05/2022 CBC WITH DIFFE RENTI AL/PL ATELE T hematocrit 40.9 % 34.0-4 6.6 Not Available [facility] ([facility]) [address] [place], [address], 08/14/2022 03:06:39 08/04/19 23 08/05/2022 CBC WITH DIFFE RENTI AL/PL ATELE T MCV 84 fL 79-97 Not Available [facility] ([facility]) [address] [facility], [place], [address], 08/14/2022 03:06:39 08/04/19 23 08/05/2022 CBC WITH DIFFE RENTI AL/PL ATELE T MCH 28.5 pg 26.6-3 3.0 Not Available [facility] ([facility]) [address] [facility], [place], [address], 08/14/2022 03:06:39 08/04/19 23 08/05/2022 CBC WITH DIFFE RENTI AL/PL ATELE T MCHC 33.7 g/dL 31.5-3 5.7 Not Available [facility] ([facility]) [address] [facility], [place], [address], 08/14/2022 03:06:39 08/04/19 23 08/05/2022 CBC WITH DIFFE RENTI AL/PL ATELE T RDW 13.1 % 11.7-1 5.4 Not Available [facility] ([facility]) [address] [place], [address], 08/14/2022 03:06:39 08/04/19 23 08/05/2022 CBC WITH DIFFE RENTI AL/PL ATELE T platelets 272 x10e3 /uL 150-45 0 Not Available [facility] ([facility]) [address] [place], [address], 08/14/2022 03:06:39 08/04/19 23 08/05/2022 CBC WITH DIFFE RENTI AL/PL ATELE T neutrophils 59 % not estab. Not Available [facility] ([facility]) [address] [place], [address], 08/14/2022 03:06:39 08/04/19 23 08/05/2022 CBC WITH DIFFE RENTI AL/PL ATELE T lymphs 31 % not estab. Not Available [facility] ([facility]) [address] [place], [address], 08/14/2022 03:06:39 08/04/19 23 08/05/2022 CBC WITH DIFFE RENTI AL/PL ATELE T monocytes 7 % not estab. Not Available [facility] ([facility]) [address] [facility], [place], [address], 08/14/2022 03:06:39 08/04/19 23 08/05/2022 CBC WITH DIFFE RENTI AL/PL ATELE T eos 2 % not estab. Not Available [facility] ([facility]) [address] [facility], [place], [address], 08/14/2022 03:06:39 08/04/19 23 08/05/2022 CBC WITH DIFFE RENTI AL/PL ATELE T basos 1 % not estab. Not Available [facility] ([facility]) [address] [facility], [place], [address], 08/14/2022 03:06:39 08/04/19 23 08/05/2022 CBC WITH DIFFE RENTI AL/PL ATELE T immature cells PENSIONHOLDER INFORMATION CLERK Not Available [facility] ([facility]) [address] [place], [address], 08/14/2022 03:06:39 08/04/19 23 08/05/2022 CBC WITH DIFFE RENTI AL/PL ATELE T neutrophils (absolute) 3.9 x10e3 /uL 1.4-7. 0 Not Available [facility] ([facility]) [address] [place], [address], 08/14/2022 03:06:39 08/04/19 23 08/05/2022 CBC WITH DIFFE RENTI AL/PL ATELE T lymphs (absolute) 2.0 x10e3 /uL 0.7-3. 1 Not Available [facility] ([facility]) [address] [place], [address], 08/14/2022 03:06:39 08/04/19 23 08/05/2022 CBC WITH DIFFE RENTI AL/PL ATELE T monocytes(ab solute) 0.5 x10e3 /uL 0.1-0. 9 Not Available [facility] ([facility]) [address] [facility], [place], [address], 08/14/2022 03:06:39 08/04/19 23 08/05/2022 CBC WITH DIFFE RENTI AL/PL ATELE T eos (absolute) 0.1 x10e3 /uL 0.0-0. 4 Not Available [facility] ([facility]) [address] [facility], [place], [address], 08/14/2022 03:06:39 08/04/19 23 08/05/2022 CBC WITH DIFFE RENTI AL/PL ATELE T baso (absolute) 0.0 x10e3 /uL 0.0-0. 2 Not Available [facility] ([facility]) [address] [facility], [place], [address], 08/14/2022 03:06:39 08/04/19 23 08/05/2022 CBC WITH DIFFE RENTI AL/PL ATELE T immature granulocytes 0 % not estab. Not Available [facility] ([facility]) [address] [facility], [place], [address], 08/14/2022 03:06:39 08/04/19 23 08/05/2022 CBC WITH DIFFE RENTI AL/PL ATELE T immature grans (abs) 0.0 x10e3 /uL 0.0-0. 1 Not Available [facility] ([facility]) [address] [place], [address], 08/14/2022 03:06:39 08/04/19 23 08/05/2022 CBC WITH DIFFE RENTI AL/PL ATELE T NRBC PENSIONHOLDER INFORMATION CLERK Not Available [facility] ([facility]) [address] [facility], [place], [address], 08/14/2022 03:06:39 08/04/19 23 08/05/2022 CBC WITH DIFFE SAMEER AL/FERCHO Hauser hematology comments: PENSIONHOLDER INFORMATION CLERK Not Available [facility]) [address] [facility], [place], [address], 08/14/2022 03:06:39 08/04/19 23 08/05/2022 COMP. METAB OLIC PANEL (14) glucose 78 mg/dL 70-99 Not Available [facility] ([facility]) [address] [facility], [place], [address], 08/14/2022 03:06:40 08/04/19 23 08/05/2022 COMP. METAB OLIC PANEL (14) BUN 9 mg/dL 6-20 Not Available [facility] ([facility]) [address] [facility], [place], [address], 08/14/2022 03:06:40 08/04/19 23 08/05/2022 COMP. METAB OLIC PANEL (14) creatinine 0.84 mg/dL 0.57-1 .00 Not Available [facility] ([facility]) [address] [facility], [place], [address], 08/14/2022 03:06:40 08/04/19 23 08/05/2022 COMP. METAB OLIC PANEL (14) eGFR 99 mL/mi n/1.7 3 >59 Not Available [facility] ([facility]) [address] [facility], [place], [address], 08/14/2022 03:06:40 08/04/19 23 08/05/2022 COMP. METAB OLIC PANEL (14) BUN/creatini ne ratio 11 9-23 Not Available [facility] ([facility]) [address] [facility], [place], [address], 08/14/2022 03:06:40 08/04/19 23 08/05/2022 COMP. METAB OLIC PANEL (14) sodium 140 mmol/ L 134-14 4 Not Available [facility] ([facility]) [address] [facility] [place], [address], 08/14/2022 03:06:40 08/04/19 23 08/05/2022 COMP. METAB OLIC PANEL (14) potassium 4.5 mmol/ L 3.5-5. 2 Not Available [facility] ([facility]) [address] [facility] [place], [address], 08/14/2022 03:06:40 08/04/19 23 08/05/2022 COMP. METAB OLIC PANEL (14) chloride 103 mmol/ L 96-106 Not Available [facility] ([facility]) [address] [facility] [place], [address], 08/14/2022 03:06:40 08/04/19 23 08/05/2022 COMP. METAB OLIC PANEL (14) carbon dioxide, total 21 mmol/ L 20-29 Not Available [facility] ([facility]) [address] [facility] [place], [address], 08/14/2022 03:06:40 08/04/19 23 08/05/2022 COMP. METAB OLIC PANEL (14) calcium 10.0 mg/dL 8.7-10 .2 Not Available [facility] ([facility]) [address] [facility] [place], [address], 08/14/2022 03:06:40 08/04/19 23 08/05/2022 COMP. METAB OLIC PANEL (14) protein, total 8.1 g/dL 6.0-8. 5 Not Available [facility] ([facility]) [address] [facility] [place], [address], 08/14/2022 03:06:40 08/04/19 23 08/05/2022 COMP. METAB OLIC PANEL (14) albumin 5.1 g/dL 3.9-5. 0 above high normal Not Available [facility] ([facility]) [address] [place], [address], 08/14/2022 03:06:40 08/04/19 23 08/05/2022 COMP. METAB OLIC PANEL (14) globulin, total 3.0 g/dL 1.5-4. 5 Not Available [facility] ([facility]) [address] [place], [address], 08/14/2022 03:06:40 08/04/19 23 08/05/2022 COMP. METAB OLIC PANEL (14) A/G ratio 1.7 1.2-2. 2 Not Available [facility] ([facility]) [address] [place], [address], 08/14/2022 03:06:40 08/04/19 23 08/05/2022 COMP. METAB OLIC PANEL (14) bilirubin, total <0.2 mg/dL 0.0-1. 2 Not Available [facility] ([facility]) [address] [place], [address], 08/14/2022 03:06:40 08/04/19 23 08/05/2022 COMP. METAB OLIC PANEL (14) alkaline phosphatase 101 IU/L 44-121 Not Available [facility]) [address] [place], [address], 08/14/2022 03:06:40 08/04/19 23 08/05/2022 COMP. METAB OLIC PANEL (14) AST (SGOT) 17 IU/L 0-40 Not Available [facility] ([facility] [address] [facility] [place], [address], 08/14/2022 03:06:40 08/04/19 23 08/05/2022 COMP. METAB OLIC PANEL (14) ALT (SGPT) 17 IU/L 0-32 Not Available [facility] ([facility]) [address] [facility], [place], [address], 08/14/2022 03:06:40 08/04/19 23 08/05/2022 LIPID PANEL cholesterol, total 235 mg/dL 100-19 9 above high normal Not Available [facility] ([facility]) [address] [facility] [place], [address], 08/14/2022 03:06:41 08/04/19 23 08/05/2022 LIPID PANEL triglyceride s 139 mg/dL 0-149 Not Available [facility] [address] [facility] [place], [address], 08/14/2022 03:06:41 08/04/19 23 08/05/2022 LIPID PANEL HDL cholesterol 46 mg/dL >39 Not Available [facility]) [address] [place], [address], 08/14/2022 03:06:41 08/04/19 23 08/05/2022 LIPID PANEL VLDL cholesterol sarai 25 mg/dL 5-40 Not Available [facility] ([facility]) [address] [place], [address], 08/14/2022 03:06:41 08/04/19 23 08/05/2022 LIPID PANEL LDL chol calc ([facility]) 164 mg/dL 0-99 above high normal Not Available [facility] ([facility]) [address] [place], [address], 08/14/2022 03:06:41 08/04/19 23 08/05/2022 LIPID PANEL comment: PENSIONHOLDER INFORMATION CLERK Not Available [facility] ([facility]) [address] [place], [address], 08/14/2022 03:06:41 08/04/19 23 08/07/2022 ABO GROUP ING AND RHO(D ) TYPIN G ABO grouping O Not Available [facility] ([facility]) [address] [place], [address], 08/14/2022 03:06:42 08/04/19 23 08/07/2022 ABO GROUP ING AND RHO(D ) TYPIN G Rh factor Positi ve Pleas e note: Prior recor ds for this patie nt's ABO / Rh type are not avail able for addit ional verif icati on. Not Available [facility] ([facility]) [address] [place], [address], 08/14/2022 03:06:42 08/04/19 23 08/05/2022 FSH AND LH LH 10.0 mIU/m L Adult Femal e: Folli cular phase 2.4 - 12.6 Ovula tion phase 14.0 - 95.6 Lutea l phase 1.0 - 11.4 Postm enopa usal 7.7 - 58.5 Not Available [facility] ([facility]) [address] [place], [address], 08/14/2022 03:06:42 08/04/19 23 08/05/2022 FSH AND LH FSH 6.9 mIU/m L Adult Femal e: Folli cular phase 3.5 - 12.5 Ovula tion phase 4.7 - 21.5 Lutea l phase 1.7 - 7.7 Postm enopa usal 25.8 - 134.8 Not Available [facility] ([facility]) [address] [place], [address], 08/14/2022 03:06:42 08/04/19 23 08/05/2022 TESTO STERO NE,FR EE AND TOTAL testosterone 24 NG/dL 13-71 Not Available [facility] ([facility]) [address] [place], [address], 08/14/2022 03:06:43 08/04/19 23 08/10/2022 TESTO STERO NE,FR EE AND TOTAL free testosterone (direct) 2.0 pg/mL 0.0-4. 2 Not Available [facility] ([facility]) [address] [place], [address], 08/14/2022 03:06:43 08/04/1908/14/2022 DHEA- SULFA TE, SERUM [...] - 372 Not Available [facility] [address] [place] [address], [place], [address], 08/14/2022 03:06:44 08/04/19 23 08/05/2022 HEMOG LOBIN A1C hemoglobin A1C 5.3 % 4.8-5. 6 Predi abete s: 5.7 - 6.4 Diabe kristen: >6.4 Glyce abdoulaye contr ol for adult s with diabe kristen: <7.0 Not Available [facility] ([facility]) [address] [facility], [place], [address], 08/14/2022 03:06:44 08/04/1908/05/2022 TSH TSH 1.630 uIU/m L 0.450- 4.500 Not Available [facility] ([facility]) [address] [place], [address], 08/14/2022 03:06:45 08/04/19 23 08/05/2022 ESTRA DIOL estradiol 21.2 pg/mL Adult Femal e: Folli cular phase 12.5 - 166.0 Ovula tion phase 85.8 - 498.0 Lutea l phase 43.8 - 211.0 Postm enopa usal <6.0 - 54.7 Pregn miguel 1st trime ster 215.0 - >4300 .0 Amy ECLIA metho dolog y Not Available [facility] ([facility]) [address] [place], [address], 08/14/2022 03:06:46 08/04/19 23 08/05/2022 RUBEL LA ANTIB ODIES , IGG rubella antibodies, IgG 11.30 index immune >0.99 Non-i mmune <0.90 Equiv ocal 0.90 - 0.99 Immun e >0.99 Not Available [facility] ([facility]) [address] [facility], [place], [address], 08/14/2022 03:06:46 08/04/19 23 08/05/2022 RPR, RFX QN RPR/C ONFIR M TP RPR Non Reacti ve non reacti ve Not Available [facility] ([facility]) [address] [facility], [place], [address], 08/14/2022 03:06:47 08/04/19 23 08/11/2022 17-OH PROGE STERO NE LCMS 17-oh progesterone lcms 22 NG/dL Adult Femal e Folli cular 15 - 70 Lutea l 35 - 290 Not Available [facility] ([facility]) [address] [facility], [place], [address], 08/14/2022 03:06:48 08/04/1908/05/2022 HIV AB/P2 4 AG WITH REFLE X HIV Ab/P24 Ag screen Non Reacti ve non reacti ve HIV Negat willard HIV-1 /HIV- 2 antib odies and HIV-1 p24 antig en were NOT detec frank. There is no labor atory evide nce of HIV infec tion. Not Available [facility] ([facility]) [address] [facility], [place], [address], 08/14/2022 03:06:49 08/04/1908/05/2022 VARIC EDGAR- ZOSTE R [...] stage of disea se. Not Available [facility] ([facility]) [address] [facility], [place], [address], 08/14/2022 03:06:49 08/04/1908/05/2022 HCV ANTIB ANNELIESE hep C virus Ab <0.1 s/co_ ratio 0.0-0. 9 Negat willard: < 0.8 Indet ermin ate: 0.8 - 0.9 Posit willard: > 0.9 HCV antib anneliese alone does not diffe renti ate betwe en previ ous resol kay infec tion and activ e infec tion. The CDC and [facility] department nt clini sarai guide lines recom mend that a posit willard HCV antib anneliese resul t be follo wed up with an HCV RNA test to suppo rt the diagn osis of acute HCV infec tion. [facility] offer s Hepat itis C Virus (HCV) RNA, Diagn osis, JONAH (1739 16) and Hepat itis C Virus (HCV) Antib anneliese with refle x to Quant itati ve Real- time PCR (6640 50). Not Available [facility] ([facility]) [address] [facility], [place], [address], 08/14/2022 03:06:50 08/04/1908/05/2022 INSUL IN insulin 16.7 uIU/m L 2.6-24 .9 Not Available [facility] ([facility]) [address] [facility], [place], [address], 08/14/2022 03:06:51 08/04/1908/05/2022 HBSAG SCREE N HBsAg screen Negati ve negati ve Not Available [facility] ([facility]) [address] [facility], [place], [address], 08/14/2022 03:06:51 08/04/19 23 08/07/2022 IGP,C TNG,R FX APT HPV ALL PTH chlamydia, nuc. acid amp Negati ve negati ve Not Available [facility] ([facility]) [address] [place], [address], 08/15/2022 03:07:27 08/04/19 23 08/07/2022 IGP,C TNG,R FX APT HPV ALL PTH gonococcus, nuc. acid amp Negati ve negati ve Not Available [facility] ([facility]) [address] [place], [address], 08/15/2022 03:07:27 08/04/19 23 08/11/2022 IGP,C TNG,R FX APT HPV ALL PTH diagnosis: Commen t abnormal EPITH ELIAL CELL ABNOR MALIT Y. LOW GRADE SQUAM OUS INTRA EPITH ELIAL LESIO N (LSIL ). SPECI MEN REPRO CESSE D FOR INTER PRETA TION USING GLACI AL ACETI C ACID (GAA) . Not Available [facility] ([facility]) [address] [place], [address], 08/15/2022 03:07:27 08/04/19 23 08/11/2022 IGP,C TNG,R FX APT HPV ALL PTH recommendati on: Commen t abnormal Sugge st follo w up as clini rosa maria appro priat e. Not Available [facility] ([facility]) [address] [place], [address], 08/15/2022 03:07:27 08/04/19 23 08/11/2022 IGP,C TNG,R FX APT HPV ALL PTH specimen adequacy: Commen t Satis facto ry for evalu ation . Endoc ervic al and/o r squam ous metap lasti c cells (endo cervi sarai compo nent) are prese nt. Areas of parti ally obscu ring blood are prese nt. Not Available [facility] ([facility]) [address] [place], [address], 08/15/2022 03:07:27 08/04/19 23 08/11/2022 IGP,C TNG,R FX APT HPV ALL PTH clinician provided ICD10: Carmencita hauser E28.2 Z31.9 Z12.4 Not Available [facility] ([facility]) [address] [place], [address], 08/15/2022 03:07:27 08/04/19 23 08/11/2022 IGP,C TNG,R FX APT HPV ALL PTH performed by: Alexandrea Conte visor y Cytot greta hauser (ASCP ) Not Available [facility] ([facility]) [address] [place], [address], 08/15/2022 03:07:27 08/04/19 23 08/11/2022 IGP,C TNG,R FX APT HPV ALL PTH electronical ly signed by: Carmencita robles MD, Patho logis t Not Available [facility] ([facility]) [address] [place], [address], 08/15/2022 03:07:27 08/04/19 23 08/11/2022 IGP,C TNG,R FX APT HPV ALL PTH . . Not Available [facility] ([facility]) [address] [place], [address], 08/15/2022 03:07:27 08/04/19 23 08/11/2022 IGP,C TNG,R FX APT HPV ALL PTH pathologist provided ICD10: Carmencita hauser R87.6 12 Not Available [facility] ([facility]) [address] [place], [address], 08/15/2022 03:07:27 08/04/19 23 08/11/2022 IGP,C TNG,R [...] ts do occur . Not Available [facility] ([facility]) [address] [place], [address], 08/15/2022 03:07:27 08/04/19 23 08/11/2022 IGP,C TNG,R FX APT HPV ALL PTH test methodology: Commen t This liqui d based ThinP rep(R ) pap test was scree eliceo with the use of an image guide everardo douglas. Not Available [facility] ([facility]) [address] [place], [address], 08/15/2022 03:07:27 08/04/19 23 08/11/2022 IGP,C TNG,R FX APT HPV ALL PTH . Commen t See below for HPV testi ng resul ts. Not Available [facility] ([facility]) [address] [place], [address], 08/15/2022 03:07:27 08/04/19 23 08/14/2022 IGP,C TNG,R FX APT HPV ALL PTH HPV aptima Negati ve negati ve This nucle ic acid ampli ficat ion test detec ts fourt een high- risk HPV types (16,1 8,31, 33,35 ,39,4 5,51, 52,56 ,58,5 9,66, 68) witho ut diffe renti ation . Not Available [facility] ([facility]) [address] [place], [address], 08/15/2022 03:07:27 08/23/19 23 08/24/2022 PROGE STERO NE progesterone 0.8 NG/mL Folli cular phase 0.1 - 0.9 Lutea l phase 1.8 - 23.9 Ovula tion phase 0.1 - 12.0 Pregn ant First trime ster 11.0 - 44.3 Secon d trime ster 25.4 - 83.3 Third trime ster 58.7 - 214.0 Postm enopa usal 0.0 - 0.1 Not Available [facility] ([facility]) [address] [facility] [place] [facility], [place], [address], 08/24/2022 08:25:28 11/28/19 25 11/29/2024 IGP, APTIM A HPV, RFX 16/18 ,45 HPV aptima Negati ve negati ve This nucle ic acid ampli ficat ion test detec ts fourt een high- risk HPV types (16,1 8,31, 33,35 ,39,4 5,51, 52,56 ,58,5 9,66, 68) witho ut diffe renti ation . Not Available [facility] ([facility]) [address] [facility] [address] [place], [place], [address], 12/03/2024 20:09:30 11/28/1912/03/2024 IGP, APTIM A HPV, RFX 16/18 ,45 diagnosis: Commen t NEGAT WILLARD FOR INTRA EPITH ELIAL LESIO N OR FLORA VAZQUEZ . Not Available [facility] ([facility]) [address] [place], [address], 12/03/2024 20:09:30 11/28/1912/03/2024 IGP, APTIM A HPV, RFX 16/18 ,45 specimen adequacy: Commen t Satis facto ry for evalu ation . Endoc ervic al and/o r squam ous metap lasti c cells (endo cervi sarai compo nent) are prese nt. Not Available [facility] ([facility]) [address] [facility] [place], [place], [address], 12/03/2024 20:09:30 11/28/1912/03/2024 IGP, APTIM A HPV, RFX 16/18 ,45 clinician provided ICD10: Carmencita hauser Z12.4 E66.0 1 Not Available [facility] ([facility]) [address] [place], [address], 12/03/2024 20:09:30 11/28/19 25 12/03/2024 IGP, APTIM A HPV, RFX 16/18 ,45 performed by: Carmencita somers, Cytol ogist (ASCP ) Not Available [facility] ([facility]) [address] [place], [address], 12/03/2024 20:09:30 11/28/19 25 12/03/2024 IGP, APTIM A HPV, RFX 16/18 ,45 . . Not Available [facility] ([facility]) [address] [place], [address], 12/03/2024 20:09:30 11/28/19 25 12/03/2024 IGP, APTIM [...] ts do occur . Not Available [facility] ([facility]) [address] [facility] [place], [place], [address], 12/03/2024 20:09:30 11/28/19 25 12/03/2024 IGP, APTIM A HPV, RFX 16/18 ,45 test methodology: TNP The Thin Prep( R) Image r was unabl e to read this speci men. There fore a manua l revie w was perfo rmed. Not Available [facility] ([facility]) [address] [facility] [address] [place], [place], [address], 12/03/2024 20:09:30 11/28/1912/03/2024 IGP, APTIM A HPV, RFX 16/18 ,45 HPV genotype reflex Commen t Crite olesya not met, HPV Genot ype not perfo rmed. Not Available [facility] ([facility]) [address] [facility] [address] [place], [place], [address], 12/03/2024 20:09:30 08/04/19 23 08/06/2022 US, trans vagin al No observ ation record ed. [email or web address] [facility] [address] [place] [address] , [place], [address], 08/06/2022 12:19:39 08/04/19 US, trans vagin al No observ ation record ed. [email or web address] [facility] [address] [place] [address] , [place], [address], 08/05/2022 14:12:45 12/03/19 25 12/02/2024 US, shruthi sarah r No observ ation record ed. [facility] [address], [place], [address], 12/08/2024 09:33:31 12/13/19 25 12/12/2024 NM, hepat obili simona scan, w/pha rm No observ ation record ed. [facility] [address], [place], [address], 12/12/2024 13:48:40 01/13/20 25 01/12/2025 XR, foot, 3 or more view No observ ation record ed. [facility] [address], [place], [address], 01/16/2025 08:30:41 01/13/20 25 01/12/2025 XR, ankle , 3 or more view No observ ation record ed. [facility] [address], [place], [address], 01/16/2025 08:30:40 01/13/20 25 01/12/2025 XR, foot, 3 or more view No observ ation record ed. [facility] [address], [place], [address], 01/16/2025 08:30:39 01/13/20 25 01/12/2025 XR, ankle , 3 or more view No observ ation record ed. [facility] [address], [place], [address], 01/16/2025 08:30:38 Result Notes None recorded. Problems Name Problem SNOMED Code Status Onset Date Resolution Date Notes Provider Name and Address Organization Details Recorded Time Obesity 481527344 Active 2017 India Sutherland MD [address], [place], [address] , [place] [facility] 3 19:11:02 Irregular periods 48724994 Completed 201704/15/2018 Mattie Berman APRN [address], [place], [address] , [place] [facility] 8 08:27:45 Oligomenor mega 40727986 Completed 201708/04/2022 India Sutherland MD [address], [place], [address] , [place] [facility] 3 19:10:54 Female hirsutism 97432018 Active 2017 India Sutherland MD [address], [place], [address] , [place] [facility] 3 19:11:05 Hyperlipid emia 39533368 Active 2017 Mattie Bemran APRN [address], [place], [address] , [place] [facility] 8 13:42:09 Chlamydial infection 995152153 Completed 201902/27/2020 Keiry Aden null, [place] - [facility] 0 10:22:15 Polycystic ovary syndrome 093787874 Active 2019 India Sutherland MD [address], [place], [address] , [place] - [facility] 3 19:10:59 History of chlamydial infection 770963293 Active 2019 Keiry Aden null, [place] - [facility] 0 10:22:21 Infertile 0777148 Active 2022 India Sutherland MD [address], [place], [address] , [place] - [facility] 3 19:11:11 Trying to conceive 153559505 Active 2022 India Sutherland MD [address], [place], [address] , [place] - [facility] 3 19:11:18 Mass of body structure 737657195 Active 2024 India Sutherland MD [address], [place], [address] , [place] - [facility] 5 17:11:08 Problem Notes None recorded. Procedures Surgical History Date Name Laterality Status Provider Name and Address Organization Details Recorded Time 11/28/19 24 procedure on brain ventricular shunt completed Aide Carlin [place] - [facility] 11/27/2024 15:38:59 08/04/19 23 Date of Last Pap Smear completed India Sutherland MD [address], [place], [address], [place] [facility] 08/16/2022 08:34:46 09/18/19 20 [...] completed Not Available Not Available Not Available [place] DMT 30 mg-30 mg tablet 08/02 completed [...] kg/m2 165.1 cm India Sutherland MD [address], [place], [address], [place] [facility] 08/02/2022 15:53:34 Date Recorded Body weight Systolic And Diastolic Provider Name and Address Organization Details Last Updated DateTime 08/02/2022 992358.19 g 138/90 mm[Hg] Gema Zhang [place] - [facility] 08/02/2022 15:46:47 Date Recorded Body height Body mass index (BMI) Body weight Systolic And Diastolic Provider Name and Address Organization Details Last Updated DateTime 08/04/2022 165.1 cm 52.3 kg/m2 698083 g 130/88 mm[Hg] Gema Zhang MD - [facility] 08/04/2022 10:48:14 Date Recorded Body weight Heart rate Oxygen saturation Oxygen saturation in Arterial blood by Pulse oximetry Respiratory rate Body mass index (BMI) Body height Systolic And Diastolic Provider Name and Address Organization Details Last Updated DateTime 618063. 67 g 76 /min 99 % 99 % 18 /min 50.8 kg/m2 165.1 cm 110/78 mm[Hg] Gunjan Pérez MD - [facility] 10:47:44 Date Recorded Body height Body mass index (BMI) Body weight Systolic And Diastolic Provider Name and Address Organization Details Last Updated DateTime 11/27/2024 165.1 cm 50.4 kg/m2 049701.49 g 120/76 mm[Hg] Aide Carlin MD - [facility] 11/27/2024 15:41:42 Social History Question Answer Notes LastModified by Organizat ion Details LastModified Time Tobacco Smoking Status Never Smoker Keiry williamson [place] - [facility] 04/12/2018 16:15:29 Do You Have An Advance Directive? No [email or web address] Information not available 04/12/2018 Are You Blind Or Do You Have Difficulty Seeing? No [email or web address] Information not available 04/12/2018 Is Blood Transfusion Acceptable In An Emergency? Yes [email or web address] Information not available 04/12/2018 What Is Your Level Of Caffeine Consumption? Moderate [email or web address] Information not available 04/12/2018 How Much Tobacco Do You Chew? None [email or web address] Information not available 04/12/2018 Are You Deaf Or Do You Have Serious Difficulty Hearing? No [email or web address] Information not available 04/12/2018 What Type Of Diet Are You Following? REGULAR [email or web address] Information not available 04/12/2018 Which Illicit Or Recreational Drugs Have You Used? None [email or web address] Information not available 04/12/2018 What Is The Highest Grade Or Level Of School You Have Completed Or The Highest Degree You Have Received? [id number] Information not available 04/12/2018 How Many Days Of Moderate To Strenuous Exercise, Like A Brisk Walk, Did You Do In The Last 7 Days? 1 [email or web address] Information not available 04/12/2018 On Those Days That You Engage In Moderate To Strenuous Exercise, How Many Minutes, On Average, Do You Exercise? 1 [email or web address] Information not available 04/12/2018 How Hard Is It For You To Pay For The Very Basics Like Food, Housing, Medical Care, And Heating? 1 [email or web address] Information not available 04/12/2018 Live Alone Or With Others? With Others Parents [email or web address] Information not available 04/12/2018 Last Menstrual Period? 12/18/2019 [email or web address] Information not available 01/05/2020 What Was The Date Of Your Most Recent Tobacco Screening? 11/25/2024 Information not available 11/25/2024 How Many Children Do You Have? 1 Information not available 01/05/2020 Performs Monthly Self-breast Exam? No [email or web address] Information no t available 04/12/2018 Do You Use Protection During Sex? No [email or web address] Information not available 04/12/2018 What Is Your Relationship Status? Domestic Partner [email or web address] Information not available 11/27/2024 Seat Belts Used Routinely Yes Information not available 04/12/2018 Are You Sexually Active? Yes [email or web address] Information not available 04/12/2018 How Much Tobacco Do You Smoke? No [email or web address] Information not available 01/05/2020 General Stress Level Low [email or web address] Information not available 04/12/2018 Do You Use Sunscreen Routinely? No [email or web address] Information not available 04/12/2018 Has Tobacco Cessation Counseling Been Provided? No Information not available 11/25/2024 How Many Years Have You Smoked Tobacco? 0 [email or web address] Information not available 01/05/2020 Do You Have Difficulty Walking Or Climbing Stairs? No [email or web address] Information not available 04/12/2018 Sex: Female Functional Status Question Answer Note LastModified by Organizat ion Details LastModified Time What is your level of alcohol consumption? None [email or web address] Information not available 04/12/2018 Do you or have you ever used smokeless tobacco? Never used smokeless tobacco [email or web address] Information not available 01/05/2020 Are you currently employed? Yes Information not available 04/12/2018 Urinary incontinence assessment performed? Yes [email or web address] Information not available 04/12/2018 Are you able to walk? [email or web address] Information not available 04/12/2018 Do you have difficulty doing errands alone? No [email or web address] Information not available 04/12/2018 What is your occupation? unemployed [email or web address] Information not available 01/05/2020 Do you have difficulty dressing or bathing? No [email or web address] Information not available 04/12/2018 Do you or have you ever used e-cigarettes or vape? Never used electronic cigarettes Information not available 01/05/2020 What is your exercise level? None [email or web address] Information not available 04/12/2018 Mental Status Question Answer Note LastModified by Organization D etails LastModified Time Do you feel stressed (tense, restless, nervous, or anxious, or unable to sleep at night)? 1 [email or web address] Information not available 04/12/2018 Do you have difficulty concentrating, remembering or making decisions? No [email or web address] Information no t available 04/12/2018 Family History Relationship Description Onset Age of this Age Resolved Age Notes LastModified by Organization Details LastModified Time Father Diabetes mellitus [email or web address] Not available 04/12 16:14:40 Father Hypertensive disorder [email or web address] Not available 11/07 15:36:29 Maternal Grandfather Heart disease [email or web address] Not available 04/12 16:14:54 Maternal Grandfather Myocardial infarction [email or web address] Not available 11/2017 16:15:01 Maternal Grandmother Malignant tumor of breast [email or web address] Not available 2019 13:09:56 Sister Neoplasm of gallbladder [email or web address] Not available 15:36:14 Medical History Condition Response [...] colitis N Cerebrovascular Disease N Depression N Guillain-Axton N Sleep Apnea N Aneurysm N Heart [...] virus, quadrivalent, preservative 5 completed Not Available [facility] 11/27/2024 15:15:19 HPV9 0 completed [place] Pe[place] - [facility] 01/05/2020 16:54:05 HPV9 8 completed Not Available [facility] 07/26/2019 03:55:25 Influenza, split virus, quadrivalent, preservative 8 completed Not Available [facility] 07/26/2019 03:55:21 HPV9 9 completed Not Available [facility] 07/26/2019 03:55:34 Past Encounters Encounter ID Performer Location Encounter Start Date Encounter Closed Date Diagnosis/Indication Diagnosis SNOMED-CT Code Diagnosis ICD10 Code Diagnosis Note [id number] MG Juan MEDICAL OFFICE SCHEDULER [address] [facility] [place] [address] 04/12/2018 15:57:26 04/12/2018 16:45:57 Obesity 870388481 E66.9 Discussed with patient her BMI being above the advised range and diagnosis of obesity. Encourage regular physical activity and limited carbohydra te and fat, calorie controlled diet. Advised 6 month F/U with family physician to assess progress towards weight loss. Irregular periods 725345 07 N92.6 Amenorrhea 40009144 N91. 2 Discussed proceeding with bloodwork today. If hcg is negative, will proceed with OCPs. Female hirsutism 9162454 9 L68.0 Discussed natural history of hair growth cycle w/ hirsutism. [id number] MG Juan MEDICAL OFFICE SCHEDULER [address] [facility] [address] [place] , [place] [id number] 07/15/2018 15:16:58 07/15/2018 16:27:49 Routine gynecologic examination done 8547045945 9101 Z01.419 Depression screening 171 980745 Z13.89 PHQ-9 completed today. Diet education 30216434 Z71.3 Counseling 969561209 Z71 .82 Exercise counselclaudia mensah Patient encouraged to exercise 30 minutes 5 days a week. Examinatio n of blood pressure 033314793 Z01.30 Obesity 626330668 E66.9 Discussed with patient her BMI being above the advised range and diagnosis of obesity. Encourage regular physical activity and limited carbohydra te and fat, calorie controlled diet. Advised 6 month F/U with family physician to assess progress towards weight loss.Pt has decreased to 1 can of soda per day - and that is Sprite. Surveillan ce of oral contraception 407501022 Z30.41 Possible side effects/ri sks of OC's including thrombotic risk/HTN, MARIANO, N/V and breakthrou gh bleeding discussed; need for consistent daily use stressed; instructed to call for any acute symptoms prior to scheduled f/u Active or passive immunization 486435673 Z23 Reviewed HPV types and associated diseases (genital warts, cervical cell changes/dy splasia, and cancers of the cervix, vagina, vulva, and anus). Female hirsutism 0845333 9 L68.0 Discussed natural history of hair growth cycle w/ hirsutism. Heartburn 21733466 R12 The patient provides a history of [...] supine after meals. Screening for Chlamydia trachomatis 568532857 Z11.8 Z11.3 Discussed the various types of STDs, related symptoms and the potential consequenc es (including effects on fertility) of STD infections . Reviewed ways to limit exposure and prevention techniques . Physical examination 588 0005 Z02.5 Childhood obesity 953024 003 Z68.54 [id number] GM Juan MEDICAL OFFICE SCHEDULER [address] [facility] [place] [id number] 04/25/2018 08:43:22 04/25/2018 09:51:17 Oligomenorrhea 69276324 N91.5 Obesity 484005736 E66.9 Discussed with patient her BMI being above the advised range and diagnosis of obesity. Encourage regular physical activity and limited carbohydra te and fat, calorie controlled diet. Advised 6 month F/U with family physician to assess progress towards weight loss. Counseling 281013588 Z71 .82 Exercise counselclaudia michele. Patient encouraged to exercise 30 minutes 5 days a week. Examinatio n of blood pressure 736422721 Z01.30 Surveillan ce of oral contraception 139261847 Z30.41 Effectiven ess, correct use, advantages /disadvant ages, common side effects, serious complicati ons, contra-ind ications/p recautions and return to fertility were reviewed for the following: Combined oral contracept willard (pills/pat ch/ring). Active or passive immunization 661309532 Z23 Reviewed HPV types and associated diseases (genital warts, cervical cell changes/dy splasia, and cancers of the cervix, vagina, vulva, and anus). Influenza vaccine needed 3557889293 106 Z23 Patient presents for flu vaccinatio n today. No fever. No history of egg allergy. Administer ed as below. Female hirsutism 3946307 9 L68.0 Discussed natural history of hair growth cycle w/ hirsutism. Hyperlipid emia screening 825456800 Z13.880 [id number] MG Juan MEDICAL OFFICE SCHEDULER [address] [facility] [place] [id number] 01/05/2020 12:43:12 01/05/2020 14:10:47 Routine gynecologic examination done 2846502130 9101 Z01.419 Depression screening 171 253670 Z13.89 PHQ-9 completed today. Diet education 47291570 Z71.3 Counseling 603518367 Z71 .82 Exercise mirella mensah Patient encouraged to exercise 30 minutes 5 days a week. Examinatio n of blood pressure 217995063 Z01.30 Vaccine de clined by patient 0617598571 02 Z28.21 Pt declined flu vaccine today. Screening for malignant neoplasm of cervix 205266530 Z12.4 Patient advised that I will follow up with results. Female hirsutism 2083351 9 L68.0 Discussed natural history of hair growth cycle w/ hirsutism. States 50 mg of spironolac tone did not help much, will increase to 100 mg. Oligomenorrhea 93893946 N91.5 Start OCPs with negative UPT.Will call with labs.Discu ssed the possibilit y of PCOS dx and adding Metformin to her medication regimen. Obesity 197185203 E66.9 Discussed with patient her BMI being above the advised range and diagnosis of obesity. Encourage regular physical activity and limited carbohydra te and fat, calorie controlled diet. Advised 6 month F/U with family physician to assess progress towards weight loss.Pt has stopped drinking soda!! Body mass index 40+ - severely obese 080797486 Z68.43 Active or passive immunization 451600337 Z23 Reviewed HPV types and associated diseases (genital warts, cervical cell changes/dy splasia, and cancers of the cervix, vagina, vulva, and anus). Thyroid di sorder screening 008542495 Z13.29 Hyperlipid emia screening 440235346 Z13.220 Diabetes m ellitus screening 428038564 Z13.1 Acid reflux 068759814 K2 1.9 Encouraged to elevated head of bed [address] ay upright 30 minutes after eating.Toby id drinking large amounts of beverage with meals.Avoi d carbonated beverages. [id number] MD Torrie Paz MEDICAL OFFICE SCHEDULER [address] [place] [address] [place] [id number] 08/02/2022 15:22:25 08/02/2022 15:59:55 Trying to conceive 685933679 Z31.9 Female infertility 55889 08 N97.9 Polycystic ovary syndrome 901073886 E28.2 Body mass index 40+ - severely obese 335866680 Z68.43 [id number] MD Torrie Paz MEDICAL OFFICE SCHEDULER [address] [place] [address] [place] [id number] 08/04/2022 08:43:12 08/04/2022 11:16:27 Trying to conceive 255884071 Z31.9 Polycystic ovary syndrome 363700042 E28.2 Screening for malignant neoplasm of cervix 790171040 Z12.4 Body mass index 40+ - severely obese 326550119 Z68.43 [id number] MG Sinha MEDICAL OFFICE SCHEDULER [address] [place] [address] [place] [id number] 08/23/2022 09:21:12 08/23/2022 09:42:00 Trying to conceive 384636765 Z31.9 [id number] Key Jack APRN [address] [address] 11/25/2024 10:22:58 11/25/2024 11:35:56 Morbid obesity 362171216 E66.01 50.8 Ventriculo peritoneal shunt in situ 412176304 Z98.2 referralif symptoms worsen or no improvemen t go back to ed daja Right uppe r quadrant pain 187048776 R10.11 us- if symptoms worsen or no improvemen t return Ankle pain 715101948 M25 .571 M25.572 G89.29 pt does not want referral at this time [id number] MD Torrie Paz MEDICAL OFFICE SCHEDULER [address] [facility] [place] [id number] 11/27/2024 15:12:35 11/27/2024 16:31:18 Trying to conceive 530328029 Z31.9 Body mass index 40+ - severely obese 368886572 E66.01 Morbid obesity 573099134 E66.01 Cancer cer vix screening status 838950417 Z12.4 Mass of narendra dy structure 175413124 G93.2 Obesity 354287422 E66.9 Health Concerns Section Related Observation LastModified by Organization Detai ls LastModified Time None Recorded Concern Status LastModified by Organization Details LastModified Time None Recorded Advance Directives Directive N: Payers Insurance Date Sequence Insurance Name Policy Number Policy Trejo Covered Member ID Trejo Member ID Guarantor Name 12/08/2024 [place] [id number] Susan Art [id number] Susan Art 11/24/2024 1 [facility] [place] - DOS PRIOR TO 2022 (MEDICAID REPLACEMENT - HMO) [id number] Susan Art [id number] Susan Art 11/25/2024 2 [facility] [place] - DOS ON OR AFTER 2022 (MEDICAID REPLACEMENT - HMO) Susan Art [id number] Susan Art 12/08/2024 [place] [facility] [id number] Susan Art [id number] Susan Art 12/07/2024 1 [id number] Susan Art [id number] Susan Art 12/08/2024 [facility] [place] DOS ON [place] AFTER 2022 ([place]ICAID REPLACEMENT - HMO) Susan Art [id number] Susandara Art Notes Date Note Type Note Provider [...] shaves. India Sutherland MD [address], [place], [address], [place] - [facility] 08/04/2022 19:13:00 08/04/2022 text/html [...] shaves. India Sutherland MD [address], [place], [address], [place] [facility] 08/05/2022 14:01:02 08/23/2022 text/html Day 21 Progesterone Naomi Kirkpatrick, ADOPTION COORDINATOR [address], [place], [address], [place] [facility] 08/23/2022 09:50:49 11/25/2024 text/html 24 yr old female presents for establishing care. pt presents for numerous co such as:MACHINE TRY OUT SETTER shunt- wants second opinion. was in last [...] then she has constant pain. Key Jack, ADOPTION COORDINATOR [address], [place], [address], [place] [facility] 11/25/2024 12:12:02 11/27/2024 text/html Susan is here t o discuss trying to conceive. Her partner has had a vasectomy. She would prefer artificial insemination over vasectomy reversal. 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 Since then she has [...] cycles India Sutherland MD [address], [place], [address], [place] [facility] 11/30/2024 17:11:29 OBGyn Episode No OBEpisode recorded.
--- OUTSIDE RECORDS SUMMARY | 2025-01-19 13:33 | XMS_ITS | Continuity of Care Document ---
Author Organization [place] Roberto Carlos Steward P[facility] Address [address] [place] [address] Assessment Encounter Date Assessment Date Assessment LastModified by Organization Details LastModified Time 11/27/2024 11/27/2024 24 yo here to discuss TTC Not available 11/30/2024 17:08:58 Plan of Treatment Reminders Order Date Submit Date Provider Last Modified By Organization Details Last Modified Time Details Appointments None recorded. Lab TSH + free T4, serum 2024 025 [email or web address] 87 [facility], [address], [place], [place], [address], 08:02:59 HbA1c (hemoglobin A1c), blood 2024 025 [email or web address] 87 [facility], [address], [place], [place], [address], 5 08:02:59 lipid panel, serum 2024 025 [email or web address] 87 [facility], [address], [place], [place], [address], 5 08:02:59 cytology report, thin prep, smear or scraping, cervical or vaginal 2024 025 [email or web address] [facility], [address], [place], [place], [address], 5 20:09:31 Referral maternal & medicine referral - pre-concept ion counseling 2024 025 [email or web address] 87 [facility]aternal [facility], [address] [facility], [place], [address], 08:04:12 Procedures None recorded. Surgeries None recorded. Imaging None recorded. Medication Orders None recorded. Patient TargetsNo targets recorded. Patient Instructions Encounter Date Encounter Id Patient Instructions Last Modified By Organization Details Last Modified Time 11/27/2024 [id number] learning about healthy weight Not available 11/30/2024 [...] 16:02:43 Discussed with patient that given her ENGRAVER TIRE MOLD shunt and issues after, her morbid obesity, her risks are very very high. She would like to see [facility] for pre-conception counseling Discussed with patient [...] structure pre-conception counseling Referring Physician: India Sutherland, [facility], Encounter Date: 11/27/2024 Results Created Date Observation Date Name Description Value Unit Range Abnormal Flag Note LastModifiedBy Organization Detail LastModifiedTime 12/03/1912/02/2024 , shruthi thomas No observ ation record ed. [facility] [address], [place], [address], 12/08/2024 09:33:31 12/13/19 25 12/12/2024 NM, hepat obili simona scan, w/pha rm No observ ation record ed. [facility] [address], [place], [address], 12/12/2024 13:48:40 01/13/20 25 01/12/2025 XR, foot, 3 or more view No observ ation record ed. [facility] [address], [place], [address], 01/16/2025 08:30:41 01/13/20 25 01/12/2025 XR, ankle , 3 or more view No observ ation record ed. [place] [address], [place], [address], 01/16/2025 08:30:40 01/13/20 25 01/12/2025 XR, foot, 3 or more view No observ ation record ed. [facility] [address], [place], [address], 01/16/2025 08:30:39 01/13/20 25 01/12/2025 XR, ankle , 3 or more view No observ ation record ed. [facility] [address], [place], [address], 01/16/2025 08:30:38 Result Notes None recorded. Problems Name Problem SNOMED Code Status Onset Date Resolution Date Notes Provider Name and Address Organization Details Recorded Time Obesity 261275860 Active 2017 India Sutherland MD [address], [place], [address] , [facility] - [facility] 19:11:02 Irregular periods 99674938 Completed 201704/15/2018 Mattie Berman APRN [address], [place], [address] , [place] - [facility] 8 08:27:45 Oligomenor mega 54574592 Completed 201708/04/2022 India Sutherland MD [address], [place], [address] , [place] - [facility] 3 19:10:54 Female hirsutism 37582478 Active 2017 India Sutherland MD [address], [place], [address] , [place] - [facility] 3 19:11:05 Hyperlipid emia 73059546 Active 2017 Mattie Berman, [employer]IC [address], [place], [address] , [place] - [facility] 8 13:42:09 Chlamydial infection 296400840 Completed 201902/27/2020 Keiry williamson, [place] - [facility] 0 10:22:15 Polycystic ovary syndrome 596506600 Active 2019 India Sutherland MD [address], [place], [address] , [place] - [facility] 3 19:10:59 History of chlamydial infection 233623160 Active 2019 Keiry williamson, [place] - [facility] 0 10:22:21 Infertile 1619667 Active 2022 India Sutherland MD [address], [place], [address] , [place] - [facility] 3 19:11:11 Trying to conceive 127690413 Active 2022 India Sutherland MD [address], [place], [address] , [place] - [facility] 3 19:11:18 Mass of body structure 129641147 Active 2024 India Sutherland MD [address], [place], [address] , [place] - [facility] 5 17:11:08 Problem Notes None recorded. Procedures Surgical History Date Name Laterality Status Provider Name and Address Organization Details Recorded Time 11/28/19 procedure on brain ventricular shunt completed Aide Carlin [place] - [facility] 11/27/2024 15:38:59 08/04/19 23 Date of Last Pap Smear completed India Sutherland MD [address], [place], [address], [place] - [facility] 08/16/2022 08:34:46 09/18/19 20 procedure on ankle completed Aide Dixon [place] - [facility] 01/05/2020 13:08:07 07/09/19 17 Tonsillectomy completed Keiryhuma Aden [place] - [facility] 04/12/2018 16:17:36 Imaging [...] completed Not Available Not Available Not Available [place] DMT 30 mg-30 mg tablet 08/02 completed [...] Updated DateTime 11/27/2024 165.1 cm 50.4 kg/m2 641337.49 g 120/76 mm[Hg] Aidealejandro Carlin [place] - [facility] 11/27/2024 15:41:42 Social History Question Answer Notes LastModified by Organizat ion Details LastModified Time Tobacco Smoking Status Never Smoker Keiry williamson, [place] - [facility] 04/12/2018 16:15:29 Do You Have An Advance Directive? No Information not available 04/12/2018 Are You Blind Or Do You Have Difficulty Seeing? No [email or web address] Information not available 04/12/2018 Is Blood Transfusion Acceptable In An Emergency? Yes [email or web address] Information not available 04/12/2018 What Is Your Level Of Caffeine Consumption? Moderate [email or web address] Information not available 04/12/2018 How Much Tobacco Do You Chew? None [email or web address] Information not available 04/12/2018 Are You Deaf Or Do You Have Serious Difficulty Hearing? No [email or web address] Information not available 04/12/2018 What Type Of Diet Are You Following? REGULAR [email or web address] Information not available 04/12/2018 Which Illicit Or Recreational Drugs Have You Used? None [email or web address] Information not available 04/12/2018 What Is The Highest Grade Or Level Of School You Have Completed Or The Highest Degree You Have Received? [id number] [email or web address] Information not available 04/12/2018 How Many Days Of Moderate To Strenuous Exercise, Like A Brisk Walk, Did You Do In The Last 7 Days? 1 [email or web address] Information not available 04/12/2018 On Those Days That You Engage In Moderate To Strenuous Exercise, How Many Minutes, On Average, Do You Exercise? 1 [email or web address] Information not available 04/12/2018 How Hard Is It For You To Pay For The Very Basics Like Food, Housing, Medical Care, And Heating? 1 [email or web address] Information not available 04/12/2018 Live Alone Or With Others? With Others Parents [email or web address] Information not available 04/12/2018 Last Menstrual Period? 12/18/2019 Information not available 01/05/2020 What Was The Date Of Your Most Recent Tobacco Screening? 11/25/2024 Information not available 11/25/2024 How Many Children Do You Have? 1 [email or web address] Information not available 01/05/2020 Performs Monthly Self-breast Exam? No [email or web address] Information no t available 04/12/2018 Do You Use Protection During Sex? No [email or web address] Information not available 04/12/2018 What Is Your Relationship Status? Domestic Partner [email or web address] Information not available 11/27/2024 Seat Belts Used Routinely Yes Information not available 04/12/2018 Are You Sexually Active? Yes [email or web address] Information not available 04/12/2018 How Much Tobacco Do You Smoke? No Information not available 01/05/2020 General Stress Level Low [email or web address] Information not available 04/12/2018 Do You Use Sunscreen Routinely? No Information not available 04/12/2018 Has Tobacco Cessation Counseling Been Provided? No Information not available 11/25/2024 How Many Years Have You Smoked Tobacco? 0 [email or web address] Information not available 01/05/2020 Do You Have Difficulty Walking Or Climbing Stairs? No [email or web address] Information not available 04/12/2018 Sex: Female Functional Status Question Answer Note LastModified by Organizat ion Details LastModified Time What is your level of alcohol consumption? None [email or web address] Information not available 04/12/2018 Do you or have you ever used smokeless tobacco? Never used smokeless tobacco Information not available 01/05/2020 Are you currently employed? Yes Information not available 04/12/2018 Urinary incontinence assessment performed? Yes [email or web address] Information not available 04/12/2018 Are you able to walk? YESWOREST [email or web address] Information not available 04/12/2018 Do you have difficulty doing errands alone? No [email or web address] Information not available 04/12/2018 What is your occupation? unemployed [email or web address] Information not available 01/05/2020 Do you have difficulty dressing or bathing? No [email or web address] Information not available 04/12/2018 Do you or have you ever used e-cigarettes or vape? Never used electronic cigarettes Information not available 01/05/2020 What is your exercise level? None [email or web address] Information not available 04/12/2018 Mental Status Question Answer Note LastModified by Organization D etails LastModified Time Do you feel stressed (tense, restless, nervous, or anxious, or unable to sleep at night)? 1 [email or web address] Information not available 04/12/2018 Do you have difficulty concentrating, remembering or making decisions? No [email or web address] Information no t available 04/12/2018 Family History Relationship Description Onset Age of this Age Resolved Age Notes LastModified by Organization Details LastModified Time Father Diabetes mellitus [email or web address] Not available 04/12 16:14:40 Father Hypertensive disorder [email or web address] Not available 11/07 15:36:29 Maternal Grandfather Heart disease [email or web address] Not available 04/12 16:14:54 Maternal Grandfather Myocardial infarction [email or web address] Not available 11/2017 16:15:01 Maternal Grandmother Malignant tumor of breast [email or web address] Not available 2019 13:09:56 Sister Neoplasm of gallbladder [email or web address] Not available 15:36:14 Medical History Condition Response [...] colitis N Cerebrovascular Disease N Depression N Guillain-Thomson N Sleep Apnea N Aneurysm N Bronchitis [...] virus, quadrivalent, preservative 5 completed Not Available [facility] 11/27/2024 15:15:19 HPV9 0 completed [place] - [facility] 01/05/2020 16:54:05 HPV9 8 completed Not Available [facility] 07/26/2019 03:55:25 Influenza, split virus, quadrivalent, preservative 8 completed Not Available [facility] 07/26/2019 03:55:21 HPV9 9 completed Not Available [facility] 07/26/2019 03:55:34 Past Encounters Encounter ID Performer Location Encounter Start Date Encounter Closed Date Diagnosis/Indication Diagnosis SNOMED-CT Code Diagnosis ICD10 Code Diagnosis Note [id number] Key Jack APRN [address] [address] 11/25/2024 10:22:58 11/25/2024 11:35:56 Morbid obesity 672138547 E66.01 50.8 Ventriculo peritoneal shunt in situ 316723120 Z98.2 referralif symptoms worsen or no improvemen t go back to ed daja Right uppe r quadrant pain 607604853 R10.11 us- if symptoms worsen or no improvemen t return Ankle pain 329173039 M25 .571 M25.572 G89.29 pt does not want referral at this time [id number] MD Torrie Paz [facility] [address] [place] [address] [place] [address] 11/27/2024 15:12:35 11/27/2024 16:31:18 Trying to conceive 984870772 Z31.9 Body mass index 40+ - severely obese 194630656 E66.01 Morbid obesity 875977085 E66.01 Cancer cer vix screening status 791148267 Z12.4 Mass of narendra dy structure 712752203 G93.2 Obesity 572503792 E66.9 Health Concerns Section Related Observation LastModified by Organization Detai ls LastModified Time None Recorded Concern Status LastModified by Organization Details LastModified Time None Recorded Payers Encounter Date Sequence Insurance Name Policy Number Policy Trejo Covered Member ID Trejo Member ID Guarantor Name 11/27/2024 1 [facility] ([id number] Susan Art [id number] Susan Art Notes Date Note Type Note Provider Name and Address Organization Details Recorded Time 11/27/2024 text/html Susan is here t o discuss trying to conceive. Her partner has had a vasectomy. She would prefer artificial insemination over vasectomy reversal. 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 Since then she has [...] regular monthly cycles India Sutherland MD [address], [place], [address], [place] - [facility] 11/30/2024 17:11:29 OBGyn Episode No OBEpisode recorded.
--- OUTSIDE RECORDS SUMMARY | 2025-01-19 13:34 | XMS_ITS | Encounter Summary ---
Author Organization [facility] Address [facility] [place] [address] Care Team Providers Care Strategic Solutions Consultant Name Role Phone Kendrick Angelica DORANTES Primary Care Provider [phone] Source Comments This information has been disclosed [...] release of HIV test results or diagnoses. YOF8817.24 Health Encounter Details Date Type Department Care Team (Late st Contact Info) Description 11/27/2024 Telephone [facility] Ophthalmology at [address] [place] [address] Team, Ophthalmology Social History Tobacco [...] documented as of this encounter Care Teams Strategic Solutions Consultant Relationship Specialty Start Date End Date Angelica Marks NP [address] [place] [address] PCP - General Nurse Practitioner 05/13/21 documented as of this encounter
--- OUTSIDE RECORDS SUMMARY | 2025-01-19 13:34 | XMS_ITS | Clinical Summary ---
Author Organization [facility] Address [address] [place] [address] Care Team Providers Care Vegetable Inspector Name Role Phone Kendrick, Angelica DORANTES Primary Care Provider Source Comments [...] therelease of HIV test results or diagnoses. XYG1029.243[facility] Allergies No known active allergies Medications topiramate (TOPAMAX) 50 MG tablet 2 po qAM and 3 po PM 150 tablet 12 4 Active spironolactone (ALDACTONE) 50 MG tablet Take 3 tablets (150 mg total) by mouth daily. 90 tablet 12 4 Active naloxone (NARCAN) 4 mg/actuation [place] Apply 1 spray in one nostril [...] 2 times a day. 30 tablet Active Hospital, Clinic, or Other Facility Administered Medication Ordered Dose Route Frequency Start Date End Date Status phenylephrine (MYDFRIN) 2.5 % ophthalmic solution 1 dropIndications:IIH (idiopathic intracranial hypertension) 1 drop Both Eyes Use as directed 01/18/2025 Active proparacaine (ALCAINE) 0.5 % ophthalmic solution 1 dropIndications:IIH (idiopathic intracranial hypertension) 1 drop Both Eyes Use as directed 01/18/2025 Active tropicamide (MYDRIACYL) 1 % ophthalmic solution 1 dropIndications:IIH (idiopathic intracranial hypertension) 1 drop Both Eyes Use as directed 01/18/2025 Active Active Problems Problem Noted Date Diagnosed Date Morbid obesity with BMI of 50.0-59.9, adult 09/06 Abnormal weight gain 09/20/2022 Encounters Date Type Department Care Team Description 12/12/2024 2:49 PM EDT - 12/12/2024 11:59 PM EDT Hospital Encounter [facility] Radiology [address] [place] [address] System, Provider Not In Discharge Disposition: Home or Self Care WITHOUT Home Care Services 12/12/2024 2:49 PM EDT - 12/12/2024 11:59 PM EDT Hospital Encounter [facility] Radiology [address] [place] [address] System, Provider Not In Discharge Disposition: Home or Self Care WITHOUT Home Care Services 12/12/2024 2:49 PM EDT - 12/12/2024 11:59 PM EDT Hospital Encounter [facility] Radiology [address] [place] [address] System, Provider Not In Discharge Disposition: Home or Self Care WITHOUT Home Care Services 12/12/2024 2:49 PM EDT - 12/12/2024 11:59 PM EDT Hospital Encounter [facility] Radiology [address] [place] [address] System, Provider Not In Discharge Disposition: Home or Self Care WITHOUT Home Care Services 12/12/2024 2:49 PM EDT - 12/12/2024 11:59 PM EDT Hospital Encounter [facility] Radiology [address] [place] [address] System, Provider Not In Discharge Disposition: Home or Self Care WITHOUT Home Care Services 12/12/2024 2:49 PM EDT - 12/12/2024 11:59 PM EDT Hospital Encounter [facility] Radiology [address] [place] [address] System, Provider Not In Discharge Disposition: Home or Self Care WITHOUT Home Care Services 12/12/2024 2:49 PM EDT - 12/12/2024 11:59 PM EDT Hospital Encounter [facility] Radiology [address] [place] [address] System, Provider Not In Discharge Disposition: Home or Self Care WITHOUT Home Care Services 11/27/2024 Telephone [facility] Ophthalmology at [address] [address] Team, Ophthalmology 11/22/2024 4:46 AM EDT - 11/22/2024 10:02 AM EDT Emergency [facility] Emergency Department [address] [place] [address] Ravin Reyes MD Right flank pain (Primary Dx); Blurred vision Discharge Disposition: ED Dismiss - Left Before Treatment 11/22/2024 Ophth Exam [facility] Ophthalmology at [address] [address] Brendon Bush MD from Last 3 Months [...] Comments Diabetes Screening 1998 Hepatitis C Screening ([place]) 1998 HIV Screening 2016 Cervical Cancer Screening/Pap Smear ([place]) 2019 Immunization: DTaP/Tdap/Td (7 - Td or Tdap) 02/14/2021 02/14/2011, 10/23/2003, 09/26/2002, Additional history exists Immunization: COVID-19 () 03/09/2024 12/21/2020, 11/30/2020 Immunization: Influenza ([place]) (#1) 2025 04/25/2018, 04/28/2015, 05/15/2012 Depression Screening 08/11/2025 08/11/2024, 12/21/19 Immunization: Hepatitis B Completed 2001, 08/25/1999, 1998 Immunization: Meningococcal ACWY Completed 03/01/2016 Immunization: HPV Completed 01/05/2020, , 04/25/2018 Immunization: Pneumococcal Aged Out N o longer eligible based on patient's age to complete this topic Medical Devices Implanted Type Area Pricing Consultant Device Identifier Shelf Expiration Date Model / Serial / Lot Mk Antibiotic -Impregnated Catheter Kit - Ventricular Catheteter, 23cm And Peritoneal Catheter, 120cm Implanted:Qty: 1 on 03/12/2024 by Michaela Alonzo MD at [facility] Main CatheterImp Right: Abdomen 06/13/2025 [id number] / / [id number] Valve Shnt Strata 2in Full Port Reg - [id number] Implanted:Qty: 1 on 03/12/2024 by Michaela Alonzo MD at [facility] Main Shunt Right: Brain [employer] 11/24/2026 [id number] / / [id number] Procedures Procedure Name Priority Date/Time Associated [...] shunt failure Check position and configuration of BALANCE WEIGHER shunt catheter. COMPARISON: 08/08/2024 FINDINGS: There is [...] shunt failure Check position and configuration of BALANCE WEIGHER shuntcatheter. COMPARISON: 08/08/2024 FINDINGS: There is a [...] EDT Fe Morse MD IMG DIAGNOSTIC IMAGING [facility] Final Result from Last 3 Months Insurance [place] [id number] [facility] MANAGED MEDICAID Advance Directives For more information, please contact: [phone] * Full Code (Latest Code Status on File) Date Activated Date Inactivated Comments 03/12/2024 1:39 PM 03/12/2024 11:28 PM Care Teams Vegetable Inspector Relationship Specialty Start Date End Date Angelica Marks NP [address] [place] [address] PCP - General Nurse Practitioner 05/13/21
== END 2025-01-19 23:59 | disposition home or self-care (01) ==
LOC: RT 13:25
PROVIDERS: PCP Nurse Practitioner Family; Visit Provider Podiatrist
DX: M79.604 Pain in right leg (principal); M79.605 Pain in left leg; I73.9 Peripheral vascular disease, unspecified; R09.89 Other specified symptoms and signs involving the circulatory and respiratory systems
CPT/HCPCS: 93923

== ENCOUNTER 2025-04-30 14:46 | Outpatient (CLI) | payer OTHER, SELFPAY ==
--- NOTE | 2025-04-30 14:49 | XR_ITS ---
FINAL REPORT CLINICAL HISTORY: KNEE PAIN, R/O BAKERS CYST FINDINGS: LEFT KNEE Three views were obtained. There is no fracture or dislocation. The joint spaces appear normal. No soft tissue abnormality is identified. IMPRESSION: No acute process. Ultrasound would be the chest of choice to confirm or exclude the presence of Chauhan's cyst. Reviewed, Interpreted and Dictated by Oswald Lovelace MD Transcribed by Gaby Simon Authenticated and [facility]
--- OUTSIDE RECORDS SUMMARY | 2025-04-30 15:12 | XMS_ITS | Encounter Summary ---
Author Organization [facility] Address [address] [place] [address] Care Team Providers Care Medical Advisor Name Role Phone KendrickAngelica corey JAYNA Primary Care Provider [phone] Source Comments This information has been disclosed [...] release of HIV test results or diagnoses. HYH2463.24 Health Encounter Details Date Type Department Care Team (Late st Contact Info) Description 11/22/2024 Ophth Exam [facility] Ophthalmology at [address] [place] [address] Brendon Bush MD [address] [place] [address] Social History Tobacco Use Types [...] documented as of this encounter Care Teams Medical Advisor Relationship Specialty Start Date End Date Angelica Marks NP [address] [place] [address] PCP - General Nurse Practitioner 05/13/21 documented as of this encounter
--- OUTSIDE RECORDS SUMMARY | 2025-04-30 15:12 | XMS_ITS | Clinical Summary ---
Author Organization [facility] [place] Address [address] [place] [id number] Care Team Providers Care Daub Color Mixer Name Role Phone Kendrick, Angelica DORANTES Primary Care Provider [phone] Source Comments This information has been disclosed [...] therelease of HIV test results or diagnoses. [id number] Allergies No known active allergies Medications topiramate (TOPAMAX) 50 MG tablet 2 po qAM and 3 po PM 150 tablet 12 4 Active spironolactone (ALDACTONE) 50 MG tablet Take 3 tablets (150 mg total) by mouth daily. 90 tablet 12 4 Active naloxone (NARCAN) 4 mg/actuation Delton Apply 1 spray in one nostril if [...] 50.0-59.9, adult 09/06 Abnormal weight gain 09/20/2022 Family History Medical History Relation Comments Asthma [...] 08/11 Assistance needed for: Not on file Yearly Questionnaire Answer Date Record ed Do you need any assistance w ith obtaining housing, meals, medication, transportation or medical equipment? No 08/11 Assistance needed for: Not on file Yearly Questionnaire Answer Date Record ed Do you need any assistance w ith obtaining housing, meals, medication, transportation or medical equipment? No 08/11 Assistance needed for: Not on file Comments No Sex and Gender Information Value [...] Comments Diabetes Screening 1998 Hepatitis C Screening ([employer]) 1998 HIV Screening 2016 Cervical Cancer Screening/Pap Smear ([employer]) 2019 Immunization: DTaP/Tdap/Td (7 - Td or Tdap) 02/14/2021 02/14/2011, 10/23/2003, 09/26/2002, Additional history exists Immunization: COVID-19 ( season) 2025 12/21/2020, 11/30/2020 Immunization: Influenza (MyChart) (#1) 2025 04/25/2018, 04/28/2015, 05/15/2012 Depression Screening 08/11/2025 08/11/2024, 12/21/19 Immunization: Hepatitis B Completed 2001, 08/25/1999, 1998 Immunization: Pneumococcal Aged Out N o longer eligible based on patient's age to complete this topic Medical Devices Implanted Type Area Coil Cleaner Device Identifier Shelf Expiration Date Model / Serial / Lot [id number] Antibiotic -Impregnated Catheter Kit - Ventricular Catheteter, 23cm And Peritoneal Catheter, 120cm Implanted:Qty: 1 on 03/12/2024 by Michaela Alonzo MD at [facility] Main CatheterImp Right: Abdomen 06/13/2025 [id number] / / [id number] Valve Shnt Strata 2in Full Port Reg - [id number] Implanted:Qty: 1 on 03/12/2024 by Michaela Alonzo MD at [facility] Main Shunt Right: Brain [employer] 11/24/2026 [id number] / / [id number] Insurance [facility] MANAGED MEDICAID Advance Directives For more information, please contact: [phone] * Full Code (Latest Code Status on File) Date Activated Date Inactivated Comments 03/12/2024 1:39 PM 03/12/2024 11:28 PM Care Teams Da[employer] Color Mixer Relationship Specialty Start Date End Date Angelica Marks NP [address] [place] [address] PCP - General Nurse Practitioner 05/13/21
== END 2025-04-30 23:59 | disposition home or self-care (01) ==
LOC: RAD 14:47
PROVIDERS: PCP Nurse Practitioner Family; Visit Provider Nurse Practitioner Family
DX: M25.562 Pain in left knee (principal)
CPT/HCPCS: 73562